=== PATIENT | male | born 1955 | race Caucasian/White ===

== ENCOUNTER 2023-03-12 16:26 | Outpatient (CLI) | payer MEDICARE, SELFPAY | END 2023-03-12 16:27 | disposition home or self-care (01) | PROVIDERS: PCP Internal Medicine; Visit Provider Internal Medicine | DX: I48.0 Paroxysmal atrial fibrillation (principal); Z79.01 Long term (current) use of anticoagulants; I35.0 Nonrheumatic aortic (valve) stenosis; G47.33 Obstructive sleep apnea (adult) (pediatric); I10 Essential (primary) hypertension; E11.9 Type 2 diabetes mellitus without complications; E66.9 Obesity, unspecified; Z99.89 Dependence on other enabling machines and devices; Z13.29 Encounter for screening for other suspected endocrine disorder; Z13.6 Encounter for screening for cardiovascular disorders | CPT/HCPCS: 80053; 80061; 84443 ==

== ENCOUNTER 2024-03-17 14:31 | Outpatient (CLI) | payer MEDICARE, SELFPAY ==
--- OUTSIDE RECORDS SUMMARY | 2024-03-17 14:35 | XMS_ITS | Encounter Summary ---
Author Name Unknown Organization [facility] Address [address] [place] [address] Care Team Providers Care Pricing Intern Name Role Phone No Primary/Referring, Phy Primary Care Provider Unavailable Encounter Details Date Type Department Care Team (Late st Contact Info) Description 10/29/2019 Correspondence [facility] [address] [place], [place] [phone] Irais Jones, OD [address] [place], [place] [phone] [place] DRIVERS WAIVER EYE EXAM Social History Tobacco Use Types Packs/Day Years Used Date Smoking Tobacco: Never Smokeless Tobacco: Never Alcohol Use Standard Drinks/Week Comments No 0 (1 standard drink = 0.6 oz pur e alcohol) Sex and Gender Information Value Date Recorded Sex Assigned at Not on file Gender Identity Not on file Sexual Orientation Not on file documented as of this encounter Plan of Treatment Not on file documented as of this encounter Visit Diagnoses Not on filedocumented in this encounter Care Teams Pricing Intern Relationship Specialty Start Date End Date No Primary/Referring, Maddy PCP - General 10/21/18 documented as of this encounter
--- OUTSIDE RECORDS SUMMARY | 2024-03-17 14:35 | XMS_ITS | Encounter Summary ---
Author Name Unknown Organization [facility] Address [address] [place] [address] Care Team Providers Care E/M Engineer Name Role Phone No Primary/Referring, Phy Primary Care Provider Unavailable Encounter Details Date Type Department Care Team (Late st Contact Info) Description 11/09/2018 Correspondence External to External, [place] [address] INSULIN-TREATED DIABETES MELLITUS ASSESSMENT FORM Social History Tobacco Use Types Packs/Day Years [...] on filedocumented in this encounter Care Teams E/M Engineer Relationship Specialty Start Date End Date No Primary/Referring, Maddy PCP - General 10/21/18 documented as of this encounter
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
--- OUTSIDE RECORDS SUMMARY | 2024-03-17 14:35 | XMS_ITS | Encounter Summary ---
Author Name Unknown Organization [facility] Address [address] [place] [address] Care Team Providers Care Boiling House Hand Name Role Phone No Primary/Referring, Phy Primary Care Provider Unavailable Encounter Details Date Type Department Care Team (Late st Contact Info) Description 07/15/2016 Consent for Procedure/[facility]me [facility] [address] [place] [address] Nathaniel Dolan MD [address] [place], [place] [phone] CONSENT FOR PROCEDURE Social History Tobacco Use Types Packs/Day Years [...] on filedocumented in this encounter Care Teams Boiling House Hand Relationship Specialty Start Date End Date No Primary/Referring, Maddy PCP - General 10/21/18 documented as of this encounter
--- OUTSIDE RECORDS SUMMARY | 2024-03-17 14:35 | XMS_ITS | Encounter Summary ---
Author Name Unknown Organization [facility] Address [address] [place] [address] Care Team Providers Care Chemical Dependency Counselor Name Role Phone No Primary/Referring, Phy Primary Care Provider Unavailable Encounter Details Date Type Department Care Team (Latest Contact Info) Description 11/18/2017 Correspondence [facility] Occupational and Environmental Medicine [address] [place] [address] Bertha Clifton MD [address] [place] [address] [phone] [place] [address] MEDICAL EXAM REPORT FORM Social History Tobacco Use Types Packs/Day [...] on filedocumented in this encounter Care Teams Chemical Dependency Counselor Relationship Specialty Start Date End Date No Primary/ReferringMaddy PCP - General 10/21/18 documented as of this encounter
--- OUTSIDE RECORDS SUMMARY | 2024-03-17 14:35 | XMS_ITS | Encounter Summary ---
Author Name Unknown Organization [facility] Address [address] [place] [address] Care Team Providers Care Sand Hauler Name Role Phone No Primary/Referring, Phy Primary Care Provider Unavailable Encounter Details Date Type Department Care Team (Latest Contact Info) Description 12/04/2016 Consent for Procedure/Treatme [facility] Occupational Medicine [address] [place] [address] Janey Curry MD [facility] MED CONSENT FORM Social History Tobacco Use Types Packs/Day [...] on filedocumented in this encounter Care Teams Sand Hauler Relationship Specialty Start Date End Date No Primary/ReferringMaddy PCP - General 10/21/18 documented as of this encounter
--- OUTSIDE RECORDS SUMMARY | 2024-03-17 14:35 | XMS_ITS | Encounter Summary ---
Author Name Unknown Organization [facility] Address [address] [place] [address] Care Team Providers Care Limnology Teacher Name Role Phone No Primary/Referring, Phy Primary Care Provider Unavailable Encounter Details Date Type Department Care Team (Latest Contact Info) Description 11/09/2018 Correspondence None No Primary/Referring, Phy OCC MED NOTES Social History Tobacco Use Types Packs/Day Years [...] on filedocumented in this encounter Care Teams Limnology Teacher Relationship Specialty Start Date End Date No Primary/Referring, Phy PCP - General 10/21/18 documented as of this encounter
--- OUTSIDE RECORDS SUMMARY | 2024-03-17 14:35 | XMS_ITS | Encounter Summary ---
Author Name Unknown Organization [facility] Address [address] [place] [address] Care Team Providers Care Bisque Ware Dipper Name Role Phone No Primary/Referring, Phy Primary Care Provider Unavailable Encounter Details Date Type Department Care Team (Late st Contact Info) Description 11/19/2018 Correspondence [facility] [address] [place], [place] [phone] Irais Jones, OD [address] [place], [place] [phone] INTERSTATE INSULIN DEPENDENT DIABETIC WAIVER Social History Tobacco Use Types Packs/Day Years [...] on filedocumented in this encounter Care Teams Bisque Ware Dipper Relationship Specialty Start Date End Date No Primary/Referring, Maddy PCP - General 10/21/18 documented as of this encounter
--- OUTSIDE RECORDS SUMMARY | 2024-03-17 14:35 | XMS_ITS | Clinical Summary ---
Author Name Unknown Organization [facility] Address [place], [place] [address] Care Team Providers Care Otolaryngology Rep Name Role Phone None Primary Care Provider Unavailabl e Allergies Active Allergy Reactions Criticality Noted Date Comments Penicillins Erythema,Other - Rahul cribe In Comment Field,Rash High 03/25/2006 Not verified. Medications Medication Sig Dispensed Refills Start Date End Date Status acetaminophen (TYLENOL) 325 mg tablet Take 650 mg by mouth. 07/18/2020 Act elisa amLODIPine (NORVASC) 5 mg tablet Take 5 mg by mouth. 10/18/2019 Activ e atorvastatin (LIPITOR) 20 mg tablet Take 20 mg by mouth. 11/24/2020 Acti ve Accu-Chek SmartView Test Strip strip USE 1 STRIP TO CHECK GLUCOSE THREE TIMES DAILY E11.8 06/19/2021 Active cholecalciferol, Vitamin D3, 2,000 unit tablet Take 1 Tablet by mouth once daily. Active furosemide (LASIX) 20 mg tablet Take 20 mg by mouth. 12/25/2020 Ac tive insulin glargine, U-100, 100 unit/mL (3 mL) pen Inject 60 units subcutaneous. 05/02/2021 Active insulin lispro, U-100, (HumaLOG KwikPen Insulin) 100 unit/mL inpn pen INJECT 20 TO 30 UNITS SUBCUTANEOUSLY WITH MEALS 05/02/2021 Active NovoLIN N NPH U-100 Insulin 100 unit/mL susp injection INJECT 0.3 ML (30 UNITS) SUBCUTANEOUSLY EVERY MORNING AND 0.25 ML (25 UNITS) EACH EVENING 04/13/2021 Active metFORMIN (GLUCOPHAGE) 1,000 mg tablet Take 1 Tablet by mouth 2 times daily. 03/12/2021 Active losartan (COZAAR) 100 mg tablet Take 100 mg by mouth. 05/08/2021 Active metoprolol succinate (TOPROL XL) 100 mg Sustained-Release tablet Take 100 mg by mouth. 11/25/2020 Act elisa rivaroxaban (Xarelto) 20 mg tablet Take 20 mg by mouth. 12/25/2020 Acti ve Insulin Syringe-Needle U-100 0.5 mL 31 gauge x 5/16 2 times daily. 03/13/2021 Active vitamin E, dl,tocopheryl acet, (vitamin E, dl, acetate,) 100 unit capsule Take 200 units by mouth. Active Multivitamins with Minerals capsule Take by mouth. Acti ve multivitamins-mine rals-lutein (CENTRUM SILVER) tab tablet Take 1 Tablet by mouth once daily. 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 Nuclear senile cataract of both eyes 12/30/2023 Hyperopia of both eyes with astigmatism and pres byopia 12/30/2023 Encounters Date Type Department Care Team Description 03/11/2024 8:14 PM CDT - 03/11/2024 10:32 PM CDT Emergency [address] [address] Jeff Tellez MD Gastrointestinal hemorrhage, unspecified gastrointestinal hemorrhage type (Primary Dx); Hemorrhoids, unspecified hemorrhoid type; Chronic anticoagulation Discharge Disposition: Home Self Care 03/11/2024 Travel 12/30/2023 2:20 PM EASEMENT WORKER Office Visit [facility] [address] [place] [address] Simon Marshall, OD Eye Exam (DM CEE) 12/30/2023 Travel from Last 3 Months Social History Tobacco Use Types Packs/Day Years Used Date Smoking Tobacco: Never Smokeless Tobacco: Never Social Connections Answer Date Recorded Frequency of Communication with Friends and Fami ly Not on file 11/03/2021 Financial Resource Strain Answer Date R ecorded Difficulty of Paying Living Expenses Not on file 11/03/2021 Difficulty of Paying Living Expenses Not on file 11/03/2021 Sex and Gender Information Value Date Recorded Sex Assigned at Not on file Gender Identity Not on file Sexual Orientation Not on file Obstetrics History Last Filed Vital Signs Vital Sign Reading Time Taken Comments Blood Pressure 130/65 03/11/2024 9:20 PM CDT Pulse 64 03/11/2024 9:21 PM CDT Temperature 36.6 ??C (97.8 ??F) 03/11/2024 7:24 PM CD T Respiratory Rate 18 03/11/2024 7:24 PM CDT Oxygen Saturation 97% 03/11/2024 9:21 PM CDT Inhaled Oxygen Concentration - - Weight 149.7 kg (330 lb) 03/11/2024 7:24 PM CDT Height 180.3 cm (5' 11) 03/11/2024 7:24 PM CDT Body Mass Index 46.03 03/11/2024 7:24 PM CDT Plan of Treatment Upcoming Encounters Date Type Department Care Team (Late st Contact Info) Description 06/29/2024 3:00 PM CDT Office Visit [facility] [id number] [facility] [place], [place] [id number] [place] [address] [facility] [place] [address] Health Maintenance Due Date Last Done Comments Tdap 1965 Depression screening for age 12+ 1966 BMI (ht and wt on same day) for age 18+ 02/11/1972 Hepatitis C screening for ag e 18-79 02/11/1972 Tetanus booster 1974 Colonoscopy through age 75 1999 Lipids for age 45-75 1999 Zoster (shingles) series for age 50+ (1 of 2) 02/11/2004 Medicare Wellness for age 65+ 2019 Pneumococcal series for age 65+ (1 of 1 - PCV) 2019 COVID-19 vaccine series ( season) 2023 07/23/2022, 10/11/2021, 01/02/2021, Additional history exists Influenza for age 65+ 07/04/2024 Procedures Procedure Name Priority Date/Time Associated Diagnosis Comments CBC WITH AUTO DIFFERENTIAL STAT 03/11/2024 9:03 PM CDT BASIC METABOLIC PANEL STAT 03/11/2024 9:03 PM CDT CBC WITH AUTO DIFFERENTIAL STAT 03/11/2024 9:03 PM CDT from Last 3 Months Results * (ABNORMAL) CBC WITH AUTO DIFFERENTIAL (03/11/2024 9:03 PM CDT) Pathologist [facility] WHITE BLOOD COUNT 8.7 4.5 - 11.0 thou/cu mm 03/11/2024 9:09 PM CDT [facility] RED BLOOD COUNT 4.09(L) 4.30 - 5.90 mil/cu mm 03/11/2024 9:09 PM CDT [facility] HEMOGLOBIN 13.4(L) 13.5 - 17.5 g/dL 03/11/2024 9:09 PM CDT [facility] HEMATOCRIT 37.8 37.0 - 53.0 % 03/11/2024 9:09 PM CDT [facility] MCV 92 80 - 100 fL 03/11/2024 9:09 PM CDT [facility] MCH 32.8 26.0 - 34.0 pg 03/11/2024 9:09 PM CDT [facility] MCHC 35.4 32.0 - 36.0 g/dL 03/11/2024 9:09 PM CDT [facility] RDW 13.3 11.5 - 15.5 % 03/11/2024 9:09 PM CDT [facility] PLATELET COUNT 171 140 - 440 thou/cu mm 03/11/2024 9:09 PM CDT [facility] MPV 10.6 6.5 - 11.0 fL 03/11/2024 9:09 PM CDT [facility] NRBC 0.0 % 03/11/2024 9:09 PM CDT [facility] ABS NRBC 0.0 thou /cu mm 03/11/2024 9:09 PM CDT [facility] % NEUT 75.3 % 03/11/2024 9:09 PM CDT [facility] % LYMPH 13.7 % 03/11/2024 9:09 PM CDT [facility] % MONO 8.1 % 03/11/2024 9:09 PM CDT [facility] % EOS 2.1 % 03/11/2024 9:09 PM CDT [facility] % BASO 0.5 % 03/11/2024 9:09 PM CDT [facility] % IMMATURE GRAN (METAS,MYELOS,HI OS) 0.3 % 03/11/2024 9:09 PM CDT [facility] ABSOLUTE NEUTROPHILS 6.6 1.7 - 7.0 thou/cu mm 03/11/2024 9:09 PM CDT [facility] ABSOLUTE LYMPHOCYTES 1.2 0.9 - 2.9 thou/cu mm 03/11/2024 9:09 PM CDT [facility] ABSOLUTE MONOCYTES 0.7 <0.9 thou/cu mm 03/11/2024 9:09 PM CDT [facility] ABSOLUTE EOSINOPHILS 0.2 <0.5 thou/cu mm 03/11/2024 9:09 PM CDT [facility] ABSOLUTE BASOPHILS 0.0 <0.3 thou/cu mm 03/11/2024 9:09 PM CDT [facility] ABSOLUTE IMMATURE GRANULOCYTES(MET ,MYELOS,PROS) 0.0 <0.3 thou/cu mm 03/11/2024 9:09 PM CDT [facility] Blood BLOOD SPECIMEN / Unknown Venipuncture / Unknown 03/11/2024 9:03 PM CDT 03/11/2024 9:07 PM CDT Jeff Tellez MD HEMATOLOGY [facility] [address] [place] [address], * (ABNORMAL) BASIC METABOLIC PANEL (03/11/2024 9:03 PM CDT) SODIUM 138 136 - 145 mmol/L 03/11/2024 9:31 PM CDT [facility] POTASSIUM 4.1 3.5 - 5.1 mmol/L 03/11/2024 9:31 PM CDT [facility] CHLORIDE 101 98 - 107 mmol/L 03/11/2024 9:31 PM CDT [facility] CO2,TOTAL 29 22 - 29 mmol/L 03/11/2024 9:31 PM CDT [facility] ANION GAP 8 5 - 18 03/11/2024 9:31 PM CDT [facility] GLUCOSE 270(H) 70 - 99 mg/dL 03/11/2024 9:31 PM CDT [facility] CALCIUM 8.8 8.8 - 10.2 mg/dL 03/11/2024 9:31 PM CDT [facility] BUN 20 8 - 23 mg/dL 03/11/2024 9:31 PM CDT [facility] CREATININE 0.84 0.70 - 1.20 mg/dL 03/11/2024 9:31 PM CDT [facility] BUN/CREAT RATIO 24(H) 10 - 20 4 9:31 PM CDT [facility] eGFR >90 >90 mL/min/1.7 3m2 03/11/2024 9:31 PM CDT [facility] Comment:As of 2022, eG FR is calculated by the CKD-EPI creatinine equation without race adjustment. ??eGFR can be influenced by muscle mass, exercise, and diet. ??The reported eGFR is an estimation only and is only applicable if the renal function is stable. Blood BLOOD SPECIMEN / Unknown Venipuncture / Unknown 03/11/2024 9:03 PM CDT 03/11/2024 9:07 PM CDT Jeff Tellez MD CHEMISTRY Performing Organization Address City/State/[facility] Co de Phone Number [facility] [address] [place] [address], from Last 3 Months Care Teams Otolaryngology Rep Relationship Specialty Start Date End Date None . PCP - General 05/30/10
--- OUTSIDE RECORDS SUMMARY | 2024-03-17 14:35 | XMS_ITS | Encounter Summary ---
Author Name Unknown Organization [facility] Address [address] [place] [address] Care Team Providers Care Java Programmer Analyst Name Role Phone No Primary/Referring, Phy Primary Care Provider Unavailable Encounter Details Date Type Department Care Team (Late st Contact Info) Description 12/18/2017 Correspondence None Inactive, Provider PAP EQUIPMENT PICK-UP TICKET Social History Tobacco Use Types Packs/Day Years [...] on filedocumented in this encounter Care Teams Java Programmer Analyst Relationship Specialty Start Date End Date No Primary/Referring, Maddy PCP - General 10/21/18 documented as of this encounter
--- OUTSIDE RECORDS SUMMARY | 2024-03-17 14:36 | XMS_ITS | Encounter Summary ---
Author Name Unknown Organization [facility] Address [address] [place] [address] Care Team Providers Care Candy Mixer Name Role Phone No Primary/Referring, Phy Primary Care Provider Unavailable Encounter Details Date Type Department Care Team (Late st Contact Info) Description 02/23/2015 Correspondence [facility] [address] [facility] [address] [place] [address] Nathaniel Dolan MD [address] [place], [place] [id number] FMLA Social History Tobacco Use Types Packs/Day Years [...] on filedocumented in this encounter Care Teams Candy Mixer Relationship Specialty Start Date End Date No Primary/Referring, Caridady PCP - General 10/21/18 documented as of this encounter
--- OUTSIDE RECORDS SUMMARY | 2024-03-17 14:36 | XMS_ITS | Encounter Summary ---
Author Name Unknown Organization [facility] Address [address] [facility] [address] Care Team Providers Care Yardage Caller Name Role Phone No Primary/Referring, Phy Primary Care Provider Unavailable Encounter Details Date Type Department Care Team (Latest Contact Info) Description 02/15/2013 Correspondence [facility] Occupational and Environmental Medicine [address] [place] [id number] Janey Curry MD REGISTERED RADIOGRAPHER FITNESS DETERMINATION Social History Tobacco Use Types Packs/Day Years Used Date Smoking Tobacco: Never Assessed Sex and Gender Information Value Date Recorded Sex Assigned at Not on file Gender Identity Not on file Sexual Orientation Not on file documented as of this encounter Progress Notes * Janey Curry MD - 02/15/2013 12:00 AM CDT documented in this encounter Plan of Treatment Not on file documented as of this encounter Visit Diagnoses Not on filedocumented in this encounter Care Teams Yardage Caller Relationship Specialty Start Date End Date No Primary/Referring, Caridady PCP - General 10/21/18 documented as of this encounter
--- OUTSIDE RECORDS SUMMARY | 2024-03-17 14:36 | XMS_ITS | Encounter Summary ---
Author Name Unknown Organization [facility] Address [address] [place] [address] Care Team Providers Care Forestry Consultant Name Role Phone No Primary/Referring, Phy Primary Care Provider Unavailable Encounter Details Date Type Department Care Team (Latest Contact Info) Description 12/19/2015 Correspondence None No Primary/ReferringMaddy OCCMED NOTES Social History Tobacco Use Types Packs/Day [...] on filedocumented in this encounter Care Teams Forestry Consultant Relationship Specialty Start Date End Date No Primary/Referring, Maddy PCP - General 10/21/18 documented as of this encounter
--- OUTSIDE RECORDS SUMMARY | 2024-03-17 14:36 | XMS_ITS | Encounter Summary ---
Author Name Unknown Organization [facility] Address [address] [place] [address] Care Team Providers Care Residential Lawn Specialist Name Role Phone No Primary/Referring, Phy Primary Care Provider Unavailable Encounter Details Date Type Department Care Team (Late st Contact Info) Description 02/03/2015 Correspondence None No Primary/Referring, Phy [facility] Social History Tobacco Use Types Packs/Day Years [...] on filedocumented in this encounter Care Teams Residential Lawn Specialist Relationship Specialty Start Date End Date No Primary/Referring, Phy PCP - General 10/21/18 documented as of this encounter
--- OUTSIDE RECORDS SUMMARY | 2024-03-17 14:36 | XMS_ITS | Encounter Summary ---
Author Name Unknown Organization [facility] Address [address] [place] [address] Care Team Providers Care Fiber Product Cutting Machine Operator Name Role Phone No Primary/Referring, Phy Primary Care Provider Unavailable Encounter Details Date Type Department Care Team (Late st Contact Info) Description 07/26/2014 Correspondence [facility] [address] [place] [address] [place] [address] [place] [address] MEDICAL LEAVE STATUS REPORT Social History Tobacco Use Types Packs/Day Years [...] on filedocumented in this encounter Care Teams Fiber Product Cutting Machine Operator Relationship Specialty Start Date End Date No Primary/Referring, Maddy PCP - General 10/21/18 documented as of this encounter
--- OUTSIDE RECORDS SUMMARY | 2024-03-17 14:36 | XMS_ITS | Encounter Summary ---
Author Name Unknown Organization [facility] Address [address] [place] [address] Care Team Providers Care Logistics Solution Manager Name Role Phone No Primary/Referring, Phy Primary Care Provider Unavailable Encounter Details Date Type Department Care Team (Latest Contact Info) Description 01/08/2016 Correspondence [facility] Occupational and Environmental Medicine [address] [place] [id number] Kemar Naik MD [address] [place] [phone] [facility] Social History Tobacco Use [...] on filedocumented in this encounter Care Teams Logistics Solution Manager Relationship Specialty Start Date End Date No Primary/Referring, Maddy PCP - General 10/21/18 documented as of this encounter
--- OUTSIDE RECORDS SUMMARY | 2024-03-17 14:36 | XMS_ITS | Clinical Summary ---
Author Name Unknown Organization [facility] Address [address] [place] [id number] Phone Care Team Providers Care Meteorology Faculty Member Name Role Phone David Martinez MD Primary Care Provider [phone] Source Comments [employer] is fully rolled out on [employer]. Last update 04/07/09.[facility] Allergies Active Allergy Reactions Criticality Noted Date Comments Penicillins Erythema Nodosum High 03/25/2006 Medications * Be aware that medications may not be up to date as of this document. Always verify current medications with patient. Medication Sig Dispensed Refills Start Date End Date Status Multiple Vitamin (MULTI-VITAMIN ORAL) Take by mouth. Active Cholecalciferol (VITAMIN D3 ORAL) Take 1 tablet by mouth daily. Active omega 3 (MAXEPA) 1000 mg oral capsule Take 2 capsules (2,000 mg) by mouth daily. Active insulin pen needle (B-D U/F PEN NEEDLE) 31g x 8 mm NotApplicabl misc USE 1 4 TIMES DAILY 400 each 2 3 Active glucose blood (ACCU-CHEK SMARTVIEW) in vitro test strips Use 1 strip to check glucose three times daily E11.8 300 Strip 1 3 Active losartan (COZAAR) 50 mg oral TABS Take 1 tablet (50 mg) by mouth daily. 90 tablet 3 4 Active atorvastatin (LIPITOR) 20 mg oral tablet Take 1 tablet (20 mg) by mouth daily. 90 tablet 3 4 Active furosemide (LASIX) 40 mg oral tabletIndications :Leg edema Take 1 tablet (40 mg) by mouth daily. 90 tablet 3 4 Active metoprolol succinate (TOPROL XL) 100 mg oral XL tablet Take 1 tablet (100 mg) by mouth daily. 90 tablet 3 4 Active XARELTO 20 MG oral tablet Take 1 tablet (20 mg) by mouth at bedtime. 90 tablet 3 4 Active insulin LISPRO (HUMALOG) 100 UNIT/ML subcutaneous Kwikpen INJECT 15 TO 30 UNITS SUBCUTANEOUSLY WITH MEALS. Max daily dose 90u 27 Pen 3 4 Active insulin GLARGINE (BASAGLAR) 100 units/mL subcutaneous KwikPen Inject 60 UNITS subcutaneously daily. 45 mL 3 4 Active metFORMIN (GLUCOPHAGE) 1000 mg oral tablet Take 1 tablet by mouth twice daily 180 tablet 4 Active amLODIPine (NORVASC) 5 mg oral TABS Take 2 tablets (10 mg) by mouth daily. 180 tablet 3 4 Active non-formulary medication Melaleuca vitamin pack. Take one pack of vitamins by mouth two times daily Active semaglutide 1 MG/DOSE (OZEMPIC 1 MG/DOSE) 4 mg/3 mL subcutaneous injection penIndications:Un controlled type 2 diabetes mellitus with hyperglycemia ([facility]) Inject 0.75 mL (1 mg) subcutaneously every week. 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 Suspect likely NAION. Per consult on 03/26, GCA ROS negative. 1+ APD on exam today. HVF today (04/16/2021): Left eye normal. Right eye with inferior field loss respecting the midline. OCT RNFL today (04/16/2021): Left eye with borderline inferior thinning. Right eye with thinning superiorly (correspondant with HVF findings) and inferonasal thickening. - Recommend close follow up with PCP to monitor for other cardiovascular risk factors - Return in 6 weeks for follow up with Dr. Kwan -- sooner for new or worsening symptoms CAD (coronary artery disease) 09/05/2020 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 Balanitis 03/08/2019 BPH with obstruction/lower urinary tract symptom s 01/25/2019 Type 2 diabetes mellitus wit h diabetic polyneuropathy, with long-term current use of insulin ([facility]) 07/08/2018 PVD (posterior vitreous detachment), right eye 0 12/03/2016 Venous incompetence 06/13/2016 Type 2 diabetes mellitus wit h moderate nonproliferative retinopathy, macular edema presence unspecified 09/04/2015 Essential hypertension 09/04/2015 Obstructive sleep apnea 01/30/2015 Mild nonproliferative diabetic retinopathy ([facility]) 12/30/2013 ED (erectile dysfunction) 07/22/2013 Familial multiple lipoprotein-type hyperlipidemi a 01/13/2013 Dyslipidemia 01/13/2013 Cervical radiculopathy 12/15/2011 Chronic cellulitis 07/07/2008 Overview: episodes in both legs Morbid obesity ([facility]) 07/07/2008 Hyperlipidemia 01/28/2008 Resolved Problems Problem Noted Date Diagnosed Date Resolved Date Chest pain, unspecified type 07/16/2023 10/10/2023 Penis disorder 01/25/2019 03/08/2019 Diarrhea 05/19/2014 10/14/2019 Type 2 diabetes mellitus wit h diabetic polyneuropathy, with long-term current use of insulin ([facility]) 12/30/2013 04/11/2022 Hypertension 12/16/2011 12/24/2019 Cellulitis of oral soft tissues 09/04/2010 10/10/2011 Health maintenance examination 06/21/2010 10/14/2019 HTN 07/07/2008 04/07/2012 Diabetes mellitus, type 2 ([facility]) 06/18/2007 04/11/2022 Encounters Date Type Department Care Team Description 03/11/2024 [facility] [address] [place] [id number] Minor, Kevan Salgado, RN Rectal Bleeding 03/03/2024 10:26 AM CDT - 03/04/2024 9:56 AM CDT Emergency [facility] [address] [place] [address] Tisha Palomo MD Madar, MD Genaro Fuller Shrikar S, MD Chest pain, unspecified type Discharge Disposition: Discharged to home or self care (routine discharge) 03/03/2024 Orders Only Unspecified Department [place] Unknown, Provider 03/03/2024 Travel 01/21/2024 [facility]ill [facility] [address] [place] [id number] Gabriel Em PA-C Refill Request 01/08/2024 [facility] [address] [place] [id number] Shannon Sutton MD Other 01/01/2024 Pharmacy Patient Assistance Program [facility] [address] [place] [address] Vicky Hernández MD 01/01/2024 Pharmacy Patient Assistance Program [facility] [address] [place] [address] Vicky Hernández MD from Last 3 Months Immunizations Name Administration Dates Next Due COVID-19 MRNA Vaccine (Pfize r/COMIRNATY) suspension 01/02/2021,12/12/2020 Influenza Vaccine 6 Months t hrough Adult - Prefilled 07/28/2017,09/04/2015 Influenza Vaccine, Unspecified 10/10/2011,2009,08/21/2007 Pneumococcal Polysaccharide, 23 Valent Vaccine(Pneumovax 23) 07/04/2005 Tetanus and Diphtheria Toxoi ds Adsorbed-Td (TENIVAC) 07/04/2005 Family History Medical History Relation Name Comments Cataracts Father Glaucoma Father Cataracts Maternal Aunt Diabetes Maternal Aunt Diabetes Maternal Grandfather Cataracts Maternal Uncle Diabetes Maternal Uncle Cataracts Mother Glaucoma Mother Other Other 4 brothers 3sisters FH of AO DM, lymphoma, kidney stones, Parkinson's Cataracts Paternal Aunt Diabetes Paternal Aunt Cataracts Paternal Uncle Diabetes Paternal Uncle Relation Name Status Comments Father Accidental deat h. Maternal Aunt Maternal Grandfather Maternal Uncle Mother Unknown cause? Other 4 brothers 3sisters Paternal Aunt Paternal Uncle Social History Tobacco Use Types Packs/Day Years Used Date Smoking Tobacco: Never Smokeless Tobacco: Never Tobacco Cessation:Counseling Given: Not Answered Alcohol Use Standard Drinks/Week Comments No 0 (1 standard drink = 0.6 oz pur e alcohol) Humiliation, Afraid, Rape, and Kick questionnair e Answer Date Recorded Within the last year, have y ou been afraid of your partner or ex-partner? No 03/03/2024 Within the last year, have y ou been humiliated or emotionally abused in other ways by your partner or ex-partner? No Within the last year, have y ou been kicked, hit, slapped, or otherwise physically hurt by your partner or ex-partner? No 03/03/2024 Within the last year, have y ou been raped or forced to have any kind of sexual activity by your partner or ex-partner? No 03/03/2024 Overall Financial Resource Strain (CARDIA) Answe r Date Recorded How hard is it for you to pa y for the very basics like food, housing, medical care, and heating? Not hard at all 03/03/2024 Hunger Vital Sign Answer Date Recorded Within the past 12 months, y ou worried that your food would run out before you got the money to buy more. Never true 03/03/20 24 Within the past 12 months, t he food you bought just didn't last and you didn't have money to get more. Never true 03/03/2024 PRAPARE - Transportation Answer Date Re corded In the past 12 months, has l ack of transportation kept you from medical appointments or from getting medications? No 11/2023 In the past 12 months, has l ack of transportation kept you from meetings, work, or from getting things needed for daily living? No 03/03/2024 Housing Stability Answer Date Recorded What is your housing situation today? 3 - I have housing 03/03/2024 Sex and Gender Information Value Date Recorded Sex Assigned at Not on file Gender Identity Not on file Sexual Orientation Not on file Last Filed Vital Signs Vital Sign Reading Time Taken Comments Blood Pressure 143/69 03/04/2024 5:00 AM CDT Pulse 57 03/04/2024 4:28 AM CDT Temperature 36.2 ??C (97.1 ??F) 03/04/2024 8:02 AM CD T Respiratory Rate 18 03/04/2024 4:28 AM CDT Oxygen Saturation 96% 03/04/2024 4:28 AM CDT Inhaled Oxygen Concentration - - Weight 145.5 kg (320 lb 12.3 oz) 03/03/2024 5:00 PM CDT Height 177.8 cm (5' 10) 03/03/2024 5:00 PM CDT Body Mass Index 46.03 03/03/2024 5:00 PM CDT Plan of Treatment Upcoming Encounters Date Type Department Care Team (Latest Contact Info) Description 03/22/2024 2:30 PM CDT [facility] [address] [place] [id number] Vicky Hernández MD [address] [place] [phone] Scheduled Discharge Disposition: Discharged to home or self care (routine discharge) 04/27/2024 2:30 PM CDT [facility] [address] [place] [phone] Gabriel Em PA-C [address] [address] Scheduled Discharge Disposition: Discharged to home or self care (routine discharge) Health Maintenance Due Date Last Done Comments CT Colonography 1955 Dental Oral Exam 1955 Dental Prophylaxis 1955 Dental X-Ray: Bitewings 1955 FIT/Cologuard 1955 Sigmoidoscopy 1955 Periodontal Maintenance 02/11/1968 Medicare Annual Wellness 02/11/1972 iFOB/FIT 04/14/2003 04/14/2002 Imm: Pneumonia greater than 65 years (2 of 2 - PCV) 07/25/2006 07/25/2005, 07/04/2005 PREVENTATIVE VISIT 02/26/2011 02/26/2010, 0 02/23/2009, 01/28/2008 Colonoscopy 01/31/2013 02/01/2008 Colorectal Cancer Screening 01/31/2013 Osteoporosis Screening (Dexa Scan) 2019 HEALTH MAINTENANCE PROTOCOL 01/03/2022 01/03/2021, 0 12/16/2011 Diabetic Eye Exam 03/05/2023 03/05/2022, , 11/19/2018, Additional history exists Diabetic Foot Exam 05/03/2023 05/03/2022, 0 06/07/2019, 04/27/2018, Additional history exists Diabetic Education Protocol (CDE) 02/14/2024 02/13/2023, 05/02/2021, 10/21/2018, Additional history exists Diabetic Lab Protocol 02/14/2024 02/13/2023 , 02/01/2022, 07/08/2018, Additional history exists Diabetic Microalbumin Screening 02/14/2024 02/13/2023, 05/03/2022, 04/13/2021, Additional history exists MEDICATION REFILL PROTOCOL 02/14/202402/13, 01/29/2022, 09/14/2020, Additional history exists Diabetic HGB A1C Q 3 Months (Goal <7) 03/04/2024 12/05/2023, 09/30/2023, 09/30/2023, Additional history exists TD/TDAP ADULTS 04/01/2024 04/01/2014, 07/05, 07/04/2005 COVID-19 Vaccine ( season) 2024 07/23/2022, 10/11/2021, 01/02/2021, Additional history exists Postponed from 07/04/2023 (Patient Declined) INFLUENZA VACCINE 12/05/2024 07/28/2017, , 07/11/2014, Additional history exists Postponed from 06/03/2023 (Patient Declined) Lipid Screening 04/10/2028 04/10/2023, 04/03, 12/24/2019, Additional history exists Hepatitis C Screening Completed 01/27/2001 Diabetic Education Completed 06/10/2013, 0 05/27/2013, 05/20/2013, Additional history exists HIB Aged Out No longer eligi ble based on patient's age to complete this topic HPV Aged Out No longer eligi ble based on patient's age to complete this topic Imm: HepB Aged Out No longer eligi ble based on patient's age to complete this topic RSV Infant Immunoglobulin Aged Out No longer eligible based on patient's age to complete this topic Procedures Procedure Name Priority Date/Time Associated Diagnosis Comments POC GLUCOSE Routine 03/04/2024 6:35 AM CDT POC GLUCOSE Routine 03/03/2024 8:49 PM CDT TELEMETRY STRIPS 03/03/2024 6:14 PM CDT POC GLUCOSE Routine 03/03/2024 6:02 PM CDT ECH TRANSTHOR (TTE) COMPLETE WITH CONTRAST STAT 03/03/2024 3:34 PM CDT PC TROPONIN QUANTITATIVE Timed 03/03/2024 12:33 PM CDT XR CHEST 2 VIEWS PA + LAT* Routine 03/03/2024 12:30 PM CDT ED EKG (12-LEAD) Routine 03/03/2024 10:5 6 AM CDT ED US CARDIAC STAT 03/03/2024 10:48 AM CDT ED EKG (12-LEAD) Routine 03/03/2024 10:4 1 AM CDT PC TROPONIN QUANTITATIVE STAT 03/03/2024 10:41 AM CDT PC LAB CBC W/DIFF & PLT STAT 03/03/2024 10:41 AM CDT PC ELECTROLYTES PANEL STAT 03/03/2024 10:41 AM CDT TC LAB BLOOD DRAW BY VENIPUNCTURE Routine 03/03/2024 10:38 AM CDT POC GLYCOSYLATED HGB-A1C MONITORING Routine 12/05/2023 2:26 PM DIRECTOR OF RECREATION THERAPY PC LIPOPROTEIN;DIRECT MEASUREMENT,LDL CHOLESTEROL Routine 04/10/2023 5:12 PM CDT Coronary artery disease involving deering coronary artery of deering heart without angina pectoris Nonrheumatic aortic valve stenosis PC CREATININE;OTHER SOURCE Routine 02/13/2023 3:00 PM CDT Type 2 diabetes mellitus with complication, with long-term current use of insulin ([facility]) COLONOSCOPY-DIAGNOSTI C Routine 02/01/2008 10:55 AM CDT OCCULT BLOOD, STOOL Routine 04/14/2002 1 1:29 AM CDT HEPATITIS C ANTIBODY(HX) Routine 01/27/2001 2:39 PM DIRECTOR OF RECREATION THERAPY from Last 3 Months or Most Recently Relevant to Health Maintenance Results * (ABNORMAL) POC GLUCOSE (03/04/2024 6:35 AM CDT) Only the most recent of3 resultswithin the time period is included. POC Glucose 277(H) 70 - 100 mg/dL [facility] Blood 03/04/2024 6:35 AM CDT Tisha Palomo MD LABORATORY [facility] [address] [place] [address], [place] * TELEMETRY STRIPS (03/03/2024 6:14 PM CDT) Narrative 03/03/2024 6:14 PM CDT Ordered by an unspecified provider. Provider Unknown RAD ECHO * ECH TRANSTHOR (TTE) COMPLETE WITH CONTRAST (03/03/2024 3:34 PM CDT) AoV int. 49.4 m/s [facility] mnAoV grad. 10 mmHg [facility] AoV peak 18.49 mmHg [facility] Aov area 1.57 cm2 [facility] I.ritchie sept. 1.68 cm [facility] left atri. 4.2 cm [facility] LV E diast 5.09 cm [facility] LV wall 1.66 cm [facility] LV E syst 3.52 cm [facility] LVEF Calc 69 % [facility] LVOT diam 2.3 cm [facility] LVOT int 18.7 m/s [facility] E wave / A wave 1.7 [facility] mn MV grad. 3 mmHg [facility] MV T 1/2 56 msec [facility] MVA rosy 0.788 m/s [facility] MVE rosy 1.34 m/s [facility] mitrl area 3.93 cm2 [facility] TDI E' rosy 0.074 m/s [facility] FS 30.84 % [facility] LVOT peak 2 mmHg [facility] LVOT mn 1 mmHg [facility] heart rate 66 bpm [facility] BPS 136 mmHg [facility] BPD 121 mmHg [facility] LAvol IDX 22 ml/m2 [facility] 012SF True [facility] 010 True [facility] 364 True [facility] 131 True [facility] 381 True [facility] 009 True [facility] 641 True [facility] 516MI True [facility] 580TR True [facility] 902NO True [facility] 920NO True [facility] PVNWV True [facility] 880NO True [facility] RANWV True [facility] RVNWV True [facility] TVNWV True [facility] 780TR True [facility] 03/03/2024 1:36 PM CDT Narrative [facility] - 03/03/2024 12:00 AM CDT Report Status:Finalized Transthoracic Echocardiography Report (TTE) Demographics Patient Name ? WALKER CHEVY ? Height ? 70.98 Inches KARSTEN Patient Number ?? [id number] ?Weight ? 326.81 Pounds Date of ?1955 ? BSA ?2.6 m^2 Age ?69 ? Tape Number Gender ? Male ? Study Date ? 03/03/2024 02:29 PM [employer] ?RB ? Ordering Provider ??Tisha Palomo - [id number] Referring ? Interpreting ? Gavin Hwang MD Physician ? Physician ?[id number] Type of Study: TTE procedure: 2D echocardiogram, M-Mode, Doppler , Color Doppler, Contrast study, ECH TRANSTHORACIC ECHO (TTE) HR: 66 bpmBP: 136/121 mmHgPatient Status: Routine Study Location: [facility] Quality: Poor visualization Contrast Medium: Optison. Amount - 0.5 ml Allergies - Penicillin allergy. CONCLUSIONS SUMMARY Technically difficult study. The estimated left ventricular ejection fraction is 69 %. No tricuspid regurgitation was present, so it was not possible to estimate PA systolic pressure. Inferior vena cava not adequately visualized. Normal left ventricular cavity size. Normal estimated left ventricular ejection fraction . Left ventricular hypertrophy concentric. No wall motion abnormality . Bioprosthetic aortic valve (TAVR ) with a mean gradient of 10 mmHg. Aortic valve insufficiency , mild , possible ADDITIONAL REMARKS Technically poor quality study (previous echo done at [facility] on 10/08/23 after TAVR was also technically poor quality) Diastolic indices for assessment of LV diastolic function are indeterminate. Image quality is technically inadequate to r/o TAVR dysfunction Signature Valves Mitral Valve Area (PHT): 3.93 cm^2 ?Area (continuity): 1.88 cm^2 Peak E-Wave: 1.3 m/s ? Mean Velocity: 0.8 m/s Peak A-Wave: 0.8 m/s ? Mean Gradient: 3 mmHg Peak Gradient: 7.18 mmHg ? Deceleration Time: 191 msec P1/2t: 56 msec E/A Ratio: 1.7 Tissue Doppler E' Medial Velocity: 0.074 m/s E' Lateral Velocity: 0.067 m/s Mitral Valve Summary Fibrocalcific process of the mitral valve annulus mild. Mitral valve insufficiency trace. Aortic Valve Peak Velocity: 2.2 m/s ? Area (continuity): 1.57 cm^2 Peak Gradient: 18.49 mmHg ?Mean Velocity: 1.5 m/s Mean Gradient: 10 mmHg AV VTI: 49.4cm Aortic Valve Summary Bioprosthetic aortic valve (TAVR ) with a mean gradient of 10 mmHg. Aortic valve insufficiency , mild , possible Tricuspid Valve Tricuspid Valve Summary Tricuspid valve not well visualized. Tricuspid valve insufficiency trace. Pulmonic Valve Pulmonic Valve Summary Pulmonic valve not well visualized. No evidence for pulmonary valve insufficiency. LVOT Peak Velocity: 0.8 m/s ? Mean Velocity: 0.5 m/s Peak Gradient: 2 mmHg ?Mean Gradient: 1 mmHg LVOT Diameter: 2.3 cm ?LVOT VTI: 18.7cm Structures Left Atrium LA Dimension: 4.2 cm ? LA Area: 19.9 cm^2 LA Volume Index: 22ml/m^2 Left Atrium Summary Normal left atrial size. Left Ventricle Diastolic Dimension: 5.09 cm ? Systolic Dimension: 3.52 cm Septum Diastolic: 1.68 cm PW Diastolic: 1.66 cm ?Area Systolic: 15.4 cm^2 Area Diastolic: 24.4 cm^2 EF Calculated: 69% ? CI: 1.97 l/min*m^2 CO: 5.13 l/min LV EDV/LV EDV Index: 100 ml/38 m^2 FS: 30.84 % ?LV ESV/LV ESV Index: 31 ml/12 m^2 LV Length: 7.67 cm LVOT Diameter: 2.3 cm Stroke Volume: 77.65 ml Left Ventricle Summary Normal left ventricular cavity size. Normal estimated left ventricular ejection fraction . Left ventricular hypertrophy concentric. Pulmonary vein doppler is abnormal . Doppler tissue imaging is abnormal . No wall motion abnormality . Right Atrium Right Atrium Summary Right Atrium not well visualized. Right Ventricle Right Ventricle Summary Right Ventricle not well visualized. Miscellaneous Aorta Ascending Aorta: 3.1 cm Asc. Aorta Index:1.19 cm/m^2 LVOT Diameter: 2.3 cm Miscellaneous Summary Inferior vena cava not adequately visualized. Pericardium Pericardial Effusion Summary No evidence for pericardial effusion. Pleura Pleural Effusion Summary No evidence for pleural effusion. True True True Procedure Note Gavin Hwang MD - 03/03/2024 Report Status:Finalized Transthoracic Echocardiography Report (TTE) Demographics Patient Name JEN REECE Height 70.98 Inches KARSTEN Patient Number [id number] Weight 326.81 Pounds Date of 1955 BSA 2.6 m^2 Age 69 Tape Number Gender Male Study Date 03/03/2024 02:29 PM [employer] RB Ordering Provider Tisha Palomo - [id number] Referring Interpreting Gavin Hwang MD Physician Physician [id number] Type of Study: TTE procedure: 2D echocardiogram, M-Mode, Doppler , Color Doppler, Contrast study, ECH TRANSTHORACIC ECHO (TTE) HR: 66 bpmBP: 136/121 mmHgPatient Status: Routine Study Location: [facility] Quality: Poor visualization Contrast Medium: Optison. Amount - 0.5 ml Allergies - Penicillin allergy. CONCLUSIONS SUMMARY Technically difficult study. The estimated left ventricular ejection fraction is 69 %. No tricuspid regurgitation was present, so it was not possible toestimate PA systolic pressure. Inferior vena cava not adequately visualized. Normal left ventricular cavity size. Normal estimated left ventricular ejection fraction . Left ventricular hypertrophy concentric. No wall motion abnormality . Bioprosthetic aortic valve (TAVR ) with a mean gradient of 10 mmHg. Aortic valve insufficiency , mild , possible ADDITIONAL REMARKS Technically poor quality study (previous echo done at [facility] on 10/08/23 after TAVR was also technically poor quality) Diastolic indices for assessment of LV diastolic function are indeterminate. Image quality is technically inadequate to r/o TAVR dysfunction Signature Valves Mitral Valve Area (PHT): 3.93 cm^2 Area (continuity): 1.88 cm^2 Peak E-Wave: 1.3 m/s Mean Velocity: 0.8 m/s Peak A-Wave: 0.8 m/s Mean Gradient: 3 mmHg Peak Gradient: 7.18 mmHg Deceleration Time: 191 msec P1/2t: 56 msec E/A Ratio: 1.7 Tissue Doppler E' Medial Velocity: 0.074 m/s E' Lateral Velocity: 0.067 m/s Mitral Valve Summary Fibrocalcific process of the mitral valve annulus mild. Mitral valve insufficiency trace. Aortic Valve Peak Velocity: 2.2 m/s Area (continuity): 1.57 cm^2 Peak Gradient: 18.49 mmHg Mean Velocity: 1.5 m/s Mean Gradient: 10 mmHg AV VTI: 49.4cm Aortic Valve Summary Bioprosthetic aortic valve (TAVR ) with a mean gradient of 10 mmHg. Aortic valve insufficiency , mild , possible Tricuspid Valve Tricuspid Valve Summary Tricuspid valve not well visualized. Tricuspid valve insufficiency trace. Pulmonic Valve Pulmonic Valve Summary Pulmonic valve not well visualized. No evidence for pulmonary valve insufficiency. LVOT Peak Velocity: 0.8 m/s Mean Velocity: 0.5 m/s Peak Gradient: 2 mmHg Mean Gradient: 1 mmHg LVOT Diameter: 2.3 cm LVOT VTI: 18.7cm Structures Left Atrium LA Dimension: 4.2 cm LA Area: 19.9 cm^2 LA Volume Index: 22ml/m^2 Left Atrium Summary Normal left atrial size. Left Ventricle Diastolic Dimension: 5.09 cm Systolic Dimension: 3.52 cm Septum Diastolic: 1.68 cm PW Diastolic: 1.66 cm Area Systolic: 15.4 cm^2 Area Diastolic: 24.4 cm^2 EF Calculated: 69% CI: 1.97 l/min*m^2 CO: 5.13 l/min LV EDV/LV EDV Index: 100 ml/38 m^2 FS: 30.84 % LV ESV/LV ESV Index: 31 ml/12 m^2 LV Length: 7.67 cm LVOT Diameter: 2.3 cm Stroke Volume: 77.65 ml Left Ventricle Summary Normal left ventricular cavity size. Normal estimated left ventricular ejection fraction . Left ventricular hypertrophy concentric. Pulmonary vein doppler is abnormal . Doppler tissue imaging is abnormal . No wall motion abnormality . Right Atrium Right Atrium Summary Right Atrium not well visualized. Right Ventricle Right Ventricle Summary Right Ventricle not well visualized. Miscellaneous Aorta Ascending Aorta: 3.1 cm Asc. Aorta Index:1.19 cm/m^2 LVOT Diameter: 2.3 cm Miscellaneous Summary Inferior vena cava not adequately visualized. Pericardium Pericardial Effusion Summary No evidence for pericardial effusion. Pleura Pleural Effusion Summary No evidence for pleural effusion. True True True Tisha Palomo MD RAD ECHO [facility] * TROP 2H (03/03/2024 12:33 PM CDT) 2H Trop 12 <=35 ng/L [facility] [facility] Delta Not Significant Not Significant [facility] Blood 03/03/2024 12:3 3 PM CDT 03/03/2024 12:41 PM CDT Tisha Palomo MD LABORATORY [facility] [address] [address] * XR CHEST 2 VIEWS PA + LAT* (03/03/2024 12:30 PM CDT) Anatomical Region Laterality Modality Chest Computed Radiogr aphy 03/03/2024 12:3 4 PM CDT Impressions 03/03/2024 12:35 PM CDT Impression: Recurrent small left pleural effusion. Unchanged cardiomegaly. Reading Radiologist: Je Manning Narrative 03/03/2024 12:35 PM CDT Technique: XR CHEST 2 VIEWS PA + LAT* Indication: Chest pain ?? Comparison: 07/16/2023 Findings: Midline trachea. Sternotomy wires. Interval placement of aortic valve prosthesis. No pneumothorax. Unchanged appearance of posterior left costophrenic angle blunting compatible with small effusion. Pulmonary vasculature is distinct. Mild degenerative changes of the spine and shoulders. Procedure Note Je Manning DO - 03/03/2024 Technique: XR CHEST 2 VIEWS PA + LAT* Indication: Chest pain Comparison: 07/16/2023 Findings: Midline trachea. Sternotomy wires. Interval placement of aorticvalve prosthesis. No pneumothorax. Unchanged appearance of posterior leftcostophrenic angle blunting compatible with small effusion. Pulmonaryvasculature is distinct. Mild degenerative changes of the spine andshoulders. IMPRESSION Impression: Recurrent small left pleural effusion. Unchanged cardiomegaly. Reading Radiologist: Je Manning Tisha Palomo MD RAD XRAY * ED EKG (12-LEAD) (03/03/2024 10:56 AM CDT) Only the most recent of2 resultswithin the time period is included. 03/03/2024 10:5 6 AM CDT Impressions [facility] E[facility] ORDERS - 03/03/2024 10:56 AM CDT SINUS RHYTHM WITH FIRST DEGREE AV BLOCK INDETERMINATE AXIS MODERATE INTRAVENTRICULAR CONDUCTION DELAY ??[110+ ms QRS DURATION] MODERATE T-WAVE ABNORMALITY, CONSIDER ANTERIOR ISCHEMIA ??[-0.1+ mV T-WAVE IN V3/V4] ABNORMAL ECG Comparison Summary: NO CHANGE FROM PRIOR. Compared with: 03/03/2024 10:41 AM P-R Interval 221 ms QRS Interval 115 ms QT Interval 397 ms QTC Interval 409 ms P [place] 61 QRS [place] 20 T Wave [place] 88 Narrative Procedure Note Gibson Benitez MD - 03/03/2024 IMPRESSION SINUS RHYTHM WITH FIRST DEGREE AV BLOCK INDETERMINATE AXIS MODERATE INTRAVENTRICULAR CONDUCTION DELAY [110+ ms QRS DURATION] MODERATE T-WAVE ABNORMALITY, CONSIDER ANTERIOR ISCHEMIA [-0.1+ mV T-WAVEIN V3/V4] ABNORMAL ECG Comparison Summary: NO CHANGE FROM PRIOR. Compared with: 03/03/2024 10:41 AM P-R Interval 221 ms QRS Interval 115 ms QT Interval 397 ms QTC Interval 409 ms P [place] 61 QRS [place] 20 T Wave [place] 88 Tisha Palomo MD EKG [facility] E[facility] ORDERS * ED US CARDIAC (03/03/2024 10:48 AM CDT) Anatomical Region Laterality Modality Ultrasound Narrative 03/03/2024 11:56 AM CDT ED Cardiac Ultrasound Body Areas Imaged: Heart, Chest Wall/Lungs, and Inferior Vena Cava Indications:Chest Pain Window: Subxiphoid, Parasternal Short [place], Parasternal Long [place], Apical 4-Chamber, IVC, and Bilateral Lungs Findings: The left ventricular ejection fraction appears: Grossly preserved No pericardial effusion identified. RV Dilation present/absent: No significant right ventricular dilation appreciated Lung sliding present bilaterally, A-line predominance The IVC diameter appears Mid-range with greater than 50% variation with respiration Impression: The left ventricular ejection fraction appears: Grossly preserved No pericardial effusion identified. RV Dilation present/absent: No significant right ventricular dilation appreciated A-Line predominance consistent with normal lung aeration Findings suggest euvolemia Tisha Palomo MD, 03/03/2024 11:55 AM Naman Finley PA-C RAD ED ULT * HS TROPONIN (03/03/2024 10:41 AM CDT) Pathologist [facility] HS Troponin I 13 <=35 ng/L [facility] Blood 03/03/2024 10:4 1 AM CDT 03/03/2024 10:54 AM CDT Narrative [facility] - 03/03/2024 11:22 AM CDT If ordering as an add-on lab, you must call the lab. Tisha Palomo MD LABORATORY [facility] [address] [address] * (ABNORMAL) ED CHEMISTRY LABS(NA,K,CL,CO2,GLU,CREAT,CA-IONIZED,ANION GAP) (03/03/2024 10:41 AM CDT) Pathologist [facility] Sodium 139 135 - 148 mEq/L [facility] Chloride 106 92 - 108 mEq/L [facility] AnGap 6(L) 8 - 16 mEq/L [facility] Glucose 332(H) 70 - 100 mg/dL [facility] ICA, Actual 4.12(L) 4.40 - 5.20 mg/dL [facility] ICA, pH Corrected 4.23(L) 4.40 - 5.20 mg/dL [facility] Creatinine 0.71 0.70 - 1.25 mg/dL [facility] BICARB 27(H) 22 - 26 mEq/L [facility] eGFR (2020 CKD-EPI) 99 >=60 ml/min/1.7 3m2 [facility] Comment: The estimated glomerular filtration rate (eGFR) was calculated using the CKD-EPI 2020 creatinine equation, which does not include race as a factor. This equation is validated in individuals 18 years of age and older, and eGFR is normalized to a body surface area of 1.73m^2. Potassium 4.3 3.5 - 5.3 mEq/L [facility] Blood 03/03/2024 10:4 1 AM CDT 03/03/2024 10:46 AM CDT Tisha Palomo MD LABORATORY [facility] [address] [place] [id number] * (ABNORMAL) CBC WITH PLTS/AUTO DIFF (03/03/2024 10:41 AM CDT) WBC 8.27 4.00 - 10.00 k/cmm [facility] RBC 4.18(L) 4.60 - 6.00 m/cmm [facility] Hgb 13.2 13.1 - 17.5 g/dL [facility] Hematocrit 38.3(L) 40.0 - 51.0 % [facility] MCV 91.6 80.0 - 100.0 fL [facility] MCH 31.6 25.0 - 32.0 pg [facility] MCHC 34.5 31.0 - 36.0 g/dL [facility] RDW 13.7 11.5 - 14.5 % [facility] Plt 157 150 - 400 k/cmm [facility] MPV 10.7 6.5 - 12.5 fL [facility] Automated Abs Neutrophil 6.10 1.70 - 6.50 k/cmm [facility] Comment:Preliminary ANC, Fin al Result to Follow Abs Immature Granulocyte 0.03 0.00 - 0.09 k/cmm [facility] Comment:The Immature Granulo cyte Absolute count contains metamyelocytes and myelocytes. Abs Neutrophil 6.10 1.70 - 6.50 k/cmm [facility] Abs Lymphocyte 1.30 0.80 - 4.00 k/cmm [facility] Abs Monocyte 0.61 0.20 - 1.00 k/cmm [facility] Abs Eosinophil 0.19 0.00 - 0.60 k/cmm [facility] Abs Basophil 0.04 0.00 - 0.20 k/cmm [facility] Blood 03/03/2024 10:4 1 AM CDT 03/03/2024 10:54 AM CDT Tisha Palomo MD LABORATORY Performing Organization Address [facility] Co de Phone Number [facility] [place] [address] * EXTRA TUBE - BLUE (03/03/2024 10:38 AM CDT) Pathologist [facility] BLUE TUBE [facility] Comment:Blue top(Sodium citr ate) tubes are kept for 3 days from the collection date. Blood 03/03/2024 10:3 8 AM CDT 03/03/2024 10:44 AM CDT Tisha Palomo MD LABORATORY Performing Organization Address [facility] Co de Phone Number [facility] [address] [address] * (ABNORMAL) POC GLYCOSYLATED HGB-A1C MONITORING (12/05/2023 2:26 PM DIRECTOR OF RECREATION THERAPY) [facility] Hemoglobin A1C 8.7(H) 4.0 - 5.6 % [facility] Estimated Average Glucose 203 mg/dL [facility] Blood 12/05/2023 2:26 PM DIRECTOR OF RECREATION THERAPY Vicky Hernández MD POINT OF CARE Performing Organization Address [facility] Co de Phone Number [facility] [address] [place] [address] * LDL MEASURED (DOES NOT REQUIRE FASTING) (04/10/2023 5:12 PM CDT) LDL Measured 74 <=100 mg/dL [facility] Comment: Interpretive Data <100 Desirable 100-129 Above desirable 130-159 Borderline high 160-189 High >=190 Very high Blood 04/10/2023 5:12 PM CDT 04/10/2023 5:12 PM CDT Narrative [facility] - 04/10/2023 5:45 PM CDT Doesn't require a fasting blood sample. Teofilo MORE LABORATORY Performing Organization Address [facility] Co de Phone Number [facility] [address] [address] * MICROALBUMIN, URINE RANDOM COL (02/13/2023 3:00 PM CDT) [facility] Creat 57 30 - 125 mg/dL [facility] Microalbumin <1.2 0.2 - 10.0 mg/dL [facility] Microalbumin Creat Ratio na 0.0 - 20.0 mg/g [facility] Comment:Unable to calculate, results below linearity Unable to calculate, result below linearity Urine 02/13/2023 3:00 PM CDT 02/13/2023 4:37 PM CDT Shannon Sutton MD LABORATORY Performing Organization Address [facility] Co de Phone Number [facility] [address] [address] * COLONOSCOPY (02/01/2008 10:55 AM CDT) 02/01/2008 10:5 5 AM CDT Narrative [facility] - 02/01/2008 11:43 AM CDT Ordered by an unspecified provider. [facility] Patient Name: Chevy Damon ?Procedure Date: 02/01/2008 10:55 ? Date of : 1955 ? Admit Type: Outpatient Age: 52 ? Gender: M Procedure: ? Colonoscopy Indications: ? Average risk screening for malignant neoplasm in the colon Providers: ? Connor Sun MD, Ena Augustin RN Referring MD: ?Geraldine Ansari MD Medicines: ? Midazolam 3 mg IV, Fentanyl 100 micrograms IV Complications: ?? No immediate complications Procedure: ? - Prior to the procedure, a History and Physical was performed, and patient medication allergies have been reviewed. The patient's tolerance of previous anesthesia has been reviewed. - The risks and benefits of the procedure and the sedation options and risks were discussed with the patient. All questions were answered and informed consent was obtained. - Patient identification and proposed procedure were verified prior to the procedure by the physician. The procedure was verified in the endoscopy suite. - Pre-procedure physical examination revealed no contraindications to sedation. - ASA Grade Assessment: II - A patient with mild systemic disease. - After reviewing the risks and benefits, the patient was deemed in satisfactory condition to undergo the procedure. - The anesthesia plan was to use moderate sedation/analgesia (conscious sedation). - Immediately prior to administration of medications, the patient was re-assessed for adequacy to receive sedatives. - The heart rate, respiratory rate, oxygen saturations, blood pressure, adequacy of pulmonary ventilation, and response to care were monitored throughout the procedure. - The physical status of the patient was re-assessed after the procedure. After obtaining informed consent, the scope was passed under direct vision. Throughout the procedure, the patient's blood pressure, pulse, and oxygen saturations were monitored continuously. The Colonoscope was introduced through the anus and advanced to the the cecum, identified by appendiceal orifice & IC valve. The colonoscopy was performed without difficulty. The patient tolerated the procedure well. The quality of the prep was good. Findings: One sessile polyp was found in the rectum. The polyp was 5 mm in size. The polyp was removed with a hot snare. Resection was complete, but the polyp tissue was not retrieved. Fulguration to ablate the lesion by snare was successful. Impression: ?- One 5 mm polyp in the rectum was snared, removed, but not recovered. A second diminutive polyp in the sigmoid colon was fulgarated. No other lesions present. Recommendation: ??Suggest a repeat colonoscopy in 5 years. Connor Sun MD, [id number] Signed Date: 02/01/2008 11:42 Number of Addenda: 0 This report has been signed electronically. Note initiated on 02/01/2008 10:54 Provider Unknown [facility] LAB Performing Organization Address [facility] Co de Phone Number [facility] * OCCULT BLOOD, STOOL (04/14/2002 11:29 AM CDT) Occult Bld Negative Negative [facility] Stool specimen (specimen) 04/14/2002 11:29 AM CDT 04/16/2002 11:42 AM CDT Narrative [facility] - 04/16/2002 11:42 AM CDT Ordered by an unspecified provider. Provider Unknown LABORATORY Performing Organization Address [facility] Co de Phone Number [facility] * HEPATITIS C ANTIBODY(HX) (01/27/2001 2:39 PM DIRECTOR OF RECREATION THERAPY) Hep C Sadie Non Reactive Non Reactive [facility] Blood specimen (specimen) 01/27/2001 2:39 PM DIRECTOR OF RECREATION THERAPY 01/29/2001 1:28 PM DIRECTOR OF RECREATION THERAPY Narrative [facility] - 01/29/2001 1:28 PM DIRECTOR OF RECREATION THERAPY Ordered by an unspecified provider. Provider Unknown LABORATORY [facility] from Last 3 Months or Most Recently Relevant to Health Maintenance Advance Directives For more information, please contact: [phone] * Full Code (Latest Code Status on File) Date Activated Date Inactivated Comments 03/03/2024 4:57 PM 03/04/2024 12:56 PM Question Answer Comments Does the Patient have prefer ences regarding life sustaining measures (these options only apply when the patient has a pulse): No Discussed Code Status With Whom? Patient * Full Code Date Activated Date Inactivated Comments 07/16/2023 4:33 PM 07/22/2023 6:18 PM Question Answer Comments Does the Patient have prefer ences regarding life sustaining measures (these options only apply when the patient has a pulse): Yes Patient will accept intubation for respiratory d eterioration: Unaddressed Patient will accept BiPAP for respiratory deteri oration: Unaddressed Patient will accept vasopressors for hypotension : Unaddressed Patient will accept cardioversion for unstable r hythm: Unaddressed Discussed Code Status With Whom? Not discussed Care Teams Meteorology Faculty Member Relationship Specialty Start Date End Date David Martinez MD [address] [place] [address] PCP - General Internal Medicine 12/05/23
--- OUTSIDE RECORDS SUMMARY | 2024-03-17 14:36 | XMS_ITS | Encounter Summary ---
Author Name Unknown Organization [facility] Address [address] [place] [address] Care Team Providers Care Stamp Clerk Name Role Phone No Primary/Referring, Phy Primary Care Provider Unavailable Encounter Details Date Type Department Care Team (Late st Contact Info) Description 09/25/2015 Correspondence None No Primary/Referring, Phy HME EQUIPMENT EMPLOYMENT EVALUATOR/CASE MANAGER TICKET Social History Tobacco Use Types Packs/Day [...] on filedocumented in this encounter Care Teams Stamp Clerk Relationship Specialty Start Date End Date No Primary/Referring, Phy PCP - General 10/21/18 documented as of this encounter
--- OUTSIDE RECORDS SUMMARY | 2024-03-17 14:36 | XMS_ITS | Encounter Summary ---
Author Name Unknown Organization [facility] Address [address] [place] [address] Care Team Providers Care Electro Mechanical Engineer Name Role Phone No Primary/Referring, Phy Primary Care Provider Unavailable Encounter Details Date Type Department Care Team (Late st Contact Info) Description 01/18/2015 Correspondence None Inactive, Provider PAP EQUIPMENT PICK-UP [...] on filedocumented in this encounter Care Teams Electro Mechanical Engineer Relationship Specialty Start Date End Date No Primary/Referring, Caridady PCP - General 10/21/18 documented as of this encounter
--- OUTSIDE RECORDS SUMMARY | 2024-03-17 14:36 | XMS_ITS | Encounter Summary ---
Author Name Unknown Organization [facility] Address [address] [place] [address] Care Team Providers Care Vc++ Developer Name Role Phone No Primary/Referring, Phy Primary Care Provider Unavailable Encounter Details Date Type Department Care Team (Late st Contact Info) Description 07/22/2013 Scanned History External to Transferred Record, Provider [facility] Social History Tobacco Use Types Packs/Day Years Used Date Smoking Tobacco: Never Smokeless Tobacco: Never Alcohol Use Standard Drinks/Week Comments No 0 (1 standard drink = 0.6 oz pur e alcohol) Sex and Gender Information Value Date Recorded Sex Assigned at Not on file Gender Identity Not on file Sexual Orientation Not on file documented as of this encounter Progress Notes * Transferred Record, Provider - 07/22/2013 12:00 AM CDT documented in this encounter Plan of Treatment Not on file documented as of this encounter Visit Diagnoses Not on filedocumented in this encounter Care Teams Vc++ Developer Relationship Specialty Start Date End Date No Primary/Referring, Phy PCP - General 10/21/18 documented as of this encounter
--- OUTSIDE RECORDS SUMMARY | 2024-03-17 14:36 | XMS_ITS | Encounter Summary ---
Author Name Unknown Organization [facility] Address [address] [place] [address] Care Team Providers Care Hide Cleaner Name Role Phone No Primary/Referring, Phy Primary Care Provider Unavailable Encounter Details Date Type Department Care Team (Late st Contact Info) Description 05/21/2014 Correspondence [place] [address] [place] [address] Leatha Damon MD [address] [place] [address] [id number] TEST RESULT Social History Tobacco Use Types Packs/Day Years [...] on filedocumented in this encounter Care Teams Hide Cleaner Relationship Specialty Start Date End Date No Primary/Referring, Maddy PCP - General 10/21/18 documented as of this encounter
--- OUTSIDE RECORDS SUMMARY | 2024-03-17 14:36 | XMS_ITS | Encounter Summary ---
Author Name Unknown Organization [facility] Address [address] [place] [address] Care Team Providers Care Technicians And Trades Workers Name Role Phone No Primary/Referring, Phy Primary Care Provider Unavailable Encounter Details Date Type Department Care Team (Late st Contact Info) Description 01/13/2015 Correspondence None Inactive, Provider PAP EQUIPMENT PICK-UP [...] on filedocumented in this encounter Care Teams Technicians And Trades Workers Relationship Specialty Start Date End Date No Primary/Referring, Maddy PCP - General 10/21/18 documented as of this encounter
--- OUTSIDE RECORDS SUMMARY | 2024-03-17 14:36 | XMS_ITS | Encounter Summary ---
Author Name Unknown Organization [facility] Address [address] [facility] [place] [address] Care Team Providers Care Supervisor Orchard Name Role Phone No Primary/Referring, Phy Primary Care Provider Unavailable Encounter Details Date Type Department Care Team (Late st Contact Info) Description 01/13/2015 Correspondence None Inactive, Provider INSTRUCTION CHECKLIST Social History Tobacco Use Types Packs/Day Years [...] on filedocumented in this encounter Care Teams Supervisor Orchard Relationship Specialty Start Date End Date No Primary/ReferringMaddy PCP - General 10/21/18 documented as of this encounter
--- OUTSIDE RECORDS SUMMARY | 2024-03-17 14:36 | XMS_ITS | Encounter Summary ---
Author Name Unknown Organization [facility] Address [address] [place] [address] Care Team Providers Care Compounding Assistant Name Role Phone No Primary/Referring, Phy Primary Care Provider Unavailable Encounter Details Date Type Department Care Team (Late st Contact Info) Description 05/19/2012 Scanned History External to Transferred Record, Provider [facility] Social History Tobacco Use Types Packs/Day Years Used Date Smoking Tobacco: Never Assessed Sex and Gender Information Value Date Recorded Sex Assigned at Not on file Gender Identity Not on file Sexual Orientation Not on file documented as of this encounter Progress Notes * Transferred Record, Provider - 05/19/2012 12:00 AM CDT documented in this encounter Plan of Treatment Not on file documented as of this encounter Visit Diagnoses Not on filedocumented in this encounter Care Teams Compounding Assistant Relationship Specialty Start Date End Date No Primary/Referring, Phy PCP - General 10/21/18 documented as of this encounter
--- OUTSIDE RECORDS SUMMARY | 2024-03-17 14:36 | XMS_ITS | Encounter Summary ---
Author Name Unknown Organization [facility] Address [address] [facility] [address] Care Team Providers Care Reed Man Name Role Phone No Primary/Referring, Phy Primary Care Provider Unavailable Encounter Details Date Type Department Care Team (Late st Contact Info) Description 12/26/2014 Correspondence None No Primary/Referring, Phy STOP BANG DOT CHINO PROTOCOL Social History Tobacco Use Types Packs/Day Years [...] on filedocumented in this encounter Care Teams Reed Man Relationship Specialty Start Date End Date No Primary/Referring, Phy PCP - General 10/21/18 documented as of this encounter
--- OUTSIDE RECORDS SUMMARY | 2024-03-17 14:36 | XMS_ITS | Encounter Summary ---
Author Name Unknown Organization [facility] Address [address] [place] [address] Care Team Providers Care Organic Extractions Technician Name Role Phone No Primary/Referring, Phy Primary Care Provider Unavailable Encounter Details Date Type Department Care Team (Late st Contact Info) Description 01/13/2015 Correspondence None Inactive, Provider DME INSTRUCTION DELIVERY PAP THERAPY AND SUPPLIES Social History Tobacco Use Types Packs/Day Years [...] on filedocumented in this encounter Care Teams Organic Extractions Technician Relationship Specialty Start Date End Date No Primary/Referring, Maddy PCP - General 10/21/18 documented as of this encounter
--- OUTSIDE RECORDS SUMMARY | 2024-03-17 14:36 | XMS_ITS | Encounter Summary ---
Author Name Unknown Organization [facility] Address [address] [place] [address] Care Team Providers Care Title Attorney Name Role Phone No Primary/Referring, Phy Primary Care Provider Unavailable Encounter Details Date Type Department Care Team (Late st Contact Info) Description 02/20/2015 Consent for Procedure/Treatme nt [facility] 401 [facility] [address] Nathaniel Dolan MD [address] [place], [place] [phone] CONSENT FOR PROCEDURE Social History Tobacco Use [...] on filedocumented in this encounter Care Teams Title Attorney Relationship Specialty Start Date End Date No Primary/Referring, Maddy PCP - General 10/21/18 documented as of this encounter
--- OUTSIDE RECORDS SUMMARY | 2024-03-17 14:36 | XMS_ITS | Encounter Summary ---
Author Name Unknown Organization [facility] Address [address] [place] [address] Care Team Providers Care Entry Level Truck Driver Name Role Phone No Primary/Referring, Phy Primary Care Provider Unavailable Encounter Details Date Type Department Care Team (Late st Contact Info) Description 01/04/2014 Consent for Procedure/Treatme nt [facility] 401 [facility] [place] [address] Nathaniel Dolan MD 401 [place], [place] [phone] CONSENT FOR PROCEDURE Social History Tobacco Use [...] as of this encounter Progress Notes * Nathaniel Dolan MD - 01/04/2014 12:00 AM CST L OPERATIONS TECHNICIAN documented in this encounter Plan of Treatment Not on file documented as of this encounter Visit Diagnoses Not on filedocumented in this encounter Care Teams Entry Level Truck Driver Relationship Specialty Start Date End Date No Primary/Referring, Maddy PCP - General 10/21/18 documented as of this encounter
--- OUTSIDE RECORDS SUMMARY | 2024-03-17 14:36 | XMS_ITS | Encounter Summary ---
Author Name Unknown Organization [facility] Address [address] [place] [address] Care Team Providers Care Post Anesthesia Room Nurse Name Role Phone No Primary/Referring, Phy Primary Care Provider Unavailable Encounter Details Date Type Department Care Team (Late st Contact Info) Description 07/04/[address] [facility] [address] [facility], Provider EYE PAIN AND HEADACHE Social History Tobacco Use Types Packs/Day Years [...] on filedocumented in this encounter Care Teams Post Anesthesia Room Nurse Relationship Specialty Start Date End Date No Primary/Referring, Maddy PCP - General 10/21/18 documented as of this encounter
--- OUTSIDE RECORDS SUMMARY | 2024-03-17 14:36 | XMS_ITS | Encounter Summary ---
Author Name Unknown Organization [facility] Address [address] [facility] [address] Care Team Providers Care Sweatband Shaper Name Role Phone No Primary/Referring, Phy Primary Care Provider Unavailable Encounter Details Date Type Department Care Team (Late st Contact Info) Description 03/16/2013 Correspondence [facility] [address] [place] [address] Gabriel Burton DC [facility] WAIVER OF LIABILITY Social History Tobacco Use Types Packs/Day Years Used Date Smoking Tobacco: Never Assessed Sex and Gender Information Value Date Recorded Sex Assigned at Not on file Gender Identity Not on file Sexual Orientation Not on file documented as of this encounter Progress Notes * Gabriel Burton DC - 03/16/2013 12:00 AM CDT documented in this encounter Plan of Treatment Not on file documented as of this encounter Visit Diagnoses Not on filedocumented in this encounter Care Teams Sweatband Shaper Relationship Specialty Start Date End Date No Primary/Referring, Phy PCP - General 10/21/18 documented as of this encounter
--- OUTSIDE RECORDS SUMMARY | 2024-03-17 14:36 | XMS_ITS | Encounter Summary ---
Author Name Unknown Organization [facility] Address [address] [facility] [place] [address] Care Team Providers Care Mechanical Engineering Intern Name Role Phone No Primary/Referring, Phy Primary Care Provider Unavailable Encounter Details Date Type Department Care Team (Late st Contact Info) Description 01/10/2015 Consent for Procedure/Treatme nt [facility] INFORMED CONSENT FOR SLEEP/AUDIO/VIDEO Social History Tobacco Use Types Packs/Day Years [...] on filedocumented in this encounter Care Teams Mechanical Engineering Intern Relationship Specialty Start Date End Date No Primary/ReferringMaddy PCP - General 10/21/18 documented as of this encounter
--- OUTSIDE RECORDS SUMMARY | 2024-03-17 14:36 | XMS_ITS | Encounter Summary ---
Author Name Unknown Organization [facility] Address [address], [place] [address] Care Team Providers Care Marine Electronics Repairer Name Role Phone No Primary/Referring, Phy Primary Care Provider Unavailable Encounter Details Date Type Department Care Team (Latest Contact Info) Description 12/26/2014 Correspondence [facility] Occupational and Environmental Medicine [address] [place] [address] [phone] Liya Goodwin MD [address], [place] [phone] MEDICAL EXAMINERS REPORT Social History Tobacco Use Types Packs/Day [...] on filedocumented in this encounter Care Teams Marine Electronics Repairer Relationship Specialty Start Date End Date No Primary/Referring, Maddy PCP - General 10/21/18 documented as of this encounter
--- OUTSIDE RECORDS SUMMARY | 2024-03-17 14:37 | XMS_ITS | Encounter Summary ---
Author Name Unknown Organization [facility] Address [address] [place] [address] Phone Care Team Providers Care Expense Analyst Name Role Phone David Martinez MD Primary Care Provider +1- [phone] Encounter Details Date Type Department Care Team (Late st Contact Info) Description 03/03/2024 Orders Only Unspecified Department [place] Unknown, Provider Social History Tobacco Use Types Packs/Day Years [...] as of this encounter Plan of Treatment Upcoming Encounters Date Type Department Care Team (Latest Contact Info) Description 03/22/2024 2:30 PM CDT Office Visit [facility] [address] [place] [address] Vicky Hernández MD [address] [place] [address] [phone] Scheduled Discharge Disposition: Discharged to home or self care (routine discharge) 04/27/2024 2:30 PM CDT Office Visit [facility] Cardiology Clinic [address] [place] [address] Gabriel Em PA-C [address] [phone] Scheduled Discharge Disposition: Discharged to home or self care (routine discharge) documented as of this encounter Procedures Procedure Name Priority Date/Time Associated Diagnosis Comments TELEMETRY STRIPS 03/03/2024 6:14 PM CDT documented in this encounter Results * TELEMETRY STRIPS (03/03/2024 6:14 PM CDT) Narrative 03/03/2024 6:14 PM CDT Ordered by an unspecified provider. Provider Unknown RAD ECHO documented in this encounter Visit Diagnoses Not on filedocumented in this encounter Care Teams Expense Analyst Relationship Specialty Start Date End Date David Martinez MD [address] [place] [address] PCP - General Internal Medicine 12/05/23 documented as of this encounter
--- OUTSIDE RECORDS SUMMARY | 2024-03-17 14:37 | XMS_ITS | Encounter Summary ---
Author Name Unknown Organization [facility] Address [address] [facility] [place] [address] Phone Care Team Providers Care Pond Tender Name Role Phone Katy Ansari MD Primary Care Provider Unava ilable Vno Asencio Primary Care Provider Unavailabl Estrella Lin APRN, EXHIBIT DISPLAY REPRESENTATIVE Unavailable Unavail able Jhon Stevens DO Primary Care Provider Unava ilable Estrella Oliveira APRN, EXHIBIT DISPLAY REPRESENTATIVE Unavailable Unavail able Melquiades Grimaldo MD Primary Care Provider [phone]- [phone] Dawn Hameed MD Unavailable Melquiades Grimaldo MD Primary Care Provider Pcp, No Primary Care Provider Unavailabl Bethany Castillo MD Primary Care Provider + Jayce Zamora MD Primary Care Provi velia Jayce Zamora MD Primary Care Provi velia David Martinez MD Primary Care Provider +- [phone] Encounter Details Date Type Department Care Team (Late st Contact Info) Description 12/25/2005 EWeb History [facility] Eye/Ophthalmology Clinic [address] [facility] [address] [place] [address] Ruben Milligan MD [address] [facility] Mail Code [address] [place] [address] Social History Tobacco Use Types Packs/Day Years [...] & Specialty Center Diabetes & Endocrinology Clinic [address] [place] [address] Vicky Hernández MD [address] [place] [address] Scheduled Discharge Disposition: Discharged to home or self care (routine discharge) 04/27/2024 2:30 PM CDT Office Visit [facility] [address] [place] [address] Gabriel Em PA-C [address] [address] Scheduled Discharge Disposition: Discharged to home or self care (routine discharge) documented as of this encounter Visit Diagnoses Not on filedocumented in this encounter Care Teams Pond Tender Relationship Specialty Start Date End Date Katy Ansari MD PCP - General 11/06/07 06/24/10 Von Asencio PCP - General 02/19/06 11/05/07 Estrella Oliveira APRN, EXHIBIT DISPLAY REPRESENTATIVE [address] [place] [address] PCP - Diabetes/Endo 11/15/09 7 Jhon Stevens DO [address] [place] [address] PCP - General Internal Medicine 06/25/10 05/10/12 Melquiades Grimaldo MD [facility] [address] [place] [address] PCP - General 05/11/12 05/18/12 Dawn Hameed MD [facility] [address] [place] [address] PCP - Practice Partner Primary Care 05/11/12 07/27/17 Melquiades Grimaldo MD [facility] [address] [place] [address] PCP - General 05/19/12 12/05/14 Pcp, No [facility] [place] [address] PCP - General 12/06/14 09/24/15 [place] [address] [place] [address] PCP - General Outside Provider 09/25/15 07/27/17 Jayec Zamora MD [address] [place] [address] PCP - General Outside Provider 07/28/17 12/23/19 Jayce Zamora MD [address] [place] [address] PCP - General Outside Provider 12/24/19 12/04/23 David Martinez MD [address] [place] [address] PCP - General Internal Medicine 12/05/23 Estrella Oliveira APRN, EXHIBIT DISPLAY REPRESENTATIVE [address] [place] [address] Endocrinology 02/18/12 07/27/17 documented as of this encounter
--- OUTSIDE RECORDS SUMMARY | 2024-03-17 14:37 | XMS_ITS | Encounter Summary ---
Author Name Unknown Organization [facility] Address [address] [place] [address] Phone Care Team Providers Care Chinese Teacher Name Role Phone David Martinez MD Primary Care Provider +1- [phone] Reason for Visit * Reason Comments Other Encounter Details Date Type Department Care Team ([facility] st Contact Info) Description 01/08/2024 Refill Clinic [facility]ocrinology Clinic [address] [place] [address] Shannon Sutton MD [address] [place] [address] [phone] Other Social History Tobacco Use Types Packs/Day Years Used Date Smoking Tobacco: Never Smokeless Tobacco: Never Alcohol Use Standard Drinks/Week Comments No 0 (1 standard drink = 0.6 oz pur e alcohol) Sex and Gender Information Value Date Recorded Sex Assigned at Not on file Gender Identity Not on file Sexual Orientation Not on file documented as of this encounter Miscellaneous Notes * Telephone Encounter - Kirill Reddy MD - 01/09/2024 5:05 PM CST Order for refill is placed . Thank you CE ASSISTANT * Telephone Encounter - Sendy Cruz RN - 01/09/2024 4:20 PM OFFICE ASSISTANT D: Pt checking on refill. A/P: Dr Barry jacob. CE ASSISTANT documented in this encounter Plan of Treatment Upcoming Encounters Date Type Department Care Team (Latest Contact Info) Description 03/22/2024 2:30 PM CDT Office Visit [facility] [address] [place] [address] Vicky Hernández MD [address] [phone] Scheduled Discharge Disposition: Discharged to home or self care (routine discharge) 04/27/2024 2:30 PM CDT Office Visit [facility] Cardiology Clinic [address] [place] [address] [phone] Gabriel Em, PACharlaC [address] [phone] Scheduled Discharge Disposition: Discharged to home or self care (routine discharge) documented as of this encounter Visit Diagnoses Not on filedocumented in this encounter Care Teams Chinese Teacher Relationship Specialty Start Date End Date David Martinez MD [address] [place] [address] PCP - General Internal Medicine 12/05/23 documented as of this encounter
--- OUTSIDE RECORDS SUMMARY | 2024-03-17 14:37 | XMS_ITS | Encounter Summary ---
Author Name Unknown Organization [facility] Address [address] [place] [address] Phone Care Team Providers Care Superannuation Clerk Name Role Phone David Martinez MD Primary Care Provider +1- [phone] Encounter Details Date Type Department Care Team (Latest Contact Info) Description 03/03/2024 Travel Social History Tobacco Use Types Packs/Day Years [...] & Specialty Center Diabetes & Endocrinology Clinic [address] [place] [address] Vicky Hernández MD [address] 848645 Scheduled Discharge Disposition: Discharged to home or self care (routine discharge) 04/27/2024 2:30 PM CDT Office Visit [facility] Cardiology Clinic [address] [place] [address] Gabriel mE, PACharlaC [address] 068[address] Scheduled Discharge Disposition: Discharged to home or self care (routine discharge) documented as of this encounter Visit Diagnoses Not on filedocumented in this encounter Care Teams Superannuation Clerk Relationship Specialty Start Date End Date David Martinez MD [address] [place] [address] PCP - General Internal Medicine 12/05/23 documented as of this encounter
--- OUTSIDE RECORDS SUMMARY | 2024-03-17 14:37 | XMS_ITS | Encounter Summary ---
Author Name Unknown Organization [facility] Address [address] [facility] [place] [address] Phone Care Team Providers Care Bakery Chef Name Role Phone Jayce Zamora MD Primary Care Provi velia David Martinez MD Primary Care Provider +1- [phone] Encounter Details Date Type Department Care Team (Late st Contact Info) Description 11/11/2023 Orders Only [facility] Film Room [facility] Radiology Department CLAU [address] [facility]. [address] [place], [place] [phone] Shady Tovar MD [address] [phone] Referral of patient (Primary Dx) Social History Tobacco Use Types Packs/Day Years Used Date Smoking Tobacco: Never Smokeless Tobacco: Never Alcohol Use Standard Drinks/Week Comments No 0 (1 standard drink = 0.6 oz pur e alcohol) Sex and Gender Information Value Date Recorded Sex Assigned at Not on file Gender Identity Not on file Sexual Orientation Not on file COVID-19 Exposure Response Date Recorded In the last 10 days, have yo u been in contact with someone who was confirmed or suspected to have Coronavirus/COVID-19? No / Unsure 12/05/2023 2:11 PM PATIENT COORDINATOR FRONT DESK documented as of this encounter Plan of Treatment Upcoming Encounters Date Type Department Care Team (Latest Contact Info) Description 03/22/2024 2:30 PM CDT Office Visit [facility] Diabetes [facility] Endocrinology Clinic [address] [address] Vicky Hernández MD [address] [place] [address] Scheduled Discharge Disposition: Discharged to home or self care (routine discharge) 04/27/2024 2:30 PM CDT Office Visit [facility] Cardiology Clinic [address] [address] Gabriel Em PACharlaC 701 [facility] [address] [place] [address] Scheduled Discharge Disposition: Discharged to home or self care (routine discharge) documented as of this encounter Visit Diagnoses Diagnosis Referral of patient- Primary Referral of patient without examination or treatment documented in this encounter Care Teams Bakery Chef Relationship Specialty Start Date End Date Jayce Zamora MD [address] [place] [address] PCP - General Outside Provider 12/24/19 12/04/23 David Martinez MD [address] [place] [address] PCP - General Internal Medicine 12/05/23 documented as of this encounter
--- OUTSIDE RECORDS SUMMARY | 2024-03-17 14:37 | XMS_ITS | Encounter Summary ---
Author Name Unknown Organization [facility] Address [address] [facility] [place] [address] Phone Care Team Providers Care Oracle Bpm Developer Name Role Phone David Martinez MD Primary Care Provider +1- [phone] Encounter Details Date Type Department Care Team ([facility] st Contact Info) Description 01/01/2024 Pharmacy Patient Assistance Program [facility] P[facility] Pharmacy [address] [place] [address] P1.630 [place], [place] 126385 Vicky Hernández MD [address] [place] [address] Social History Tobacco Use Types Packs/Day Years [...] Coronavirus/COVID-19? No / Unsure 12/05/2023 2:11 PM SUPERVISOR GARAGE documented as of this encounter Progress Notes * Melquiades Mcfadden - 01/01/2024 12:37 PM CSTSummary: Humalog PAP Approval 2023 Patient has been APPROVED for Patient Assistance Approval Dates: 01/01/2024 - 11/02/2024 Medication: Humalog (insulin LISPRO) Sig: Inject 20-30 units subcutaneously with meals. Max dose 90 units per day. Strength: 100 units/mL Provider/NPI: Vicky Hernández MD - Foundation: [facility] Patient #: [id number] Ships to patient's home. RVISOR GARAGE documented in this encounter Plan of Treatment Upcoming Encounters Date Type Department Care Team (Latest Contact Info) Description 03/22/2024 2:30 PM CDT Office Visit [facility] Diabetes [facility] Endocrinology Clinic [address] [place] [address] Vicky Hernández MD [address] [place] [address] [phone] Scheduled Discharge Disposition: Discharged to home or self care (routine discharge) 04/27/2024 2:30 PM CDT Office Visit [facility] Card[facility] Clinic [address] [place] [address] Gabriel Em, PACharlaC [address] [phone] Scheduled Discharge Disposition: Discharged to home or self care (routine discharge) documented as of this encounter Visit Diagnoses Not on filedocumented in this encounter Care Teams Oracle Bpm Developer Relationship Specialty Start Date End Date David Martinez MD [address] [place] [address] PCP - General Internal Medicine 12/05/23 documented as of this encounter
--- OUTSIDE RECORDS SUMMARY | 2024-03-17 14:37 | XMS_ITS | Encounter Summary ---
Author Name Unknown Organization [facility] Address [address] [place] [address] Phone Care Team Providers Care Information Technology Architect Name Role Phone Jayce Zamora MD Primary Care Provi velia David Martinez MD Primary Care Provider +1- [phone] Encounter Details Date Type Department Care Team (Late st Contact Info) Description 11/11/2023 Orders Only [facility] Film Room [facility] Radiology Department CLAU [address] [facility] [place] [address] Shady Tovar MD [address] [address] Social History Tobacco Use Types Packs/Day [...] Coronavirus/COVID-19? No / Unsure 12/05/2023 2:11 PM TANK BUILDER AND ERECTOR documented as of this encounter Plan of Treatment Upcoming Encounters Date Type Department Care Team (Latest Contact Info) Description 03/22/2024 2:30 PM CDT Office Visit [facility] Diabetes & Endocrinology Clinic [address] [address] Vicky Hernández MD [address] [place] [address] Scheduled Discharge Disposition: Discharged to home or self care (routine discharge) 04/27/2024 2:30 PM CDT Office Visit [facility] Cardiology Clinic [address] [address] Gabriel Em, PA-C [address] [facility] [address] [place] [address] Scheduled Discharge Disposition: Discharged to home or self care (routine discharge) documented as of this encounter Visit Diagnoses Not on filedocumented in this encounter Care Teams Information Technology Architect Relationship Specialty Start Date End Date Jayce Zamora MD [address] [place] [address] PCP - General Outside Provider 12/24/19 12/04/23 David Martinez MD [address] [place] [address] PCP - General Internal Medicine 12/05/23 documented as of this encounter
--- OUTSIDE RECORDS SUMMARY | 2024-03-17 14:37 | XMS_ITS | Referral Summary ---
Author Name Unknown Organization [facility] Address [address] [place] [address] Phone Care Team Providers Care Covering Machine Tender Name Role Phone David Martinez MD Primary Care Provider [phone] Source Comments [employer] is fully rolled out on [employer] Last update 04/07/09.[place] [employer] Encounters Date Type Department Care Team Description 03/11/2024 [facility] Triage [facility] [address] [place] [id number] Minor, Kevan Salgado, RN Rectal Bleeding 03/03/2024 10:26 AM CDT - 03/04/2024 9:56 AM CDT Emergency [facility] Rapid Treatment Unit 1 [address] [facility] [address] [place] [address] Tisha Palomo MD Madar, MD Genaro Fuller Shrikar S, MD Chest pain, unspecified type Discharge Disposition: Discharged to home or self care (routine discharge) 03/03/2024 Orders Only Unspecified Department [place] Unknown, Provider 03/03/2024 Travel 01/21/2024 Refill [facility] [address] [place] [id number] Gabriel Em PA-C Refill Request 01/08/2024 [facility]ill [facility] [address] [place] [address] Shannon Sutton MD Other 01/01/2024 Pharmacy Patient Assistance Program [facility] [address] [place] [address] Vicky Hernández MD 01/01/2024 Pharmacy Patient Assistance Program [facility] [address] [place] [address] Vicky Hernández MD from Last 3 Months Allergies Active Allergy Reactions Criticality Noted Date [...] controlled type 2 diabetes mellitus with hyperglycemia ([facility]) Inject 0.75 mL (1 mg) subcutaneously every week. 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 Nuclear senile cataract of both eyes 12/30/2023 History of transcatheter aortic valve replacemen t (TAVR) 10/10/2023 Nonrheumatic aortic valve stenosis 04/12/2023 Atrial fibrillation and flutter ([facility]) 2022 Paroxysmal atrial fibrillation ([facility]) 022 Non-arteritic anterior ische eulogio optic [...] polyneuropathy, with long-term current use of insulin ([facility]) 07/08/2018 PVD (posterior vitreous detachment), right eye 0 12/03/2016 Venous incompetence 06/13/2016 Type 2 diabetes mellitus wit h moderate nonproliferative retinopathy, macular edema presence unspecified 09/04/2015 Essential hypertension 09/04/2015 Obstructive sleep apnea 01/30/2015 Mild nonproliferative diabetic retinopathy ([facility]) 12/30/2013 ED (erectile dysfunction) 07/22/2013 Familial multiple lipoprotein-type hyperlipidemi a 01/13/2013 Dyslipidemia 01/13/2013 Cervical radiculopathy 12/15/2011 Chronic cellulitis 07/07/2008 Overview: episodes in both legs Morbid obesity ([facility]) 07/07/2008 Hyperlipidemia 01/28/2008 Resolved Problems Problem Noted Date Diagnosed Date Resolved Date Chest pain, unspecified type 07/16/2023 10/10/2023 Penis disorder 01/25/2019 03/08/2019 Diarrhea 05/19/2014 10/14/2019 Type 2 diabetes mellitus wit h diabetic polyneuropathy, with long-term current use of insulin ([facility]) 12/30/2013 04/11/2022 Hypertension 12/16/2011 12/24/2019 Cellulitis of oral soft tissues 09/04/2010 10/10/2011 Health maintenance examination 06/21/2010 10/14/2019 HTN 07/07/2008 04/07/2012 Diabetes mellitus, type 2 ([facility]) 06/18/2007 04/11/2022 Immunizations Name Administration Dates Next Due COVID-19 MRNA Vaccine (Pfize r/COMIRNATY) suspension 01/02/2021,12/12/2020 Influenza Vaccine 6 Months t hrough Adult - Prefilled 07/28/2017,09/04/2015 Influenza Vaccine, Unspecified 10/10/2011,2009,08/21/2007 Pneumococcal Polysaccharide, 23 Valent Vaccine(Pneumovax 23) 07/04/2005 Tetanus and Diphtheria Toxoi ds Adsorbed-Td (TENIVAC) 07/04/2005 Social History Tobacco Use Types Packs/Day Years [...] [facility] Diabetes [facility] Endocrinology Clinic [address] [address] Vicky Hernández MD [address] [place] [id number] Scheduled Discharge Disposition: Discharged to home or self care (routine discharge) 04/27/2024 2:30 PM CDT Office Visit [facility] Card[facility] [address] [place] [id number] Gabriel Em PA-C [address] [address] Scheduled Discharge Disposition: Discharged to home or self care (routine discharge) Procedures Procedure Name Priority Date/Time Associated Diagnosis [...] GLYCOSYLATED HGB-A1C MONITORING Routine 12/05/2023 2:26 PM CARE MANAGEMENT SPECIALIST PC LIPOPROTEIN;DIRECT MEASUREMENT,LDL CHOLESTEROL Routine 04/10/2023 5:12 PM CDT Coronary artery disease involving [place] coronary artery of [place]ta heart without angina pectoris Nonrheumatic aortic valve stenosis PC CREATININE;OTHER SOURCE Routine 02/13/2023 3:00 PM CDT Type 2 diabetes mellitus with complication, with long-term current use of insulin ([facility]) COLONOSCOPY-DIAGNOSTI C Routine 02/01/2008 10:55 AM CDT OCCULT BLOOD, STOOL Routine 04/14/2002 1 1:29 AM CDT HEPATITIS C ANTIBODY(HX) Routine 01/27/2001 2:39 PM CARE MANAGEMENT SPECIALIST from Last 3 Months or Most Recently Relevant to Health Maintenance Results * (ABNORMAL) POC GLUCOSE (03/04/2024 6:35 AM CDT) Only the most recent of3 resultswithin the time period is included. POC Glucose 277(H) 70 - 100 mg/dL [facility] Blood 03/04/2024 6:35 AM CDT Tisha Palomo MD LABORATORY [facility] [address] [place] [address], * TELEMETRY STRIPS (03/03/2024 6:14 PM CDT) [...] WALKER CHEVY ? Height ? 70.98 Inches EFRAIN Patient Number ?? [id number] ?Weight ? 326.81 Pounds Date of ?1955 ? BSA ?2.6 m^2 Age ?69 ? Tape Number Gender ? Male ? Study Date ? 03/03/2024 02:29 PM Expanding Machine Operator ?RB ? Ordering Provider ??Tisha Palomo - [id number] Referring ? Interpreting ? Gavin Hwang MD Physician ? Physician ?[id number] Type of Study: TTE procedure: 2D echocardiogram, [...] poor quality study (previous echo done at [facility] on 10/08/23 after TAVR was also technically [...] Patient Name JEN REECE Height 70.98 Inches EFRAIN Patient Number [id number] Weight 326.81 Pounds Date of 1955 BSA 2.6 m^2 Age 69 Tape Number Gender Male Study Date 03/03/2024 02:29 PM Expanding Machine Operator RB Ordering Provider Tisha Palomo - [id number] Referring Interpreting Gavin Hwang MD Physician Physician [id number] Type of Study: TTE procedure: 2D echocardiogram, [...] poor quality study (previous echo done at [facility] on 10/08/23 after TAVR was also technically [...] True True Tisha Palomo MD RAD ECHO Performing Organization Address [facility] Co de Phone Number [facility] HEARTLAB * TROP 2H (03/03/2024 12:33 PM CDT) 2H Trop 12 <=35 ng/L [facility] 2H Delta Not Significant Not Significant [facility] Blood 03/03/2024 12:3 3 PM CDT 03/03/2024 12:41 PM CDT Tisha Palomo MD LABORATORY Performing Organization Address [facility] Co de Phone Number [facility] LAB [address] [address] * XR CHEST 2 VIEWS PA + [...] included. 03/03/2024 10:5 6 AM CDT Impressions [facility] CVIS EKG ORDERS - 03/03/2024 10:56 AM [...] 397 ms QTC Interval 409 ms P Cherry Log 61 QRS Cherry Log 20 T Wave Cherry Log 88 Narrative Procedure Note Gibson Benitez MD [...] 397 ms QTC Interval 409 ms P Cherry Log 61 QRS Cherry Log 20 T Wave Cherry Log 88 Tisha Palomo MD EKG Performing Organization Address City/[facility]/ZIP Co de Phone Number [facility] CVIS EKG ORDERS * ED US CARDIAC (03/03/2024 10:48 AM CDT) Anatomical Region Laterality Modality Ultrasound Narrative 03/03/2024 11:56 AM CDT ED Cardiac Ultrasound Body Areas Imaged: Heart, Chest Wall/Lungs, and Inferior Vena Cava Indications:Chest Pain Window: Subxiphoid, Parasternal Short Cherry Log, Parasternal Long Cherry Log, Apical 4-Chamber, IVC, and Bilateral Lungs Findings: [...] * HS TROPONIN (03/03/2024 10:41 AM CDT) HS Troponin I 13 <=35 ng/L [facility] Blood 03/03/2024 10:4 1 AM CDT 03/03/2024 10:54 AM CDT Narrative [facility] LAB - 03/03/2024 11:22 AM CDT If ordering as an add-on lab, you must call the lab. Tisha Palomo MD LABORATORY [facility] [address] [address] * (ABNORMAL) ED CHEMISTRY LABS(NA,K,CL,CO2,GLU,CREAT,CA-IONIZED,ANION GAP) (03/03/2024 10:41 AM CDT) Sodium 139 135 - 148 mEq/L [facility] Chloride 106 92 - 108 mEq/L [facility] AnGap 6(L) 8 - 16 mEq/L [facility] Glucose 332(H) 70 - 100 mg/dL [facility] ICA, Actual 4.12(L) 4.40 - 5.20 mg/dL [facility] ICA, pH Corrected 4.23(L) 4.40 - 5.20 mg/dL [facility] Creatinine 0.71 0.70 - 1.25 mg/dL [facility] BICARB 27(H) 22 - 26 mEq/L [facility] eGFR (2020 CKD-EPI) 99 >=60 ml/min/1.7 3m2 [facility] Comment: The estimated glomerular filtration rate (eGFR) was calculated using the CKD-EPI 2020 creatinine equation, which does not include race as a factor. This equation is validated in individuals 18 years of age and older, and eGFR is normalized to a body surface area of 1.73m^2. Potassium 4.3 3.5 - 5.3 mEq/L [facility] Blood 03/03/2024 10:4 1 AM CDT 03/03/2024 10:46 AM CDT Tisha Palomo MD LABORATORY [facility] [address] [address] * (ABNORMAL) CBC WITH PLTS/AUTO DIFF (03/03/2024 10:41 AM CDT) WBC 8.27 4.00 - 10.00 k/cmm [facility] RBC 4.18(L) 4.60 - 6.00 m/cmm [facility] Hgb 13.2 13.1 - 17.5 g/dL [facility] Hematocrit 38.3(L) 40.0 - 51.0 % [facility] MCV 91.6 80.0 - 100.0 fL [facility] MCH 31.6 25.0 - 32.0 pg [facility] MCHC 34.5 31.0 - 36.0 g/dL [facility] RDW 13.7 11.5 - 14.5 % [facility] Plt 157 150 - 400 k/cmm [facility] MPV 10.7 6.5 - 12.5 fL [facility] Automated Abs Neutrophil 6.10 1.70 - 6.50 k/cmm [facility] Comment:Preliminary ANC, Fin al Result to Follow Abs Immature Granulocyte 0.03 0.00 - 0.09 k/cmm [facility] Comment:The Immature Granulo cyte Absolute count contains metamyelocytes and myelocytes. Abs Neutrophil 6.10 1.70 - 6.50 k/cmm [facility] Abs Lymphocyte 1.30 0.80 - 4.00 k/cmm [facility] Abs Monocyte 0.61 0.20 - 1.00 k/cmm [facility] Abs Eosinophil 0.19 0.00 - 0.60 k/cmm [facility] Abs Basophil 0.04 0.00 - 0.20 k/cmm [facility] Blood 03/03/2024 10:4 1 AM CDT 03/03/2024 10:54 AM CDT Tisha Palomo MD LABORATORY Performing Organization Address City/[facility]/ZIP Co de Phone Number [facility] [address] [address] * EXTRA TUBE - BLUE (03/03/2024 10:38 AM CDT) BLUE TUBE [facility] Comment:Blue top(Sodium citr ate) tubes are kept for 3 days from the collection date. Blood 03/03/2024 10:3 8 AM CDT 03/03/2024 10:44 AM CDT Tisha Palomo MD LABORATORY Performing Organization Address City/[facility]/ZIP Co de Phone Number [facility] [address] [address] * (ABNORMAL) POC GLYCOSYLATED HGB-A1C MONITORING (12/05/2023 2:26 PM CARE MANAGEMENT SPECIALIST) Hemoglobin A1C 8.7(H) 4.0 - 5.6 % [facility] Estimated Average Glucose 203 mg/dL [facility] Blood 12/05/2023 2:26 PM CARE MANAGEMENT SPECIALIST Vicky Hernández MD POINT OF CARE Performing Organization Address City/[facility]/ZIP Co de Phone Number [facility] [address] [place] [address], [place] * LDL MEASURED (DOES NOT REQUIRE FASTING) (04/10/2023 5:12 PM CDT) [facility] LDL Measured 74 <=100 mg/dL [facility] Comment: Interpretive Data <100 Desirable 100-129 Above desirable 130-159 Borderline high 160-189 High >=190 Very high Blood 04/10/2023 5:12 PM CDT 04/10/2023 5:12 PM CDT Narrative [facility] - 04/10/2023 5:45 PM CDT Doesn't require a fasting blood sample. Teofilo MORE LABORATORY Performing Organization Address City/[facility] Co de Phone Number [facility] [address] [address] * MICROALBUMIN, URINE RANDOM COL (02/13/2023 3:00 PM CDT) [facility] Creat 57 30 - 125 mg/dL [facility] Microalbumin <1.2 0.2 - 10.0 mg/dL [facility] Microalbumin Creat Ratio na 0.0 - 20.0 mg/g [facility] Comment:Unable to calculate, results below linearity Unable to calculate, result below linearity Urine 02/13/2023 3:00 PM CDT 02/13/2023 4:37 PM CDT Shannon Sutton MD LABORATORY Performing Organization Address City/[facility]/ZIP Co de Phone Number [facility] [address] [address] * COLONOSCOPY (02/01/2008 10:55 AM CDT) 02/01/2008 10:5 5 AM CDT [facility]ative [facility] 02/01/2008 11:43 AM CDT Ordered by an unspecified provider. [facility] GI Lab Patient Name: Chevy Damon ?Procedure [...] colonoscopy in 5 years. Connor Sun MD, [id number] Signed Date: 02/01/2008 11:42 Number of Addenda: 0 This report has been signed electronically. Note initiated on 02/01/2008 10:54 Provider Unknown GI LAB [facility] GI * OCCULT BLOOD, STOOL (04/14/2002 11:29 AM CDT) Occult Bld Negative Negative [facility] Stool specimen (specimen) 04/14/2002 11:29 AM CDT 04/16/2002 11:42 AM CDT Narrative [facility] LAB - 04/16/2002 11:42 AM CDT Ordered by an unspecified provider. Provider Unknown LABORATORY Performing Organization Address [facility] Co de Phone Number [facility] * HEPATITIS C ANTIBODY(HX) (01/27/2001 2:39 PM CARE MANAGEMENT SPECIALIST) Hep C Sadie Non Reactive Non Reactive [facility] Blood specimen (specimen) 01/27/2001 2:39 PM CARE MANAGEMENT SPECIALIST 01/29/2001 1:28 PM CARE MANAGEMENT SPECIALIST Narrative [facility] - 01/29/2001 1:28 PM CARE MANAGEMENT SPECIALIST Ordered by an unspecified provider. Provider Unknown LABORATORY Performing Organization Address [facility] de Phone Number [facility] LAB from Last 3 Months or Most Recently Relevant to Health Maintenance Advance Directives For more information, please contact: [phone] * Full Code (Latest Code Status on [...] Status With Whom? Not discussed Care Teams Covering Machine Tender Relationship Specialty Start Date End Date David Martinez MD [address] [place] [address] PCP - General Internal Medicine 12/05/23
--- OUTSIDE RECORDS SUMMARY | 2024-03-17 14:37 | XMS_ITS | Encounter Summary ---
Author Name Unknown Organization [facility] Address [address] [place] [phone] Phone Care Team Providers Care Social Media Job Titles Name Role Phone David Martinez MD Primary Care Provider [phone]- [phone] Reason for Visit * Reason Comments Chest Pain * Auth/Cert (Routine) Specialty Diagnoses / Procedures Referred By Aline gooden Referred To Contact MEDICINE Diagnoses Chest pain, unspecified type Tisha Palomo MD [address] [place] [address] Rapid Treatment Unit 1 [address] [facility] [address] [place] [address] Referral ID Status Reason Start Date Expiration Date Visits Re quested Visits Authorized [id number] 03/03/2024 1 1 Encounter Details Date Type Department Care Team (Late st Contact Info) Description 03/03/2024 10:26 AM CDT - 03/04/2024 9:56 AM CDT Emergency [facility] [place] [facility] [address] [facility] [address] [place], [place] [id number] Tisha Palomo MD [address] [place], [place] [id number] Mario Mcknight MD [address] [id number] Lance Lam MD [address] [facility] [place] [address] Chest pain, unspecified type Discharge Disposition: Discharged to home or self care (routine discharge) Social History Tobacco Use Types Packs/Day Years [...] on file documented as of this encounter Last Filed Vital Signs Vital Sign Reading [...] Mass Index 46.03 03/03/2024 5:00 PM CDT documented in this encounter Discharge Summaries * Efrain Tyler PA-C - 03/04/2024 9:09 AM CDT DISCHARGE SUMMARY - TRAVIS Casey : 1955 Sex: male Date of Admission: 03/03/2024 Date of Discharge: 03/04/2024 Disposition: Home Primary care physician: David Martinez MD ADMISSION DIAGNOSIS: HTN HLD DM2 CAD s/p CABG x 4 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 s/p TAVR Paroxysmal a-fib DISCHARGE DIAGNOSES, ASSESSMENTS, & PLANS: Chest pain: CAD s/p CABG x 4: 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 s/p TAVR: Paroxysmal a-fib: HTN, HLD: Presented with CP with significant cardiac hx -> EKG non-ischemic & serial troponins reassuring. Sub-optimal imaging with TTE but no significant valve dysfunction appreciated. Symptoms now completely resolved & reports feeling well. Attributes symptoms to social stressors -> hospitalized and outside hospital discussing discharging her home which made him feel overwhelm ed, she is now discharging to [facility] and he feels much more reassured. Believe adequately risk stratified & appropriate for discharge home today. -Keep outpatient cardiology follow-up as previously scheduled, below -Continue cardiac medications as ordered below IDDM2: A1c 8.7% in 12/2023. 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 Discontinued semaglutide as not taking EMBEDDED LINUX ENGINEER, reported GI upset & does not want this medication. Chronic Conditions: -Morbid obesity: BMI 46, noted. MAJOR MEDICATION CHANGES: None CONSULTS: None FOLLOW-UP APPOINTMENTS AND REFERRALS: Future Appointments Date Time Provider Department Center 03/22/2024 2:30 PM Vicky Hernández MD [facility] [place] 04/27/2024 2:30 PM Gabriel Em PA-C [facility] ALLERGIES: Allergies Allergen Reactions Penicillins Erythema Nodosum PENDING TEST RESULTS: None PHYSICAL EXAMINATION: BP 143/69 Pulse 57 Temp 36.2 ??C (97.1 ??F) (Oral) Resp 18 Ht 1.778 m (5' 10) Wt (!) 145.5 kg (320 lb 12.3 oz) SpO2 96% BMI 46.03 kg/m?? Constitutional: Alert, NAD Head: Normocephalic, no masses, no lesions, and no tenderness. Eyes: Sclera non-icteric. Pulmonary: Lungs clear bilaterally. No wheezes, rhonchi, crackles appreciated. No dyspnea on RA or cough. Cardiovascular Heart: RRR, S1, S2, no murmurs Peripheral vascular: +2 BLE edema. Gastrointestinal Abdominal: Soft, non-distended with active bowel sounds. Non-tender w/palpation. Genitourinary: No Kim. Musculoskeletal: Chest: No gross abnormalities, no visible redness or bruises. Extremities: Moves all extremities without difficulty, sits up in bed & ambulates on unit without assist. Did not formally assess ROM or strength. Skin: Normal skin color, texture, and turgor. No rashes or lesions appreciated. Neurologic: Alert, oriented. No focal deficits noted. Smt Machine Operator Needed: no MEDICATIONS AT DISCHARGE Medication List CONTINUE taking these medications Accu-Chek SMARTVIEW test strips Generic drug: glucose blood Use 1 strip to check glucose three times daily E11.8 amLODIPine 5 mg Tabs Commonly known as: NORVASC Take 2 tablets (10 mg) by mouth daily. atorvastatin 20 mg tablet Commonly known as: LIPITOR Take 1 tablet (20 mg) by mouth daily. B-D U/F PEN NEEDLE 31G X 8 MM misc Generic drug: insulin pen needle USE 1 4 TIMES DAILY furosemide 40 mg tablet Commonly known as: LASIX Take 1 tablet (40 mg) by mouth daily. insulin GLARGINE 100 units/mL KwikPen Commonly known as: BASAGLAR Inject 60 UNITS subcutaneously daily. insulin LISPRO 100 UNIT/ML Kwikpen Commonly known as: HUMALOG INJECT 15 TO 30 UNITS SUBCUTANEOUSLY WITH MEALS. Max daily dose 90u losartan 50 mg Tabs Commonly known as: COZAAR Take 1 tablet (50 mg) by mouth daily. metFORMIN 1000 mg tablet Commonly known as: GLUCOPHAGE Take 1 tablet by mouth twice daily metoprolol succinate 100 mg XL tablet Commonly known as: TOPROL XL Take 1 tablet (100 mg) by mouth daily. MULTI-VITAMIN ORAL non-formulary medication omega 3 1000 mg capsule Commonly known as: MAXEPA VITAMIN D3 ORAL Xarelto 20 MG tablet Generic drug: rivaroxaban Take 1 tablet (20 mg) by mouth at bedtime. DISCHARGE ORDERS Discharge Procedure Orders Why you were at the hospital: Order Comments: You were in the hospital for chest pain, likely due to recent stressors with familyillness. Heart testing was reassuring here. When should I be concerned? Order Comments: Go to the Emergency Department or call 911 IF: -- your temperature is higher than 101.5 F. (taken by mouth) and lasts more than 12 hours -- you have new weakness in your legs -- you have new and severe headaches -- you feel dizzy, light-headed, or faint -- you feel your heart racing or pounding -- you have CHEST PAIN, pressure, or tightness and/or pain in your arms, shoulder, or jaw. -- you are more short of breath than usual -- your blood pressure top number is more than 200 -- you have nausea, vomiting, or diarrhea that doesn't get better after 1 day (24 hours) -- you have no stool in 3 days -- you do not urinate for 8-12 hours or the urine is very dark -- you have blood or clots in your urine, stools, or vomit - you have thoughts of self-harm - you have thoughts of harming others -- you have any other concerns you feel are an emergency Go to or call the clinic IF: -- you have any questions or concerns that are not an emergency, or you have any questions about your medications -- you are due for health maintenance or routine physical exams Please keep the appointments that have already been made. Order Comments: -- Please keep the appointments that have already been made. Up as tolerated activity level. Order Comments: UP TOLERATED -- Rest is an important part of healing. Save your energy by spreading out activities that make youtired. Rest as needed. -- Slowly increase your level of activity. What you may eat and drink after your hospital stay: Order Comments: HEART HEALTHY DIET: -- Eat more fresh fruits and vegetables: * Aim for two or more servings of fruit each day. * Eat three or more servings of vegetables each day. -- Eat whole grains. -- Limit sodium (salt) CONSISTENT CARBOHYDRATE DIET: -- Carbohydrates include milks, fruits, starches (such as bread, cereal, potatoes and pasta); peas and corn; and sweets and desserts. Eat these foods in moderation. -- Eat balanced meals with fruits, vegetables, starches, meats and milk products. -- Limit foods high in calories like cake, candy, cookies, pie and regular soda. -- Choose sugar-free beverages. -- Eat regular meals and don't skip meals. Take your medicine and plan ahead for refills Order Comments: - It is important that you take the medicines on your list. Work with your health care provider or pharmacist if you have questions about your medicine. - Plan ahead and use the Refill Line so that you don't run out of your medicine. It may take time to review your chart and get the medicine ordered. Discussed diagnosis and treatment plan with the patient. Patient verbalized understanding of condition and treatment plan. At the time of discharge, Chevy Casey is tolerating a cardiac, consistent-carb diet, pain is controlled with oral medication, and is ambulating independently. Chevy Casey is agreeableto discharge and is aware to follow-up as above. READMISSION PLANNED WITHIN 30 DAYS OF DISCHARGE? No I have personally spent greater than 30 minutes in discharge coordination for this patient. Efrain Tyler PA-C, 03/04/2024 9:10 AM documented in this encounter Medications at Time of Discharge Medication Sig Dispensed Refills Start Date End Date non-formulary medication Melaleuca vitamin pack. Take one pack of vitamins by mouth two times daily amLODIPine (NORVASC) 5 mg oral TABS Take 2 tablets (10 mg) by mouth daily. 180 tablet 3 01/22/2024 metFORMIN (GLUCOPHAGE) 1000 mg oral tablet Take 1 tablet by mouth twice daily 180 tablet 01/09/2024 insulin LISPRO (HUMALOG) 100 UNIT/ML subcutaneous Kwikpen INJECT 15 TO 30 UNITS SUBCUTANEOUSLY WITH MEALS. Max daily dose 90u 27 Pen 3 12/05/2023 insulin GLARGINE (BASAGLAR) 100 units/mL subcutaneous KwikPen Inject 60 UNITS subcutaneously daily. 45 mL 3 12/05/2023 losartan (COZAAR) 50 mg oral TABS Take 1 tablet (50 mg) by mouth daily. 90 tablet 3 11/11/2023 atorvastatin (LIPITOR) 20 mg oral tablet Take 1 tablet (20 mg) by mouth daily. 90 tablet 3 11/11/2023 furosemide (LASIX) 40 mg oral tabletIndications:Leg edema Take 1 tablet (40 mg) by mouth daily. 90 tablet 3 11/11/2023 metoprolol succinate (TOPROL XL) 100 mg oral XL tablet Take 1 tablet (100 mg) by mouth daily. 90 tablet 3 11/11/2023 XARELTO 20 MG oral tablet Take 1 tablet (20 mg) by mouth at bedtime. 90 tablet 3 11/11/2023 glucose blood (ACCU-CHEK SMARTVIEW) in vitro test strips Use 1 strip to check glucose three times daily E11.8 300 Strip 1 08/27/2023 insulin pen needle (B-D U/F PEN NEEDLE) 31g x 8 mm NotApplicabl misc USE 1 4 TIMES DAILY 400 each 2 04/30/2023 omega 3 (MAXEPA) 1000 mg oral capsule Take 2 capsules (2,000 mg) by mouth daily. Cholecalciferol (VITAMIN D3 ORAL) Take 1 tablet by mouth daily. Multiple Vitamin (MULTI-VITAMIN ORAL) Take by mouth. documented as of this encounter Progress Notes * Shannon Ware RN - 03/04/2024 9:43 AM CDT DISCHARGE NOTE D: Patient is being discharged. A: (As documented in the Discharge Planning Flowsheet) Discharge Instructions (AVS): AVS given Discharge clothing/valuables: has adequate clothing Discharge medications: no prescriptions Home equipment status: no equipment needed;no supplies needed Home equipment/supplies recommended: None Final discharge destination: Home or self care R: The patient understood the AVS. P: Support patient if they call back with questions. Shannon Ware RN, 03/04/2024 9:43 AM * Ralph Mckeon RN - 03/03/2024 8:49 PM CDT RTUNURSING ADMISSION NOTE Chevy Casey : 1955 SEX: male D: Chevy Casey was admitted to RTU from ED at 1700 for Chest pain, unspecified type . Patient: oriented to person, place and time. Skin: Normal in appearance without lesions, rash or lacerations. Pain: non-existent. BP 150/68 (Cuff Location: Right Arm, Patient Position: Lying Down) Pulse 59 Temp 35.6 ??C (96 ??F) (Oral) Resp 16 Ht 1.778 m (5' 10) Wt (!) 145.5 kg (320 lb 12.3 oz) SpO2 97% BMI 46.03kg/m?? A: Pt oriented to unit, room, and use of call light. Routine admit screens completed. Telemetry notordered. R:PATIENT AND/OR FAMILY: patient was able to verbalize understanding of unit policy and plan of care. Questions answered. Learning considerations: None. P: Implement orders as received. Will continue to monitor, follow plan of care, and notify providerand/or team as needed. Ralph Mckeon RN, 03/03/2024 8:49 PM documented in this encounter H&P Notes * Mario Mcknight MD - 03/03/2024 4:57 PM CDT MEDICINE HISTORY AND PHYSICAL Chevy Casey : 1955 Sex: male Patient Summary: Chevy Casey is a 69 y.o. male with past medical history significant for coronary artery disease status post CABG x 4, A-fib, aortic stenosis s/p TAVR or on October 2023 who was admitted on 03/03/2024 with chest pain.. Assessment and Plan: Chest pain: Atypical chest pain, concerning for angina. ECG and cardiac biomarkers are within normal limits. Subsequently the patient had an echocardiogram which was also revealed no acute abnormalities although it was technically difficult study. At the present time, the patient's ACS is ruled out. Chronic stable problems Hypertension Hyperlipidemia Type 2 diabetes mellitus Coronary artery disease s/p CABG x 4 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 s/p TAVR Paroxysmal atrial fibrillation for which she is on apixaban Diet: Regular diet DVT prophylaxis: He is on systemic anticoagulation Code: Full code Disposition: Pending ACS rule out including MAICOL MAICOL will be likely discharge later tonight or tomorrow morning. History of Present Illness: Chevy Casey is a 69 y.o. male with above listed complex past medical history who was admitted to the emergency department for chest pain, the patient described his chest pain as a crushing elephant sitting on chest. Due to the concern for anginal type chest pain the patient had serial cardiac biomarkers measurements including troponin, and ECG, and subsequently ordered for transthoracic echocardiogram. Links to update patient chart: Medical History, Surgical History, Family History, Psychosocial History, Medication List, Allergies, Code Status, LDA & Wounds Objective: Vitals: 03/03/24 1621 BP: 150/68 Pulse: 67 Resp: 17 Temp: SpO2: 97% Physical Exam BP 150/68 (Cuff Location: Right Arm, Patient Position: Lying Down) Pulse 67 Temp 35.6 ??C (96 ??F) (Oral) Resp 16 Ht 1.778 m (5' 10) Wt (!) 145.5 kg (320 lb 12.3 oz) SpO2 97% BMI 46.03kg/m?? GEN: Alert, lying in bed, in no distress Lungs: Distant breath sounds due to body habitus, no wheezing or crackles. Heart: Soft systolic murmur noted consistent with his recent TAVR. Abdomen: Positive bowel sounds, no tenderness, no distention Extremity, mild lower extremity swelling is noted. PCP: David Martinez MD Total time spent on this encounter, on the date of service, including pre-visit review of separately obtained history, [id number] interaction performing medically appropriate physical exam, patientcounseling/education, interpretation of diagnostic results, care coordination and documentation was55 minutes. documented in this encounter ED Notes * Libby Tee MD - 03/03/2024 3:33 PM CDT Transfer of Care Note Patient: Chevy Casey : 1955 Age: 69 y.o. male Sign out received from: Naman Fniley PA-C. Please see original provider note for further details. BP (!) 136/121 Pulse 65 Temp 37 ??C (98.6 ??F) (Oral) Resp 16 SpO2 98% PREVIOUS ED COURSE In brief, patient is a 69 y.o. male HLD, HTN, T2DM, CAD s/p CBG x 4, paroxysmal AFIB, aortic stenosis s/p TAVR (10/2023) who presented to the emergency department with chest pain. - is hospitalized and she called to say that she's going to be getting discharged, this made the patient anxious and stressed as he isn't sure he will be able to care for her double implant removal with drains - He subsequently had chest pain - Received nitro and ASA by EMS and symptoms resolved by arrival to ED - L pleural effusion, has had recurrent effusion after his CABG years ago - T wave changes on initial EKG and stable on repeat, trops 12 and 13 - admitted for risk stratification given high risk WORKUP PENDING - f/u TTE CONTINUED ED COURSE Patient was reassessed and found to be in no acute distress. He remained stable here in the department and was transferred to the inpatient floor upon bed availability. ED Course as of 03/04/24239March 03, 2024 1507 Hx of quadruple bypass. Anxious and started feeling like someone's running over his chest witha truck. Trops mildly elevated but nonspecific EKG changes, CXR w/ small L pleural effusion. Admitted for risk stratification. 1603 Sodium: 139 1603 Potassium: 4.3 1603 Glucose(!): 332 1603 Creatinine: 0.71 1604 WBC: 8.27 1604 Hgb: 13.2 1604 Plt: 157 1604 HS Troponin I: 13 1604 2H Trop: 12 1604 2H Delta: Not Significant 1604 XR CHEST 2 VIEWS PA + LAT* Recurrent small left pleural effusion. Unchanged cardiomegaly. 1604 ED US CARDIAC The left ventricular ejection fraction appears: Grossly preserved No pericardial effusion identified. RV Dilation present/absent: No significant right ventricular dilation appreciated A-Line predominance consistent with normal lung aeration Findings suggest euvolemia 1604 Temp: 37 ??C (98.6 ??F) Technically difficult study. The estimated left ventricular [...] poor quality study (previous echo done at [facility] on 10/08/23 after TAVR was also technically poor quality) Diastolic indices for assessment of LV diastolic function are indeterminate. Image quality is technically inadequate to r/o TAVR dysfunction CLINICAL IMPRESSION 1. Chest pain, unspecified type DISPOSITION - Patient was admitted to the hospital under the Medicine service. Transported to the inpatient unit. Libby Tee MD Emergency Medicine PGY1 15:33 03/03/2024 Dictation Disclaimer: Some notes are completed with voice-recognition dictation software. As a result, there may be errors in the script that have gone undetected. Errors are generally corrected in real time. Please contact me via [employer] staff message if you note any errors requiring clarification. * Mario Mcknight MD - 03/03/2024 3:21 PM CDT [employer] of the Day (MOD) Summary of verbal sign out given by ED/clinic ADMINISTRATIVE NURSING SUPERVISOR: Sign out received from Team center A Requested Unit RTU Requested patient status Observation Telemetry needs yes Chevy Casey is a 69 y.o. male admitted for chest pain concerning for angina, in setting patient with significant cardiac risk factors. initial ECG and cardiac biomarker ar wnl, TTE ordered anis pending at the time f this note. * Anna Lamb RN - 03/03/2024 10:56 AM CDT Pt says he is under a lot of stress, says his is being discharged from [facility] s/p breast implant removal and he says the nurse was trying to tell him how to do wound care. He says he cannot do that and they are not set up to take her home. Says he is trying to get home health set up or a TCU. Says while trying to talk to his 's nurse and his insurance company he started to have chest pain. He was given 3 NTG and 4 baby aspirin en route and the pain is gone * Naman Finley PA-C - 03/03/2024 10:37 AM CDT Images from the original note were not included. ED Provider Note Chevy Casey : 1955 Sex: male Patient Arrival Date and Time: 03/03/2024 10:26 AM HPI Chevy Casey, pmhx HLD, HTN, T2DM, CAD s/p CBG x 4, paroxysmal AFIB, aortic stenosis s/p TAVR (10/2023), presented to the emergency department with chest pain. is currently in the hospital for a fall and had to have surgery. This mornign the patient received a call from her stating the plan was for her to discharge to home. The patient felt his will require more care than they have available at home and felt stressed and developed chest pain feeling like a truck running over his chest developed. Some accompanying dyspnea. Reports chronic leg swelling. Has been compliant with medications aside from missing morning doses today. Received aspirin and nitroglycerin with the ambulance and feels better. Has significant cardiac history including CAD with CABG a few years ago, TAVR this last year. The patient hasn't had chest pain since leading up to when he needed the valve replacement. MDM / ED Course Chevy casey is a 69 yo male with significant cardiac history presenting with chest pain that feelslike prior chest pain preceding significant cardiac events. Asymptomatic after nitro en route with EMS. Exam finds well appearing individual in no distress, vitally normal, normal respiratory effort on room air, speaking in clear complete sentences. CTAB w/o wheezes or stridor. RRR. Peripheral edema bilaterally, chronic per patient, no accompanying ttp of calf or popliteal spaces. Negative cardiac workup with negative serial troponins, ecg similar to prior and stable. Chest x-ray with small left pleural effusion, recurrent. Cardiac US unremarkable. On room air. Vitally normal without tachycardia or hypoxemia. Admitting for observation to telemetry given anginal symptoms and high risk cardiac history. Pending TTE. Sign out given to Dr. Tee. Problems Addressed / DDx 1 acute or chronic illness or injury that poses a threat to life or bodilyfunction Data considered External notes reviewed and summarized, Tests Ordered, and Independent interpretation of studies Risk of patient management Decision regarding hospitalization ED Course as of 03/05/24 09FriMarch 03, 2024 1111 WBC: 8.27 1111 Hgb: 13.2 1111 Plt: 157 1111 Sodium: 139 1111 AnGap(!): 6 1111 Creatinine: 0.71 1111 Potassium: 4.3 1133 HS Troponin I: 13 1138 ED EKG (12-LEAD) NSR, similar to prior 1138 ED EKG (12-LEAD) stable 1335 Paged mod ~ Chevy Casey Efrain #[id number], new admit, can give signout. 1355 XR CHEST 2 VIEWS PA + LAT* Recurrent small left pleural effusion. Unchanged cardiomegaly. 1355 2H Delta: Not Significant IMPRESSION 1. Chest pain, unspecified type BP 143/69 Pulse 57 Temp 36.2 ??C (97.1 ??F) (Oral) Resp 18 Ht 1.778 m (5' 10) Wt (!) 145.5 kg (320 lb 12.3 oz) SpO2 96% BMI 46.03 kg/m?? Physical Exam: General Appearance: Well developed, well nourished. Skin: Warm. Normal color. Head: Normocephalic, Atraumatic. Eyes: PERRL/EOMI, Conjunctiva Clear. Neck: Supple, Normal ROM Chest and Respiratory: Airway patent. No respiratory distress. Lungs clear to auscultation b/l. Breath sounds equal. Did not appreciate wheezes or stridor. Heart: Distant tones with normal S1 and S2. Regular rhythm. Abdominal: Obese abdomen is soft and non-tender. No masses. No guarding. Musculoskeletal: Spontaneously moving all extremities without abnormality. Bilateral lower extremity edema, no calf or popliteal ttp. Neurologic: Alert and Interactive, No Focal Defects Mental Status: Normal Affect Naman Finley PA-C, 03/05/2024 9:29 AM documented in this encounter Miscellaneous Notes * Utilization Management - Elba Reyes RN - 03/04/2024 9:56 AM CDT Observation Admission Criteria Not Met Admission Reason: hx CAD, s/p CABG, a-fib, aortic stenosis admitted with chest pain. EKG and trops non-revealing. No significant valve dysfunction on TTE. Discharging today. Reason Not Met: no cardiac cath, CCTA, or stress test done Referred to [facility] for secondary review * Utilization Management - Veronique Elmore MD - 03/04/2024 9:56 AM CDT 69M with hx CAD, TAVR, A fib, HTN, HLD - admitted with chest pain; serial troponins and EKG were WNL. TTE unremarkable. No further cardiac testing was done. Patient will discharge on HD2. At the timeof this review, outpatient status is appropriate. Paged Larwill KATHIE. * Utilization Management - Elba Reyes RN - 03/04/2024 9:56 AM CDT [facility] Decision ER[facility]SON Notes Does not meet OBS criteria. No OP Admit order. Patient discharged (bill as OP.) Placed 1058 Class Change Stop Bill * Nursing Assessment - Kaylene Martinez RN - 03/04/2024 1:41 AM CDT Nursing Assessment Head to Toe Head to Toe Assessment Shift Summary Pt is A & OX4 , able to call for need. Deneis pain,nausea,vomiting and Sob. Call light is within reach. Will continue Monitor. BP 149/66 (Cuff Location: Left Arm) Pulse 64 Temp 35.7 ??C (96.3 ??F) (Oral) Resp 18 Ht 1.778 m (5' 10) Wt (!) 145.5 kg (320 lb 12.3 oz) SpO2 96% BMI 46.03 kg/m?? Kaylene Martinez, RN, 03/04/2024 1:42 AM Pt rested well through the shift. Will continue Monitor. Kaylene Martinez RN, 03/04/2024 6:27 AM Neurologic/Cognitive Within Defined Limits HEENT Within Defined Limits Cardiac Within Defined Limits Respiratory Within defined limits Neurovascular Within Defined Limits Gastrointestinal Within Defined Limits Genitourinary Within Defined Limits Musculoskeletal Within Defined Limits Integumentary Within Defined Limits Patient Lines/Drains/Airways Status Active LDAs None Psychosocial Within Defined Limits * Nursing Focused Reassessment - Ralph Mckeon RN - 03/03/2024 9:12 PM CDT Focused Reassessment Shift Summary A&OX4, Denies any chest pain currently. Tolerating orally well. Makes needs known. Provider wasjaradi for pt go home tonight. Pt don't feel comfortable and has nobody home to help.Provider notified and pt is okai to stay back. Elevated ble Cardiac: Comments: Hx of Paroxysmal atrial fibrillation for which she is on apixaban * ED Faculty Note - Tisha Palomo MD - 03/03/2024 11:42 AM CDT Images from the original note were not included. ED Faculty Attestation and Note Chevy Casey : 1955 Sex: male Patient Arrival Date and Time: 03/03/2024 10:26 AM FACULTY ATTESTATION I, Tisha Palomo MD, personally saw the patient, performed critical or lopez portions of the service, and discussed the care with the Advanced Practice Provider. HPI / PERTINENT EXAM Chevy Casey presented to the emergency department for evaluation of chest pain/pressure. Ptsays he is under a lot of stress, says his is being discharged from [facility] s/p breastimplant removal and he says the nurse was trying to tell him how to do wound care over the phone noa were planning on discharging his to home, and he says he cannot do that and they are not set up to take her home. Says he is trying to get home health set up or a TCU. Says while trying to talk to his 's nurse and his insurance company he started to have chest pain. He was given 3 NTGand 4 baby aspirin en route and the pain resolved. 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 No back or abdominal pain. No fevers or cough. No light headedness or loss of consciousness. The patient denies any other physical concerns at this time. Pertinent exam findings: Non-toxic in general appearance. No respiratory distress. Normal heart rate. Normal conjunctiva. No nasal congestion. GCS 15. Moves all 4 extremities equally. Symmetric 1+ pitting lower extremity edema. No pallor. Normal mood. BP (!) 136/121 Pulse 65 Temp 37 ??C (98.6 ??F) (Oral) Resp 16 SpO2 98% ED COURSE / MDM Current labs and images reviewed and interpreted: ED Course as of 03/03/24 1603 FriMarch 03, 2024 1030 EMS Blood Sugar: 254 1044 ED EKG (12-LEAD) NSR without acute ST elevation or depression; first degree AV block and diffuse TWI are unchanged from prior. Compared with: 07/18/2023 5:32 AM; 07/16/2023 1:05 AM; no acute changes. 1048 Sodium: 139 1048 Glucose(!): 332 1048 BICARB(!): 27 1048 AnGap(!): 6 1048 Creatinine: 0.71 1055 Potassium: 4.3 1057 On chart review, September 2023 imaging of the aorta normal without dilatation/aneurysm. 1101 WBC: 8.27 1101 Hgb: 13.2 1101 Plt: 157 1123 HS Troponin I: 13 On chart review, this is at the patient's baseline. 1156 ED US CARDIAC The left ventricular ejection fraction appears: Grossly preserved No pericardial effusion identified. RV Dilation present/absent: No significant right ventricular dilation appreciated A-Line predominance consistent with normal lung aeration Findings suggest euvolemia 1239 XR CHEST 2 VIEWS PA + LAT* Recurrent small left pleural effusion. Unchanged cardiomegaly. 1312 2H Trop: 12 No acute changes. Current EKG reviewed and interpreted: as above. Summary of patient's ED course: Patient's history and description of symptoms concerning for stableangina. Thankfully EKG and hsTrops without acute findings. Plan for admission for ACS r/o. The patient presented with a problem that is 1 acute or chronic illness or injury that poses a threat to life or bodily function. The patient's evaluation involved: ordering and review of 3+ test(s) (see separate area of note for details). The patient's management involved decision regarding hospitalization or escalation of hospital level care. IMPRESSION / DISPOSITION 1. Chest pain, unspecified type The patient's care was signed out to Dr. Benitez at the end of my shift. Plan is admission. Tisha Palomo MD Physician, Emergency Department 03/03/2024 11:42 documented in this encounter Plan of Treatment Upcoming Encounters Date Type Department Care Team (Latest Contact Info) Description 03/22/2024 2:30 PM CDT Office [facility] [address] [place] [phone] Vicky Hernández MD [address] [place] [phone] Scheduled Discharge Disposition: Discharged to home or self care (routine discharge) 04/27/2024 2:30 PM CDT Office [facility] Card[facility] [address] [place] [phone] Gabriel Em PA-C [address] [facility] [address] [place] [address] Scheduled Discharge Disposition: Discharged to home or self care (routine discharge) documented as of this encounter Procedures Procedure Name Priority Date/Time Associated Diagnosis Comments POC GLUCOSE Routine 03/04/2024 6:35 AM CDT POC GLUCOSE Routine 03/03/2024 8:49 PM CDT POC GLUCOSE Routine 03/03/2024 6:02 PM CDT ECH TRANSTHOR (TTE) COMPLETE WITH CONTRAST STAT 03/03/2024 3:34 PM CDT PC TROPONIN QUANTITATIVE Timed 03/03/2024 12:33 PM CDT XR CHEST 2 VIEWS PA + LAT* Routine 03/03/2024 12:30 PM CDT ED EKG (12-LEAD) Routine 03/03/2024 10:5 6 AM CDT ED US CARDIAC STAT 03/03/2024 10:48 AM CDT PC TROPONIN QUANTITATIVE STAT 03/03/2024 10:41 AM CDT PC ELECTROLYTES PANEL STAT 03/03/2024 10:41 AM CDT PC LAB CBC W/DIFF & PLT STAT 03/03/2024 10:41 AM CDT ED EKG (12-LEAD) Routine 03/03/2024 10:4 1 AM CDT TC LAB BLOOD DRAW BY VENIPUNCTURE Routine 03/03/2024 10:38 AM CDT documented in this encounter Results * (ABNORMAL) POC GLUCOSE (03/04/2024 6:35 AM CDT) POC Glucose 277(H) 70 - 100 mg/dL [facility] POINT OF CARE Blood 03/04/2024 6:35 AM CDT Tisha Palomo MD LABORATORY Performing Organization Address [facility] Co de Phone Number [facility] [address] [place] [address], [place] * (ABNORMAL) POC GLUCOSE (03/03/2024 8:49 PM CDT) Pathologist [facility] POC Glucose 322(H) 70 - 100 mg/dL [facility] POINT OF [facility] Blood 03/03/2024 8:49 PM CDT Tisha Palomo MD LABORATORY Performing Organization Address [facility] de Phone Number [facility] [address] [place] [id number], [place] * (ABNORMAL) POC GLUCOSE (03/03/2024 6:02 PM CDT) Pathologist [facility] POC Glucose 239(H) 70 - 100 mg/dL [facility] POINT [facility] Blood 03/03/2024 6:02 PM CDT Tisha Palomo MD LABORATORY Performing Organization Address [facility] Co de Phone Number [facility] POINT [facility] [address] [place] [address], [place] * ECH TRANSTHOR (TTE) COMPLETE WITH CONTRAST (03/03/2024 3:34 PM CDT) Pathologist [facility] AoV int. 49.4 m/s [facility] mnAoV grad. 10 mmHg [facility] [...] ? 70.98 Inches EFRAIN Patient Number ?? [id number] ?Weight ? 326.81 Pounds Date of ?1955 ? BSA ?2.6 m^2 Age ?69 ? Tape Number Gender ? Male ? Study Date ? 03/03/2024 02:29 PM Sealer Operator ?RB ? Ordering Provider ??Tisha Sotol - [id number] Referring ? Interpreting ? Gavin Hwang MD Physician ? Physician ?[id number] Type of Study: TTE procedure: 2D echocardiogram, [...] poor quality study (previous echo done at [facility] on 10/08/23 after TAVR was also [...] REECE Height 70.98 Inches EFRAIN Patient Number [id number] Weight 326.81 Pounds Date of 1955 BSA 2.6 m^2 Age 69 Tape Number Gender Male Study Date 03/03/2024 02:29 PM Sealer Operator RB Ordering Provider Tisha Palomo - [id number] Referring Interpreting Gavin Hwang MD Physician Physician [id number] Type of Study: TTE procedure: 2D echocardiogram, [...] poor quality study (previous echo done at [facility] on 10/08/23 after TAVR was also [...] for pleural effusion. True True True Tisha Palmoo MD RAD ECHO [facility] * TROP 2H (03/03/2024 12:33 PM CDT) 2H Trop 12 <=35 ng/L [facility] 2H Delta Not Significant Not Significant [facility] Blood 03/03/2024 12:3 3 PM CDT 03/03/2024 12:41 PM CDT Tisha Palomo MD LABORATORY [facility] [address] [place] [id number] * XR CHEST 2 VIEWS PA + [...] the spine and shoulders. Procedure Note Je Manning, DO - 03/03/2024 Technique: XR CHEST 2 [...] ED EKG (12-LEAD) (03/03/2024 10:56 AM CDT) 03/03/2024 10:5 6 AM CDT Impressions [facility] EKG ORDERS - 03/03/2024 10:56 AM [...] 397 ms QTC Interval 409 ms P Oxford 61 QRS Oxford 20 T Wave Oxford 88 Narrative Procedure Note Gibson Benitez MD [...] 397 ms QTC Interval 409 ms P Oxford 61 QRS Oxford 20 T Wave Oxford 88 Tisha Palomo MD EKG [facility] EKG ORDERS * ED US CARDIAC (03/03/2024 10:48 AM CDT) Anatomical Region Laterality Modality Ultrasound Narrative 03/03/2024 11:56 AM CDT ED Cardiac Ultrasound Body Areas Imaged: Heart, Chest Wall/Lungs, and Inferior Vena Cava Indications:Chest Pain Window: Subxiphoid, Parasternal Short Oxford, Parasternal Long Oxford, Apical 4-Chamber, IVC, and Bilateral Lungs Findings: [...] HS TROPONIN (03/03/2024 10:41 AM CDT) Pathologist [facility] HS Troponin I 13 <=35 ng/L [facility] Blood 03/03/2024 10:4 1 AM CDT 03/03/2024 10:54 AM CDT Narrative [facility] - 03/03/2024 11:22 AM CDT If ordering as an add-on lab, you must call the lab. Tisha Palomo MD LABORATORY [facility] [address] [address] * (ABNORMAL) CBC WITH PLTS/AUTO DIFF (03/03/2024 10:41 AM CDT) Pathologist [facility] WBC 8.27 4.00 - 10.00 k/cmm [facility] RBC 4.18(L) 4.60 - 6.00 m/cmm [facility] Hgb 13.2 13.1 - 17.5 g/dL [facility] Hematocrit 38.3(L) 40.0 - 51.0 % [facility] MCV 91.6 80.0 - 100.0 fL [facility] MCH 31.6 25.0 - 32.0 pg [facility] MCHC 34.5 31.0 - 36.0 g/dL [facility] RDW 13.7 11.5 - 14.5 % [facility] Plt 157 150 - 400 k/cmm [facility] MPV 10.7 6.5 - 12.5 fL [facility] Automated Abs Neutrophil 6.10 1.70 - 6.50 k/cmm [facility] Comment:Preliminary ANC, Fin al Result to Follow Abs Immature Granulocyte 0.03 0.00 - 0.09 k/cmm [facility] Comment:The Immature Granulo cyte Absolute count contains metamyelocytes and myelocytes. Abs Neutrophil 6.10 1.70 - 6.50 k/cmm [facility] Abs Lymphocyte 1.30 0.80 - 4.00 k/cmm [facility] Abs Monocyte 0.61 0.20 - 1.00 k/cmm [facility] Abs Eosinophil 0.19 0.00 - 0.60 k/cmm [facility] Abs Basophil 0.04 0.00 - 0.20 k/cmm [facility] Blood 03/03/2024 10:4 1 AM CDT 03/03/2024 10:54 AM CDT Tisha Palomo MD LABORATORY Performing Organization Address [facility] Co de Phone Number [facility] [address] [address] * (ABNORMAL) ED CHEMISTRY LABS(NA,K,CL,CO2,GLU,CREAT,CA-IONIZED,ANION GAP) (03/03/2024 10:41 AM CDT) Sodium 139 135 - 148 mEq/L [facility] Chloride 106 92 - 108 mEq/L [facility] AnGap 6(L) 8 - 16 mEq/L [facility] Glucose 332(H) 70 - 100 mg/dL [facility] ICA, Actual 4.12(L) 4.40 - 5.20 mg/dL [facility] ICA, pH Corrected 4.23(L) 4.40 - 5.20 mg/dL [facility] Creatinine 0.71 0.70 - 1.25 mg/dL [facility] BICARB 27(H) 22 - 26 mEq/L [facility] eGFR (2020 CKD-EPI) 99 >=60 ml/min/1.7 3m2 [facility] Comment: The estimated glomerular filtration rate (eGFR) was calculated using the CKD-EPI 2020 creatinine equation, which does not include race as a factor. This equation is validated in individuals 18 years of age and older, and eGFR is normalized to a body surface area of 1.73m^2. Potassium 4.3 3.5 - 5.3 mEq/L [facility] Blood 03/03/2024 10:4 1 AM CDT 03/03/2024 10:46 AM CDT Tisha Palomo MD LABORATORY Performing Organization Address [facility]/ZIP Co de Phone Number [facility] [address] [address] * ED EKG (12-LEAD) (03/03/2024 10:41 AM CDT) 03/03/2024 10:4 1 AM CDT Impressions [facility] E[facility] ORDERS - 03/03/2024 10:41 AM CDT SINUS RHYTHM WITH FIRST DEGREE AV BLOCK INDETERMINATE AXIS MODERATE T-WAVE ABNORMALITY, CONSIDER ANTERIOR ISCHEMIA ??[-0.1+ mV T-WAVE IN V3/V4] ABNORMAL ECG Compared with: 07/18/2023 5:32 AM; 07/16/2023 1:05 AM; no acute changes. P-R Interval 223 ms QRS Interval 101 ms QT Interval 376 ms QTC Interval 392 ms P Oxford 52 QRS Oxford -7 T Wave Oxford 78 Narrative Procedure Note Tisha Palomo MD - 03/03/2024 IMPRESSION SINUS RHYTHM WITH FIRST DEGREE AV BLOCK INDETERMINATE AXIS MODERATE T-WAVE ABNORMALITY, CONSIDER ANTERIOR ISCHEMIA [-0.1+ mV T-WAVEIN V3/V4] ABNORMAL ECG Compared with: 07/18/2023 5:32 AM; 07/16/2023 1:05 AM; no acute changes. P-R Interval 223 ms QRS Interval 101 ms QT Interval 376 ms QTC Interval 392 ms P Oxford 52 QRS Oxford -7 T Wave Oxford 78 Tisha Palomo MD EKG Performing Organization Address City/[facility]/ZIP Co de Phone Number [facility] E[facility] ORDERS * EXTRA TUBE - BLUE (03/03/2024 10:38 AM CDT) BLUE TUBE [facility] Comment:Blue top(Sodium citr ate) tubes are kept for 3 days from the collection date. Blood 03/03/2024 10:3 8 AM CDT 03/03/2024 10:44 AM CDT Tisha Palomo MD LABORATORY [facility] [address] [place] [address] documented in this encounter Visit Diagnoses Diagnosis Chest pain, unspecified type- Primary Chest pain, unspecified type documented in this encounter Administered Medications Inactive Administered Medications - up to 3 most recent administrations Medication Order MAR Action Action Date Dose Rate Site amLODIPine (NORVASC) tablet 10 mg 10 mg, Oral, DAILY, First dose on Fri03/03/24 at 1700, Until Discontinued Given 03/04/2024 8:02 AM CDT 10 mg Given 03/03/2024 6:20 PM CDT 10 mg atorvastatin (LIPITOR) tablet 20 mg 20 mg, Oral, DAILY, First dose on Fri03/03/24 at 1700, Until Discontinued Given 03/03/2024 6:20 PM CDT 20 mg [employer] MED REC REVIEW BY PHARMACY Discharge Date: 03/04/2024, Discharge Location: Home, Anticipated Discharge Time: 10 am - 2 pm, Discharge Medication Orders: DC Med Orders Final, Does not apply, PROTOCOL, Starting on Fri03/04/24 at 0908, Until Fri03/04/24 at 1256 furosemide (LASIX) tablet 40 mg 40 mg, Oral, DAILY, First dose on Fri03/03/24 at 1700, Until Discontinued Given 03/04/2024 8:02 AM CDT 40 mg Given 03/03/2024 6:20 PM CDT 40 mg insulin GLARGINE (LANTUS) 50 UNITS injection vial 50 UNITS, Subcutaneous, DAILY, First dose on Fri03/03/24 at 1800, Until Discontinued Given 03/04/2024 8:52 AM CDT 50 UNITS Abdominal Tissue Given 03/03/2024 6:19 PM CDT 50 UNITS Ab dominal Tissue losartan (COZAAR) tablet 50 mg 50 mg, Oral, DAILY, First dose on Fri03/03/24 at 1700, Until Discontinued Given 03/04/2024 8:02 AM CDT 50 mg Given 03/03/2024 6:20 PM CDT 50 mg metoprolol succinate (TOPROL XL) XL tablet 100 mg 100 mg, Oral, DAILY, First dose on Fri03/03/24 at 1700, Until Discontinued Given 03/03/2024 6:20 PM CDT 100 mg perflutren protein A microsphere (OPTISON) IV 0.5 mL 0.5 mL, IV Push, RAD ONE TIME AUTO ACKNOWLEDGE, 1 dose, On Fri03/03/24 at 1340 Given 03/03/2024 3:34 PM CDT 0 .5 mL rivaroxaban (XARELTO) tablet 20 mg 20 mg, Oral, BEDTIME, Indications: Nonvalvular Atrial Fibrillation, First dose on Fri03/03/24 at 2000, Until Discontinued Given 03/03/2024 8:48 PM CDT 20 mg VTE - Low Risk Low Risk Reason: other (specify in comments), Does not apply, PROTOCOL, Starting on Fri03/03/24 at 1656, Until Fri03/04/24 at 1256 documented in this encounter Active and Recently Administered Medications Times are shown in CDT. Scheduled Medication Order 03/02/2024 03/03/2024 03/04/2024 amLODIPine (NORVASC) tablet 10 mg 10 mg, Oral, DAILY, First dose on Fri03/03/24 at 1700, Until Discontinued 1820 (Given - Provider: Ralph Mckeon RN) 08 (Given - Provider: Shannon Ware RN) atorvastatin (LIPITOR) tablet 20 mg 20 mg, Oral, DAILY, First dose on Fri03/03/24 at 1700, Until Discontinued 182 (Given - Provider: Ralph Mckeon RN) 08 (Not Given (removes Due time) - Provider: Shannon Ware RN - Reason: Other (must enter a comment) - Comment: TAKES AT HS) DC MED REC REVIEW BY PHARMACY(Linked Group 1) Discharge Date: 03/04/2024, Discharge Location: Home, Anticipated Discharge Time: 10 am - 2 pm, Discharge Medication Orders: DC Med Orders Final, Does not apply, PROTOCOL, Starting on Fri03/04/24 at 0908, Until Fri03/04/24 at 1256 furosemide (LASIX) tablet 40 mg 40 mg, Oral, DAILY, First dose on Fri03/03/24 at 1700, Until Discontinued 1820 (Given - Provider: Ralph Mckeon RN) 08 (Given - Provider: Shannon Ware RN) insulin GLARGINE (LANTUS) 50 UNITS injection vial 50 UNITS, Subcutaneous, DAILY, First dose on Fri03/03/24 at 1800, Until Discontinued 1811 (Dual Sign-Off - Provider: Ralph Mckeon RN)1818 (Given - Provider: Ralph Mckeon RN) 08 (Dual Sign-Off - Provider: Shannon Ware RN)0852 (Given - Provider: Shannon Ware RN) losartan (COZAAR) tablet 50 mg 50 mg, Oral, DAILY, First dose on Fri03/03/24 at 1700, Until Discontinued 182 (Given - Provider: Ralph Mckeon RN) 08 (Given - Provider: Shannon Ware RN) metoprolol succinate (TOPROL XL) XL tablet 100 mg 100 mg, Oral, DAILY, First dose on Fri03/03/24 at 1700, Until Discontinued 1820 (Given - Provider: Ralph Mckeon RN) 801 (Not Given (removes Due time) - Provider: Shannon Ware RN - Reason: Other (must enter a comment) - Comment: patient not taking) perflutren protein A microsphere (OPTISON) IV 0.5 mL (COMPLETED) 0.5 mL, IV Push, RAD ONE TIME AUTO ACKNOWLEDGE, 1 dose, On Fri03/03/24 at 1340 1534 (Given - Provider: Geena Ferro RDMS) rivaroxaban (XARELTO) tablet 20 mg 20 mg, Oral, BEDTIME, Indications: Nonvalvular Atrial Fibrillation, First dose on Fri03/03/24 at 2000, Until Discontinued 2047 (Given - Provider: Ralph Mckeon RN) VTE - Low Risk(Linked Group 2) Low Risk Reason: other (specify in comments), Does not apply, PROTOCOL, Starting on Fri03/03/24 at 1656, Until Fri03/04/24 at 1256 Linked Groups Order Group 1: DC MED REC REVIEW BY PHARMACYJump to med Discharge Date: 03/04/2024, Discharge Location: Home, Anticipated Discharge Time: 10 am - 2 pm, Discharge Medication Orders: DC Med Orders Final, Does not apply, PROTOCOL, Starting on Fri03/04/24 at 0908, Until Jaimie 03/04/24 at 1256 And Discharge Med Rec Final Review by Pharmacy (CANCELED) Routine, Order to be placed by provider after medications have been entered for discharge and are ready for review by Pharmacist. This order can be placed multiple times if changes or additions have been made to medications for discharge. Choose the Preliminary DC Med Rec review when placing orders prior to the day of discharge. Choose Final DC Med Rec when all medication changes have been entered. If DC Med Rec needed now, please page the Pharmacist covering the patient to inform them., Discharge Date: 03/04/2024, Discharge Location: Home, Anticipated Discharge Time: 10 am - 2 pm Group 2: VTE - Low RiskJump to med Low Risk Reason: other (specify in comments), Does not apply, PROTOCOL, Starting on Fri03/03/24 at 1656, Until Jaiime 03/04/24 at 1256 And VTE - Low Risk Communication (CANCELED) ONCE, On Fri03/03/24 at 1700, For 1 occurrence, Low Risk Reason: other (specify in comments), Patient at low risk for VTE; neither mechanical nor chemical prophylaxis is required documented in this encounter Care Teams Social Media Job Titles Relationship Specialty Start Date End Date David Martinez MD [address] [place] [address] PCP - General Internal Medicine 12/05/23 documented as of this encounter
--- OUTSIDE RECORDS SUMMARY | 2024-03-17 14:37 | XMS_ITS | Encounter Summary ---
Author Name Unknown Organization [facility][Note 3] Address [address] [place] [address] Phone Care Team Providers Care Atmospheric Drier Tender Name Role Phone David Martinez MD Primary Care Provider [phone] Encounter Details Date Type Department Care Team ([facility] st Contact Info) Description 01/01/2024 Pharmacy Patient Assistance Program [facility] [address] [place] [address] [id number] [place], [place] [address] Vicky Hernández MD [address] [place] [address] Social History Tobacco Use Types [...] Coronavirus/COVID-19? No / Unsure 12/05/2023 2:11 PM MANAGER BANK documented as of this encounter Progress Notes * Melquiades Mcfadden - 01/01/2024 11:16 AM CSTSummary: Basaglar PAP Approval 2023 Patient has been APPROVED for Patient Assistance Approval Dates: 01/01/2024 - 11/02/2024 Medication: Basaglar (insulin GLARGINE) Sig: Inject 60 units subcutaneously daily. Strength: 100 units/mL Provider/NPI: Vicky Hernández MD - Foundation: [facility] Patient #: /[id number] Ships to patient's home. GER BANK documented in this encounter Plan of Treatment Upcoming Encounters Date Type Department Care Team (Latest Contact Info) Description 03/22/2024 2:30 PM CDT Office Visit [facility] [address] [place] [address] Vicky Hernández MD [address] [place] [phone] Scheduled Discharge Disposition: Discharged to home or self care (routine discharge) 04/27/2024 2:30 PM CDT Office Visit [facility] [address] [place] [address] Gabriel Em, PA-C [address] [address] Scheduled Discharge Disposition: Discharged to home or self care (routine discharge) documented as of this encounter Visit Diagnoses Not on filedocumented in this encounter Care Teams Atmospheric Drier Tender Relationship Specialty Start Date End Date David Martinez MD [address] [place] [address] PCP - General Internal Medicine 12/05/23 documented as of this encounter
--- OUTSIDE RECORDS SUMMARY | 2024-03-17 14:37 | XMS_ITS | Encounter Summary ---
Author Name Unknown Organization [facility] Address [address] [place] [address] Phone Care Team Providers Care Weight Engineer Name Role Phone David Martinez MD Primary Care Provider [phone] Reason for Visit * Reason Onset Date Comments Rectal Bleeding 03/11/2024 Encounter Details Date Type Department Care Team (Late st Contact Info) Description 03/11/2024 Nurse Triage [facility] Card[facility] Clinic [address] [id number] Kevan Moeller V, RN [address] [place] [address] Rectal Bleeding Social History Tobacco Use Types Packs/Day Years [...] encounter Miscellaneous Notes * Telephone Encounter - Minor, Kevan Salgado RN - 03/11/2024 2:45 PM CDT D: Patient calls reporting rectal bleeding, onset one week. See assessment questions below. A: Recommended care with ED now. R: The patient indicates understanding of these issues and agrees to the plan. P: ED now. Reason for Disposition Taking Coumadin (warfarin) or other strong blood thinner, or known bleeding disorder (e.g., thrombocytopenia) Answer Assessment - Initial Assessment Questions 1. APPEARANCE of BLOOD: What color is it? Is it passed separately, on the surface of the stool, or mixed in with the stool? Dark red blood mixed with stool 2. AMOUNT: How much blood was passed? Enough to turn toilet water red 3. FREQUENCY: How many times has blood been passed with the stools? With every bowel movement 4. ONSET: When was the blood first seen in the stools? (Days or weeks) About a week. 5. DIARRHEA: Is there also some diarrhea? If Yes, ask: How many diarrhea stools in the past 24 hours? Some soft stools. 6. CONSTIPATION: Do you have constipation? If Yes, ask: How bad is it? No 7. RECURRENT SYMPTOMS: Have you had blood in your stools before? If Yes, ask: When was the last time? and What happened that time? No 8. BLOOD THINNERS: Do you take any blood thinners? (e.g., Coumadin/warfarin, Pradaxa/dabigatran, aspirin) Yes. On xarelto. 9. OTHER SYMPTOMS: Do you have any other symptoms? (e.g., abdomen pain, vomiting, dizziness, fever) IV start location has been bruising with some continued bleeding. 10. : Is there any chance you are ? When was your last menstrual period? Not asked. Protocols used: Rectal [id number] documented in this encounter Plan of Treatment Upcoming Encounters Date Type Department Care Team (Latest Contact Info) Description 03/22/2024 2:30 PM CDT Office [facility] [address] [place] [address] Vicky Hernández MD [address] 6105[address] Scheduled Discharge Disposition: Discharged to home or self care (routine discharge) 04/27/2024 2:30 PM CDT Office Visit [facility] [address] [place] [address] Gabriel Em PA-C [address] [address] Scheduled Discharge Disposition: Discharged to home or self care (routine discharge) documented as of this encounter Visit Diagnoses Not on filedocumented in this encounter Care Teams Weight Engineer Relationship Specialty Start Date End Date David Martinez MD [address] [place] [address] PCP - General Internal Medicine 12/05/23 documented as of this encounter
--- OUTSIDE RECORDS SUMMARY | 2024-03-17 14:37 | XMS_ITS | Encounter Summary ---
Author Name Unknown Organization [facility] Address [address] [facility] [place] [address] Phone Care Team Providers Care Organ Installer Name Role Phone Katy Ansari MD Primary Care Provider Unava ilable Von Asencio Primary Care Provider Unavailabl Estrella Lin APRN, CORRECTIONAL MANAGER Unavailable Unavail able Jhon Stevens DO Primary Care Provider Unava ilable Estrella Oliveira APRN, CORRECTIONAL MANAGER Unavailable Unavail able Melquiades Grimaldo MD Primary Care Provider Dawn Hameed MD Unavailable Melquiades Grimaldo MD Primary Care Provider [phone] Pcp, No Primary Care Provider Unavailabl Bethany Castillo MD Primary Care Provider + Jayce Zamora MD Primary Care Provi velia Jayce Zamora MD Primary Care Provi velia David Martinez MD Primary Care Provider [phone]- [phone] Encounter Details Date Type Department Care Team (Late st Contact Info) Description 11/20/2005 EWeb History [facility] [address] [facility] [address] [place] [address] Estrella Oliveira APRN, CORRECTIONAL MANAGER [address] [place] [address] Social History Tobacco Use Types Packs/Day Years [...] & Specialty Center Diabetes [facility] Endocrinology Clinic [address] [place] [address] Vicky Hernández MD [address] 265[address] Scheduled Discharge Disposition: Discharged to home or self care (routine discharge) 04/27/2024 2:30 PM CDT Office Visit [facility] [address] [place] [address] Gabriel Em PA-C [address] [place] [address] Scheduled Discharge Disposition: Discharged to home or self care (routine discharge) documented as of this encounter Visit Diagnoses Not on filedocumented in this encounter Care Teams Organ Installer Relationship Specialty Start Date End Date Katy Ansari MD PCP - General 11/06/07 06/24/10 Von Asencio PCP - General 02/19/06 11/05/07 Estrella Oliveira, PAPI, CORRECTIONAL MANAGER [address] [place] [address] PCP - Diabetes/Endo 11/15/09 7 Jhon Stevens DO [address] [place] [address] PCP - General Internal Medicine 06/25/10 05/10/12 Melquiades Grimaldo MD [facility] [address] [place] [address] PCP - General 05/11/12 05/18/12 Dawn Hameed MD [facility] [address] [place] [address] PCP - Practice Partner Primary Care 05/11/12 07/27/17 Melquiades Grimaldo MD [facility] [address] [place] [address] PCP - General 05/19/12 12/05/14 Pcp, No [facility] [place] [address] PCP - General 12/06/14 09/24/15 [place] [address] [place] [address] PCP - General Outside Provider 09/25/15 07/27/17 Jayce Zamora MD [address] [place] [address] PCP - General Outside Provider 07/28/17 12/23/19 Jayce Zamora MD [address] [place] [address] PCP - General Outside Provider 12/24/19 12/04/23 David Martinez MD [address] [place] [address] PCP - General Internal Medicine 12/05/23 Estrella Oliveira APRN, CORRECTIONAL MANAGER [address] [place] [address] Endocrinology 02/18/12 07/27/17 documented as of this encounter
--- OUTSIDE RECORDS SUMMARY | 2024-03-17 14:37 | XMS_ITS | Encounter Summary ---
Author Name Unknown Organization [facility] Address [address] [place] [address] Phone Care Team Providers Care Stationary Engineer Name Role Phone Katy Ansari MD Primary Care Provider Unava ilable Von Asencio Primary Care Provider Unavailabl Estrella Lin APRN, PANEL INSTRUMENT REPAIRER Unavailable Unavail able Jhon Stevens DO Primary Care Provider Unava ilable Estrella Oliveira APRN, PANEL INSTRUMENT REPAIRER Unavailable Unavail able Melquiades Grimaldo MD Primary Care Provider [phone] Dawn Hameed MD Unavailable Melquiades Grimaldo MD Primary Care Provider Pcp, No Primary Care Provider Unavailabl Bethany Castillo MD Primary Care Provider + Jayce Zamora MD Primary Care Provi velia Jayce Zamora MD Primary Care Provi velia David Martinez MD Primary Care Provider [phone]- [phone] Encounter Details Date Type Department Care Team (Late st Contact Info) Description 01/18/2007 Retail Pharmacy Charge Unknown, Provider Social History Tobacco Use Types [...] & Specialty Center Diabetes & Endocrinology Clinic [address] [place] [address] Vicky Hernández MD [address] [address] Scheduled Discharge Disposition: Discharged to home or self care (routine discharge) 04/27/2024 2:30 PM CDT Office Visit [facility] [address] [place] [address] Gabriel Em, PA-C [address] [address] Scheduled Discharge Disposition: Discharged to home or self care (routine discharge) documented as of this encounter Visit Diagnoses Not on filedocumented in this encounter Care Teams Stationary Engineer Relationship Specialty Start Date End Date Katy Ansari MD PCP - General 11/06/07 06/24/10 Von Asencio PCP - General 02/19/06 11/05/07 Estrella Oliveira APRN, PANEL INSTRUMENT REPAIRER [address] [place] [address] PCP - Diabetes/Endo 11/15/09 7 Jhon Stevens DO [address] [place] [address] PCP - General Internal Medicine 06/25/10 05/10/12 Melquiades Grimaldo MD [facility] [address] [place] [address] PCP - General 05/11/12 05/18/12 Dawn Hameed MD [facility] [address] [place] [address] PCP - Practice Partner Primary Care 05/11/12 07/27/17 Melquiades Grimaldo MD [facility] [address] [place] [address] PCP - General 05/19/12 12/05/14 Pcp, No [place] [place] [address] PCP - General 12/06/14 09/24/15 [place] [address] [place] [address] PCP - General Outside Provider 09/25/15 07/27/17 Jayce Zamora MD [facility] [place] [address] PCP - General Outside Provider 07/28/17 12/23/19 Jayce Zamora MD [address] [address] PCP - General Outside Provider 12/24/19 12/04/23 David Martinez MD [address] [place] [address] PCP - General Internal Medicine 12/05/23 Estrella Oliveira APRN, PANEL INSTRUMENT REPAIRER [address] [place] [address] Endocrinology 02/18/12 07/27/17 documented as of this encounter
--- OUTSIDE RECORDS SUMMARY | 2024-03-17 14:37 | XMS_ITS | Encounter Summary ---
Author Name Unknown Organization [facility] Address [address] [facility] [place] [address] Phone Care Team Providers Care President [place] Name Role Phone Jayce Zamora MD Primary Care Provi velia David Martinez MD Primary Care Provider [phone] Encounter Details Date Type Department Care Team (Late st Contact Info) Description 11/11/2023 Orders Only [facility] [place] [facility] Radiology Department [facility] 701 [facility] [address] [address] Provider, [place] [address] Referral of patient (Primary Dx) Social History [...] Coronavirus/COVID-19? No / Unsure 12/05/2023 2:11 PM MODELING INSTRUCTOR documented as of this encounter Plan of Treatment Upcoming Encounters Date Type Department Care Team (Latest Contact Info) Description 03/22/2024 2:30 PM CDT Office Visit [facility] Diabetes [facility] Endocrinology Clinic [address] [place] [address] Vicky Hernández MD [address] [place] [address] Scheduled Discharge Disposition: Discharged to home or self care (routine discharge) 04/27/2024 2:30 PM CDT Office Visit [facility] Cardiology Clinic [address] [address] Gabriel Em PA-C 701 [facility] [place] [place] [address] Scheduled Discharge Disposition: Discharged to home or self care (routine discharge) documented as of this encounter Results * [facility] CARDIAC OUTSIDE FILM (10/08/2023 8:05 AM MODELING INSTRUCTOR) Narrative User, [id number] - 11/11/2023 2:01 PM MODELING INSTRUCTOR Outside Film Only Outside Provider RAD OUTSIDE FILMS * [facility] CARDIAC OUTSIDE FILM (10/07/2023 8:29 AM MODELING INSTRUCTOR) Narrative User, [id number] - 11/11/2023 2:01 PM MODELING INSTRUCTOR Outside Film Only Outside Provider RAD OUTSIDE FILMS documented in this encounter Visit Diagnoses Diagnosis Referral of patient- Primary Referral of patient without examination or treatment documented in this encounter Care Teams President [place] Relationship Specialty Start Date End Date Jayce Zamora MD [address] [place] [address] PCP - General Outside Provider 12/24/19 12/04/23 David Martinez MD [address] [place] [address] PCP - General Internal Medicine 12/05/23 documented as of this encounter
--- OUTSIDE RECORDS SUMMARY | 2024-03-17 14:37 | XMS_ITS | Encounter Summary ---
Author Name Unknown Organization [facility] [place] Address [address] [place] [address] Phone Care Team Providers Care Jalousie Installer Name Role Phone David Martinez MD Primary Care Provider [phone] Reason for Visit * Reason Onset Date Comments Refill Request 01/21/2024 Encounter Details Date Type Department Care Team (Late Contact Info) Description 01/21/2024 Refill [facility] Cardiology Clinic [address] [place] [address] Gabriel Em PA-C [address] [phone] Refill Request Social History Tobacco Use Types Packs/Day Years [...] Specialty Center Diabetes & Endocrinology Clinic [address] [place] [address] Vicky Hernández MD [address] [place] [address] [phone] Scheduled Discharge Disposition: Discharged to home or self care (routine discharge) 04/27/2024 2:30 PM CDT Office Visit [facility] Cardiology Clinic [address] [address] Gabriel Em PA-C 701 [facility] [address] [place] [address] Scheduled Discharge Disposition: Discharged to home or self care (routine discharge) documented as of this encounter Visit Diagnoses Not on filedocumented in this encounter Care Teams Jalousie Installer Relationship Specialty Start Date End Date David Martinez MD [address] [place] [address] PCP - General Internal Medicine 12/05/23 documented as of this encounter
--- OUTSIDE RECORDS SUMMARY | 2024-03-17 14:38 | XMS_ITS | Encounter Summary ---
Author Name Unknown Organization [facility] Address [address] [facility] [place] [address] Care Team Providers Care Hris Analyst Name Role Phone Clinic, [facility] Primary Care Provider Simon Rebolledo MD Unavailable Unavailable Gavin Moore MD Unavailable [phone] Gabriel Fortune DPM Unavailable [phone] Sara Schwab APRN PHERESIS SPECIALIST Unavailable David Martinez MD Primary Care Provider Kyler Lubin MD Unavailable [phone] Ofe Carter Unavailable [phone] Lorraine Ospina PHERESIS SPECIALIST Unavailable [phone] Encounter Details Date Type Department Care Team (Late st Contact Info) Description 07/06/2020 Orders Only [facility]AND[facility] [address] [address] CarneySofya orellana MD [address] [facility] [address] [place] [address] Social History Tobacco Use Types Packs/Day Years Used Date Smoking Tobacco: Never Assessed Sex and Gender Information Value Date Recorded Sex Assigned at Not on file Gender Identity Not on file Sexual Orientation Not on file COVID-19 Exposure Response Date Recorded In the last month, have you been in contact with someone who was confirmed or suspected to have Coronavirus / COVID-19? Yes 07/04/2020 9:52 PM CDT documented as of this encounter Plan of Treatment Upcoming Encounters Date Type Department Care Team (Late st Contact Info) Description 03/24/2024 1:15 PM CDT Office Visit [facility] [address] [facility] [address] [place] [phone] Kyler Lubin MD [address] [place] [id number] Gavin Moore MD [address] [place] [id number] documented as of this encounter Visit Diagnoses Not on filedocumented in this encounter Additional Health Concerns Infection Onset Date Last Indicated Resolved Time Rule Out COVID-19 11/23/2020 11/23/2020 11/23/2020 3:44 AM NUMEROLOGIST documented as of this encounter Care Teams Hris Analyst Relationship Specialty Start Date End Date Clinic, [address] [id number] PCP - General 01/04/19 08/27/23 David Martinez MD [facility] [address] [place] [address] PCP - General Emergency Medicine 08/28/23 Simon Rebolledo MD Assigned Heart and Vascular Provider 08/25/20 09/16/20 Gavin Moore MD [address] [place] [address] Assigned Heart and Vascular Provider 09/17/20 04/14/21 Gabriel Fortune DPM [address] [facility] [address] [place] [address] Assigned Musculoskeletal Provider 12/03/20 05/31/22 Sara Schwab APRN PHERESIS SPECIALIST [address] [place] [address] Assigned Heart and Vascular Provider 04/15/21 06/28/22 Kyler Lubin MD [address] [place] 670355 Assigned Heart and Vascular Provider 08/30/23 10/24/23 Ofe Carter EP [facility] [address] 288745 Cardiac Rehabilitation Therapist 10/23/23 10/23/24 Lorraine Ospina, PHERESIS SPECIALIST [address] 381215 Assigned Heart and Vascular Provider 10/25/23 documented as of this encounter
--- OUTSIDE RECORDS SUMMARY | 2024-03-17 14:38 | XMS_ITS | Encounter Summary ---
Author Name Unknown Organization [place] Address [address] [facility] [place] [address] Care Team Providers Care Dry Wall Finisher Name Role Phone Clinic, [facility] Primary Care Provider Simon Rebolledo MD Unavailable Unavailable Gavin Moore MD Unavailable [phone] Gabriel Fortune DPM Unavailable [phone] Sara Schwab APRN VERTICAL CONTOUR BAND SAW OPERATOR Unavailable David Martinez MD Primary Care Provider Kyler Lubin MD Unavailable [phone] Ofe Carter Unavailable [phone] Lorraine Ospina VERTICAL CONTOUR BAND SAW OPERATOR Unavailable [phone] Encounter Details Date Type Department Care Team (Late st Contact Info) Description 07/06/2020 Orders Only [facility] PHYS STANDARD [address] [address] [place] ValleySofya orellana MD [address] [place] [address] [facility] [address] [place] [address] Unstable angina (H) (Primary Dx) Social History Tobacco Use Types [...] Description 03/24/2024 1:15 PM CDT Office Visit [facility] [address] [facility] [address] [place] [phone] Kyler Lubin MD [address] [place] 284785 Gavin Moore MD [address] [place] 734775 documented as of this encounter Visit Diagnoses Diagnosis Unstable angina (H)- Primary Intermediate coronary syndrome documented in this encounter Additional Health Concerns Infection Onset Date Last Indicated Resolved Time Rule Out COVID-19 11/23/2020 11/23/2020 11/23/2020 3:44 AM C D STRIPPER documented as of this encounter Care Teams Dry Wall Finisher Relationship Specialty Start Date End Date [address] [id number] PCP - General 01/04/19 08/27/[address] [facility] [address] [place] [address] PCP - General Emergency Medicine 08/28/23 Simon Rebolledo MD Assigned Heart and Vascular Provider 08/25/20 09/16/20 Gavin Moore MD [address] [place] 523355 Assigned Heart and Vascular Provider 09/17/20 04/14/21 Gabriel Fortune DPM [address] [place] [address] Assigned Musculoskeletal Provider 12/03/20 05/31/22 Sara Schwab APRN VERTICAL CONTOUR BAND SAW OPERATOR [address] [place] [address] Assigned Heart and Vascular Provider 04/15/21 06/28/22 Kyler Lubin MD [address] [facility] [address] [place] [id number] Assigned Heart and Vascular Provider 08/30/23 10/24/23 Ofe Carter EP [facility] [address] 325805 Cardiac Rehabilitation Therapist 10/23/23 10/23/24 Lorraine Ospina CNP [address] 679015 Assigned Heart and Vascular Provider 10/25/23 documented as of this encounter
--- OUTSIDE RECORDS SUMMARY | 2024-03-17 14:38 | XMS_ITS | Encounter Summary ---
Author Name Unknown Organization [place] Address [address] [facility] [place] [address] Care Team Providers Care Data Officer Name Role Phone Clinic, [facility] Primary Care Provider Simon Rebolledo MD Unavailable Unavailable Gavin Moore MD Unavailable [phone] Gabriel Fortune DPM Unavailable [phone] Sara Schwab APRN EXTRUSION PRESS SUPERVISOR Unavailable David Martinez MD Primary Care Provider Kyler Lubin MD Unavailable [phone] Ofe Carter Unavailable [phone] Lorraine Ospina EXTRUSION PRESS SUPERVISOR Unavailable Reason for Referral * Diagnostic Imaging Ultrasound (Routine) - Closed Specialty Diagnoses / Procedures Referred By Contac t Referred To Contact Radiology. Diagnoses S/P CABG x 4 Procedures US Thoracentesis Page Finney MD [address] [place] [address] Rh Ultrasound [address] [place] [address] Referral ID Status Reason Start Date Expiration Date Visits Re quested Visits Authorized [id number] Closed 09/06/2020 09/06/2021 1 1 RY EQUIPMENT OPERATOR Encounter Details Date Type Department Care Team (Late st Contact Info) Description 09/06/2020 Orders Only SH PHYS STANDARD [address] [place] [phone] Page Finney MD [address] [place] [id number] S/P CABG x 4 (Primary Dx) Social History Tobacco Use Types Packs/Day Years Used Date Smoking Tobacco: Never Smokeless Tobacco: Never Alcohol Use Standard Drinks/Week Comments Not Currently 0 (1 standard drink = 0.6 oz pur e alcohol) AUDIT-C Answer Date Recorded Q1: How often do you have a drink containing alc ohol? Never 07/11/2020 Average Number of Drinks Not on file 020 Frequency of Binge Drinking Not on file 06/2020 Sex and Gender Information Value Date Recorded Sex Assigned at Not on file Gender Identity Not on file Sexual Orientation Not on file COVID-19 Exposure Response Date Recorded In the last month, have you been in contact with someone who was confirmed or suspected to have Coronavirus / COVID-19? No / Unsure 09/06/2020 8:36 AM QUARRY EQUIPMENT OPERATOR documented as of this encounter Plan of Treatment Upcoming Encounters Date Type Department Care Team (Late st Contact Info) Description 03/24/2024 1:15 PM CDT Office Visit [address] [phone] Kyler Lubin MD [address] [place] [address] Gavin Moore MD [address] [place] [id number] documented as of this encounter Results * US Thoracentesis (09/11/2020 2:18 PM QUARRY EQUIPMENT OPERATOR) Anatomical Region Laterality Modality Chest Ultrasound Impressions 09/11/2020 2:38 PM QUARRY EQUIPMENT OPERATOR IMPRESSION: ?? Successful ultrasound-guided thoracentesis, as discussed above. CPT codes for physician reference only: 63777 AUGUSTINA ANDERSON MD Narrative 09/11/2020 2:38 PM QUARRY EQUIPMENT OPERATOR [facility] DATE: 09/11/2020 PROCEDURE: IMAGING GUIDED LEFT THORACENTESIS INTERVENTIONAL RADIOLOGIST: Augustina Anderson MD. INDICATION: Symptomatic left pleural effusion.. CONSENT: The risks, benefits and alternatives of an imaging guided thoracentesis were discussed with the patient ??in detail. All questions were answered. Informed consent was given to proceed with the procedure. MODERATE SEDATION: None. COMPLICATIONS: No immediate complications. PROCEDURE: ?? A limited ultrasound was performed for localization purposes. Using sterile technique 10 mL of Xylocaine was infused into the local soft tissues. Under direct ultrasound guidance a 5 Zimbabwean catheter was inserted into the pleural effusion. A total of 2000 mL of mildly bloody pleural fluid was removed and sent to the lab if diagnostic analysis was requested. FINDINGS: The initial ultrasound shows a pleural effusion. Images obtained during catheter placement show the access needle with tip in the pleural fluid. Procedure Note Augustina Anderson MD - 09/11/2020 [facility] DATE: 09/11/2020 PROCEDURE: IMAGING GUIDED LEFT THORACENTESIS INTERVENTIONAL RADIOLOGIST: Augustina Anderson MD. INDICATION: Symptomatic left pleural effusion.. CONSENT: The risks, benefits and alternatives of an imaging guided thoracentesis were discussed with the patient in detail. All questions were answered. Informed consent was given to proceed with the procedure. MODERATE SEDATION: None. COMPLICATIONS: No immediate complications. PROCEDURE: A limited ultrasound was performed for localization purposes. Using sterile technique 10 mL of Xylocaine was infused into the local soft tissues. Under direct ultrasound guidance a 5 [place]an catheter was inserted into the pleural effusion. A total of 2000 mL of mildly bloody pleural fluid was removed and sent to the lab if diagnostic analysis was requested. FINDINGS: The initial ultrasound shows a pleural effusion. Images obtained during catheter placement show the access needle with tip in the pleural fluid. IMPRESSION: Successful ultrasound-guided thoracentesis, as discussed above. 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 [address] [place] [address] PCP - General Emergency Medicine 08/28/23 Simon Rebolledo MD Assigned Heart and Vascular Provider 08/25/20 09/16/20 Gavin Moore MD [address] [facility] [address] [place], [place] [address] Assigned Heart and Vascular Provider 09/17/20 04/14/21 Gabriel Fortune DPM [address] [facility] [address] [place] [address] Assigned Musculoskeletal Provider 12/03/20 05/31/22 Sara Schwab APRN EXTRUSION PRESS SUPERVISOR [address] [place] [address] Assigned Heart and Vascular Provider 04/15/21 06/28/22 Kyler Lubin MD [address] [place] [id number] Assigned Heart and Vascular Provider 08/30/23 10/24/23 Ofe Carter EP [facility] [address] [place] [address] [address] Cardiac Rehabilitation Therapist 10/23/23 10/23/24 Lorraine Ospina EXTRUSION PRESS SUPERVISOR [address] [place] [address] Assigned Heart and Vascular Provider 10/25/23 documented as of this encounter
--- OUTSIDE RECORDS SUMMARY | 2024-03-17 14:38 | XMS_ITS | Encounter Summary ---
Author Name Unknown Organization [place] Address [address] [facility] [place] [address] Care Team Providers Care Coal Deliverer Name Role Phone Clinic, [facility] Primary Care Provider Simon Rebolledo MD Unavailable Unavailable Gavin Moore MD Unavailable [phone] Gabriel Fortune DPM Unavailable [phone] Sara Schwab APRN LEAD NET SOFTWARE DEVELOPER Unavailable David Martinez MD Primary Care Provider Kyler Lubin MD Unavailable [phone] Ofe Carter Unavailable [phone] Lorraine Ospina LEAD NET SOFTWARE DEVELOPER Unavailable [phone] Reason for Referral * Diagnostic Imaging XR (Routine) - Closed Specialty Diagnoses / Procedures Referred By Contac t Referred To Contact Radiology. Diagnoses S/P CABG x 4 Procedures XR Chest 2 Views Page Finney MD [address] [place] [address] [address] [place] [address] Referral ID Status Reason Start Date Expiration Date Visits Re quested Visits Authorized [id number] Closed 09/05/2020 09/05/2021 1 1 ER MANAGER Encounter Details Date Type Department Care Team (Late st Contact Info) Description 09/05/2020 Orders Only SH PHYS STANDARD [address] [place] [phone] Page Finney MD [address] [place] [id number] S/P CABG x 4 (Primary Dx) Social [...] COVID-19? No / Unsure 09/06/2020 8:36 AM TELLER MANAGER documented as of this encounter Plan of Treatment Upcoming Encounters Date Type Department Care Team (Late st Contact Info) Description 03/24/2024 1:15 PM CDT Office Visit [address] [place] [phone] Kyler Lubin MD [address] [place] [id number] Gavin Moore MD [address] [place] [id number] documented as of this encounter Results * XR Chest 2 Views (09/06/2020 8:45 AM TELLER MANAGER) Anatomical Region Laterality Modality Chest Radio Fluoroscop y Impressions 09/06/2020 1:16 PM TELLER MANAGER IMPRESSION: Bilateral pleural effusions, left greater than right. Left basilar airspace opacity may represent atelectasis or pneumonia. AUGUSTINA HARMON MD Narrative 09/06/2020 1:16 PM TELLER MANAGER CHEST TWO VIEWS ??09/06/2020 8:45 AM HISTORY: Status post CABG x 4. COMPARISON: 07/16/2020 FINDINGS: Left lower lobe airspace consolidation associated with a moderate-sized left pleural effusion. Trace right pleural effusion. Heart appears enlarged. No evidence of pulmonary edema or pneumothorax. Procedure Note Augustina Harmon MD - 09/06/2020 CHEST TWO VIEWS 09/06/2020 8:45 AM HISTORY: Status post CABG x 4. COMPARISON: 07/16/2020 FINDINGS: Left lower lobe airspace consolidation associated with a moderate-sized left pleural effusion. Trace right pleural effusion. Heart appears enlarged. No evidence of pulmonary edema or pneumothorax. IMPRESSION: Bilateral pleural effusions, left greater than right. Left basilar airspace opacity may represent atelectasis or pneumonia. AUGUSTINA HARMON MD Page Finney MD IMG DIAGNOSTIC IMAGING ORDERABLES documented in this encounter Visit Diagnoses Diagnosis S/P CABG x 4- Primary Postsurgical aortocoronary bypass status S/P CABG x 4 Postsurgical aortocoronary bypass status documented in this encounter Additional Health Concerns Infection Onset Date Last Indicated Resolved Time Rule Out COVID-19 11/23/2020 11/23/2020 11/23/2020 3:44 AM TELLER MANAGER documented as of this encounter Care Teams Coal Deliverer Relationship Specialty Start Date End Date [facility], [address] [address] PCP - General 01/04/19 08/27/23 David Martinez MD [facility] [address] [place] [address] PCP - General Emergency Medicine 08/28/23 Simon Rebolledo MD Assigned Heart and Vascular Provider 08/25/20 09/16/20 Gavin Moore MD [address] [place] [address] Assigned Heart and Vascular Provider 09/17/20 04/14/21 Gabriel Fortune DPM [address] [facility] [address] [place] [address] Assigned Musculoskeletal Provider 12/03/20 05/31/22 Sara Schwab APRN LEAD NET SOFTWARE DEVELOPER [address] [place] [address] Assigned Heart and Vascular Provider 04/15/21 06/28/22 Kyler Lubin MD [address] [facility] [address] [place] [address] Assigned Heart and Vascular Provider 08/30/23 10/24/23 Ofe Carter EP [facility] [address] [place] [address] Cardiac Rehabilitation Therapist 10/23/23 10/23/24 Lorraine Ospina, LEAD NET SOFTWARE DEVELOPER [address] [place] [address] Assigned Heart and Vascular Provider 10/25/23 documented as of this encounter
--- OUTSIDE RECORDS SUMMARY | 2024-03-17 14:38 | XMS_ITS | Encounter Summary ---
Author Name Unknown Organization [place] Address [address] [facility] [place] [address] Care Team Providers Care General Engineer Name Role Phone Clinic, [facility] Primary Care Provider Simon Rebolledo MD Unavailable Unavailable Gavin Moore MD Unavailable [phone] Gabriel Fortune DPM Unavailable [phone] Sara Schwab APRN CREATIVE DESIGNER Unavailable David Martinez MD Primary Care Provider Kyler Lubin MD Unavailable [phone] Ofe Carter Unavailable [phone] Lorraine Ospina CREATIVE DESIGNER Unavailable [phone] Encounter Details Date Type Department Care Team (Late st Contact Info) Description 08/07/2020 Orders Only SH PHYS STANDARD [address] [place] [phone] Page Finney MD [address] [place] [id number] S/P CABG x 4 (Primary Dx) Social [...] have Coronavirus / COVID-19? No / Unsure 08/09/2020 2:25 PM CDT documented as of this encounter Plan of Treatment Upcoming Encounters Date Type Department Care Team (Late st Contact Info) Description 03/24/2024 1:15 PM CDT Office Visit [facility] [address] [facility] [address] [place] [address] Kyler Lubin MD [address] [place], [place] [address] Gavin Moore MD [address] [place], [place] [address] documented as of this encounter Results * Asymptomatic COVID-19 Virus (Coronavirus) by PCR (08/12/2020 2:12 PM CDT) Pathologist [facility] COVID-19 Virus PCR to [facility] - Source Nasopharyngeal 08/12/2020 2:27 PM CDT [facility] COVID-19 Virus PCR to [facility] - Result Not Detected 08/13/2020 6:15 PM CDT [facility], [facility] Comment: Collection of multiple specimens from the same patient may be necessary to detect the virus. The possibility of a false negative should be considered if the patient's recent exposure or clinical presentation suggests 2019 nCOV infection and diagnostic tests for other causes of illness are negative. Repeat testing may be considered in this setting. Patient sample was heat inactivated and amplified using the HDPCR SARS-CoV-2 assay ([employer] The HDPCRTM SARS-CoV-2 assay is a reverse director government real-time polymerase chain reaction (qRT-PCR) test intended for the qualitative detection of nucleic acid from SARS-CoV-2 in human nasopharyngeal swabs, oropharyngeal swabs, anterior nasal swabs, mid-turbinate nasal swabs as well as nasal aspirate, nasal wash, and bronchoalveolar lavage (BAL) specimens from individuals who are suspected of COVID-19 by their healthcare provider. A negative result does not rule out the presence of real-time PCR inhibitors in the specimen or COVID-19 RNA in concentrations below the limit of detection of the assay. The possibility of a false negative should be considered if the patients recent exposure or clinical presentation suggests COVID-19. Additional testing or repeat testing requires consultation with the laboratory. Nasopharyngeal specimen is the preferred choice for swab-based SARS CoV2 testing. When collection of a nasopharyngeal swab is not possible the following are acceptable alternatives: an oropharyngeal (OP) specimen collected by a healthcare professional, or a nasal mid-turbinate (NMT) swab collected by a healthcare professional or by onsite self-collection (using a flocked tapered swab), or an anterior nares specimen collected by a healthcare professional or by onsite self-collection (using a round foam swab). (Centers for Disease Control) Testing performed by [facility]) [address] [facility] [address] [place] [address] The test performance characteristics were determined by [facility]. It has not been cleared or approved by the FDA. The laboratory is regulated under the Clinical Laboratory Improvement Amendments of 1988 (CLIA-88) as qualified to perform high-complexity testing. This test is used for clinical purposes. It should not be regarded as investigational or for research. Specimen from nasopharyngeal structure (specimen) 08/12/2020 2:12 PM CDT 08/12/2020 2:27 PM CDT Page Finney MD LAB - MICRO GE NERAL ORDERABLES [facility], [facility] [address] [facility] [address] [place] [address], [facility] [phone] [facility] [address] [place] [address] documented in this encounter Visit Diagnoses Diagnosis S/P CABG x 4- Primary Postsurgical aortocoronary bypass status documented in this encounter Additional Health Concerns Infection Onset Date Last Indicated Resolved Time Rule Out COVID-19 11/23/2020 11/23/2020 11/23/2020 3:44 AM CONDUIT REAMER OPERATOR documented as of this encounter Care Teams General Engineer Relationship Specialty Start Date End Date [facility], [address] [id number] PCP - General 01/04/19 08/27/23 David Martinez MD [facility] [address] [place] [address] PCP - General Emergency Medicine 08/28/23 Simon Rebolledo MD Assigned Heart and Vascular Provider 08/25/20 09/16/20 Gavin Moore MD [address] [facility] [address] [place] [address] Assigned Heart and Vascular Provider 09/17/20 04/14/21 Gabriel Fortune DPM [address] [facility] [address] [place] [address] Assigned Musculoskeletal Provider 12/03/20 05/31/22 Sara Schwab APRN CREATIVE DESIGNER [address] [place] [address] Assigned Heart and Vascular Provider 04/15/21 06/28/22 Kyler Lubin MD [address] [facility] [address] [place] [address] Assigned Heart and Vascular Provider 08/30/23 10/24/23 Ofe Carter EP [facility] [address] [place] [address] [address] Cardiac Rehabilitation Therapist 10/23/23 10/23/24 Lorraine Ospina, TONI [address] [address] Assigned Heart and Vascular Provider 10/25/23 documented as of this encounter
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
--- OUTSIDE RECORDS SUMMARY | 2024-03-17 14:38 | XMS_ITS | Encounter Summary ---
Author Name Unknown Organization [place] Address [address] [facility] [place] [address] Care Team Providers Care Automotive Parts Person Name Role Phone Clinic, [facility] Primary Care Provider Simon Rebolledo MD Unavailable Unavailable Gavin Moore MD Unavailable [phone] Gabriel Fortune DPM Unavailable [phone] Sara Schwab APRN KETTLE FRY COOK OPERATOR Unavailable David Martinez MD Primary Care Provider Kyler Lubin MD Unavailable [phone] Ofe Carter Unavailable [phone] Lorraine Ospina KETTLE FRY COOK OPERATOR Unavailable [phone] Encounter Details Date Type Department Care Team (Late st Contact Info) Description 07/06/2020 Orders Only [facility]AND[facility] [address] [phone] FerdinandSofya orellana MD [address] [facility] [address] [place] [address] Social History Tobacco Use Types [...] Description 03/24/2024 1:15 PM CDT Office Visit [facility] [address] [facility] [address] [place] [address] Kyler Lubin MD [address] [place] [id number] Gavin Moore MD [address] [address] [id number] documented as of this encounter Visit Diagnoses Not on filedocumented in this encounter Additional Health Concerns Infection Onset Date Last Indicated Resolved Time Rule Out COVID-19 11/23/2020 11/23/2020 11/23/2020 3:44 AM VERIFIER documented as of this encounter Care Teams Automotive Parts Person Relationship Specialty Start Date End Date Clinic, [address] [id number] PCP - General 01/04/19 08/27/23 David Martinez MD [facility] [address] [place] [address] PCP - General Emergency Medicine 08/28/23 Simon Rebolledo MD Assigned Heart and Vascular Provider 08/25/20 09/16/20 Gavin Moore MD [address] [address] Assigned Heart and Vascular Provider 09/17/20 04/14/21 Gabriel Fortune DPM [id number] [facility] [address] [place] [address] Assigned Musculoskeletal Provider 12/03/20 05/31/22 Sara Schwab APRN KETTLE FRY COOK OPERATOR [address] [place] [address] Assigned Heart and Vascular Provider 04/15/21 06/28/22 Kyler Lubin MD [address] [id number] Assigned Heart and Vascular Provider 08/30/23 10/24/23 Ofe Carter EP [facility] [address] [id number] Cardiac Rehabilitation Therapist 10/23/23 10/23/24 Lorraine Ospina, KETTLE FRY COOK OPERATOR [address] [id number] Assigned Heart and Vascular Provider 10/25/23 documented as of this encounter
--- OUTSIDE RECORDS SUMMARY | 2024-03-17 14:38 | XMS_ITS | Encounter Summary ---
Author Name Unknown Organization [facility] Address [address] [place] [address] Phone Care Team Providers Care Publication Editor Name Role Phone Katy Ansari MD Primary Care Provider Unava ilable Von Asencio Primary Care Provider Unavailabl Estrella Lin APRN, CARTRIDGE FILLER Unavailable Unavail able Jhon Stevens DO Primary Care Provider Unava ilable Estrella Oliveira APRN, CARTRIDGE FILLER Unavailable Unavail able Melquiades Grimaldo MD Primary Care Provider [phone] Dawn Hameed MD Unavailable Melquiades Grimaldo MD Primary Care Provider Pcp, No Primary Care Provider Unavailabl Bethany Castillo MD Primary Care Provider + Jayce Zamora MD Primary Care Provi velia Jayce Zamora MD Primary Care Provi velia David Martinez MD Primary Care Provider [phone] Encounter Details Date Type Department Care Team (Late st Contact Info) Description 04/27/2004 EmStat History [facility] Orthopaedics Clinic [address] [phone] [place] [address] Cathy Coleman MD [address] [facility] [place], [place] [address] Social History Tobacco Use Types Packs/Day Years [...] & Specialty Center Diabetes & Endocrinology Clinic [address] [place] [address] Vicky Hernández MD [address] [place] [address] Scheduled Discharge Disposition: Discharged to home or self care (routine discharge) 04/27/2024 2:30 PM CDT Office Visit Clinic [facility] Specialty [facility] Cardiology Clinic [address] [place] [address] Gabriel Em PA-C [address] [address] Scheduled Discharge Disposition: Discharged to home or self care (routine discharge) documented as of this encounter Visit Diagnoses Not on filedocumented in this encounter Care Teams Publication Editor Relationship Specialty Start Date End Date Katy Ansari MD PCP - General 11/06/07 06/24/10 Von Asencio PCP - General 02/19/06 11/05/07 Estrella Oliveira APRN, CARTRIDGE FILLER [address] [place] [address] PCP - Diabetes/Endo 11/15/09 7 Jhon Stevens DO [address] [place] [address] PCP - General Internal Medicine 06/25/10 05/10/12 Melquiades Grimaldo MD [facility] [address] [place] [address] PCP - General 05/11/12 05/18/12 Dawn Hameed MD [facility] [address] [place] [address] PCP - Practice Partner Primary Care 05/11/12 07/27/17 Melquiades Grimaldo MD [facility] [address] [place] [address] PCP - General 05/19/12 12/05/14 Pcp, No [facility] [place] [address] PCP - General 12/06/14 09/24/15 [place] [address] [place] [address] PCP - General Outside Provider 09/25/15 07/27/17 Jayce Zamora MD [address] [place] [address] PCP - General Outside Provider 07/28/17 12/23/19 Jayce Zamora MD [address] [place] [address] PCP - General Outside Provider 12/24/19 12/04/23 David Martinez MD [address] [place] [address] PCP - General Internal Medicine 12/05/23 Estrella Oliveira APRN, CARTRIDGE FILLER [address] [place] [address] Endocrinology 02/18/12 07/27/17 documented as of this encounter
--- OUTSIDE RECORDS SUMMARY | 2024-03-17 14:38 | XMS_ITS | Clinical Summary ---
Author Name Unknown Organization [facility] Address [address] [place] [address] Care Team Providers Care Real Time Analyst Name Role Phone David Martinez MD Primary Care Provider Ofe Carter EP Unavailable Lorraine Ospina TEXTILE BROKER Unavailable [phone] Allergies Active Allergy Reactions Criticality Noted Date [...] Overview: Overview: 01/11/14 DM: patient sees outside [facility]. Most recent hemoglobin A1c 9.0., Cr [...] w/ 362.04) Spasm of muscle 03/16/2013 11/23/2020 Family History Medical History Relation Comments Cataracts Father Glaucoma Father Relation Status Comments Father Social History Tobacco Use Types Packs/Day Years [...] Comments Blood Pressure 116/56 10/16/2023 1:20 PM SLIVER LAPPER Pulse 68 10/16/2023 1:20 PM SLIVER LAPPER Temperature 36.5 ??C (97.7 ??F) 10/08/2023 4:00 AM CS T Respiratory Rate 18 10/08/2023 11:1 5 AM SLIVER LAPPER Oxygen Saturation 95% 10/16/2023 1:20 PM SLIVER LAPPER Inhaled Oxygen Concentration - - Weight 143.2 kg (315 lb 12.8 oz) 10/16/2023 1:20 PM SLIVER LAPPER Height 179.1 cm (5' 10.5) 10/16/2023 1:20 PM CS T Body Mass Index 44.67 10/16/2023 1:20 PM SLIVER LAPPER Plan of Treatment Upcoming Encounters Date Type Department Care Team (Late st Contact Info) Description 03/24/2024 1:15 PM CDT Office Visit [facility] [address] [place] [address] [address] [place] [address] Kyler Lubin MD [address] [place], [place] [address] Gavin Moore MD [address] [place] [id number] Health Maintenance Due Date Last Done Comments ANNUAL REVIEW OF HM ORDERS 1954 CT COLONOGRAPHY 1954 EYE EXAM 1954 FIT 1954 FLEX SIG 1954 HF ACTION PLAN 1954 LIPID 1954 MICROALBUMIN 1954 TSH W/FREE T4 REFLEX 1954 sDNA (Cologuard) 1954 HEPATITIS C SCREENING 02/11/1972 RSV VACCINE ( & 60+) (1 - 1-dose 60+ series) 2014 COLONOSCOPY 01/31/2018 02/01/2008 COLORECTAL CANCER SCREENING 01/31/2018 FALL RISK ASSESSMENT 2019 MEDICARE ANNUAL WELLNESS VISIT 2019 Pneumococcal Vaccine: 65+ Years (3 of 3 - PPSV23 or PCV20) 12/15/2020 12/15/2019, 07/25/2005, 07/04/2005 DIABETIC FOOT EXAM 11/29/2021 11/29/2020 COVID-19 Vaccine ( season) 2023 07/23/2022, 10/11/2021, 01/02/2021, Additional history exists ALT 08/19/2023 08/19/2022, 08/04, 11/23/2020, Additional history exists PHQ-2 (once per calendar year) 2023 08/28/2023 A1C 12/31/2023 09/30/2023, 08/04, 11/23/2020, Additional history exists DTAP/TDAP/TD IMMUNIZATION (2 - Td or Tdap) 04/01/2024 04/01/2014, 07/25/2005, 07/04/2005 BMP 04/08/2024 10/08/2023, 09/04, 08/19/2022, Additional history exists INFLUENZA VACCINE (Season Ended) 2024 07/23/2022, 07/28/2017, 09/04/2015, Additional history exists CBC 12/04/2024 12/04/2023, 12/0 04/2023, 09/30/2023, Additional history exists ADVANCE CARE PLANNING 08/01/2025 08/01/2020 ZOSTER IMMUNIZATION Completed 09/28/2018, 8 HPV IMMUNIZATION Aged Out No longer e ligible based on patient's age to complete this topic IPV IMMUNIZATION Aged Out No longer e ligible based on patient's age to complete this topic MENINGITIS IMMUNIZATION Aged Out No l onger eligible based on patient's age to complete this topic RSV MONOCLONAL ANTIBODY Aged Out No l onger eligible based on patient's age to complete this topic Medical Devices Implanted Type Area Screen Making Supervisor Device Identifier Shelf Expiration Date Model / Serial / Lot Device Closure Vascular Manta 18fr 2114 - [id number] Implanted:Qty: 1 on 10/07/2023 at [facility] Occlusion Device [employer] 11/26/2024 [id number] / / [id number] Valve Aortic Transcatheter Heart 29mm Jose Roberto 3 Ultra Resilia - [id number] Implanted:Qty: 1 on 10/07/2023 at [facility] Valve [employer] 03/23/2026 [id number] / [id number] / [id number] Procedures Procedure Name Priority Date/Time Associated Diagnosis Comments CBC WITH PLATELETS Routine 12/04/2023 2: 13 PM SLIVER LAPPER Leukocytosis, unspecified type BASIC METABOLIC PANEL Routine 10/08/2023 6:03 AM SLIVER LAPPER HEMOGLOBIN A1C Add-On 09/30/2023 5:08 PM SLIVER LAPPER COMPREHENSIVE METABOLIC PANEL STAT 08/19/2022 8:49 PM CDT from Last 3 Months or Most Recently Relevant to Health Maintenance Results * CBC with platelets (12/04/2023 2:13 PM SLIVER LAPPER) WBC Count 9.7 4.0 - 11.0 10e3/uL 12/04/2023 2:57 PM SLIVER LAPPER [facility] RBC Count 4.46 4.40 - 5.90 10e6/uL 12/04/2023 2:57 PM SLIVER LAPPER [facility] Hemoglobin 13.7 13.3 - 17.7 g/dL 12/04/2023 2:57 PM SLIVER LAPPER [facility] Hematocrit 40.1 40.0 - 53.0 % 12/04/2023 2:57 PM SLIVER LAPPER [facility] MCV 90 78 - 100 fL 12/04/2023 2:57 PM SLIVER LAPPER [facility] MCH 30.7 26.5 - 33.0 pg 12/04/2023 2:57 PM SLIVER LAPPER [facility] MCHC 34.2 31.5 - 36.5 g/dL 12/04/2023 2:57 PM SL[facility] LAPPER [facility] RDW 13.5 10.0 - 15.0 % 12/04/2023 2:57 PM SL[facility] LAPPER [facility] Platelet Count 160 150 - 450 10e3/uL 12/04/2023 2:57 PM [facility] Blood STRUCTURE OF RIGHT UPPER LIMB / Unknown Venipuncture / Unknown 12/04/2023 2:13 PM SLIVER LAPPER 12/04/2023 2:13 PM [facility] Lorraine Ospina [facility] LAB - BLOOD ORDERAB LES LABORATORY [facility] Lab [address] 1st floor, [address] [place] [address], [facility] [phone] * (ABNORMAL) Basic metabolic panel (10/08/2023 6:03 AM [facility]) [facility] Sodium 136 135 - 145 mmol/L 10/08/2023 6:46 AM [facility] Comment:Reference intervals for this test were updated on 07/29/2023 to more accurately reflect our healthy population. There may be differences in the flagging of prior results with similar values performed with this method. Interpretation of those prior results can be made in the context of the updated reference intervals. Potassium 4.7 3.4 - 5.3 mmol/L 10/08/2023 6:46 AM [facility] Chloride 102 98 - 107 mmol/L 10/08/2023 6:46 AM [facility] Carbon Dioxide (CO2) 24 22 - 29 mmol/L 10/08/2023 6:46 AM [facility] Anion Gap 10 7 - 15 mmol/L 10/08/2023 6:46 AM [facility] Urea Nitrogen 21.9 8.0 - 23.0 mg/dL 10/08/2023 6:46 AM [facility] Creatinine 0.76 0.67 - 1.17 mg/dL 10/08/2023 6:46 AM [facility] GFR Estimate >90 >60 mL/min/1. 73m2 10/08/2023 6:46 AM [facility] Calcium 8.6(L) 8.8 - 10.2 mg/dL 10/08/2023 6:46 AM [facility] Glucose 289(H) 70 - 99 mg/dL 10/08/2023 6:46 AM [facility] Blood STRUCTURE OF LEFT UPPER LIMB / Unknown Venipuncture / Unknown 10/08/2023 6:03 AM SLIVER LAPPER 10/08/2023 6:19 AM SLIVER LAPPER Lorraine Ospina CNP LAB - BLOOD ORDERAB LES LABORATORY [facility] Lab [address] floor, [address] [place] [address], [facility] [phone] * (ABNORMAL) Hemoglobin A1c (09/30/2023 5:08 PM SLIVER LAPPER) Hemoglobin A1C 7.5(H) <5.7 % 09/30/2023 7:06 PM SLIVER LAPPER [facility] Comment: Normal <5.7% Prediabetes 5.7-6.4% ?? Diabetes 6.5% or higher Note: Adopted from ADA consensus guidelines. Blood BLOOD SPECIMEN / Unknown Venipuncture / Unknown 09/30/2023 5:08 PM SLIVER LAPPER 09/30/2023 5:11 PM SLIVER LAPPER Ned Fink MD LAB - BLOOD OR DERABLES LABORATORY [facility] Lab [address] 1[address] floor, [place] [address] [address], [facility] [phone] * (ABNORMAL) Comprehensive metabolic panel (08/19/2022 8:49 PM CDT) Sodium 141 136 - 145 mmol/L 08/19/2022 9:23 PM CDT [facility] Potassium 4.0 3.4 - 5.3 mmol/L 08/19/2022 9:23 PM CDT [facility] Chloride 101 98 - 107 mmol/L 08/19/2022 9:23 PM CDT LABORATORY Carbon Dioxide (CO2) 28 22 - 29 mmol/L 08/19/2022 9:23 PM CDT LABORATORY Anion Gap 12 7 - 15 mmol/L 08/19/2022 9:23 PM CDT [facility] Urea Nitrogen 13.7 8.0 - 23.0 mg/dL 08/19/2022 9:23 PM CDT [facility] Creatinine 0.75 0.67 - 1.17 mg/dL 08/19/2022 9:23 PM CDT [facility] Calcium 9.1 8.8 - 10.2 mg/dL 08/19/2022 9:23 PM CDT LABORATORY Glucose 172(H) 70 - 99 mg/dL 08/19/2022 9:23 PM CDT [facility] Alkaline Phosphatase 103 40 - 129 U/L 08/19/2022 9:23 PM CDT LABORATORY AST 34 10 - 50 U/L 08/19/2022 9:23 PM [facility]T [facility] Comment:Specimen is hemolyze d which can falsely elevate AST. Analysis of a non-hemolyzed specimen may result in a lower value. ALT 35 10 - 50 U/L 08/19/2022 9:23 PM CDT LABORATORY Protein Total 6.8 6.4 - 8.3 g/dL 08/19/2022 9:23 PM CDT LABORATORY Albumin 3.8 3.5 - 5.2 g/dL 08/19/2022 9:23 PM CDT LABORATORY Bilirubin Total 0.5 <=1.2 mg/dL 08/19/2022 9:23 PM CDT LABORATORY GFR Estimate >90 >60 mL/min/1.7 3m2 08/19/2022 9:23 PM CDT [facility] Comment:Effective October 042020 eGFRcr in adults is calculated using the 2020 CKD-EPI creatinine equation which includes age and gender (Johny et al., NEJ, DOI: 10.1056/LQJXai3267646) Blood STRUCTURE OF RIGHT UPPER LIMB / Unknown Venipuncture / Unknown 08/19/2022 8:49 PM CDT 08/19/2022 8:55 PM CDT Von Pacheco MD LAB - BLOOD RICHIE Grimm Organization Address City/State/ZIP Co de Phone Number LABORATORY [facility] Acute Care Lab [address] Lab (1st floor, no room number) [place] [address], [facility] [phone] from Last 3 Months or Most Recently Relevant to Health Maintenance Advance Directives For more information, please contact: [phone] Documents on File Type Date Recorded Patient Occupational Therapy Asst Expl anation Advance Directives and Living Will [...] Discussion with patie nt/ legal decision maker Healthcare Agents on File Name Relationship Healthcare Agent Relationship Communication Cathy Lin Significant other [facility] Health Care Agent Janiya Priscilla [facility] Health Care Agent Care Teams Real Time Analyst Relationship Specialty Start Date End Date David Martinez MD [facility] [address] [place] [address] PCP - General Emergency Medicine 08/28/23 Ofe Carter EP [facility] [address] [address] Cardiac Rehabilitation Therapist 10/23/23 10/23/24 Lorraine Ospina, TEXTILE BROKER [address] [address] Assigned Heart and Vascular Provider 10/25/23
== END 2024-03-17 14:32 | disposition home or self-care (01) ==
LOC: NFLDREF 14:33
PROVIDERS: PCP Internal Medicine; Visit Provider Internal Medicine
DX: I10 Essential (primary) hypertension (principal)
CPT/HCPCS: 80053

== ENCOUNTER 2024-08-11 15:38 | Outpatient (CLI) | payer MEDICARE, SELFPAY ==
--- OUTSIDE RECORDS SUMMARY | 2024-08-11 15:42 | XMS_ITS | Encounter Summary ---
Author Organization [facility] Address [address] [place] [address] Care Team Providers Care Information Security Name Role Phone No Primary/Referring, Phy Primary Care Provider Unavailable Encounter Details Date Type Department Care Team (Late st Contact Info) Description 05/21/2014 Correspondence [facility] [address] [place] [address] Leatha Damon MD [address] [place] [address] [phone] TEST RESULT Social History Tobacco Use Types [...] filedocumented in this encounter Care Teams Information Security Relationship Specialty Start Date End Date No Primary/ReferringMaddy PCP - General 10/21/18 documented as of this encounter
--- OUTSIDE RECORDS SUMMARY | 2024-08-11 15:42 | XMS_ITS | Encounter Summary ---
Author Organization [facility] Address [address] [place] [address] Care Team Providers Care Computer Graphic Artist Name Role Phone No Primary/Referring, Phy Primary [...] on filedocumented in this encounter Care Teams Computer Graphic Artist Relationship Specialty Start Date End Date No Primary/ReferringMaddy PCP - General 10/21/18 documented as of this encounter
--- OUTSIDE RECORDS SUMMARY | 2024-08-11 15:42 | XMS_ITS | Encounter Summary ---
Author Organization [facility] Address [address] [facility] [place] [address] Care Team Providers Care Pocket Setter Lockstitch Name Role Phone No Primary/Referring, Phy Primary Care Provider Unavailable Encounter Details Date Type Department Care Team (Latest Contact Info) Description 11/18/2017 Correspondence [facility] Occupational and Environmental Medicine [address] [place] [address] Bertha Clifton MD [address] [place] [address] [phone] [place], [place] [phone] MEDICAL EXAM REPORT FORM Social History Tobacco [...] on filedocumented in this encounter Care Teams Pocket Setter Lockstitch Relationship Specialty Start Date End Date No Primary/ReferringMaddy PCP - General 10/21/18 documented as of this encounter
--- OUTSIDE RECORDS SUMMARY | 2024-08-11 15:42 | XMS_ITS | Encounter Summary ---
Author Organization [facility] Address [address] [address] [address] Care Team Providers Care Dumper Operator Name Role Phone No Primary/Referring, Phy [...] on filedocumented in this encounter Care Teams Dumper Operator Relationship Specialty Start Date End Date No Primary/ReferringMaddy PCP - General 10/21/18 documented as of this encounter
--- OUTSIDE RECORDS SUMMARY | 2024-08-11 15:42 | XMS_ITS | Clinical Summary ---
Author Organization [facility] Address [place], [place] [address] Care Team Providers Care Sales And Service Consultant Name Role Phone None Primary Care Provider [...] eyes with astigmatism and pres byopia 12/30/2023 Social History Tobacco Use Types Packs/Day Years [...] 03/11/2024 7:24 PM CDT Plan of Treatment Health Maintenance Due Date [...] PCV) 2019 COVID-19 vaccine series ( season) 2024 07/23/2022, 10/11/2021, 01/02/2021, Additional history exists Influenza for age 65+ 07/04/2024 Care Teams Sales And Service Consultant Relationship Specialty Start Date End Date None . PCP - General 05/30/10
--- OUTSIDE RECORDS SUMMARY | 2024-08-11 15:42 | XMS_ITS | Encounter Summary ---
Author Organization [facility] Address [address] [place] [address] Care Team Providers Care Rolling Mill Operator Name Role Phone No Primary/Referring, Phy Primary Care Provider Unavailable Encounter Details Date Type Department Care Team (Late st Contact Info) Description 11/19/2018 Correspondence [facility] [address] [place], [place] [phone] Irais Jones, OD [address] [place] [address] INTERSTATE INSULIN DEPENDENT DIABETIC WAIVER Social History [...] on filedocumented in this encounter Care Teams Rolling Mill Operator Relationship Specialty Start Date End Date No Primary/ReferringMaddy PCP - General 10/21/18 documented as of this encounter
--- OUTSIDE RECORDS SUMMARY | 2024-08-11 15:42 | XMS_ITS | Encounter Summary ---
Author Organization [facility] Address [address], [place] [address] Care Team Providers Care Float Remover Name Role Phone No Primary/Referring, Phy Primary Care Provider Unavailable Encounter Details Date Type Department Care Team (Latest Contact Info) Description 12/26/2014 Correspondence [facility] Occupational and Environmental Medicine [address] [place] [phone] Liya Goodwin MD [address], [place] [phone] MEDICAL EXAMINERS REPORT Social History Tobacco Use [...] on filedocumented in this encounter Care Teams Float Remover Relationship Specialty Start Date End Date No Primary/ReferringMaddy PCP - General 10/21/18 documented as of this encounter
--- OUTSIDE RECORDS SUMMARY | 2024-08-11 15:42 | XMS_ITS | Encounter Summary ---
Author Organization [facility] Address [address] [place] [address] Care Team Providers Care Drying Can Worker Name Role Phone No Primary/Referring, Phy Primary [...] on filedocumented in this encounter Care Teams Drying Can Worker Relationship Specialty Start Date End Date No Primary/ReferringMaddy PCP - General 10/21/18 documented as of this encounter
--- OUTSIDE RECORDS SUMMARY | 2024-08-11 15:42 | XMS_ITS | Encounter Summary ---
Author Organization [facility] Address [address] [place] [address] Care Team Providers Care Customer Sales Advisor Name Role Phone No Primary/Referring, Phy Primary [...] on filedocumented in this encounter Care Teams Customer Sales Advisor Relationship Specialty Start Date End Date No Primary/ReferringMaddy PCP - General 10/21/18 documented as of this encounter
--- OUTSIDE RECORDS SUMMARY | 2024-08-11 15:42 | XMS_ITS | Encounter Summary ---
Author Organization [facility] Address [address] [facility] [place] [address] Care Team Providers Care Community Health Outreach Worker Name Role Phone No Primary/Referring, Phy Primary Care Provider Unavailable Encounter Details Date Type Department Care Team (Latest Contact Info) Description 11/09/2018 Correspondence None No Primary/ReferringMaddy OCC MED NOTES Social History Tobacco Use [...] on filedocumented in this encounter Care Teams Community Health Outreach Worker Relationship Specialty Start Date End Date No Primary/Referring, Maddy PCP - General 10/21/18 documented as of this encounter
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
--- OUTSIDE RECORDS SUMMARY | 2024-08-11 15:42 | XMS_ITS | Encounter Summary ---
Author Organization [facility] Address [address] [place] [address] Care Team Providers Care Harness Fitter Name Role Phone No Primary/Referring, Phy Primary Care Provider Unavailable Encounter Details Date Type Department Care Team (Late st Contact Info) Description 12/26/2014 Correspondence None No Primary/Referring, Caridady STOP BANG DOT CHINO PROTOCOL Social History [...] on filedocumented in this encounter Care Teams Harness Fitter Relationship Specialty Start Date End Date No Primary/Referring, Caridady PCP - General 10/21/18 documented as of this encounter
--- OUTSIDE RECORDS SUMMARY | 2024-08-11 15:42 | XMS_ITS | Encounter Summary ---
Author Organization [facility] Address [address] [place] [address] Care Team Providers Care Pipe Foreman Name Role Phone No Primary/Referring, Phy Primary Care Provider Unavailable Encounter Details Date Type Department Care Team (Late st Contact Info) Description 10/29/2019 Correspondence [facility] [address] [place], [place] [phone] Irais Jones, OD [address] [place], [place] [phone] [place] DRIVERS WAIVER EYE EXAM Social History Tobacco [...] on filedocumented in this encounter Care Teams Pipe Foreman Relationship Specialty Start Date End Date No Primary/ReferringMaddy PCP - General 10/21/18 documented as of this encounter
--- OUTSIDE RECORDS SUMMARY | 2024-08-11 15:42 | XMS_ITS | Encounter Summary ---
Author Organization [facility] Address [address] [facility] [place] [address] Care Team Providers Care Control Equipment Electrician Name Role Phone No Primary/Referring, Phy Primary Care Provider Unavailable Encounter Details Date Type Department Care Team (Late st Contact Info) Description 11/09/2018 Correspondence External to External, [place] [address] INSULIN-TREATED DIABETES MELLITUS ASSESSMENT FORM Social History [...] on filedocumented in this encounter Care Teams Control Equipment Electrician Relationship Specialty Start Date End Date No Primary/ReferringMaddy PCP - General 10/21/18 documented as of this encounter
--- OUTSIDE RECORDS SUMMARY | 2024-08-11 15:42 | XMS_ITS | Encounter Summary ---
Author Organization [facility] Address [address] [place] [address] Care Team Providers Care Exhibition Designer Name Role Phone No Primary/Referring, Maddy Primary Care Provider Unavailable Encounter Details Date Type Department Care Team (Latest Contact Info) Description 12/04/2016 Consent for Procedure/Treatme [facility] Occupational Medicine [address] [place] [address] Janey Curry MD [facility] CONSENT FORM Social History Tobacco Use [...] on filedocumented in this encounter Care Teams Exhibition Designer Relationship Specialty Start Date End Date No Primary/ReferringMaddy PCP - General 10/21/18 documented as of this encounter
--- OUTSIDE RECORDS SUMMARY | 2024-08-11 15:42 | XMS_ITS | Encounter Summary ---
Author Organization [facility] Address [address] [place] [address] Care Team Providers Care Pricing Coordinator Name Role Phone No Primary/Referring, Phy Primary [...] filedocumented in this encounter Care Teams Pricing Coordinator Relationship Specialty Start Date End Date No Primary/ReferringMaddy PCP - General 10/21/18 documented as of this encounter
--- OUTSIDE RECORDS SUMMARY | 2024-08-11 15:42 | XMS_ITS | Encounter Summary ---
Author Organization [facility] Address [address] [facility] [place] [address] Care Team Providers Care Inspector Watch Assembly Name Role Phone No Primary/Referring, Phy Primary Care Provider Unavailable Encounter Details Date Type Department Care Team (Late st Contact Info) Description 07/04/2014 Emergency Room External to [facility], Provider EYE PAIN AND HEADACHE Social History [...] on filedocumented in this encounter Care Teams Inspector Watch Assembly Relationship Specialty Start Date End Date No Primary/ReferringMaddy PCP - General 10/21/18 documented as of this encounter
--- OUTSIDE RECORDS SUMMARY | 2024-08-11 15:42 | XMS_ITS | Encounter Summary ---
Author Organization [facility] Address [address] [place] [address] Care Team Providers Care Fire Alarm Inspector Name Role Phone No Primary/Referring, Phy Primary [...] on filedocumented in this encounter Care Teams Fire Alarm Inspector Relationship Specialty Start Date End Date No Primary/ReferringMaddy PCP - General 10/21/18 documented as of this encounter
--- OUTSIDE RECORDS SUMMARY | 2024-08-11 15:42 | XMS_ITS | Encounter Summary ---
Author Organization [facility] Address [address] [place] [address] Care Team Providers Care Emt P Name Role Phone No Primary/Referring, Phy Primary Care Provider Unavailable Encounter Details Date Type Department Care Team (Late st Contact Info) Description 07/22/2013 Scanned History External to Transferred Record, Provider [facility] Social History Tobacco Use Types Packs/Day [...] on filedocumented in this encounter Care Teams Emt P Relationship Specialty Start Date End Date No Primary/Referring, Phy PCP - General 10/21/18 documented as of this encounter
--- OUTSIDE RECORDS SUMMARY | 2024-08-11 15:42 | XMS_ITS | Encounter Summary ---
Author Organization [facility] Address [address] [place] [address] Care Team Providers Care Motor And Chassis Inspector Name Role Phone No Primary/Referring, Phy [...] on filedocumented in this encounter Care Teams Motor And Chassis Inspector Relationship Specialty Start Date End Date No Primary/Referring, Caridady PCP - General 10/21/18 documented as of this encounter
--- OUTSIDE RECORDS SUMMARY | 2024-08-11 15:42 | XMS_ITS | Encounter Summary ---
Author Organization [facility] Address [address] [place] [address] Care Team Providers Care Obstetrics Nurse Practitioner Name Role Phone No Primary/Referring, Phy Primary Care Provider Unavailable Encounter Details Date Type Department Care Team (Late st Contact Info) Description 07/26/2014 Correspondence [facility] [address] [place] [address] [place] [address] [place] [address] MEDICAL LEAVE STATUS REPORT Social History Tobacco [...] on filedocumented in this encounter Care Teams Obstetrics Nurse Practitioner Relationship Specialty Start Date End Date No Primary/ReferringMaddy PCP - General 10/21/18 documented as of this encounter
--- OUTSIDE RECORDS SUMMARY | 2024-08-11 15:42 | XMS_ITS | Encounter Summary ---
Author Organization [facility] Address [address] [place] [address] Care Team Providers Care Anaesthetic Technician Name Role Phone No Primary/Referring, Phy Primary Care Provider Unavailable Encounter Details Date Type Department Care Team (Late st Contact Info) Description 01/04/2014 Consent for Procedure/Treatme [facility] [address] [facility] [facility] [address] [facility] [place] [address] Nathaniel Dolan MD [address] [place], [place] [phone] CONSENT FOR PROCEDURE Social History Tobacco Use [...] Dolan MD - 01/04/2014 12:00 AM CST NTOLOGICAL NURSE PRACTITIONER documented in this encounter Plan of Treatment Not on file documented as of this encounter Visit Diagnoses Not on filedocumented in this encounter Care Teams Anaesthetic Technician Relationship Specialty Start Date End Date No Primary/Referring, Maddy PCP - General 10/21/18 documented as of this encounter
--- OUTSIDE RECORDS SUMMARY | 2024-08-11 15:42 | XMS_ITS | Encounter Summary ---
Author Organization [facility] Address [address] [facility] [place] [address] Care Team Providers Care Java Programming Professor Name Role Phone No Primary/Referring, Phy Primary Care Provider Unavailable Encounter Details Date Type Department Care Team (Late st Contact Info) Description 09/25/2015 Correspondence None No Primary/Referring, Phy HME EQUIPMENT SPRAYING MACHINE OPERATOR TICKET Social History Tobacco Use Types Packs/Day [...] filedocumented in this encounter Care Teams Java Programming Professor Relationship Specialty Start Date End Date No Primary/Referring, Phy PCP - General 10/21/18 documented as of this encounter
--- OUTSIDE RECORDS SUMMARY | 2024-08-11 15:42 | XMS_ITS | Encounter Summary ---
Author Organization [facility] Address [address] [place] [address] Care Team Providers Care Senior Director Marketing Name Role Phone No Primary/Referring, Phy Primary Care Provider Unavailable Encounter Details Date Type Department Care Team (Late st Contact Info) Description 02/20/2015 Consent for Procedure/Treatme nt [facility] [address] 401 [facility] [place] [address] Nathaniel Dolan MD [address] [place], [place] [id number] CONSENT FOR PROCEDURE Social History Tobacco Use [...] on filedocumented in this encounter Care Teams Senior Director Marketing Relationship Specialty Start Date End Date No Primary/ReferringMaddy PCP - General 10/21/18 documented as of this encounter
--- OUTSIDE RECORDS SUMMARY | 2024-08-11 15:42 | XMS_ITS | Encounter Summary ---
Author Organization [facility] Address [address] [place] [address] Care Team Providers Care Yard Laborer Name Role Phone No Primary/Referring, Phy Primary Care Provider Unavailable Encounter Details Date Type Department Care Team (Late st Contact Info) Description 07/15/2016 Consent for Procedure/Treatme nt [facility] [address] 401 [facility] [place] [address] Nathaniel Dolan MD [address] [place], [place] [phone] CONSENT FOR PROCEDURE Social History Tobacco Use [...] on filedocumented in this encounter Care Teams Yard Laborer Relationship Specialty Start Date End Date No Primary/ReferringMaddy PCP - General 10/21/18 documented as of this encounter
--- OUTSIDE RECORDS SUMMARY | 2024-08-11 15:42 | XMS_ITS | Encounter Summary ---
Author Organization [facility] Address [address] [facility] [place] [address] Care Team Providers Care Corporate Counselor Name Role Phone No Primary/Referring, Phy Primary Care Provider Unavailable Encounter Details Date Type Department Care Team (Latest Contact Info) Description 01/08/2016 Correspondence [facility] Occupational and Environmental Medicine [address] [place] [id number] Kemar Naik MD [address] [place] [phone] MEDICAL EXAMINERS CERT Social History Tobacco Use [...] on filedocumented in this encounter Care Teams Corporate Counselor Relationship Specialty Start Date End Date No Primary/ReferringMaddy PCP - General 10/21/18 documented as of this encounter
--- OUTSIDE RECORDS SUMMARY | 2024-08-11 15:42 | XMS_ITS | Encounter Summary ---
Author Organization [facility] Address [address] [place] [address] Care Team Providers Care Plastic Eye Technician Name Role Phone No Primary/Referring, Phy [...] on filedocumented in this encounter Care Teams Plastic Eye Technician Relationship Specialty Start Date End Date No Primary/ReferringMaddy PCP - General 10/21/18 documented as of this encounter
--- OUTSIDE RECORDS SUMMARY | 2024-08-11 15:42 | XMS_ITS | Encounter Summary ---
[facility] Address [address] [place] [address] Care Team Providers Care Geoscientist Name Role Phone No Primary/Referring, Phy Primary Care Provider Unavailable Encounter Details Date Type Department Care Team (Late st Contact Info) Description 02/23/2015 Correspondence [facility] [address] 401 [place] [address] Nathaniel Dolan MD 401 [place] [address] FMLA Social History Tobacco Use Types Packs/Day [...] on filedocumented in this encounter Care Teams Geoscientist Relationship Specialty Start Date End Date No Primary/ReferringMaddy PCP - General 10/21/18 documented as of this encounter
--- OUTSIDE RECORDS SUMMARY | 2024-08-11 15:43 | XMS_ITS | Encounter Summary ---
Author Organization [facility] Address [address] [place] [phone] Phone Care Team Providers Care Canal Superintendent Name Role Phone David Martinez MD Primary Care Provider [phone] Reason for Visit * Reason Comments Other Encounter Details Date Type Department Care Team ([facility] st Contact Info) Description 04/14/2024 Refill [facility] [address] [place] [address] [phone] Shannon Sutton MD [address] [place] [phone] Other Social History Tobacco Use Types Packs/Day [...] encounter Miscellaneous Notes * Telephone Encounter - Kyara Buchanan RN - 04/19/2024 11:53 AM CDT Medication Refill Request: Medication: Requested Prescriptions Pending Prescriptions Disp Refills ACCU-CHEK SMARTVIEW in vitro test strips [Pharmacy Med Name: Accu-Chek SmartView In Vitro Strip] 0 Sig: USE 1 STRIP TO CHECK GLUCOSE THREE TIMES DAILY E11.8 Refill Protocol: Active Last Clinic Office Visit: 12/05/2023 Next Scheduled Office Visit: not scheduled Refill Prescription: Approved Patient due for follow up. Annemarie refill given. Routed to clerical pool for scheduling Kyara Buchanan RN, 04/19/2024 11:53 AM documented in this encounter Plan of Treatment Upcoming Encounters Date Type Department Care Team (Latest Contact Info) Description 08/18/2024 3:30 PM CDT Office Visit [facility] [address] [place] [address] Vicky Hernández MD [address] [place] [phone] Scheduled Discharge Disposition: Discharged to home or self care 09/06/2024 11:05 AM ASSISTANT STORE MANAGER TRAINEE Office Visit [facility] [address] [address] Gabriel Em, PA-C [address] [facility] [address] [place] [phone] Scheduled Discharge Disposition: Discharged to home or self care documented as of this encounter Visit Diagnoses Not on filedocumented in this encounter Care Teams Canal Superintendent Relationship Specialty Start Date End Date David Martinez MD [address] [place] [address] PCP - General Internal Medicine 12/05/23 documented as of this encounter
--- OUTSIDE RECORDS SUMMARY | 2024-08-11 15:43 | XMS_ITS | Encounter Summary ---
Author Organization [facility] Address [address] [place] [address] Care Team Providers Care Charge Entry Specialist Name Role Phone No Primary/Referring, Phy Primary Care Provider Unavailable Encounter Details Date Type Department Care Team (Latest Contact Info) Description 02/15/2013 Correspondence [facility] Occupational and Environmental Medicine [address] [place] [phone] Janey Curry MD PASTE MIXER FITNESS DETERMINATION Social History Tobacco Use Types [...] on filedocumented in this encounter Care Teams Charge Entry Specialist Relationship Specialty Start Date End Date No Primary/Referring, Maddy PCP - General 10/21/18 documented as of this encounter
--- OUTSIDE RECORDS SUMMARY | 2024-08-11 15:43 | XMS_ITS | Encounter Summary ---
[facility] Address [address] [place] [address] Care Team Providers Care Music Therapy Specialist Name Role Phone No Primary/Referring, Phy Primary Care Provider Unavailable Encounter Details Date Type Department Care Team (Late st Contact Info) Description 03/16/2013 Correspondence [facility] [address] [place] [address] Gabriel Burton DC CHIROPRACTIC SERVICES [...] on filedocumented in this encounter Care Teams Music Therapy Specialist Relationship Specialty Start Date End Date No Primary/Referring, Phy PCP - General 10/21/18 documented as of this encounter
--- OUTSIDE RECORDS SUMMARY | 2024-08-11 15:43 | XMS_ITS | Referral Summary ---
Author Organization [employer] Address [address] [place] [address] Phone Care Team Providers Care Art Director Name Role Phone David Martinez MD Primary Care Provider [phone]- [phone] Source Comments [employer] is fully rolled out on [employer]. Last update 04/07/09.[employer] Allergies Active Allergy Reactions Criticality Noted Date [...] 4 TIMES DAILY 400 each 2 04/30/2023 Active losartan (COZAAR) 50 mg oral TABS Take 1 tablet (50 mg) by mouth daily. 90 tablet 3 11/11/2023 Active atorvastatin (LIPITOR) 20 mg oral tablet Take 1 tablet (20 mg) by mouth daily. 90 tablet 3 11/11/2023 Active furosemide (LASIX) 40 mg oral tabletIndications: Leg edema Take 1 tablet (40 mg) by mouth daily. 90 tablet 3 11/11/2023 Active metoprolol succinate (TOPROL XL) 100 mg oral XL tablet Take 1 tablet (100 mg) by mouth daily. 90 tablet 3 11/11/2023 Active XARELTO 20 MG oral tablet Take 1 tablet (20 mg) by mouth at bedtime. 90 tablet 3 11/11/2023 Active insulin LISPRO (HUMALOG) 100 UNIT/ML subcutaneous Kwikpen INJECT 15 TO 30 UNITS SUBCUTANEOUSLY WITH MEALS. Max daily dose 90u 27 Pen 3 12/05/2023 Active insulin GLARGINE (BASAGLAR) 100 units/mL subcutaneous KwikPen Inject 60 UNITS subcutaneously daily. 45 mL 3 12/05/2023 Active amLODIPine (NORVASC) 5 mg oral TABS Take 2 tablets (10 mg) by mouth daily. 180 tablet 3 01/22/2024 Active non-formulary medication Melaleuca vitamin pack. Take one pack of vitamins by mouth two times daily Active glucose blood (ACCU-CHEK SMARTVIEW) in vitro test strips USE 1 STRIP TO CHECK GLUCOSE THREE TIMES DAILY E11.8 300 Strip 2 04/19/2024 Active metFORMIN (GLUCOPHAGE) 1000 mg oral tablet Take 1 tablet (1,000 mg) by mouth twice daily. 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 Nuclear senile cataract of both eyes 12/30/2023 History of transcatheter aortic valve replacemen t (TAVR) 10/10/2023 Nonrheumatic aortic valve stenosis 04/12/2023 Atrial fibrillation and flutter (CMS/HHS) 2022 Paroxysmal atrial fibrillation (CMS/HHS) 022 Non-arteritic anterior ische eulogio optic neuropathy [...] polyneuropathy, with long-term current use of insulin ([facility]) 07/08/2018 PVD (posterior vitreous detachment), right eye 0 12/03/2016 Venous incompetence 06/13/2016 Type 2 diabetes mellitus wit h moderate nonproliferative retinopathy, macular edema presence unspecified 09/04/2015 Essential hypertension 09/04/2015 Obstructive sleep apnea 01/30/2015 Mild nonproliferative diabetic retinopathy ([facility]) 12/30/2013 ED (erectile dysfunction) 07/22/2013 Familial multiple lipoprotein-type hyperlipidemi a 01/13/2013 Dyslipidemia 01/13/2013 Cervical radiculopathy 12/15/2011 Chronic cellulitis 07/07/2008 Overview: episodes in both legs Morbid obesity ([facility]) 07/07/2008 Hyperlipidemia 01/28/2008 Resolved Problems Problem Noted Date Diagnosed Date Resolved Date Chest pain, unspecified type 07/16/2023 10/10/2023 Penis disorder 01/25/2019 03/08/2019 Diarrhea 05/19/2014 10/14/2019 Type 2 diabetes mellitus wit h diabetic polyneuropathy, with long-term current use of insulin ([facility]) 12/30/2013 04/11/2022 Hypertension 12/16/2011 12/24/2019 Cellulitis of oral soft tissues 09/04/2010 10/10/2011 Health maintenance examination 06/21/2010 10/14/2019 HTN 07/07/2008 04/07/2012 Diabetes mellitus, type 2 ([facility]) 06/18/2007 04/11/2022 Immunizations Name Administration Dates Next [...] Sign Reading Time Taken Comments Blood Pressure 141/63 04/27/2024 2:22 PM CDT Pulse 62 04/27/2024 2:22 PM CDT Temperature 36.2 ??C (97.1 ??F) 03/04/2024 8:02 AM CD T Respiratory Rate 18 03/04/2024 4:28 AM CDT Oxygen Saturation 96% 03/04/2024 4:28 AM CDT Inhaled Oxygen Concentration - - Weight 149.5 kg (329 lb 8 oz) 04/27/2024 2:22 PM CDT Height 177.8 cm (5' 10) 03/03/2024 5:00 PM CDT Body Mass Index 47.28 03/03/2024 5:00 PM CDT Plan of Treatment Upcoming Encounters Date Type Department Care Team (Latest Contact Info) Description 08/18/2024 3:30 PM CDT [facility] [address] [place] [address] Vicky Hernández MD [address] [place] [address] Scheduled Discharge Disposition: Discharged to home or self care 09/06/2024 11:05 AM PARTS INSPECTOR [facility] Card[facility] [address] [place] [address] Gabriel Em, PAErika 701 [facility] [address] [place] [address] Scheduled Discharge Disposition: Discharged to home or self care Procedures Procedure Name Priority Date/Time Associated Diagnosis Comments POC GLYCOSYLATED HGB-A1C MONITORING Routine 12/05/2023 2:26 PM PARTS INSPECTOR PC LIPOPROTEIN;DIRECT MEASUREMENT,LDL CHOLESTEROL Routine 04/10/2023 5:12 PM CDT Coronary artery disease involving [place] coronary artery of [place] heart without angina pectoris Nonrheumatic aortic valve stenosis PC CREATININE;OTHER SOURCE Routine 02/13/2023 3:00 PM CDT Type 2 diabetes mellitus with complication, with long-term current use of insulin ([facility]) COLONOSCOPY-DIAGNOSTI C Routine 02/01/2008 10:55 AM CDT OCCULT BLOOD, STOOL Routine 04/14/2002 1 1:29 AM CDT HEPATITIS C ANTIBODY(HX) Routine 01/27/2001 2:39 PM PARTS INSPECTOR from Last 3 Months or Most Recently Relevant to Health Maintenance Results * (ABNORMAL) POC GLYCOSYLATED HGB-A1C MONITORING (12/05/2023 2:26 PM PARTS INSPECTOR) [facility] Hemoglobin A1C 8.7(H) 4.0 - 5.6 % [facility] Estimated Average Glucose 203 mg/dL [facility] POINT OF CARE Blood 12/05/2023 2:26 PM PARTS INSPECTOR Vicky Hernández MD POINT OF CARE Performing Organization Address [facility] Co de Phone Number [facility] [address] [place] [address] * LDL MEASURED (DOES NOT REQUIRE FASTING) (04/10/2023 5:12 PM CDT) [facility] LDL Measured 74 <=100 mg/dL [facility] Comment: Interpretive Data <100 Desirable 100-129 Above desirable 130-159 Borderline high 160-189 High >=190 Very high Blood 04/10/2023 5:12 PM CDT 04/10/2023 5:12 PM CDT Narrative [facility] - 04/10/2023 5:45 PM CDT Doesn't require a fasting blood sample. Te[facility] MORE LABORATORY Performing Organization Address City/[facility]/ZIP Co de Phone Number [facility] [address] [address] * MICROALBUMIN, URINE RANDOM COL (02/13/2023 3:00 PM CDT) [facility] Mialus Creat 57 30 - 125 mg/dL [facility] Microalbumin <1.2 0.2 - 10.0 mg/dL [facility] Microalbumin Creat Ratio na 0.0 - 20.0 mg/g [facility] Comment:Unable to calculate, results below linearity Unable to calculate, result below linearity Urine 02/13/2023 3:00 PM CDT 02/13/2023 4:37 PM CDT Shannon Sutton MD LABORATORY [facility] [address] [address] * COLONOSCOPY (02/01/2008 10:55 AM CDT) 02/01/2008 10:5 5 AM CDT Narrative [facility] - 02/01/2008 11:43 AM CDT Ordered by an unspecified provider. [facility] Patient Name: Jhon Damon ?Procedure Date: 02/01/2008 10:55 ? Date [...] colonoscopy in 5 years. Connor Sun [place], [id number] Signed Date: 02/01/2008 11:42 Number of Addenda: 0 This report has been signed electronically. Note initiated on 02/01/2008 10:54 Provider Unknown GI LAB Performing Organization Address [facility] Co de Phone Number [facility] * OCCULT BLOOD, STOOL (04/14/2002 11:29 AM CDT) Occult Bld Negative Negative [facility] Stool specimen (specimen) 04/14/2002 11:29 AM CDT 04/16/2002 11:42 AM CDT Narrative [facility] - 04/16/2002 11:42 AM CDT Ordered by an unspecified provider. Provider Unknown LABORATORY Performing Organization Address [facility] Co de Phone Number [facility] * HEPATITIS C ANTIBODY(HX) (01/27/2001 2:39 PM PARTS INSPECTOR) Hep C Sadie Non Reactive Non Reactive [facility] Blood specimen (specimen) 01/27/2001 2:39 PM PARTS INSPECTOR 01/29/2001 1:28 PM PARTS INSPECTOR Narrative [facility] - 01/29/2001 1:28 PM PARTS INSPECTOR Ordered by an unspecified provider. Provider Unknown LABORATORY Performing Organization Address City/[facility] Co de Phone Number [facility] from Last 3 Months or Most Recently Relevant to Health Maintenance Advance Directives For more information, please contact: [phone] * Full Code (Latest Code Status on [...] Status With Whom? Not discussed Care Teams Art Director Relationship Specialty Start Date End Date David Martinez MD [address] [place] [address] PCP - General Internal Medicine 12/05/23
--- OUTSIDE RECORDS SUMMARY | 2024-08-11 15:43 | XMS_ITS | Clinical Summary ---
Author Organization [employer] Address [address] [place] [address] Phone Care Team Providers Care Sugar Mill Worker Name Role Phone David Martinez MD Primary Care Provider [phone]- [phone] Source Comments [employer] is fully rolled out on [employer]. 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 retinopathy, macular edema presence unspecified 09/04/2015 Essential hypertension 09/04/2015 Obstructive sleep apnea 01/30/2015 Mild nonproliferative diabetic retinopathy ([facility]) 12/30/2013 ED (erectile dysfunction) 07/22/2013 Familial multiple lipoprotein-type hyperlipidemi a 01/13/2013 Dyslipidemia 01/13/2013 Cervical radiculopathy 12/15/2011 Chronic cellulitis 07/07/2008 Overview: episodes in both legs Morbid obesity ([facility]) 07/07/2008 Hyperlipidemia 01/28/2008 Resolved Problems Problem Noted Date Diagnosed Date Resolved Date Chest pain, unspecified type 07/16/2023 10/10/2023 Penis disorder 01/25/2019 03/08/2019 Diarrhea 05/19/2014 10/14/2019 Type 2 diabetes mellitus wit h diabetic polyneuropathy, with long-term current use of insulin ([facility]) 12/30/2013 04/11/2022 Hypertension 12/16/2011 12/24/2019 Cellulitis of oral soft tissues 09/04/2010 10/10/2011 Health maintenance examination 06/21/2010 10/14/2019 HTN 07/07/2008 04/07/2012 Diabetes mellitus, type 2 ([facility]) 06/18/2007 04/11/2022 Immunizations Name Administration Dates [...] [facility] [address] [place] [address] Vicky Heránndez MD [address] [id number] Scheduled Discharge Disposition: Discharged to home or self care 09/06/2024 11:05 AM THERAPIST RESPIRATORY Office [facility] Cardiology [facility] [address] [place] [address] Gabriel Em PA-C [address] [address] Scheduled Discharge Disposition: Discharged to home or self care Health Maintenance Due Date Last Done Comments CT Colonography 1954 Dental Oral Exam 1954 Dental Prophylaxis 1954 Dental X-Ray: Bitewings 1954 FIT/Cologuard 1954 Sigmoidoscopy 1954 Periodontal Maintenance 02/11/1968 Medicare Annual Wellness 02/11/1972 iFOB/FIT 04/14/2003 04/14/2002 Imm: Pneumonia greater than 65 years (2 of 2 - PCV) 07/25/2006 07/25/2005, 07/04/2005 PREVENTATIVE VISIT 02/26/2011 02/26/2010, 0 02/23/2009, 01/28/2008 Colonoscopy 01/31/2013 02/01/2008 Colorectal Cancer Screening 01/31/2013 Imm: DTaP/Tdap (3 - Td or Tdap) 10/02/2014 04/01/2014, 07/25/2005, 07/04/2005 Osteoporosis Screening (Dexa Scan) 2019 HEALTH MAINTENANCE PROTOCOL 01/03/2022 01/03/2021, 0 12/16/2011 Diabetes Eye Exam 03/05/2023 03/05/2022, , 11/19/2018, Additional history exists Diabetes Foot Exam 05/03/2023 05/03/2022, 0 06/07/2019, 04/27/2018, Additional history exists Diabetes Microalbumin Screening 02/14/2024 02/13/2023, 05/03/2022, 04/13/2021, Additional history exists Diabetic Education Protocol (CDE) 02/14/2024 02/13/2023, 05/02/2021, 10/21/2018, Additional history exists Diabetic Lab Protocol 02/14/2024 02/13/2023 , 02/01/2022, 07/08/2018, Additional history exists Diabetes HGB A1C Q 3 Months (Goal <7) 03/04/2024 12/05/2023, 09/30/2023, 09/30/2023, Additional history exists Imm: COVID-19 ( season) 2024 07/23/2022, 10/11/2021, 01/02/2021, Additional history exists Imm: Flu (#1) 07/04/2024 07/28/2017, 11/0 12/2014, 07/11/2014, Additional history exists MEDICATION REFILL PROTOCOL 04/16/202504/16, 02/13/2023, 01/29/2022, Additional history exists Lipid Screening 04/10/2028 04/10/2023, 04/03, 12/24/2019, Additional history exists Hepatitis C Screening Completed 01/27/2001 Diabetes Education Completed 06/10/2013, 0 05/27/2013, 05/20/2013, Additional history exists Imm: Zoster Completed 09/28/2018, 04/15/2018 Imm: HPV Aged Out No longer eligi ble based on patient's age to complete this topic Imm: HepA Aged Out No longer eligi ble based on patient's age to complete this topic Imm: HepB Aged Out No longer eligi ble based on patient's age to complete this topic Imm: Hib Aged Out No longer eligi ble based on patient's age to complete this topic Imm: Meningitis Aged Out No longer el igible based on patient's age to complete this topic Procedures Procedure Name Priority Date/Time Associated Diagnosis Comments POC GLYCOSYLATED HGB-A1C MONITORING Routine 12/05/2023 2:26 PM THERAPIST RESPIRATORY PC LIPOPROTEIN;DIRECT MEASUREMENT,LDL CHOLESTEROL Routine 04/10/2023 5:12 PM CDT Coronary artery disease involving [place] coronary artery of [place] heart without angina pectoris Nonrheumatic aortic valve stenosis PC CREATININE;OTHER SOURCE Routine 02/13/2023 3:00 PM CDT Type 2 diabetes mellitus with complication, with long-term current use of insulin ([facility]) COLONOSCOPY-DIAGNOSTI C Routine 02/01/2008 10:55 AM CDT OCCULT BLOOD, STOOL Routine 04/14/2002 1 1:29 AM CDT HEPATITIS C ANTIBODY(HX) Routine 01/27/2001 2:39 PM THERAPIST RESPIRATORY from Last 3 Months or Most Recently Relevant to Health Maintenance Results * (ABNORMAL) POC GLYCOSYLATED HGB-A1C MONITORING (12/05/2023 2:26 PM THERAPIST RESPIRATORY) Hemoglobin A1C 8.7(H) 4.0 - 5.6 % [facility] Estimated Average Glucose 203 mg/dL [facility] Blood 12/05/2023 2:26 PM THERAPIST RESPIRATORY Vicky Hernández MD POINT OF CARE Performing Organization Address City/[facility]/ZIP Co de Phone Number [facility] [address] [place] [address], * LDL MEASURED (DOES NOT REQUIRE FASTING) (04/10/2023 5:12 PM CDT) Pathologist [facility] LDL Measured 74 <=100 mg/dL [facility] Comment: Interpretive Data <100 Desirable 100-129 Above desirable 130-159 Borderline high 160-189 High >=190 Very high Blood 04/10/2023 5:12 PM CDT 04/10/2023 5:12 PM CDT Narrative [facility] - 04/10/2023 5:45 PM CDT Doesn't require a fasting blood sample. [facility] MORE LABORATORY Performing Organization Address [facility] Co de Phone Number [facility] [address] [address] * MICROALBUMIN, URINE RANDOM COL (02/13/2023 3:00 PM CDT) [facility] Creat 57 30 - 125 mg/dL [facility] Microalbumin <1.2 0.2 - 10.0 mg/dL [facility] Microalbumin Creat Ratio na 0.0 - 20.0 mg/g [facility] Comment:Unable to calculate, results below linearity Unable to calculate, result below linearity Urine 02/13/2023 3:00 PM CDT 02/13/2023 4:37 PM CDT Shannon Sutton MD LABORATORY Performing Organization Address City/[facility]/ZIP Co de Phone Number [facility] [address] [address] * COLONOSCOPY (02/01/2008 10:55 AM CDT) 02/01/2008 10:5 5 AM CDT Narrative [facility] - 02/01/2008 11:43 AM CDT Ordered by an unspecified provider. [facility] Patient Name: Jhon Damon ?Procedure [...] colonoscopy in 5 years. Connor Sun MD, [id number] Signed Date: 02/01/2008 11:42 Number of Addenda: 0 This report has been signed electronically. Note initiated on 02/01/2008 10:54 Provider Unknown GI LAB Performing Organization Address City/[facility] Co de Phone Number [facility] * OCCULT BLOOD, STOOL (04/14/2002 11:29 AM CDT) Occult Bld Negative Negative [facility] Stool specimen (specimen) 04/14/2002 11:29 AM CDT 04/16/2002 11:42 AM CDT Narrative [facility] - 04/16/2002 11:42 AM CDT Ordered by an unspecified provider. Provider Unknown LABORATORY Performing Organization Address [facility] Co de Phone Number [facility] * HEPATITIS C ANTIBODY(HX) (01/27/2001 2:39 PM THERAPIST RESPIRATORY) Hep C Sadie Non Reactive Non Reactive [facility] Blood specimen (specimen) 01/27/2001 2:39 PM THERAPIST RESPIRATORY 01/29/2001 1:28 PM THERAPIST RESPIRATORY Narrative [facility] - 01/29/2001 1:28 PM THERAPIST RESPIRATORY Ordered by an unspecified provider. Provider Unknown LABORATORY Performing Organization Address [facility] de Phone Number [facility] from Last 3 Months or Most Recently Relevant to Health Maintenance Advance Directives For more information, please contact: [phone] * Full Code (Latest Code Status on [...] Status With Whom? Not discussed Care Teams Sugar Mill Worker Relationship Specialty Start Date End Date David Martinez MD [address] [place] [id number] PCP - General Internal Medicine 12/05/23
--- OUTSIDE RECORDS SUMMARY | 2024-08-11 15:43 | XMS_ITS | Clinical Summary ---
Author Organization [place] Address [address] [facility] [place] [address] Care Team Providers Care Culture Room Worker Name Role Phone David Martinez MD Primary Care Provider Ofe Carter EP Unavailable Lorraine Ospina NOC TECHNICIAN Unavailable [phone] Allergies Active Allergy Reactions Criticality Noted Date [...] succinate ER (TOPROL-XL) 100 MG 24 hr tabletIndications :Essential hypertension Take 1 tablet (100 mg) by mouth daily 0 1 Active metFORMIN (GLUCOPHAGE) 1000 MG tablet Take 1,000 mg by mouth 2 times daily Active furosemide (LASIX) 40 MG tablet Take 40 mg by mouth daily. Active NONFORMULARY Melaleuca vitamin pack. Take one pack of vitamins by mouth two times daily Active rivaroxaban ANTICOAGULANT (XARELTO) 20 MG TABS tablet Take 20 mg by mouth daily with food. Active chlorhexidine (PERIDEX) 0.12 % solution Swish and spit 15 mLs in mouth 2 times daily Active amLODIPine (NORVASC) 5 MG tablet Take 10 mg by mouth daily Active losartan (COZAAR) 50 MG tablet Take 50 mg by mouth daily. Active clopidogrel (PLAVIX) 75 MG tabletIndications :Dyspnea on exertion,Coronary artery disease involving coronary bypass graft of wilton heart without angina pectoris,Chest pain, unspecified type Take 1 tablet (75 mg) by mouth daily. Dose to start tomorrow. 90 tablet 3 4 Active atorvastatin (LIPITOR) 40 MG tabletIndications :Dyspnea on exertion,Coronary artery disease involving coronary bypass graft of wilton heart without angina pectoris,Chest pain, unspecified type Take 1 tablet (40 mg) by mouth daily. 90 tablet 3 4 Active semaglutide (OZEMPIC, 0.25 OR 0.5 MG/DOSE,) 2 MG/1.5ML SOPN pen Inject 1 mg Subcutaneous every 7 days Take on Friday. 07/30/20 24 Discontinued(Me d Rec(No AVS / No eCancel)) acetaminophen (TYLENOL) 500 MG tablet Take 500-1,000 mg by mouth as needed for mild pain 07/30/20 24 Discontinued(Me d Rec(No AVS / No eCancel)) atorvastatin (LIPITOR) 20 MG tablet Take 20 mg by mouth at bedtime 08/04/20 24 Discontinued(St op at Discharge) losartan (COZAAR) 100 MG tabletIndications :Essential hypertension Take 1 tablet (100 mg) by mouth daily 30 tablet 1 3 07/30/20 24 Discontinued(Me d Rec(No AVS / No eCancel)) aspirin 81 MG EC tabletIndications :Severe aortic stenosis Take 1 tablet (81 mg) by mouth daily. 60 tablet 4 08/04/20 24 Discontinued(St op at Discharge) aspirin (ASA) 81 MG chewable tabletIndications :Dyspnea on exertion,Coronary artery disease involving coronary bypass graft of wilton heart without angina pectoris,Chest pain, unspecified type Take 1 tablet (81 mg) by mouth daily for 7 days. Starting tomorrow. 7 tablet 4 08/04/20 24 Discontinued atorvastatin (LIPITOR) 40 MG tabletIndications :Dyspnea on exertion,Coronary artery disease involving coronary bypass graft of wilton heart without angina pectoris,Chest pain, unspecified type Take 1 tablet (40 mg) by mouth daily. 90 tablet 3 4 08/04/20 24 Discontinued aspirin (ASA) 81 MG chewable tabletIndications :Dyspnea on exertion,Coronary artery disease involving coronary bypass graft of wilton heart without angina pectoris,Chest pain, unspecified type Take 1 tablet (81 mg) by mouth daily for 5 days. Starting tomorrow.stop baby aspirin on 08/09/24 5 tablet 4 08/09/20 Active Problems Problem Noted Date Diagnosed Date alf (current) use of anticoagulants 2023 Unstable angina pectoris 07/30/2024 Dyspnea on exertion 07/30/2024 Bilateral leg edema 07/30/2024 Acute on chronic congestive heart failure, unspecified heart failure type 07/30/2024 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, severe 10/07/2023 History of coronary [...] Overview: Overview: 01/11/14 DM: patient sees outside [facility] [place]. Most recent hemoglobin A1c 9.0., Cr [...] w/ 362.04) Spasm of muscle 03/16/2013 11/23/2020 Encounters Date Type Department Care Team Description 08/06/2024 Telephone [facility] Heart [address] [place] [phone] Rubia Blanco, RN Clinic Care Coordination - Post Hospital (Post discharge phone call) 08/02/2024 12:30 PM CDT - 08/02/2024 1:30 PM CDT Surgery [facility] Heart Care [address] [place] [phone] Malvin Ma MD Coronary Angiogram 07/30/2024 6:54 PM CDT - 08/04/2024 12:05 PM CDT Hospital Encounter [facility] Care [address], [address] [place] [phone] Mary Gross MD Maresh, Andrew, DO Huynh, Nick, MD Severe aortic stenosis (Primary Dx); Unstable angina pectoris (H); Acute on chronic congestive heart failure, unspecified heart failure type (H); Bilateral leg edema; Dyspnea on exertion; 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; Coronary artery disease involving coronary bypass graft of wilton heart without angina pectoris; Chest pain, unspecified type Discharge Disposition: Home or Self Care 07/30/2024 Travel 07/30/2024 [address]phone [id number] [address] [place] [id number] Gavin Moore MD Appointment (R/s need for wrong location ) 06/10/2024 [id number] [address] [place] [id number] Kyler Lubin MD Appointment (1 yr post TAVR ) 06/07/2024 Telephone [address] [address] [place] [id number] Kyler Lubin MD Appointment (TAVR ) 06/03/2024 Telephone [facility] [address] [address] [place] [id number] Kyler Lubin MD Appointment from Last 3 Months Family History Medical History Relation Comments Cataracts [...] Average Number of Drinks Not on file Frequency of Binge Drinking Not on file 06/2020 PHQ-2 Answer Date Recorded PHQ-2 Score 0 08/28/2023 Adolescent Education Answer Date Record ed Getting School Help Needed Not on file 07/26 Food Insecurity Answer Date Recorded Within the past 12 months, d id you worry that your food would run out before you got money to buy more? Yes 07/30/2024 Within the past 12 months, d id the food you bought just not last and you didn? t have money to get more? No 07/30/2024 Housing Stability Answer Date Recorded Do you have housing? (Hermilo contreras is defined as stable permanent housing and does not include staying ouside in a car, in a tent, in an abandoned building, in an overnight long-term, or couch-surfing.) Yes 07/30/2024 Are you worried about losing your housing? No 07/30/2024 Financial Resource Strain Answer Date R ecorded Within the past 12 months, h ave you or your family members you live with been unable to get utilities (heat, electricity) when it was really needed? No 07/30/2024 Transportation Needs Answer Date Record ed Within the past 12 months, h as lack of transportation kept you from medical appointments, getting your medicines, non-medical meetings or appointments, work, or from getting things that you need? No 07/30/2024 Interpersonal Safety Answer Date Record ed Do you feel physically and e motionally safe where you currently live? Yes 07/31/2024 Within the past 12 months, h ave you been hit, slapped, kicked or otherwise physically hurt by someone? No 07/31/2024 Within the past 12 months, h ave you been humiliated or emotionally abused in other ways by your partner or ex-partner? No 07/31/2024 Sex and Gender Information Value Date Recorded Sex Assigned at Not on file Gender Identity Not on file Sexual Orientation Not on file Last Filed Vital Signs Vital Sign Reading Time Taken Comments Blood Pressure 159/76 08/04/2024 7:37 AM CDT Pulse 96 08/04/2024 8:45 AM CDT Temperature 37.1 ??C (98.8 ??F) 08/04/2024 7:37 AM CD T Respiratory Rate 18 08/04/2024 7:37 AM CDT Oxygen Saturation 99% 08/04/2024 7:37 AM CDT Inhaled Oxygen Concentration - - Weight 145.7 kg (321 lb 4.8 oz) 08/04/2024 2:00 AM CDT Height 180.3 cm (5' 11) 07/30/2024 10: 28 PM CDT Body Mass Index 44.81 07/30/2024 10:28 PM CDT Plan of Treatment Upcoming Encounters Date Type Department Care Team (Late st Contact Info) Description 08/12/2024 11:30 AM CDT Appointment [facility] Cardiac and Pul[facility] Rehabilitation [id number] [place] [address] [address] [place] [phone] Tristen Leon MD [address] [place], [place] [id number] 2, Rh Cardiac Re[facility] 10/21/2024 10:00 AM [facility] Appointment [facility] Care [address] [facility] [address] [place] [phone] Kyler Lubin MD [address] [facility] [address] [place] [id number] 10/21/2024 1:45 PM [facility] Lab [facility] Laboratory [id number] [place] [phone] 10/21/2024 2:00 PM [facility] Office Visit [facility] [id number] [place] [phone] Lorraine Ospina, NOC TECHNICIAN [address] [facility] [place] [phone] Health Maintenance Due Date Last Done Comments ANNUAL REVIEW OF HM ORDERS 1954 CT COLONOGRAPHY 1954 EYE EXAM 1954 FIT 1954 FLEX SIG 1954 HF ACTION PLAN 1954 MICROALBUMIN 1954 TSH W/FREE T4 REFLEX 1954 sDNA (Cologuard) 1954 HEPATITIS C SCREENING 02/11/1972 RSV VACCINE (1 - Risk 60-74 years 1-dose series) 2014 COLONOSCOPY 01/31/2018 02/01/2008 COLORECTAL CANCER SCREENING 01/31/2018 FALL RISK ASSESSMENT 2019 MEDICARE ANNUAL WELLNESS VISIT 2019 Pneumococcal Vaccine: 65+ Years (3 of 3 - PPSV23 or PCV20) 12/15/2020 12/15/2019, 07/25/2005, 07/04/2005 DIABETIC FOOT EXAM 11/29/2021 11/29/2020 ALT 08/19/2023 08/19/2022, 08/04, 11/23/2020, Additional history exists PHQ-2 (once per calendar year) 2023 08/28/2023 A1C 12/31/2023 09/30/2023, 08/04, 11/23/2020, Additional history exists DTAP/TDAP/TD IMMUNIZATION (2 - Td or Tdap) 04/01/2024 04/01/2014, 07/25/2005, 07/04/2005 COVID-19 Vaccine ( season) 2024 07/23/2022, 10/11/2021, 01/02/2021, Additional history exists INFLUENZA VACCINE (#1) 2024 , 07/28/2017, 09/04/2015, Additional history exists BMP 02/01/2025 08/03/2024, 07/06, 07/31/2024, Additional history exists ADVANCE CARE PLANNING 08/01/2025 08/01/2020 CBC 08/02/2025 08/02/2024, 07/05, 07/30/2024, Additional history exists LIPID 08/02/2025 08/02/2024, 08/02/2024 ZOSTER IMMUNIZATION Completed 09/28/2018, 8 HPV IMMUNIZATION Aged Out No longer e ligible based on patient's age to complete this topic MENINGITIS IMMUNIZATION Aged Out No l onger eligible based on patient's age to complete this topic RSV MONOCLONAL ANTIBODY Aged Out No l onger eligible based on patient's age to complete this topic Medical Devices Implanted Type Area Channel Opener Outsoles Device Identifier Shelf Expiration Date Model / Serial / Lot Device Closure Vascular Manta 18fr 2115 - [id number] Implanted:Qty: 1 on 10/07/[address] [facility] Occlusion Device [employer] 11/26/2024 [id number] / / [id number] Stent Cor [place] 38x2.50mm [id number] - [id number] Implanted:Qty: 1 on 08/02/[address] [facility] Stent [employer] 05/17/2027 [id number] / / [id number] Valve Aortic Transcatheter Heart 29mm Jose Roberto 3 Ultra Resilia - [id number] Implanted:Qty: 1 on 10/07/[address] [facility] Valve [employer] 03/23/2026 [id number] / [id number] / [id number] Closure Angioseal 6fr [id number] - [id number] Implanted:Qty: 1 on 08/02/[address] [facility] T[employer]stream [employer]PO [id number] / / Procedures Procedure Name Priority Date/Time Associated Diagnosis Comments GLUCOSE BY METER Routine 08/04/2024 7:19 AM CDT GLUCOSE BY METER Routine 08/04/2024 2:17 AM CDT GLUCOSE BY METER Routine 08/03/2024 9:27 PM CDT GLUCOSE BY METER Routine 08/03/2024 11:3 6 AM CDT GLUCOSE BY METER Routine 08/03/2024 7:47 AM CDT EKG 12-LEAD, TRACING ONLY Routine 08/03/2024 6:47 AM CDT BASIC METABOLIC PANEL Routine 08/03/2024 6:35 AM CDT GLUCOSE BY METER Routine 08/03/2024 2:14 AM CDT GLUCOSE BY METER Routine 08/02/2024 10:0 2 PM CDT GLUCOSE BY METER Routine 08/02/2024 4:51 PM CDT LIPID PROFILE STAT 08/02/2024 2:46 PM CDT EKG 12-LEAD, TRACING ONLY STAT 08/02/2024 2:32 PM CDT CV PCI Routine 08/02/2024 2:01 PM CDT Unstable angina pectoris (H) CV CORONARY ANGIOGRAM Routine 08/02/2024 2:01 PM CDT Unstable angina pectoris (H) ACTIVATED CLOTTING TIME CELITE POCT Routine 08/02/2024 1:38 PM CDT ACTIVATED CLOTTING TIME CELITE POCT Routine 08/02/2024 1:26 PM CDT GLUCOSE BY METER Routine 08/02/2024 8:09 AM CDT LIPID REFLEX TO DIRECT LDL PANEL Add-On 08/02/2024 5:39 AM CDT BASIC METABOLIC PANEL Add-On 08/02/2024 5:39 AM CDT CBC WITH PLATELETS STAT 08/02/2024 5: 39 AM CDT POTASSIUM Routine 08/02/2024 5:39 AM CDT PARTIAL THROMBOPLASTIN TIME Routine 08/02/2024 5:39 AM CDT GLUCOSE BY METER Routine 08/02/2024 2:03 AM CDT GLUCOSE BY METER Routine 08/01/2024 9:01 PM CDT GLUCOSE BY METER Routine 08/01/2024 4:45 PM CDT GLUCOSE BY METER Routine 08/01/2024 11:3 8 AM CDT GLUCOSE BY METER Routine 08/01/2024 8:21 AM CDT PARTIAL THROMBOPLASTIN TIME Timed 08/01/2024 5:07 AM CDT GLUCOSE BY METER Routine 08/01/2024 1:52 AM CDT PARTIAL THROMBOPLASTIN TIME Timed 07/31/2024 9:16 PM CDT GLUCOSE BY METER Routine 07/31/2024 9:02 PM CDT GLUCOSE BY METER Routine 07/31/2024 5:25 PM CDT ECHO COMPLETE WITH CONTRAST Routine 07/31/2024 2:25 PM CDT PARTIAL THROMBOPLASTIN TIME Timed 07/31/2024 2:06 PM CDT GLUCOSE BY METER Routine 07/31/2024 11:4 1 AM CDT GLUCOSE BY METER Routine 07/31/2024 8:15 AM CDT PARTIAL THROMBOPLASTIN TIME Timed 07/31/2024 4:09 AM CDT CBC WITH PLATELETS Routine 07/31/2024 4: 09 AM CDT BASIC METABOLIC PANEL Routine 07/31/2024 4:09 AM CDT GLUCOSE BY METER Routine 07/31/2024 2:08 AM CDT GLUCOSE BY METER Routine 07/30/2024 11:0 4 PM CDT NT PROBNP INPATIENT STAT 07/30/2024 7 :59 PM CDT TROPONIN T, HIGH SENSITIVITY STAT 07/30/2024 7:59 PM CDT XR CHEST 2 VIEWS STAT 07/30/2024 7:54 PM CDT CBC WITH PLATELETS & DIFFERENTIAL STAT 07/30/2024 5:07 PM CDT NT PROBNP INPATIENT STAT 07/30/2024 5 :07 PM CDT CBC WITH PLATELETS AND DIFFERENTIAL STAT 07/30/2024 5:07 PM CDT TROPONIN T, HIGH SENSITIVITY STAT 07/30/2024 5:07 PM CDT BASIC METABOLIC PANEL STAT 07/30/2024 5:07 PM CDT EKG 12-LEAD, TRACING ONLY STAT 07/30/2024 4:51 PM CDT HEMOGLOBIN A1C Add-On 09/30/2023 5:08 PM [facility] COMPREHENSIVE METABOLIC PANEL STAT 08/19/2022 8:49 PM CDT from Last 3 Months or Most Recently Relevant to Health Maintenance Results * (ABNORMAL) Glucose by meter (08/04/2024 7:19 AM CDT) Only the most recent of21 resultswithin the time period is included. [facility] GLUCOSE BY METER POCT 163(H) 70 - 99 mg/dL 08/04/2024 7:26 AM CDT LABORATORY POC Blood, Capillary BLOOD SPECIMEN / Unknown 08/04/2024 7:19 AM CDT 08/04/2024 7:26 AM CDT [place] BR[facility] - K[facility] POCT LABORATORY POC [facility] Acute Care Lab [address], [address] [place] [address], [facility] * EKG 12-lead, tracing only (08/03/2024 6:47 AM CDT) Only the most recent of3 resultswithin the time period is included. Systolic Blood Pressure mmHg RADIOLOGY RESULTS Diastolic Blood Pressure mmHg RADIOLOGY RESULTS Ventricular Rate 58 BPM RAD IOLOGY RESULTS Atrial Rate 58 BPM RADIOLOG Y RESULTS AR Interval 248 ms RADIOLOG Y RESULTS QRS Duration 80 ms RADIOLO GY RESULTS QT 418 ms RADIOLOGY RESULTS QTc 410 ms RADIOLOGY RESULTS P [place] 58 degrees RADIOLOGY RESULTS R AXIS 120 degrees RADIOLOGY RESULTS T [place] -42 degrees RADIOLOGY RESULTS Interpretation ECG Sinus bradycardia with 1st degree A-V block Right axis deviation Nonspecific T wave abnormality Abnormal ECG When compared with ECG of 02-Aug-2024 14:32, QRS axis Shifted right Confirmed by MD QUINCY, RICO ([id number]) on 08/03/2024 2:28:32 PM RADIOLOGY RESULTS 08/03/2024 6:47 AM CDT 08/03/2024 2:28 PM CDT Tristen Leon MD ECG ORDERABLES RADIOLOGY RESULTS * (ABNORMAL) Basic metabolic panel (08/03/2024 6:35 AM CDT) Only the most recent of4 resultswithin the time period is included. Sodium 139 135 - 145 mmol/L 08/03/2024 7:43 AM CDT LABORATORY Potassium 4.6 3.4 - 5.3 mmol/L 08/03/2024 7:43 AM CDT LABORATORY Chloride 100 98 - 107 mmol/L 08/03/2024 7:43 AM CDT LABORATORY Carbon Dioxide (CO2) 28 22 - 29 mmol/L 08/03/2024 7:43 AM CDT LABORATORY Anion Gap 11 7 - 15 mmol/L 08/03/2024 7:43 AM CDT LABORATORY Urea Nitrogen 18.7 8.0 - 23.0 mg/dL 08/03/2024 7:43 AM CDT LABORATORY Creatinine 0.79 0.67 - 1.17 mg/dL 08/03/2024 7:43 AM CDT LABORATORY GFR Estimate >90 >60 mL/min/1.7 3m2 08/03/2024 7:43 AM CDT LABORATORY Comment:eGFR calculated usin 2020 CKD-EPI equation. Calcium 9.0 8.8 - 10.4 mg/dL 08/03/2024 7:43 AM CDT LABORATORY Comment:Reference intervals for this test were updated on 05/18/2024 to reflect our healthy population more accurately. There may be differences in the flagging of prior results with similar values performed with this method. Those prior results can be interpreted in the context of the updated reference intervals. Glucose 167(H) 70 - 99 mg/dL 08/03/2024 7:43 AM CDT LABORATORY Blood STRUCTURE OF LEFT HAND / Unknown Venipuncture / Unknown 08/03/2024 6:35 AM CDT 08/03/2024 7:14 AM CDT Tristen Leon MD LAB - BLOOD ORDERABL ES LABORATORY [facility] Acute Care Lab [address], [address] [place] [address], [facility] [phone] * (ABNORMAL) Lipid Profile (08/02/2024 2:46 PM CDT) Cholesterol 122 <200 mg/dL 08/02/2024 8:31 PM CDT [facility] LAB[facility] Triglycerides 93 <150 mg/dL 08/02/2024 8:31 PM CDT [facility] LAB[facility] Direct Measure HDL 30(L) >=40 mg/dL 2023 8:31 PM CDT [facility] LDL Cholesterol Calculated 73 <100 mg/dL 08/02/2024 8:31 PM CDT [facility] Non HDL Cholesterol 92 <130 mg/dL 08/02/2024 8:31 PM CDT [facility] Blood STRUCTURE OF LEFT HAND / Unknown Venipuncture / Unknown 08/02/2024 2:46 PM CDT 08/02/2024 2:57 PM CDT Narrative [facility] - 08/02/2024 8:31 PM CDT Cholesterol Desirable: < 200 mg/dL Borderline High: 200 - 239 mg/dL High: >= 240 mg/dL Triglycerides Normal: < 150 mg/dL Borderline High: 150 - 199 mg/dL High: 200-499 mg/dL Very High: >= 500 mg/dL Direct Measure HDL Female: >= 50 mg/dL Male: >= 40 mg/dL LDL Cholesterol Desirable: < 100 mg/dL Above Desirable: 100 - 129 mg/dL Borderline High: 130 - 159 mg/dL High: ??160 - 189 mg/dL Very High: >= 190 mg/dL Non HDL Cholesterol Desirable: < 130 mg/dL Above Desirable: 130 - 159 mg/dL Borderline High: 160 - 189 mg/dL High: 190 - 219 mg/dL Very High: >= 220 mg/dL Tristen Leon MD LAB - BLOOD ORDERABL ES U LABORATORY [facility] Core Lab [address] [facility], [address] [address] * CV CORONARY ANGIOGRAM, CV PCI (08/02/2024 2:01 PM CDT) Anatomical Region Laterality Modality Radio Fluoroscop y Narrative 08/04/2024 4:03 PM CDT Severe wilton vessel coronary artery disease Patent grafts SVG to ramus, dLAD and RPDA. Patent FLYNN to LAD graft. Status post successful PCI with QUE to prox/mid circumflex Coronary Findings Diagnostic Dominance: Right Left Main: Dist LM lesion is 25% stenosed. Left Anterior Descending: Mid LAD lesion is 70% stenosed. Dist LAD lesion is 55% stenosed. First Diagonal Branch: 1st Diag lesion is 75% stenosed. Ramus Intermedius: The vessel is moderate in size. There was diffuse vessel disease. Left Circumflex: Prox Cx to Mid Cx lesion is 80% stenosed. Right Coronary Artery: Prox RCA lesion is 30% stenosed. Mid RCA lesion is 60% stenosed. Dist RCA-1 lesion is 90% stenosed. Dist RCA-2 lesion is 90% stenosed. Right Posterior Descending Artery: RPDA lesion is 70% stenosed. Right Posterior Atrioventricular Artery: RPAV lesion is 50% stenosed. Sequential Vein Graft To 1st Sept, Dist LAD: Conduit type: vein. The graft is large. The graft exhibits minimal luminal irregularities. FLYNN Graft To Mid LAD Vein Graft To Ramus: Conduit type: vein. The graft is moderate in size. The graft exhibits minimal luminal irregularities. Vein Graft To RPDA: Conduit type: vein. The graft exhibits minimal luminal irregularities. Intervention Prox Cx to Mid Cx lesion: Stent: Lesion length: 30 mm. A CATH GUIDING GUIDELINER JR3.5 ST CURVE 5.5FR COAST 5270 guide catheter was successfully placed. The GUIDEWIRE VASC [id number] RUNTHROUGH 25-1011 crossed the lesion. The pre-interventional distal flow is normal (MIO 3). A STENT COR AMADA FRONTIER 38X2.50MM [id number] stent was successfully placed. Pre-stent angioplasty was performed using a CATH BALLOON EMERGE 2.0X15MM [id number] supply. . Post-stent angioplasty was performed using a CATH BALLOON NC EMERGE [id number] supply. . The post-interventional distal flow is normal (MIO 3). The intervention was successful. No complications occurred at this lesion. There is a 0% residual stenosis post intervention. Study Details Unstable angina Plan ? ? Follow bedrest per protocol ? ? Continued medical management and lifestyle modifications for cardiovascular risk factor optimizations. ? ? Arterial sheath removed from femoral artery with closure device. ? ? Femoral angiogram identifies arterial sheath placement suitable for closure device. ? ? Return to the primary inpatient team for further evaluation and managmenet Comments/Patient Narrative 69 year old male with past medical history significant for atrial fib/flutter on Xarelto, CAD s/p CABG x 4 in 2019, TAVR in 10/2023, type II diabetes mellitus, hypertension, hyperlipidemia, CHINO admitted on 07/30/2024 with exertional chest pain. Patient presents today for coronary angiogram. Cath Procedure details No Complications - Patient tolerated procedure well DESCRIPTION: 1. Consent obtained with discussion of risks. All questions were answered. 2. Sterile prep and procedure. 3. Location with Sheaths: Rt Femoral Arterial: A micropuncture 21 gauge needle with Sonosite and Fluoroscopic guidance was used to establish vascular access. Access was successful. 6 Fr 45 cm [Britetip] 4. Access: Local anesthetic with lidocaine. 5. Diagnostic Catheters:The LMCA was successfully engaged with a 6 Fr JL 4 The RCA was successfully engaged with a 6 Fr 3DRC FLYNN engaged with IM catheter SVG to RPDA, ramus and apical LAD engaged with MPA catheter 6. Guiding Catheters: 6 Fr XB LF 3.5 GC 7. Sheath Management:Single Sheath: The sheath in the RFA was removed using the 6 Fr Angioseal. 8. Estimated blood loss: < 25 mlThe attending heater room helper was present and supervised all critical aspects the procedure. Recommendations General Recommendations: - Patient given specific instructions regarding care of arteriotomy site, activity restrictions, signs and symptoms of cardiac or vascular complications and to seek immediate medical evaluation should they occur. Medications: - Continue high dose statin therapy indefinitely. - Risk factor management for atherosclerosis. - Patient will be taking triple therapy asa, plavix and xarelto for one week until 08/09. - After 08/09, patient will discontinue asa and continue with plavix/xarelto. Trinidad White MD CV CARDIAC CATH RICHIE [facility]PT[place] * (ABNORMAL) Activated clotting time celite, POCT (08/02/2024 1:38 PM CDT) Only the most recent of2 resultswithin the time period is included. Activated Clotting Time (Celite) POCT 291(H) 74 - 150 seconds 08/02/2024 1:56 PM CDT LABORATORY POC Blood, arterial BLOOD SPECIMEN / Unknown 08/02/2024 1:38 PM CDT 08/02/2024 1:56 PM CDT [place] BRIGHT - [facility] POCT LABORATORY POC [facility] Acute Care Lab [address], [address] [place] [address], [facility] * Potassium (08/02/2024 5:39 AM CDT) Potassium 4.2 3.4 - 5.3 mmol/L 08/02/2024 6:07 AM CDT LABORATORY Blood STRUCTURE OF LEFT HAND / Unknown Venipuncture / Unknown 08/02/2024 5:39 AM CDT 08/02/2024 5:53 AM CDT Trinidad White MD LAB - BLOOD ORDERABL ES LABORATORY [facility] Care Lab [address], [address] [place] [address], [facility] [phone] * (ABNORMAL) Partial thromboplastin time (08/02/2024 5:39 AM CDT) Only the most recent of5 resultswithin the time period is included. aPTT 55(H) 22 - 38 Seconds 08/02/2024 6:11 AM CDT LABORATORY Blood STRUCTURE OF LEFT HAND / Unknown Venipuncture / Unknown 08/02/2024 5:39 AM CDT 08/02/2024 5:53 AM CDT Trinidad White MD LAB - BLOOD ORDERABL ES Performing Organization Address City/[facility]/ZIP Co de Phone Number LABORATORY [facility] Lab [address] [address] floor, [address] [place] [address], [facility] [phone] * (ABNORMAL) Lipid panel reflex to direct LDL (08/02/2024 5:39 AM CDT) Cholesterol 117 <200 mg/dL 08/02/2024 4:36 PM CDT [facility] Triglycerides 115 <150 mg/dL 08/02/2024 4:36 PM CDT [facility] Direct Measure HDL 30(L) >=40 mg/dL 2023 4:36 PM CDT [facility] LDL Cholesterol Calculated 64 <100 mg/dL 08/02/2024 4:36 PM CDT [facility] Non HDL Cholesterol 87 <130 mg/dL 08/02/2024 4:36 PM CDT [facility] Blood STRUCTURE OF LEFT HAND / Unknown Venipuncture / Unknown 08/02/2024 5:39 AM CDT 08/02/2024 5:53 AM CDT Narrative [facility] - 08/02/2024 4:36 PM CDT Cholesterol Desirable: < 200 mg/dL Borderline High: 200 - 239 mg/dL High: >= 240 mg/dL Triglycerides Normal: < 150 mg/dL Borderline High: 150 - 199 mg/dL High: 200-499 mg/dL Very High: >= 500 mg/dL Direct Measure HDL Female: >= 50 mg/dL Male: >= 40 mg/dL LDL Cholesterol Desirable: < 100 mg/dL Above Desirable: 100 - 129 mg/dL Borderline High: 130 - 159 mg/dL High: ??160 - 189 mg/dL Very High: >= 190 mg/dL Non HDL Cholesterol Desirable: < 130 mg/dL Above Desirable: 130 - 159 mg/dL Borderline High: 160 - 189 mg/dL High: 190 - 219 mg/dL Very High: >= 220 mg/dL Amber Marin APRN NOC TECHNICIAN LAB - BLOOD ORD ERABLES [facility] [place] [facility] [address] [facility], Room [address] [place], [place] [phone] * (ABNORMAL) CBC with platelets (08/02/2024 5:39 AM CDT) Only the most recent of2 resultswithin the time period is included. [facility] WBC Count 8.6 4.0 - 11.0 10e3/uL 08/02/2024 5:56 AM CDT LABORATORY RBC Count 4.47 4.40 - 5.90 10e6/uL 08/02/2024 5:56 AM CDT LABORATORY Hemoglobin 13.8 13.3 - 17.7 g/dL 08/02/2024 5:56 AM CDT LABORATORY Hematocrit 41.6 40.0 - 53.0 % 08/02/2024 5:56 AM CDT LABORATORY MCV 93 78 - 100 fL 08/02/2024 5:56 AM CDT LABORATORY MCH 30.9 26.5 - 33.0 pg 08/02/2024 5:56 AM CDT LABORATORY MCHC 33.2 31.5 - 36.5 g/dL 08/02/2024 5:56 AM CDT LABORATORY RDW 13.5 10.0 - 15.0 % 08/02/2024 5:56 AM CDT LABORATORY Platelet Count 148(L) 150 - 450 10e3/uL 08/02/2024 5:56 AM CDT LABORATORY Blood STRUCTURE OF LEFT HAND / Unknown Venipuncture / Unknown 08/02/2024 5:39 AM CDT 08/02/2024 5:53 AM CDT Lauro Toussaint DO LAB - BLOOD ORDERABL ES LABORATORY [facility] Acute Care Lab [address] floor, [address], [place] [address], [facility] [phone] * ECHO COMPLETE WITH CONTRAST (07/31/2024 2:25 PM CDT) LVEF 60-65% CARDIOLOGY RESULTS Anatomical Region Laterality Modality Echocardiography 07/31/2024 1:04 PM CDT Narrative 07/31/2024 2:55 PM CDT [id number]^NORBERT^LAURO [facility] Echocardiography Laboratory [address] [place] [address] Name: CHEVY DAMON : 1955 Study Date: 07/31/2024 01:04 PM Age: 69 yrs Gender: Male Patient Location: [facility] Reason For Study: Chest Pain, Chest Pressure, Chest Tightness Ordering Physician: LAURO TOUSSAINT Referring Physician: Juan Hernandez Performed By: John Callahan BSA: 2.6 m2 Height: 71 in Weight: 336 lb HR: 61 BP: 127/66 mmHg Procedure Complete Portable Echo Adult. Optison ([facility] #[id number]) given intravenously. Interpretation Summary Left ventricular systolic function is normal. The visual ejection fraction is 60-65%. Regional wall motion abnormalities cannot be excluded due to limited visualization. The right ventricle is not well visualized. Right ventricular function cannot be assessed due to poor image quality. s/p TAVR with 29mm Meehan Resilia, implanted 10/2023. Mean 9 mmHg. No AI or PVL.Leaflets not well seen. Other valves not well seen due to limited visualization. Technically very difficult study. Left Ventricle The left ventricle is not well visualized. Left ventricular systolic function is normal. The visual ejection fraction is 60-65%. Regional wall motion abnormalities cannot be excluded due to limited visualization. Right Ventricle The right ventricle is not well visualized. Right ventricular function cannot be assessed due to poor image quality. Atria The left atrium is moderately dilated. Right atrium not well visualized. Mitral Valve The mitral valve is not well visualized. There is mild mitral annular calcification. There is no mitral valve stenosis. Tricuspid Valve The tricuspid valve is not well visualized. Aortic Valve The aortic valve is not well visualized. Pulmonic Valve The pulmonic valve is not well visualized. Vessels Normal size aorta. Normal size ascending aorta. IVC diameter <2.1 cm collapsing >50% with sniff suggests a normal RA pressure of 3 mmHg. Pericardium There is no pericardial effusion. Rhythm Sinus rhythm was noted. MMode/2D Measurements & Calculations IVSd: 1.2 cm LVIDd: 6.2 cm LVIDs: 4.8 cm LVPWd: 1.2 cm FS: 22.7 % LV mass(C)d: 328.8 grams LV mass(C)dI: 125.1 grams/m2 LA dimension: 4.9 cm asc Aorta Diam: 3.3 cm LVOT diam: 2.2 cm LVOT area: 3.9 cm2 Asc Ao diam index BSA (cm/m2): 1.3 Asc Ao diam index Ht(cm/m): 1.8 LA Volume (BP): 115.0 ml LA Volume Index (BP): 43.7 ml/m2 RWT: 0.37 TAPSE: 1.9 cm Doppler Measurements & Calculations MV E max hussain: 122.0 cm/sec MV A max hussain: 63.8 cm/sec MV E/A: 1.9 MV max P.5 mmHg MV mean P.5 mmHg MV V2 VTI: 44.5 cm MVA(VTI): 1.8 cm2 MV dec slope: 557.4 cm/sec2 MV dec time: 0.22 sec Ao V2 max: 196.8 cm/sec Ao max P.0 mmHg Ao V2 mean: 141.9 cm/sec Ao mean P.9 mmHg Ao V2 VTI: 47.0 cm KACEY(I,D): 1.7 cm2 KACEY(V,D): 1.8 cm2 LV V1 max P.3 mmHg LV V1 max: 91.3 cm/sec LV V1 VTI: 21.1 cm SV(LVOT): 81.6 ml SI(LVOT): 31.1 ml/m2 AV Hussain Ratio (DI): 0.46 KACEY Index (cm2/m2): 0.66 E/E' av.1 Lateral E/e': 16.3 Medial E/e': 28.0 RV S Hussain: 6.5 cm/sec Report approved by: Ana Hartley 07/31/2024 02:55 PM Procedure Note Joel Darden MD - 07/31/2024 [id number]^NORBERT^LAURO [facility] Echocardiography Laboratory [address] [place] [address] Name: CHEVY DAMON : 1955 Study Date: 07/31/2024 01:04 PM Age: 69 yrs Gender: Male Patient Location: [facility] Reason For Study: Chest Pain, Chest Pressure, Chest Tightness Ordering Physician: LAURO TOUSSAINT Referring Physician: Juan Hernandez Performed By: John Callahan BSA: 2.6 m2 Height: 71 in Weight: 336 lb HR: 61 BP: 127/66 mmHg Procedure Complete Portable Echo Adult. Optison ([facility] #[id number]) givenintravenously. Interpretation Summary Left ventricular systolic function is normal. The visual ejection fractionis 60-65%. Regional wall motion abnormalities cannot be excluded due tolimited visualization. The right ventricle is not well visualized. Right ventricular functioncannot be assessed due to poor image quality. s/p TAVR with 29mm Meehan Resilia, implanted 10/2023. Mean 9 mmHg. No AIor PVL.Leaflets not well seen. Other valves not well seen due to limited visualization. Technically very difficult study. Left Ventricle The left ventricle is not well visualized. Left ventricular systolicfunction is normal. The visual ejection fraction is 60-65%. Regional wall motion abnormalities cannot be excluded due to limited visualization. Right Ventricle The right ventricle is not well visualized. Right ventricular functioncannot be assessed due to poor image quality. Atria The left atrium is moderately dilated. Right atrium not well visualized. Mitral Valve The mitral valve is not well visualized. There is mild mitral annular calcification. There is no mitral valve stenosis. Tricuspid Valve The tricuspid valve is not well visualized. Aortic Valve The aortic valve is not well visualized. Pulmonic Valve The pulmonic valve is not well visualized. Vessels Normal size aorta. Normal size ascending aorta. IVC diameter <2.1 cm collapsing >50% with sniff suggests a normal RA pressure of 3 mmHg. Pericardium There is no pericardial effusion. Rhythm Sinus rhythm was noted. MMode/2D Measurements & Calculations IVSd: 1.2 cm LVIDd: 6.2 cm LVIDs: 4.8 cm LVPWd: 1.2 cm FS: 22.7 % LV mass(C)d: 328.8 grams LV mass(C)dI: 125.1 grams/m2 LA dimension: 4.9 cm asc Aorta Diam: 3.3 cm LVOT diam: 2.2 cm LVOT area: 3.9 cm2 Asc Ao diam index BSA (cm/m2): 1.3 Asc Ao diam index Ht(cm/m): 1.8 LA Volume (BP): 115.0 ml LA Volume Index (BP): 43.7 ml/m2 RWT: 0.37 TAPSE: 1.9 cm Doppler Measurements & Calculations MV E max hussain: 122.0 cm/sec MV A max hussain: 63.8 cm/sec MV E/A: 1.9 MV max P.5 mmHg MV mean P.5 mmHg MV V2 VTI: 44.5 cm MVA(VTI): 1.8 cm2 MV dec slope: 557.4 cm/sec2 MV dec time: 0.22 sec Ao V2 max: 196.8 cm/sec Ao max P.0 mmHg Ao V2 mean: 141.9 cm/sec Ao mean P.9 mmHg Ao V2 VTI: 47.0 cm KACEY(I,D): 1.7 cm2 KACEY(V,D): 1.8 cm2 LV V1 max P.3 mmHg LV V1 max: 91.3 cm/sec LV V1 VTI: 21.1 cm SV(LVOT): 81.6 ml SI(LVOT): 31.1 ml/m2 AV Hussain Ratio (DI): 0.46 KACEY Index (cm2/m2): 0.66 E/E' av.1 Lateral E/e': 16.3 Medial E/e': 28.0 RV S Hussain: 6.5 cm/sec Report approved by: Ana Hartley 07/31/2024 02:55 PM Lauro Toussaint DO ECHO ORDERABLES * Troponin T, High Sensitivity (07/30/2024 7:59 PM CDT) Only the most recent of2 resultswithin the time period is included. [facility] Troponin T, High Sensitivity 18 <=22 ng/L 07/30/2024 8:31 PM CDT LABORATORY Comment: Either a High Sensitivity Troponin T baseline (0 hours) value = 100 ng/L, or an increase in High Sensitivity Troponin T = 7 ng/L at 2 hours compared to 0 hours (2-0 hours), suggests myocardial injury, and urgent clinical attention is required. ?? If the 2-0 hours increase is <7 ng/L, a High Sensitivity Troponin T result above gender-specific reference ranges warrants further evaluation. Recommendations for further evaluation include correlation with clinical decision-making tool (e.g., HEART), a 3rd High Sensitivity Troponin T test 2 hours after the 2nd (a 20% change from baseline would represent concern), admission for observation, close PCC/cardiology follow-up, or urgent outpatient provocative testing. Blood STRUCTURE OF RIGHT UPPER LIMB / Unknown Venipuncture / Unknown 07/30/2024 7:59 PM CDT 07/30/2024 8:02 PM CDT Mary Gross MD LAB - BLOOD ORDERAB LES LABORATORY [facility] Acute Care Lab [address], [address] [place] [address], [facility] [phone] * Nt probnp inpatient (07/30/2024 7:59 PM CDT) Only the most recent of2 resultswithin the time period is included. [facility] N terminal Pro BNP Inpatient 781 0 - 900 pg/mL 07/30/2024 10:02 PM CDT LABORATORY Comment: Reference range shown and results flagged as abnormal are suggested inpatient cut points for confirming diagnosis if CHF in an acute setting. Establishing a baseline value for each individual patient is useful for follow-up. An inpatient or emergency department NT-proPBNP <300 pg/mL effectively rules out acute CHF, with 99% negative predictive value. The outpatient non-acute reference range for ruling out CHF is: 0-125 pg/mL (age 18 to less than 75) 0-450 pg/mL (age 75 yrs and older) Blood STRUCTURE OF RIGHT UPPER LIMB / Unknown Venipuncture / Unknown 07/30/2024 7:59 PM CDT 07/30/2024 8:02 PM CDT Mary Gross MD LAB - BLOOD ORDERAB LES LABORATORY [facility] Acute Care Lab [address], [address] [place] [address], [facility] [phone] * XR Chest 2 Views (07/30/2024 7:54 PM CDT) Anatomical Region Laterality Modality Chest Digital Radiogra phy 07/30/2024 7:54 PM CDT Impressions 07/30/2024 8:03 PM CDT IMPRESSION: Median sternotomy wires are noted. Stable cardiac size. No consolidation or pneumothorax. Small bilateral pleural effusions, right greater than left. Narrative 07/30/2024 8:03 PM CDT EXAM: XR CHEST 2 VIEWS LOCATION: [facility] DATE: 07/30/2024 INDICATION: SOB, CP COMPARISON: 10/23/2020 Procedure Note Jeff Styles MD - 07/30/2024 EXAM: XR CHEST 2 VIEWS LOCATION: [facility] DATE: 07/30/2024 INDICATION: SOB, CP COMPARISON: 10/23/2020 IMPRESSION: Median sternotomy wires are noted. Stable cardiac size. Noconsolidation or pneumothorax. Small bilateral pleural effusions, rightgreater than left. Mary Gross MD IMG DIAGNOSTIC IMAG ING ORDERABLES * (ABNORMAL) CBC with platelets and differential (07/30/2024 5:07 PM CDT) [facility] WBC Count 8.9 4.0 - 11.0 10e3/uL 07/30/2024 5:20 PM CDT LABORATORY RBC Count 4.15(L) 4.40 - 5.90 10e6/uL 07/30/2024 5:20 PM CDT LABORATORY Hemoglobin 13.1(L) 13.3 - 17.7 g/dL 07/30/2024 5:20 PM CDT LABORATORY Hematocrit 38.7(L) 40.0 - 53.0 % 07/30/2024 5:20 PM CDT LABORATORY MCV 93 78 - 100 fL 07/30/2024 5:20 PM CDT LABORATORY MCH 31.6 26.5 - 33.0 pg 07/30/2024 5:20 PM CDT LABORATORY MCHC 33.9 31.5 - 36.5 g/dL 07/30/2024 5:20 PM CDT LABORATORY RDW 13.7 10.0 - 15.0 % 07/30/2024 5:20 PM CDT LABORATORY Platelet Count 180 150 - 450 10e3/uL 07/30/2024 5:20 PM CDT LABORATORY % Neutrophils 72 % 07/30/2024 5:20 PM CDT LABORATORY % Lymphocytes 15 % 07/30/2024 5:20 PM CDT LABORATORY % Monocytes 9 % 07/30/2024 5:20 PM CDT LABORATORY % Eosinophils 2 % 07/30/2024 5:20 PM CDT LABORATORY % Basophils 1 % 07/30/2024 5:20 PM CDT LABORATORY % Immature Granulocytes 2 % 07/30/2024 5:20 PM CDT LABORATORY NRBCs per 100 WBC 0 <1 /100 024 5:20 PM CDT LABORATORY Absolute Neutrophils 6.4 1.6 - 8.3 10e3/uL 07/30/2024 5:20 PM CDT LABORATORY Absolute Lymphocytes 1.4 0.8 - 5.3 10e3/uL 07/30/2024 5:20 PM CDT LABORATORY Absolute Monocytes 0.8 0.0 - 1.3 10e3/uL 07/30/2024 5:20 PM CDT LABORATORY Absolute Eosinophils 0.1 0.0 - 0.7 10e3/uL 07/30/2024 5:20 PM CDT LABORATORY Absolute Basophils 0.1 0.0 - 0.2 10e3/uL 07/30/2024 5:20 PM CDT LABORATORY Absolute Immature Granulocytes 0.1 <=0.4 10e3/uL 07/30/2024 5:20 PM CDT LABORATORY Absolute NRBCs 0.0 10e3/uL 07/30/2024 5:20 PM CDT LABORATORY Blood BLOOD SPECIMEN / Unknown Venipuncture / Unknown 07/30/2024 5:07 PM CDT 07/30/2024 5:16 PM CDT Mary Gross MD LAB - BLOOD ORDERAB LES LABORATORY [facility] Lab [address], [address] [place] [address], [facility] [phone] * (ABNORMAL) Hemoglobin A1c (09/30/2023 5:08 PM [facility]) Hemoglobin A1C 7.5(H) <5.7 % 09/30/2023 7:06 PM [facility] LABORATORY Comment: Normal <5.7% Prediabetes 5.7-6.4% ?? Diabetes 6.5% or higher Note: Adopted from ADA consensus guidelines. Blood BLOOD SPECIMEN / Unknown Venipuncture / Unknown 09/30/2023 5:08 PM [facility] 09/30/2023 5:11 PM [facility] Ned Fink MD LAB - BLOOD OR DERABLES LABORATORY [facility] Lab [address], [address] [place] [address], [facility] [phone] * (ABNORMAL) Comprehensive metabolic panel (08/19/2022 8:49 PM CDT) Sodium 141 136 - 145 mmol/L 08/19/2022 9:23 PM CDT [facility] LAB[facility]ATORY Potassium 4.0 3.4 - 5.3 mmol/L 08/19/2022 9:23 PM CDT [facility] Chloride 101 98 - 107 mmol/L 08/19/2022 9:23 PM CDT [facility] Carbon Dioxide (CO2) 28 22 - 29 mmol/L 08/19/2022 9:23 PM CDT [facility] Anion Gap 12 7 - 15 mmol/L 08/19/2022 9:23 PM CDT [facility] Urea Nitrogen 13.7 8.0 - 23.0 mg/dL 08/19/2022 9:23 PM CDT [facility] Creatinine 0.75 0.67 - 1.17 mg/dL 08/19/2022 9:23 PM CDT LABORATORY Calcium 9.1 8.8 - 10.2 mg/dL [...] and gender (Johny et al., NEJM, DOI: 10.1056/[id number]) Blood STRUCTURE OF RIGHT UPPER LIMB / Unknown Venipuncture / Unknown 08/19/2022 8:49 PM CDT 08/19/2022 8:55 PM CDT Von Pacheco MD LAB - BLOOD RICHIE Grimm Organization Address City/State/ZIP Co de Phone Number LABORATORY [facility] Acute Care Lab [address] (1st floor, no room number) [place] [address], [facility] [phone] from Last 3 Months or Most Recently Relevant to Health Maintenance Advance Directives For more information, please contact: [phone] Documents on File Type Date Recorded Patient Tire Changer Expl anation Advance Directives and Living Will 08/01/2020 6:45 AM Health Care Directiv e 07/08/2020 * No CPR- Do NOT Intubate (Latest Code Status on File) Date Activated Date Inactivated Comments 07/30/2024 10:27 PM 08/04/2024 2:19 PM NO basic or advanced life-sustaining interventions are performed Question Answer Comments Code status determined by: Discussion with patie nt/ legal decision maker * No CPR- Do NOT Intubate Date Activated Date Inactivated Comments 10/07/2023 11:12 [...] Name Relationship Healthcare Agent Relationship Communication Cathy Delia Significant other First Alternluisa Health Care Agent Janiyafawad Wells [facility] Health Care Agent Care Teams Culture Room Worker Relationship Specialty Start Date End Date David Martinez MD [facility] [address] [place] [address] PCP - General Emergency Medicine 08/28/23 Ofe Carter EP [facility] [address] [address] Cardiac Rehabilitation Therapist 10/23/23 10/23/24 Lorraine Ospina, NOC TECHNICIAN [address] [id number] Assigned Heart and Vascular Provider 10/25/23
--- OUTSIDE RECORDS SUMMARY | 2024-08-11 15:43 | XMS_ITS | Encounter Summary ---
Author Organization [facility] Address [address] [place] [address] Care Team Providers Care Test Center Manager Name Role Phone No Primary/Referring, Phy Primary Care Provider Unavailable Encounter Details Date Type Department Care Team (Late st Contact Info) Description 05/19/2012 Scanned History External to Transferred Record, Provider [facility] Social History Tobacco Use Types Packs/Day Years [...] on filedocumented in this encounter Care Teams Test Center Manager Relationship Specialty Start Date End Date No Primary/Referring, Phy PCP - General 10/21/18 documented as of this encounter
--- OUTSIDE RECORDS SUMMARY | 2024-08-11 15:44 | XMS_ITS | Encounter Summary ---
Author Organization [place] Address [address] [facility] [place] [address] Care Team Providers Care Turfgrass Technician Name Role Phone David Martinez MD Primary Care Provider Ofe Carter EP Unavailable [phone] Lorraine Ospina SALESPERSON DRIVER Unavailable [phone] Reason for Visit * Reason Onset Date Comments Clinic Care Coordination - Post Hospital 024 Post discharge phone call Encounter Details Date Type Department Care Team (Late st Contact Info) Description 08/06/2024 Telephone [facility] Heart [address] [place] [address] Rubia Blanco, RN Clinic Care Coordination - Post Hospital (Post discharge phone call) Social History Tobacco Use Types Packs/Day Years [...] in an abandoned building, in an overnight longterm, or couch-surfing.) Yes 07/30/2024 Are you worried [...] encounter Miscellaneous Notes * Telephone Encounter - Rubia Blanco RN - 08/06/2024 10:19 AM CDT Patient was admitted to [facility] with exertional chest pain. PMH: afib/flutter on Xarelto, CAD s/p CABG x 4 in 2019, TAVR in 10/2023, DM2, Htn, HLD, CHINO. 07/31/24: Echo showed EF of 60-65%. Regional wall motion abnormalities cannot be excluded due to limited visualization. Right ventricular function cannot be assessed due to poor image quality. s/p TAVR with 29mm Gonzalez Resilia, implanted 10/2023. Mean 9 mmHg. No AI or PVL. Leaflets not well seen. Other valves not well seen due to limited visualization. 08/02/24: Coronary angiogram via RFA resulted in: Severe squaxin vessel coronary artery disease. Patent grafts SVG to ramus, dLAD and RPDA. Patent FLYNN to LAD graft. Status post successful PCI with QUE to prox/mid circumflex. TAPT of ASA/Plavix/Xarelto x one week, and then stop ASA, but continue others. Pt was started on TAPT as above and Lipitor at time of discharge. Called patient to discuss any post hospital d/c questions, review medication changes, and confirm f/u appts. Patient denied any questions regarding new medications or changes to [employer] medications. RN confirmed with patient that he was d/c with an adequate supply of the antiplatelet Plavix, and reminded of importance of taking without interruption. Pt verbalized understanding of TAPT plan of care as above. Patient denied any SOB, chest pain or light headedness. RFA cardiac cath site is without bleeding, swelling, redness or signs of infection. RN confirmed with patient that he will follow up with his [facility] cardiology team. Cardiac rehab is scheduled on 08/12/24 at [facility] in [place]. Patient verbalized understanding and agreed with plan of care. No further questions. Jose Blanco RN. documented in this encounter Plan of Treatment Upcoming Encounters Date Type Department Care Team (Late st Contact Info) Description 08/12/2024 11:30 AM CDT Appointment [facility] Cardiac and Pulmonary Rehabilitation [place] [address] [facility] [address] [place] [phone] Tristen Leon MD [address] [place], [place] [phone] 2, [facility] Cardiac Rehab 10/21/2024 10:00 AM INSURANCE ADMINISTRATIVE ASSISTANT Appointment [facility] [address] [facility] [address] [phone] [place] [address] [place] [address] [address] [phone] 10/21/2024 1:45 PM INSURANCE ADMINISTRATIVE ASSISTANT Lab [facility] Laboratory [address] [facility] [address] [phone] 10/21/2024 2:00 PM INSURANCE ADMINISTRATIVE ASSISTANT Office [facility] [address] [facility] [address] [phone] Lorraine Ospina, SALESPERSON DRIVER [address] [id number] documented as of this encounter Visit Diagnoses Not on filedocumented in this encounter Care Teams Turfgrass Technician Relationship Specialty Start Date End Date David Martinez MD [facility] [address] [place] [address] PCP - General Emergency Medicine 08/28/23 Ofe Carter EP [facility] [address] [id number] Cardiac Rehabilitation Therapist 10/23/23 10/23/24 Lorraine Ospina, SALESPERSON DRIVER [address] [id number] Assigned Heart and Vascular Provider 10/25/23 documented as of this encounter
--- OUTSIDE RECORDS SUMMARY | 2024-08-11 15:44 | XMS_ITS | Referral Summary ---
Author Organization [facility] Address [address] [place] [address] Care Team Providers Care Support Coordinator Name Role Phone David Martinez MD Primary Care Provider Ofe Carter EP Unavailable [phone] Lorraine Ospina LOCKER ROOM SUPERVISOR Unavailable Encounters Date Type Department Care Team Description 08/06/2024 Telephone [facility] [place] [address] [place] [phone] Rubia Blanco, JESSE Clinic Care Coordination - Post Hospital (Post discharge phone call) 07/30/2024 6:54 PM CDT - 08/04/2024 12:05 PM CDT Hospital Encounter [facility] 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 [place] [phone] Gavin Moore MD Appointment (R/s need for wrong location ) 06/10/2024 Telephone [facility] [address] [place] [phone] Kyler Lubin MD Appointment (1 yr post TAVR ) 06/07/2024 [facility] [address] [place] [phone] Kyler Lubin MD Appointment (TAVR ) 06/03/2024 Telephone [facility] [address] [place] [phone] Kyler Lubin MD Appointment from Last 3 Months Allergies Active Allergy [...] tablet (100 mg) by mouth daily 0 Active metFORMIN (GLUCOPHAGE) 1000 MG tablet Take [...] artery disease involving coronary bypass graft of [place] heart without angina pectoris,Chest pain, unspecified type Take 1 tablet (75 mg) by mouth daily. Dose to start tomorrow. 90 tablet 3 4 Active atorvastatin (LIPITOR) 40 MG tabletIndications :Dyspnea on exertion,Coronary artery disease involving coronary bypass graft of [place] heart without angina pectoris,Chest pain, unspecified type [...] artery disease involving coronary bypass graft of [place] heart without angina pectoris,Chest pain, unspecified type Take 1 tablet (81 mg) by mouth daily for 7 days. Starting tomorrow. 7 tablet 4 08/04/20 24 Discontinued atorvastatin (LIPITOR) 40 MG tabletIndications :Dyspnea on exertion,Coronary artery disease involving coronary bypass graft of [place] heart without angina pectoris,Chest pain, unspecified type Take 1 tablet (40 mg) by mouth daily. 90 tablet 3 4 08/04/20 24 Discontinued aspirin (ASA) 81 MG chewable tabletIndications :Dyspnea on exertion,Coronary artery disease involving coronary bypass graft of [place] heart without angina pectoris,Chest pain, unspecified type Take 1 tablet (81 mg) by mouth daily for 5 days. 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 Most recent hemoglobin A1c 9.0., Cr [...] Date Recorded Do you have housing? (Hermilo g is defined as stable permanent housing and [...] Info) Description 08/12/2024 11:30 AM CDT Appointment [facility] [place] [address] [place] [address] [address] [place] [phone] Tristen Leon MD [address] [place], [place] [address] 2, [facility] 10/21/2024 10:00 AM AQUATIC PHYSIOTHERAPIST Appointment [facility] [address] [place] [phone] Kyler Lubin MD [address] [facility] [address] [place] [id number] 10/21/2024 1:45 PM AQUATIC PHYSIOTHERAPIST Lab [facility] [phone] [place] [phone] 10/21/2024 2:00 PM AQUATIC PHYSIOTHERAPIST Office Visit [facility] [phone] [place] [phone] Lorraine Ospina, LOCKER ROOM SUPERVISOR [address] [facility] [place] [place] [id number] Medical Devices Implanted Type Area Pole Setter Device Identifier Shelf Expiration Date Model / Serial / Lot Device Closure Vascular Manta 18fr 2115 - [id number] Implanted:Qty: 1 on 10/07/2023 at [facility] Occlusion Device [employer] 11/26/20245 / / [id number] Stent Cor Jame [place] 38x2.50mm [id number] - [id number] Implanted:Qty: 1 on 08/02/2024 at [facility] Stent [employer] 05/17/2027 [id number] / / [id number] Valve Aortic Transcatheter Heart 29mm Jose Roberto 3 Ultra Resilia - [id number] Implanted:Qty: 1 on 10/07/2023 at [facility] Valve [employer] 03/23/2026 [id number] / [id number] / [id number] Closure Angioseal 6fr [id number] - [id number] Implanted:Qty: 1 on 08/02/2024 at [facility] [employer] [id number] / / Procedures Procedure Name Priority Date/Time [...] CDT HEMOGLOBIN A1C Add-On 09/30/2023 5:08 PM AQUATIC PHYSIOTHERAPIST COMPREHENSIVE METABOLIC PANEL STAT 08/19/2022 8:49 PM CDT from Last 3 Months or Most Recently Relevant to Health Maintenance Results * (ABNORMAL) Glucose by meter (08/04/2024 7:19 AM CDT) Only the most recent of21 resultswithin the time period is included. GLUCOSE BY METER POCT 163(H) 70 - 99 mg/dL 08/04/2024 7:26 AM CDT LABORATORY POC Blood, Capillary BLOOD SPECIMEN / Unknown 08/04/2024 7:19 AM CDT 08/04/2024 7:26 AM CDT Molina Sweet MD LAB - [facility] POCT LABORATORY POC [facility] [address], [address] [place] [address], [facility] * EKG 12-lead, tracing only (08/03/2024 6:47 AM CDT) Only the most recent of3 resultswithin the time period is included. Systolic Blood Pressure mmHg RADIOLOGY RESULTS Diastolic Blood Pressure mmHg RADIOLOGY RESULTS Ventricular Rate 58 BPM RAD IOLOGY RESULTS Atrial Rate 58 BPM RADIOLOG Y RESULTS IA Interval 248 ms RADIOLOG Y RESULTS QRS Duration 80 ms RADIOLO GY RESULTS QT 418 ms RADIOLOGY RESULTS QTc 410 ms RADIOLOGY RESULTS P [place] 58 degrees RADIOLOGY RESULTS R AXIS 120 degrees RADIOLOGY RESULTS T [place] -42 degrees RADIOLOGY RESULTS Interpretation ECG Sinus [...] 98 - 107 mmol/L 08/03/2024 7:43 AM T LABORATORY Carbon Dioxide (CO2) 28 22 - 29 mmol/L 08/03/2024 7:43 AM CDT LABORATORY Anion Gap 11 7 - 15 mmol/L 08/03/2024 7:43 AM T LABORATORY Urea Nitrogen 18.7 8.0 - 23.0 mg/dL 08/03/2024 7:43 AM CDT LABORATORY Creatinine 0.79 0.67 - 1.17 mg/dL 08/03/2024 7:43 AM CDT LABORATORY GFR Estimate >90 >60 mL/min/1.7 3m2 08/03/2024 7:43 AM CDT LABORATORY Comment:eGFR calculated usin 2020 CKD-EPI equation. Calcium 9.0 8.8 - 10.4 mg/dL 08/03/2024 7:43 AM T LABORATORY Comment:Reference intervals for this test were [...] MD LAB - BLOOD ORDERABL ES LABORATORY [facility] [address] floor, [address] [place] [address], [facility] [phone] * (ABNORMAL) Lipid Profile (08/02/2024 2:46 PM [...] LAB - BLOOD ORDERABL ES U LABORATORY [facility] Core Lab [address] [place] [address] * CV CORONARY ANGIOGRAM, CV PCI (08/02/2024 2:01 PM CDT) Anatomical Region Laterality Modality Radio Fluoroscop y Narrative 08/04/2024 4:03 PM CDT Severe [place] vessel coronary artery disease Patent grafts SVG [...] length: 30 mm. A CATH GUIDING GUIDELINER 3.5 ST CURVE 5.5FR COAST 5270 guide catheter was successfully placed. The GUIDEWIRE VASC [id number] RUNTHROUGH 25-1011 crossed the lesion. The pre-interventional distal flow is normal (MIO 3). A STENT COR JAME FRONTIER 38X2.50MM [id number] stent was successfully placed. Pre-stent angioplasty was performed using a CATH BALLOON EMERGE 2.0X15MM [id number] supply. . Post-stent angioplasty was performed using a CATH BALLOON NC EMERGE 2.18O56HV [id number] supply. . The post-interventional distal flow is [...] Estimated blood loss: < 25 mlThe attending mathematics faculty member was present and supervised all critical aspects [...] PM CDT 08/02/2024 1:56 PM CDT Molina Sweet MD LAB - [place] POCT LABORATORY POC [facility] [address], [address] [address], [facility] * Potassium (08/02/2024 5:39 AM CDT) Potassium 4.2 3.4 - 5.3 mmol/L 08/02/2024 6:07 AM CDT LABORATORY Blood STRUCTURE OF LEFT HAND / Unknown Venipuncture / Unknown 08/02/2024 5:39 AM CDT 08/02/2024 5:53 AM CDT Trinidad White MD LAB - BLOOD ORDERABL ES LABORATORY [facility] [address], [address] [place] [address], [facility] [phone] * (ABNORMAL) Partial thromboplastin time (08/02/2024 5:39 AM CDT) Only the most recent of5 resultswithin the time period is included. aPTT 55(H) 22 - 38 Seconds 08/02/2024 6:11 AM CDT LABORATORY Blood STRUCTURE OF LEFT HAND / Unknown Venipuncture / Unknown 08/02/2024 5:39 AM CDT 08/02/2024 5:53 AM CDT Trinidad White MD LAB - BLOOD ORDERABL ES LABORATORY [facility] Lab [address], [address] [place] [address], [facility] [phone] * (ABNORMAL) Lipid panel reflex to direct [...] High: >= 220 mg/dL Amber Marin APRN LOCKER ROOM SUPERVISOR LAB - BLOOD ORD ERABLES [facility] LAB[facility]AT[facility] [address] [place] [address] * (ABNORMAL) CBC with platelets (08/02/2024 5:39 AM CDT) Only the most recent of2 resultswithin the time period is included. WBC Count 8.6 4.0 - 11.0 10e3/uL [...] DO LAB - BLOOD ORDERABL ES LABORATORY [facility] Lab [address], [address] [place] [address], [place] [phone] * ECHO COMPLETE WITH CONTRAST (07/31/2024 2:25 PM CDT) LVEF 60-65% CARDIOLOGY RESULTS Anatomical Region Laterality Modality Echocardiography 07/31/2024 1:04 PM CDT Narrative 07/31/2024 2:55 PM CDT [id number]^NORBERT^LAURO [facility] Echocardiography Laboratory [address] [place] [address] Name: CHEVY DAMON J : 1955 Study Date: 07/31/2024 01:04 PM Age: 69 yrs Gender: Male Patient Location: [facility] Reason For Study: Chest Pain, Chest Pressure, Chest Tightness Ordering Physician: LAURO TOUSSAINT Referring Physician: Juan Hernandez Performed By: John Callahan BSA: 2.6 m2 Height: 71 in Weight: 336 lb HR: 61 BP: 127/66 mmHg Procedure Complete Portable Echo Adult. Optison ([facility] #[id number]) given intravenously. Interpretation Summary Left ventricular systolic [...] Procedure Note Joel Darden MD - 07/31/2024 [id number]^NORBERT^LAURO [facility] Echocardiography Laboratory [address] [place] [address] Name: CHEVY DAMON : 1955 Study Date: 07/31/2024 01:04 PM Age: 69 yrs Gender: Male Patient Location: [facility] Reason For Study: Chest Pain, Chest Pressure, Chest Tightness Ordering Physician: LAURO TOUSSAINT Referring Physician: Juan Hernandez Performed By: John Callahan BSA: 2.6 m2 Height: 71 in Weight: 336 lb HR: 61 BP: 127/66 mmHg Procedure Complete Portable Echo Adult. Kadenson ([facility] #[id number]) givenintravenously. Interpretation Summary Left ventricular systolic function [...] Hartley 07/31/2024 02:55 PM Lauro Toussaint DO CV ECHO ORDERABLES * Troponin T, High Sensitivity (07/30/2024 7:59 PM CDT) Only the most recent of2 resultswithin the time period is included. [facility] Troponin T, High Sensitivity 18 <=22 [...] MD LAB - BLOOD ORDERAB LES LABORATORY [facility] Lab [address] floor, [address] [place] [address], [facility] [phone] * Nt probnp inpatient (07/30/2024 7:59 PM CDT) Only the most recent of2 resultswithin the time period is included. [facility] Signature N terminal Pro BNP Inpatient [phone] [...] MD LAB - BLOOD ORDERAB LES LABORATORY [facility] Lab [address] floor, [address] [place] [address], [place] [phone] * XR Chest 2 Views (07/30/2024 7:54 PM CDT) Anatomical Region Laterality Modality Chest Digital Radiogra phy 07/30/2024 7:54 PM CDT Impressions 07/30/2024 8:03 PM CDT IMPRESSION: Median sternotomy wires are noted. Stable cardiac size. No consolidation or pneumothorax. Small bilateral pleural effusions, right greater than left. Narrative 07/30/2024 8:03 PM CDT EXAM: XR CHEST 2 VIEWS LOCATION: [facility] DATE: 07/30/2024 INDICATION: SOB, CP COMPARISON: 10/23/2020 Procedure Note Jeff Styles MD - 07/30/2024 EXAM: XR CHEST 2 VIEWS LOCATION: [facility] DATE: 07/30/2024 INDICATION: SOB, CP COMPARISON: 10/23/2020 IMPRESSION: Median sternotomy wires are noted. Stable cardiac size. Noconsolidation or pneumothorax. Small bilateral pleural effusions, rightgreater than left. Mary Gross MD IMG DIAGNOSTIC IMAG ING ORDERABLES * (ABNORMAL) CBC with platelets and differential (07/30/2024 5:07 PM CDT) WBC Count 8.9 4.0 - 11.0 10e3/uL [...] MD LAB - BLOOD ORDERAB LES LABORATORY [facility] Lab [address], [address] [place] [address], [facility] [phone] * (ABNORMAL) Hemoglobin A1c (09/30/2023 5:08 PM AQUATIC PHYSIOTHERAPIST) Hemoglobin A1C 7.5(H) <5.7 % 09/30/2023 7:06 PM AQUATIC PHYSIOTHERAPIST LABORATORY Comment: Normal <5.7% Prediabetes 5.7-6.4% ?? Diabetes 6.5% or higher Note: Adopted from ADA consensus guidelines. Blood BLOOD SPECIMEN / Unknown Venipuncture / Unknown 09/30/2023 5:08 PM AQUATIC PHYSIOTHERAPIST 09/30/2023 5:11 PM AQUATIC PHYSIOTHERAPIST Ned Fink MD LAB - BLOOD OR DERABLES LABORATORY [facility] Lab [address], [address] [place] [address], [facility] [phone] * (ABNORMAL) Comprehensive metabolic panel (08/19/2022 8:49 PM CDT) Pathologist [facility] Sodium 141 136 - 145 mmol/L [...] and gender (Johny et al., NEJ, DOI: 10.1056/[id number]) Blood STRUCTURE OF RIGHT UPPER LIMB / Unknown Venipuncture / Unknown 08/19/2022 8:49 PM CDT 08/19/2022 8:55 PM CDT Von Pacheco MD LAB - BLOOD RICHIE UPTON [facility] Organization Address City/State/ZIP Co de Phone Number LABORATORY [facility] Acute Care Lab [address] Lab (1st floor, no room number) [place] [address], [facility] [phone] from Last 3 Months or Most Recently Relevant to Health Maintenance Advance Directives For more information, please contact: [phone] Documents on File Type Date Recorded Patient 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 Planner Expl anation Advance Directives and Living Will [...] Relationship Communication Cathy Lin Significant other First Alternluisa saavedra Health Care Agent Janiya Carrillo Health Care Agent Care Teams Support Coordinator Relationship Specialty Start Date End Date David Martinez MD [facility] [address] [place] [address] PCP - General Emergency Medicine 08/28/23 Ofe Carter EP [facility] [address] [address] Cardiac Rehabilitation Therapist 10/23/23 10/23/24 Lorraine Ospina, LOCKER ROOM SUPERVISOR [address] [address] Assigned Heart and Vascular Provider 10/25/23
--- OUTSIDE RECORDS SUMMARY | 2024-08-11 15:44 | XMS_ITS | Encounter Summary ---
Author Organization [facility] [address] [facility] [place] [address] Care Team Providers Care Corporate Development Officer Name Role Phone David Martinez MD Primary Care Provider Ofe Carter EP Unavailable Lorraine Ospina MANUFACTURING ENGINEER SUPERVISOR Unavailable Reason for Referral * Rehab Therapy Cardiac Therapy (Routine) - Pending Review Specialty Diagnoses / Procedures Referred By Contac t Referred To Contact Diagnoses Coronary artery disease involving coronary bypass graft of [place] heart without angina pectoris Joy Leung MD [address] [place] [address] Referral ID Status Reason Start Date Expiration Date V isits Requested Visits Authorized [id number] Pending Review 08/04/2024 08/04/2025 1 1 Question Answer Preferred Location: [facility] Scheduling Instructions: If you have not heard from the scheduling office within 2 business days, please call [phone] for [place], for [place] and [phone] for [place]. Special Programs: Outpatient Phase II Cardiac Rehab Program Which Procedure did the patient have? PCI Comments Please be aware that coverage of these services is subject to the terms and limitations of your health insurance plan. Call member services at your health plan with any benefit or coverage questions. If you have not heard from the scheduling office within 2 business days, please call [phone] for [place], for [place] and [phone] for [place]. * Consultation (Routine: Next available opening) - Pending Review Specialty Diagnoses / Procedures Referred By Contac t Referred To Contact Cardiovascular Disease Diagnoses Coronary artery disease involving coronary bypass graft of [place] heart without angina pectoris Amber Rice APRN MANUFACTURING ENGINEER SUPERVISOR [address], [id number] [place] [address] Referral ID Status Reason Start Date Expiration Date V isits Requested Visits Authorized [id number] Pending Review 08/03/2024 08/03/2025 1 1 Question Answer Preferred Location: Other (External) - Use Comments - [facility] [place] Scheduling Instructions: Please call to schedule your appointment Class External referral [5] Follow-up with: Self Scheduling Instructions: [facility] will call you to coordinate your care as prescribed by your provider. If you have concerns about scheduling, please call [phone]. Comments Please call to schedule your appointment [facility] will call you to coordinate your care as prescribed by your provider. If you have concerns about scheduling, please call [phone]. * Rehab Therapy Cardiac Therapy (Routine: Next available opening) - Authorized Specialty Diagnoses / Procedures Referred By Contac t Referred To Contact CARDIAC REHAB Diagnoses Dyspnea on exertion Coronary artery disease involving coronary bypass graft of [place] heart without angina pectoris Chest pain, unspecified type [facility] [address] [place] [id number] Referral ID Status Reason Start Date Expiration Date V isits Requested Visits Authorized [id number] Authorized 08/02/2024 11/02/2024 365 052 Question Answer Preferred Location: [facility] Scheduling Instructions: If you have not heard from the scheduling office within 2 business days, please call [phone] for [place], for [place] and [phone] for [place]. Which Procedure did the patient have? PCI Special Programs: Outpatient Phase II Cardiac Rehab Program Comments Patient may choose their preference of the site for Cardiac Rehab. If you have not heard from the scheduling office within 2 business days, please call [phone] for [facility], for [place] and [phone] for [facility]. 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 Unstable angina pectoris (H) Acute on chronic congestive heart failure, unspecified heart failure type (H) Bilateral leg edema Dyspnea on exertion Cardiac Spec Care [address] [place] [address] Referral ID Status Reason Start Date Expiration Date Visits Re quested Visits Authorized [id number] 1 1 Encounter Details Date Type Department Care Team (Late st Contact Info) Description 07/30/2024 6:54 PM CDT - 08/04/2024 12:05 PM CDT Hospital Encounter [facility] [address] [place] [address] Mary Gross MD [facility] [place] [address] Lauro Toussaint DO [address] [place] [address] Molina Sweet MD [address] [place] [address] Severe aortic stenosis (Primary Dx); Unstable angina pectoris (H); Acute on chronic congestive heart failure, unspecified heart failure type (H); Bilateral leg edema; Dyspnea on exertion; M[facility] (current) use of anticoagulants; Coronary artery disease involving coronary bypass graft of [place] heart without angina pectoris; Chest pain, unspecified type Discharge Disposition: Home or Self Care Social History Tobacco Use Types Packs/Day Years [...] Answer Date Recorded Do you have housing? (Housin g is defined as stable permanent housing and does not include staying ouside in a car, in a tent, in an abandoned building, in an overnight snf, or couch-surfing.) Yes 07/30/2024 Are you worried [...] Mass Index 44.81 07/30/2024 10:28 PM CDT documented in this encounter Discharge Summaries * Joy Leung MD - 08/04/2024 10:05 AM CDT Images from the original note were not included. [facility] Hospitalist Discharge Summary Date of Admission: 07/30/2024 Date of Discharge: 08/04/2024 Discharging Provider: Joy Leung MD Discharge Service: Hospitalist Service Discharge Diagnoses Chevy Damon is a 69 year old male with a history of afib/flutter on Xarelto, CAD s/p CABG x 4 [id number], TAVR in 10/2023, DM2, Htn, Hld, CHINO who is admitted on 07/30/2024 with exertional chest pain. 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 EKG appears similar with slightly improved T-wave inversions in theinferior leads compared to prior. Troponin stable 20 -> 18. BNP 795. Last dose of Xarelto was evening of 07/29. Consideration being given to ACS, CHF and aortic valve stenosis s/p TAVR. 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 The visual ejection fraction is 60-65%. Regional wall motion abnormalities cannot be excluded due to limited visualization. The right ventricle is not well visualized. Right ventricular function cannot be assessed due to poor image quality. s/p TAVR with 29mm Gonzalez Resilia, implanted 10/2023. Mean 9 mmHg. No AI or PVL.Leaflets not well seen. -cardiology consulted . Patient underwent coronary angiogram on 08/02/2024 Angiogram showed Patent grafts SVG to ramus, dLAD and RPDA. Patent FLYNN to LAD graft. -S/p successful PCI QUE to prox/mid Lcx disease. As per cardiology postprocedure triple therapy with aspirin Plavix and Xarelto until . After 08 09 stop the aspirin and continue Plavix and Xarelto for 1 year Patient was evaluated by physical therapy. 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 Indication: Post- PCI/Angiogram (24 hours) Code Status: No CPR- Do NOT Intubate Clinically Significant Risk Factors # Hypertension: Noted on problem list # Chronic heart failure with preserved ejection fraction: heart failure noted on problem list and last echo with EF >50% # Severe Obesity: Estimated body mass index is 44.8 kg/m?? as calculated from the following: Height as of this encounter: 1.803 m (5' 11). Weight as of this encounter: 145.7 kg (321 lb 3.2 oz)., PRESENT ON ADMISSION # History of CABG: noted on surgical history Disposition Plan Clinically Significant Risk Factors # Severe Obesity: Estimated body mass index is 44.81 kg/m?? as calculated from the following: Height as of this encounter: 1.803 m (5' 11). Weight as of this encounter: 145.7 kg (321 lb 4.8 oz). Follow-ups Needed After Discharge Follow-up Appointments Follow-up and recommended labs and tests [facility] / Cardiology [address] [place] [address], 2nd floor [place] You also have a previously scheduled appointment at the [facility] Cardiology on FridayOctober 13 at 2:10 pm with LOLA Em. You have been put on a cancellation list at the clinic. They will call you if they are able to get you in any sooner. Follow-up and recommended labs and tests F/u with PCP in 1week. Recheck CBC, BMP in 1week F/U with Cardiology in 2weeks Unresulted Labs Ordered in the Past 30 Days of this Admission No orders found from 06/30/2024 to 07/31/2024. Discharge Disposition Discharged to home Condition at discharge: Stable Consultations This Hospital Stay PHARMACY IP CONSULT CARDIOLOGY IP CONSULT HOSPITALIST IP CONSULT NUTRITION SERVICES ADULT IP CONSULT CARDIAC REHAB IP CONSULT NUTRITION SERVICES ADULT IP CONSULT SMOKING CESSATION PROGRAM IP CONSULT Code Status No CPR- Do NOT Intubate Time Spent on this Encounter I, Joy Leung MD, personally saw the patient today and spent greater than 30 minutes dischargingthis patient. Joy Leung MD [facility] [address] [place] [address] , [address] [facility] [id number] Physical Exam Vital Signs: Temp: 98.8 ??F (37.1 ??C) Temp src: Oral BP: (!) 159/76 Pulse: 96 Resp: 18 SpO2: 99 % O2 Device: None (Room air) Weight: 321 lbs 4.8 oz Constitutional: awake, alert, cooperative, no apparent distress. Respiratory: CTABL Cardiovascular: RRR with no m/r/g GI: Normal bowel sounds, soft, non-distended, non-tender. Skin: normal skin color, texture, turgor Musculoskeletal: There is no redness, warmth, or swelling of the joints. Full range of motion noted. Chronic 1+ edema of the bilateral lower extremities noted Neurologic: Awake, alert, oriented to name, place and time. [place]. Neuropsychiatric: normal mood and affect Primary Care Physician David Martinez Discharge Orders Cardiac Rehab Cigar Head Holer Referral Follow-Up with Cardiology Cardiac Rehab Cigar Head Holer Referral Brief Discharge Instructions Do NOT stop your aspirin or platelet inhibitor unless directed by your Ornamental Machine Operator. These medications help to prevent platelets in your blood from sticking together and forming a clot. Examples of these medications are: Ticagrelor (Brilinta), Clopidigrel (Plavix), Prasugrel (Effient) When to call - Contact the Heart Clinic You may experience symptoms that require follow-up before your scheduled appointment. Contact the Heart Clinic if you develop: Fever over 100.4o Fahrenheit, that lasts more than one day; Redness, heat, or pus at the puncture site; Change in color or temperature in your groin or leg. When to call - Reasons to Call 911 If your groin starts to bleed or begins to swell suddenly after leaving the hospital, lie flat and apply firm pressure just above the puncture site for 15 minutes. If bleeding continues, call 9-1-1. Precautions - Lifting NO lifting of more than 10 pounds for at least 3 days. If you usually lift 50 pounds or more daily,talk with your Ornamental Machine Operator. Precautions - Household Activities Avoid any hard work or tiring activities. NO physical activity such as mowing the lawn, raking, vacuuming, changing sheets on your bed, snow shoveling, or using a driller and broacher. Precautions - Active Sports Activities Avoid any tiring sports activities. This includes, yard work, jogging, biking, bowling, swimming, tennis or golf, and sexual activity. Precautions - Elective Dental Work NO elective dental work for 6 weeks after receiving a stent. Comfort and Pain Management - Pain after Surgery Pain after surgery is normal and expected. Your leg may be sore or stiff for a few days, and your pain will improve with time. You may take Tylenol or a pain medicine recommended by your Ornamental Machine Operator. Comfort and Pain Management - Bruising after Surgery Bruising around the groin area is normal. It may take 2-3 weeks for this to go away. It is normal for the bruised area to turn green and/or yellow as it is healing. A small lump may also be present and may last 2-3 months. Activity - Daily Walking During the day get up and walk around every 2 hours. Activity - Light Household Activities Light household activities are ok. Activity - Elevate Legs Elevate legs in between all activities. Activity - Cardiac Rehab You are encouraged to enroll in an Outpatient Cardiac Rehab program after discharge from the hospital. Our Cardiac Rehab staff may visit briefly with you while you're in the hospital. If they miss you, someone will contact you after you are home. Return to Driving Driving is NOT permitted for 24 hours after surgery Return to work You may return to work after 72 hours if you are feeling well and your job does not involve heavy lifting. Dressing Removal You may take off the dressing on your groin the day after your procedure. Incision Care Keep the incision area dry and clean. You do not need to use a bandage on your incision. Shower / Bathing It is ok to shower with regular soap. Pat dry, do not rub. No tub bath for 3 days. No swimming in apool or hot tub immersion for 1 week Follow-up and recommended labs and tests [facility] Cardiology [address] [place] [address], 2nd floor [place] You also have a previously scheduled appointment at the [facility] on at 2:10 pm with LOLA Em. You have been put on a cancellation list at the clinic. They will call you if they are able to get you in any sooner. Reason for your hospital stay Chest pain with coronary angiogram and QUE placement to Left Circumflex. Take baby aspirin, plavix and xarelto until 08/09/24 then stop baby aspirin continue taking Plavix and xarelto daily from 08/10/24 Follow-up and recommended labs and tests F/u with PCP in 1week. Recheck CBC, BMP in 1week F/U with Cardiology in 2weeks Activity Your activity upon discharge: activity as tolerated Diet Follow this diet upon discharge: Current Diet:Orders Placed This Encounter Low Saturated Fat Na <2400 mg Significant Results and Procedures Most Recent 3 CBC's: Recent Labs Lab Test 08/02/24 0539 07/31/24 0409 07/30/24 1707 WBC 8.6 8.1 8.9 HGB 13.8 13.7 13.1* MCV 93 94 93 PLT 148* 156 180 Most Recent 3 BMP's: Recent Labs Lab Test 08/04/24 0719 08/04/24 0217 08/03/24212608/03/24 0747 08/03/24 0635 08/02/24 0809 08/02/24 0539 07/31/24 0815 07/31/24 0409 NA -- -- -- -- 139 -- 140 -- 141 POTASSIUM -- -- -- -- 4.6 -- 4.2 4.2 -- 4.4 CHLORIDE -- -- -- -- 100 -- 102 -- 104 CO2 -- -- -- -- 28 -- - BUN -- -- -- -- 18.7 -- 16.2 -- 18.4 CR -- -- -- -- 0.79 -- 0.76 -- 0.76 ANIONGAP -- -- -- -- 11 -- 11 -- 13 FITZ -- -- -- -- 9.0 -- 9.2 -- 8.7* GLC 163* 173* 190* < > 167* < > 122* < > 265* < > = values in this interval not displayed. Most Recent 2 LFT's: Recent Labs Lab Test 08/19/22204808/23/21 1726 AST 34 21 ALT 35 25 ALKPHOS 103 90 BILITOTAL 0.5 0.9 Most Recent 3 INR's: Recent Labs Lab Test 10/07/23 0725 10/02/23 0802 09/30/23 1708 INR 1.11 1.38* 1.24* Most Recent INR's and Anticoagulation Dosing History: Anticoagulation Dose History More data may exist Latest Ref Rng & Units 07/04/2020 07/11/2020 10/06/2020 08/23/2021 09/30/2023 10/02/2023 10/07/2023 Recent Dosing and Labs INR 0.85 - 1.15 0.92 1.27 1.37 1.05 1.58 1.24 1.38 1.11 Details Multiple values from one day are sorted in reverse-chronological order Most Recent 3 Creatinines: Recent Labs Lab Test 08/03/24 0635 08/02/24 0539 07/31/24 0409 CR 0.79 0.76 0.76 Most Recent 3 Hemoglobins: Recent Labs Lab Test 08/02/24 0539 07/31/24 0409 07/30/24 1707 HGB 13.8 13.7 13.1* Most Recent 3 Troponin's: Recent Labs Lab Test 08/23/21 1726 03/26/21 1125 11/23/20 1043 11/23/20 0712 TROPI -- <0.015 <0.015 <0.015 TROPONIN <0.015 -- -- -- Most Recent 3 BNP's: Recent Labs Lab Test 07/30/24 1959 07/30/24 1707 10/02/23 0802 08/23/21 1726 NTBNPI 781 795 -- 443 NTBNP -- -- 706 -- Most Recent D-dimer: Recent Labs Lab Test 11/23/20 0154 DD 1.8* Most Recent Cholesterol Panel: Recent Labs Lab Test 08/02/24 1446 CHOL 122 LDL 73 HDL 30* TRIG 93 7-Day Micro Results No results found for the last 168 hours. Most Recent TSH and T4:No lab results found. Most Recent Hemoglobin A1c: Recent Labs Lab Test 09/30/23 1708 A1C 7.5* Most Recent 6 glucoses: Recent Labs Lab Test 08/04/24 0719 08/04/24 0217 08/03/24 2127 08/03/24 1136 08/03/24 0747 08/03/24 0635 GLC 163* 173* 190* 190* 160* 167* Most Recent Urinalysis: Recent Labs Lab Test 09/21/20 0846 COLOR Yellow APPEARANCE Clear URINEGLC Negative URINEBILI Negative URINEKETONE Negative SG 1.022 UBLD Negative URINEPH 5.5 PROTEIN Negative NITRITE Negative LEUKEST Negative RBCU <1 WBCU 1 Most Recent ABG: Recent Labs Lab Test 07/11/20 1450 07/11/20 1310 07/11/20 1234 PH 7.35 < > 7.37 PO2 79* < > 276* PCO2 45 < > 47* HCO3 25 < > 27 YOLANDA -- -- 1.4 < > = values in this interval not displayed. Most Recent ESR & CRP:No lab results found. Most Recent Anemia Panel: Recent Labs Lab Test 08/02/24 0539 WBC 8.6 HGB 13.8 HCT 41.6 MCV 93 PLT 148* Most Recent CPK:No lab results found., Results for orders placed or performed during the hospital encounter of 07/30/24 XR Chest 2 Views Narrative EXAM: XR CHEST 2 VIEWS LOCATION: [facility] DATE: 07/30/2024 INDICATION: SOB, CP COMPARISON: 10/23/2020 Impression IMPRESSION: Median sternotomy wires are noted. Stable cardiac size. No consolidation or pneumothorax. Small bilateral pleural effusions, right greater than left. Echocardiogram Complete Value LVEF 60-65% Narrative [id number]^NORBERT^LAURO [facility] [address] [place] [address] Name: CHEVY DAMON : 1955 Study Date: 07/31/2024 01:04 PM Age: 69 yrs Gender: Male Patient Location: [facility] Reason For Study: Chest Pain, Chest Pressure, Chest Tightness Ordering Physician: LAURO TOUSSAINT Referring Physician: Juan Hernandez Performed By: John Callahan BSA: 2.6 m2 Height: 71 in Weight: 336 lb HR: 61 BP: 127/66 mmHg Procedure Complete Portable Echo Adult. Optison ([facility] #[id number]) given intravenously. Interpretation Summary Left ventricular systolic [...] Doppler Measurements & Calculations MV E max rosy: 122.0 cm/sec MV A max rosy: 63.8 cm/sec MV E/A: 1.9 MV max [...] SV(LVOT): 81.6 ml SI(LVOT): 31.1 ml/m2 AV Rosy Ratio (DI): 0.46 KACEY Index (cm2/m2): 0.66 E/E' av.1 Lateral E/e': 16.3 Medial E/e': 28.0 RV S Rosy: 6.5 cm/sec Report approved by: Ana Hartley 07/31/2024 02:55 PM Cardiac Catheterization Narrative Mid LAD lesion is 70% stenosed. Dist LAD lesion is 55% stenosed. Prox Cx to Mid Cx lesion is 80% stenosed. Dist RCA-1 lesion is 90% stenosed. Dist RCA-2 lesion is 90% stenosed. RPDA lesion is 70% stenosed. - Known triple vessel diseases. - Patent grafts SVG to ramus, dLAD and RPDA. Patent FLYNN to LAD graft. - S/p successful PCI QUE to prox/mid Lcx disease. Discharge Medications Current Discharge Medication List START taking these medications Details aspirin (ASA) 81 MG chewable tablet Take 1 tablet (81 mg) by mouth daily for 5 days. Starting tomorrow.stop baby aspirin on 08/09/24 Qty: 5 tablet, Refills: 0 Associated Diagnoses: Dyspnea on exertion; Coronary artery disease involving coronary bypass graft of [place] heart without angina pectoris; Chest pain, unspecified type !! atorvastatin (LIPITOR) 40 MG tablet Take 1 tablet (40 mg) by mouth daily. Qty: 90 tablet, Refills: 3 Associated Diagnoses: Dyspnea on exertion; Coronary artery disease involving coronary bypass graft of [place] heart without angina pectoris; Chest pain, unspecified type clopidogrel (PLAVIX) 75 MG tablet Take 1 tablet (75 mg) by mouth daily. Dose to start tomorrow. Qty: 90 tablet, Refills: 3 Associated Diagnoses: Dyspnea on exertion; Coronary artery disease involving coronary bypass graft of [place] heart without angina pectoris; Chest pain, unspecified type !! - Potential duplicate medications found. Please discuss with provider. CONTINUE these medications which have NOT CHANGED Details amLODIPine (NORVASC) 5 MG tablet Take 10 mg by mouth daily !! atorvastatin (LIPITOR) 20 MG tablet Take 20 mg by mouth at bedtime chlorhexidine (PERIDEX) 0.12 % solution Swish and spit 15 mLs in mouth 2 times daily furosemide (LASIX) 40 MG tablet Take 40 mg by mouth daily. insulin glargine (LANTUS PEN) 100 UNIT/ML pen Inject 60 Units Subcutaneous every morning Comments: If Lantus is not covered by insurance, may substitute Basaglar at same dose and frequency. Insulin Lispro (HUMALOG KWIKPEN SC) Inject 15-30 Units Subcutaneous 3 times daily (before meals) Use sliding scale before meals. losartan (COZAAR) 50 MG tablet Take 50 mg by mouth daily. LUTEIN PO Take 1 tablet by mouth daily metFORMIN (GLUCOPHAGE) 1000 MG tablet Take 1,000 mg by mouth 2 times daily metoprolol succinate ER (TOPROL-XL) 100 MG 24 hr tablet Take 1 tablet (100 mg) by mouth daily Qty: , Refills: 0 Associated Diagnoses: Essential hypertension NONFORMULARY Melaleuca vitamin pack. Take one pack of vitamins by mouth two times daily rivaroxaban ANTICOAGULANT (XARELTO) 20 MG TABS tablet Take 20 mg by mouth daily with food. VITAMIN D PO Take 1 tablet by mouth every evening !! - Potential duplicate medications found. Please discuss with provider. Allergies Allergies Allergen Reactions Penicillins Rash documented in this encounter Discharge Instructions * Discharge Instructions* Tristen Leon MD - 08/02/2024 2:04 PM CDT - Patient will be kept on triple therapy asa, plavix and xarelto for one week until 08/09. - After 08/09, patient will discontinue asa and continue with plavix / xarelto. documented in this encounter Medications at Time of Discharge Medication Sig Dispensed Refills Start Date End Date amLODIPine (NORVASC) 5 MG tablet Take 10 mg by mouth daily atorvastatin (LIPITOR) 40 MG tabletIndications:Dysp chace on exertion,Coronary artery disease involving coronary bypass graft of [place] heart without angina pectoris,Chest pain, unspecified type Take 1 tablet (40 mg) by mouth daily. 90 tablet 3 08/04/2024 chlorhexidine (PERIDEX) 0.12 % solution Swish and spit 15 mLs in mouth 2 times daily clopidogrel (PLAVIX) 75 MG tabletIndications:Dysp chace on exertion,Coronary artery disease involving coronary bypass graft of [place] heart without angina pectoris,Chest pain, unspecified type Take 1 tablet (75 mg) by mouth daily. Dose to start tomorrow. 90 tablet 3 08/03/2024 furosemide (LASIX) 40 MG tablet Take 40 mg by mouth daily. insulin glargine (LANTUS PEN) 100 UNIT/ML pen Inject 60 Units Subcutaneous every morning Insulin Lispro (HUMALOG KWIKPEN SC) Inject 15-30 Units Subcutaneous 3 times daily (before meals) Use sliding scale before meals. losartan (COZAAR) 50 MG tablet Take 50 mg by mouth daily. LUTEIN PO Take 1 tablet by mouth daily metFORMIN (GLUCOPHAGE) 1000 MG tablet Take 1,000 mg by mouth 2 times daily metoprolol succinate ER (TOPROL-XL) 100 MG 24 hr tabletIndications:Esse ntial hypertension Take 1 tablet (100 mg) by mouth daily 0 11/25/2020 NONFORMULARY Melaleuca vitamin pack. Take one pack of vitamins by mouth two times daily rivaroxaban ANTICOAGULANT (XARELTO) 20 MG TABS tablet Take 20 mg by mouth daily with food. VITAMIN D PO Take 1 tablet by mouth every evening aspirin (ASA) 81 MG chewable tabletIndications:Dysp chace on exertion,Coronary artery disease involving coronary bypass graft of [place] heart without angina pectoris,Chest pain, unspecified type Take 1 tablet (81 mg) by mouth daily for 5 days. Starting tomorrow.stop baby aspirin on 08/09/24 5 tablet 08/04/2024 08/09/2024 documented as of this encounter Progress Notes * Yeni Nash, PT - 08/03/2024 1:24 PM CDT 08/03/24 1005 Appointment Info Signing Clinician's Name / Credentials (PT) Yeni Nash, PT, DPT Living Environment People in Home spouse Current Living Arrangements mobile home Home Accessibility stairs to enter home Number of Stairs, Main Entrance 6 Stair Railings, Main Entrance railings safe and in good condition Transportation Anticipated car, drives self Living Environment Comments Pt reports he lives in double wide trailer, has 6 regular size stairs to enter or 13 smaller steps Self-Care Usual Activity Tolerance fair Current Activity Tolerance poor Regular Exercise No Equipment Currently Used at Home none Fall history within last six months no Activity/Exercise/Self-Care Comment Pt reports he gets SOB with activity, uses scooter at grocery store, is SOB with stairs to get in and out of home General Information Onset of Illness/Injury or Date of Surgery 07/30/24 Referring Physician Tristen Leon MD Patient/Family Therapy Goals Statement (PT) To go home Pertinent History of Current Problem (include personal factors and/or comorbidities that impact thePOC) Pt is 69 year old male adm on 07/30/24 with exertional chest pain. Pt underwent angio on 08/02/24 with successful PCI QUE to prox/mid Lcx disease. PMH includes a-fib/flutter, CAD s/p CABGx4 in 2019, TAVR in 10/2023, DM type II, HTN, hyperlipidemia, CHINO Existing Precautions/Restrictions cardiac Cognition Affect/Mental Status (Cognition) WFL Orientation Status (Cognition) oriented x 4 Follows Commands (Cognition) WF Pain Assessment Patient Currently in Pain No Integumentary/Edema Integumentary/Edema Comments No changes from baseline per patient report Posture Posture Forward head position Range of Motion (ROM) Range of Motion ROM is WFL Strength (Manual Muscle Testing) Strength (Manual Muscle Testing) strength is WFL Bed Mobility Bed Mobility no deficits identified Transfers Transfers no deficits identified Gait/Stairs (Locomotion) [place] Level (Gait) independent Balance Balance no deficits were identified Clinical Impression Criteria for Skilled Therapeutic Intervention Yes, treatment indicated PT Diagnosis (PT) Impaired mobility Influenced by the following impairments Decreased activity tolerance Functional limitations due to impairments Decreased ability to participate in daily tasks Clinical Presentation (PT Evaluation Complexity) stable Clinical Presentation Rationale Current presentation, PMH Clinical Decision Making (Complexity) low complexity Planned Therapy Interventions (PT) progressive activity/exercise;risk factor education;home programguidelines Risk & Benefits of therapy have been explained evaluation/treatment results reviewed;care plan/treatment goals reviewed;risks/benefits reviewed;current/potential barriers reviewed;participants voiced agreement with care plan;participants included;patient PT Total Evaluation Time PT Eval, Low Complexity Minutes (26172) 10 Physical Therapy Goals PT Frequency 2x/day PT Predicted Duration/Target Date for Goal Attainment 08/07/24 PT Goals Cardiac Phase 1 PT: Understanding of cardiac education to maximize quality of life, condition management, and health outcomes Patient;Verbalize;Demonstrate PT: Perform aerobic activity with stable cardiovascular response continuous;10 minutes;ambulation PT: Functional/aerobic ambulation tolerance with stable cardiovascular response in order to return to home and community environment Independent;200 feet PT: Navigation of stairs simulating home set up with stable cardiovascular response in order to return to home and community environment Independent;6 stairs Interventions Interventions Quick Adds Therapeutic Activity;Therapeutic Procedure;Cardiac Rehab Therapeutic Procedure/Exercise Ther. Procedure: strength, endurance, ROM, flexibillity Minutes (71036) 10 Symptoms Noted During/After Treatment fatigue;dizziness;shortness of breath Treatment Detail/Skilled Intervention Pt ambulated to CR gym without difficulty, on ambulation trial back to room pt becoming weak, dizzy, unable to ambulate further, used w/c to return to room, RN aware, vital signs stable. Treatment Time Includes (CR Only) See specific exercise details intervention group(s);Monitoring ofvital signs (see vital signs flowsheet for details) Therapeutic Activity Therapeutic Activities: dynamic activities to improve functional performance Minutes (04844) 15 Symptoms Noted During/After Treatment None Treatment Detail/Skilled Intervention Pt independent with mobility, time spent in education, see below. Ambulation Workload Hallway ambulation, no device, slow pace Duration (minutes) 8 minutes Effort Scale 4 Symptoms Fatigue;Dyspnea;Weakness;Dizziness Cardiovascular Response Normal Exercise Details Pt ambulated 200' without any symptoms but when attempting to ambulate back to room got dizzy, weak, and SOB, used w/c to get back to room. Vital Signs Details Stable, see VSFS Stairs Workload 5 stairs Duration (minutes) 1 minutes Effort Scale 4 Symptoms Denies symptoms Cardiovascular Response Normal Exercise Details Step over step using rail Vital Signs Details stable, see VSFS Cardiac Education Education Provided Home exercise program;OMNI Scale;Outpatient Cardiac Rehab;Precautions;Resuming home activities;Risk factors;Signs and symptoms;Stop light tool Education Packet Given to Patient Yes All Patient Education Handouts Reviewed with Patient and/or Family Yes Cardiac Rehab Phase II Plan Phase II Order Received Yes Phase II Appointment Status Scheduled Date/Time 08/12/24 @ 11:30am Location [facility] PT Discharge Planning PT Plan Progress activity as jordy PT Discharge Recommendation (DC Rec) home with outpatient cardiac rehab PT Rationale for DC Rec Pt with episode of dizziness/weakness during ambulation but anticipate pt will continue to progress to allow for return to home with outpatient cardiac rehab for monitored progression of activity and education to promote optimal heart health. Pt has experience with outpatient cardiac rehab in the past. PT Brief overview of current status Goals of therapy will be to address safe mobility and make recsfor d/c to next level of care. Pt and RN will continue to follow all falls risk precautions as documented by billing and accounting staff assistant while hospitalized Total Session Time Timed Code Treatment Minutes 25 Total Session Time (sum of timed and untimed services) 35 * Joy Leung MD - 08/03/2024 1:20 PM CDT [facility] Medicine Progress Note - Hospitalist Service Date of Admission: 07/30/2024 Date of Service: 08/03/2024 Assessment & Plan Chevy Damon is a 69 year old male with a history of afib/flutter on Xarelto, CAD s/p CABG x 4 [id number], TAVR in 10/2023, DM2, Htn, Hld, CHINO who is admitted on 07/30/2024 with exertional chest pain. 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 EKG appears similar with slightly improved T-wave inversions in theinferior leads compared to prior. Troponin stable 20 -> 18. BNP 795. Last dose of Xarelto was evening of 07/29. Consideration being given to ACS, CHF and aortic valve stenosis s/p TAVR. 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 The visual ejection fraction is 60-65%. Regional wall motion abnormalities cannot be excluded due to limited visualization. The right ventricle is not well visualized. Right ventricular function cannot be assessed due to poor image quality. s/p TAVR with 29mm Gonzalez Resilia, implanted 10/2023. Mean 9 mmHg. No AI or PVL.Leaflets not well seen. -cardiology consulted . Patient underwent coronary angiogram on 08/02/2024 Angiogram showed Patent grafts SVG to ramus, dLAD and RPDA. Patent FLYNN to LAD graft. -S/p successful PCI QUE to prox/mid Lcx disease. As per cardiology postprocedure triple therapy with aspirin Plavix and Xarelto until 10 7. After 107 stop the aspirin and continue Plavix and Xarelto for 1 year Patient felt dizzy this morning with ambulation. Cardiac rehab today pending. 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 Indication: Post- PCI/Angiogram (24 hours) Code Status: No CPR- Do NOT Intubate Clinically Significant Risk Factors # Hypertension: Noted on problem list # Chronic heart failure with preserved ejection fraction: heart failure noted on problem list and last echo with EF >50% # Severe Obesity: Estimated body mass index is 44.8 kg/m?? as calculated from the following: Height as of this encounter: 1.803 m (5' 11). Weight as of this encounter: 145.7 kg (321 lb 3.2 oz)., PRESENT ON ADMISSION # History of CABG: noted on surgical history Disposition Plan Medically Ready for Discharge: Anticipated Tomorrow Discussed with bedside RN and patient Joy Leung MD Hospitalist Service [facility] Securely message with [employer] (more info) Text page via [facility] [employer] Paging/Directory Interval History Chart reviewed. Patient is sitting comfortably in chair. Denies any chest pain or shortness of breath. [place] dizzy this morning with ambulation. Vital signs were stable with systolic blood pressure in the 130s to 140s. Heart rate well-controlled in the 50s. No other acute issues Physical Exam Vital Signs: Temp: 98.8 ??F (37.1 ??C) Temp src: Oral BP: 129/52 Pulse: 59 Resp: 18 SpO2: 96 % O2 Device: None (Room air) Weight: 321 lbs 3.2 oz Constitutional: awake, alert, cooperative, no apparent distress. Respiratory: CTABL Cardiovascular: RRR with no m/r/g GI: Normal bowel sounds, soft, non-distended, non-tender. Skin: normal skin color, texture, turgor Musculoskeletal: There is no redness, warmth, or swelling of the joints. Full range of motion noted. Neurologic: Awake, alert, oriented to name, place and time. Neuropsychiatric: normal mood and affect -------- Medical Decision Making 50 MINUTES SPENT BY ME on the date of service doing chart review, history, exam, documentation & further activities per the note. Data PAST 24 HR DATA REVIEWED I have personally reviewed the following data over the past 24 hrs: N/A \ N/A / N/A 139 100 18.7 / 190 (H) 4.6 28 0.79 \ Imaging results reviewed over the past 24 hrs: Recent Results (from the past 24 hour(s)) Cardiac Catheterization Narrative Mid LAD lesion is 70% stenosed. Dist LAD lesion is 55% stenosed. Prox Cx to Mid Cx lesion is 80% stenosed. Dist RCA-1 lesion is 90% stenosed. Dist RCA-2 lesion is 90% stenosed. RPDA lesion is 70% stenosed. - Known triple vessel diseases. - Patent grafts SVG to ramus, dLAD and RPDA. Patent FLYNN to LAD graft. - S/p successful PCI QUE to prox/mid Lcx disease. ENCOUNTER LABS Recent Labs Lab 08/03/24 11308/03/24 0747 08/03/24 0635 08/02/24 0809 08/02/24 0539 07/31/24 0815 07/31/2440807/30/24 2304 07/30/24 1707 WBC -- -- -- -- 8.6 -- 8.1 -- 8.9 HGB -- -- -- -- 13.8 -- 13.7 -- 13.1* MCV -- -- -- -- 93 -- 94 -- 93 PLT -- -- -- -- 148* -- 156 -- 180 NA -- -- 139 -- 140 -- 141 -- 139 POTASSIUM -- -- 4.6 -- 4.2 4.2 -- 4.4 -- 4.5 CHLORIDE -- -- 100 -- 102 -- 104 -- 102 CO2 -- -- 28 -- 27 -- 24 -- 20* BUN -- -- 18.7 -- 16.2 -- 18.4 -- 17.1 CR -- -- 0.79 -- 0.76 -- 0.76 -- 0.89 ANIONGAP -- -- 11 -- 11 -- 13 -- 17* FITZ -- -- 9.0 -- 9.2 -- 8.7* -- 8.8 GLC 190* 160* 167* < > 122* < > 265* < > 167* < > = values in this interval not displayed. Most Recent 3 CBC's: Recent Labs Lab Test 08/02/24 0539 07/31/24 04007/30/24 1707 WBC 8.6 8.1 8.9 HGB 13.8 13.7 13.1* MCV 93 94 93 PLT 148* 156 180 Most Recent 3 BMP's: Recent Labs Lab Test 08/03/24 1136 08/03/24 0747 08/03/24 0635 08/02/24 0809 08/02/24 0539 07/31/24 0815 07/31/24 0409 NA -- -- 139 -- 140 -- 141 POTASSIUM -- -- 4.6 -- 4.2 4.2 -- 4.4 CHLORIDE -- -- 100 -- 102 -- 104 CO2 -- -- 28 -- -- 24 BUN -- -- 18.7 -- 16.2 -- 18.4 CR -- -- 0.79 -- 0.76 -- 0.76 ANIONGAP -- -- 11 -- 11 -- 13 FITZ -- -- 9.0 -- 9.2 -- 8.7* GLC 190* 160* 167* < > 122* < > 265* < > = values in this interval not displayed. Most Recent 2 LFT's: Recent Labs Lab Test 08/19/22204808/23/21 1726 AST 34 21 ALT 35 25 ALKPHOS 103 90 BILITOTAL 0.5 0.9 Most Recent 3 INR's: Recent Labs Lab Test 10/07/23 0725 10/02/23 0802 09/30/23 1708 INR 1.11 1.38* 1.24* Most Recent 3 Troponin's: Recent Labs Lab Test 08/23/21 1726 03/26/21 1125 11/23/20 1043 11/23/20 0712 TROPI -- <0.015 <0.015 <0.015 TROPONIN <0.015 -- -- -- Most Recent 3 BNP's: Recent Labs Lab Test 07/30/24195807/30/24 1707 10/02/23 0802 08/23/21 1726 NTBNPI 781 795 -- 443 NTBNP -- -- 706 -- Most Recent D-dimer: Recent Labs Lab Test 11/23/20 0154 DD 1.8* Most Recent Cholesterol Panel: Recent Labs Lab Test 08/02/24 1446 CHOL 122 LDL 73 HDL 30* TRIG 93 Most Recent 6 Bacteria Isolates From Any Culture (See EPIC Reports for Culture Details):No lab results found. Most Recent TSH and T4:No lab results found. Most Recent Urinalysis: Recent Labs Lab Test 09/21/20 0846 COLOR Yellow APPEARANCE Clear URINEGLC Negative URINEBILI Negative URINEKETONE Negative SG 1.022 UBLD Negative URINEPH 5.5 PROTEIN Negative NITRITE Negative LEUKEST Negative RBCU <1 WBCU 1 Most Recent ESR & CRP:No lab results found. * Sabrina Nguyen RN - 08/03/2024 12:18 PM CDT CARE MANAGEMENT NOTE: Asked to schedule a cardiology appointment for patient at his [facility] Specialty clinic -Cardiology. He had a previously scheduled appointment as follows: LOLA Sanchez on Oct 13 at 2:10 pm. Unable to schedule a sooner appointment other than tomorrow morning at 7:40 am which is too early and the patient does not want to do. The patient will keep the appointment on Oct 13 and was put on their cancellation list if a sooner appointment can be had. They will call him. Patient agreeable to this. Sabrina Nguyen RN Inpatient Float Jet Dyeing Machine Tender [facility] [email or web address] * Trinidad White MD - 08/03/2024 11:56 AM CDT [facility] Cardiology Progress Note Date of Service: 08/03/2024 Primary Ornamental Machine Operator: Dr. Moore Assessment & Plan Chevy Damon is a 69 year old male with past medical history significant for atrial fib/flutter on Xarelto, CAD s/p CABG x 4 in 2019, TAVR in 10/2023, type II diabetes mellitus, hypertension, hyperlipidemia, CHINO admitted on 07/30/2024 with exertional chest pain. Assessment: Unstable angina with history of coronary artery disease, s/p 4V CABG in 2019 (FLYNN-LAD, SVG-apical LAD, SVG-ramus, SVG-right pDA. Coronary angiogram 08/02: -Patent grafts SVG to ramus, dLAD and RPDA. Patent FLYNN to LAD graft. -S/p successful PCI QUE to prox/mid Lcx disease. No recurrence of chest pain or dyspnea Troponins flat, 20 --> 18 Amlodipine 10 mg, aspirin 81 mg, atorvastatin 20 mg, Toprol XL 100 mg Echocardiogram LVEF 60-65%, regional wall motion abnormalities could not be excluded due to limitedvisualization History of aortic stenosis, s/p TAVR 10/2023 Echo was stable TAVR gradients Hypertension Losartan 50 mg, amlodipine 10 mg, toprol XL 100 mg daily Blood pressure slightly elevated over past 24 hrs- SBP 110s-150s Hyperlipidemia LDL 04/2023: 74 Atorvastatin 20 mg Plan: Triple therapy with aspirin, plavix, and Xarelto until 08/09, after 08/09 drop aspirin and continue Plavix/Xarelto for 1 year (06/01/2025) Nutrition consult placed as requested by the patient Follow-up with his [facility] [place] cardiology team is being arranged, appreciate care management assistance with setting up appointments Outpatient cardiac rehab OK to discharge from cardiology standpoint if felling well after cardiac rehab today Amber Rice CNP [facility] Pager: [phone] Interval History Seen sitting up in chair. No recurrence of chest pain/pressure or dyspnea. Feeling great since angiogram yesterday and s/p PCI of prox-mid LCx. Physical Exam Temp: 98.8 ??F (37.1 ??C) Temp src: Oral BP: 129/52 Pulse: 59 Resp: 18 SpO2: 96 % O2 Device: None (Room air) Vitals: 08/01/24 0500 08/02/24 0500 08/03/24 0449 Weight: (!) 150.4 kg (331 lb 9.6 oz) 147.5 kg (325 lb 3.2 oz) 145.7 kg (321 lb 3.2 oz) Older adult male in no apparent distress. Heart rate and rhythm are regular, no murmur, rub or gallop. Lung sounds are clear throughout and without rales, rhonchi, or wheezes. 1+ lower extremity edema, compression stockings in place. Skin warm and dry. Right femoral site is CDI, no hematoma, soft. Clinically Significant Risk Factors # Hypertension: Noted on problem list # Chronic heart failure with preserved ejection fraction: heart failure noted on problem list and last echo with EF >50% # Severe Obesity: Estimated body mass index is 44.8 kg/m?? as calculated from the following: Height as of this encounter: 1.803 m (5' 11). Weight as of this encounter: 145.7 kg (321 lb 3.2 oz)., PRESENT ON ADMISSION # History of CABG: noted on surgical history Medications Current Facility-Administered Medications Medication Dose Route Frequency Provider Last Rate Last Admin Continuing beta leila from home medication list OR beta leila order already placed during this visit Does not apply DOES NOT GO TO Trinidad Barnes MD Continuing statin from home medication list OR statin order already placed during this visit Does not apply DOES NOT GO TO Trinidad Barnes MD Percutaneous Coronary Intervention orders placed (this is information for BPA alerting) Does not apply DOES NOT GO TO Trinidad Barnes MD Current Facility-Administered Medications Medication Dose Route Frequency Provider Last Rate Last Admin amLODIPine (NORVASC) tablet 10 mg 10 mg Oral Daily Lauro Toussaint DO 10 mg at 08/03/24 0856 aspirin EC tablet 81 mg 81 mg Oral Daily Lauro Toussaint DO 81 mg at 08/03/24 0856 atorvastatin (LIPITOR) tablet 20 mg 20 mg Oral At Bedtime Lauro Toussaint DO 20 mg at 08/02/24 2113 clopidogrel (PLAVIX) tablet 75 mg 75 mg Oral Daily Trinidad White MD 75 mg at 08/03/24 0856 furosemide (LASIX) tablet 40 mg 40 mg Oral Daily Lauro Toussaint DO 40 mg at 08/03/24 0856 insulin aspart (NovoLOG) injection (RAPID ACTING) 1-7 Units Subcutaneous TID AC Lauro Toussaint DO 1 Units at 08/03/24 0901 insulin aspart (NovoLOG) injection (RAPID ACTING) 1-5 Units Subcutaneous At Bedtime Lauro Toussaint DO 2 Units at 07/30/24 2340 insulin aspart (NovoLOG) injection (RAPID ACTING) Subcutaneous TID w/meals Lauro Toussaint DO 6 Units at 08/03/24 0902 insulin glargine (LANTUS PEN) injection 60 Units 60 Units Subcutaneous QAM Lauro Toussaint DO 60 Units at 08/03/24 0900 losartan (COZAAR) tablet 50 mg 50 mg Oral Daily Lauro Toussaint DO 50 mg at 08/03/24 0857 metoprolol succinate ER (TOPROL XL) 24 hr tablet 100 mg 100 mg Oral At Bedtime Lauro Toussaint DO 100 mg at 08/02/242112 rivaroxaban ANTICOAGULANT (XARELTO) tablet 20 mg 20 mg Oral Daily with supper Amber Rice APRN MANUFACTURING ENGINEER SUPERVISOR 20 mg at 08/02/242112 Data Last 24 hours labs reviewed EKG: (reviewed personally) sinus rhythm with 1st degree AV block, anterolateral T wave abnormality. Tele: sinus rhythm with PACs, 2 couplets Echo 07/31/2024: Left ventricular systolic function is normal. The [...] to limited visualization. Technically very difficult study. Last ischemic eval: Coronary angiogram 08/02/2024: - Known triple vessel diseases. - Patent grafts SVG to ramus, dLAD and RPDA. Patent FLYNN to LAD graft. - S/p successful PCI QUE to prox/mid Lcx disease. Coronary angiogram 07/04/2020: Left ventricular filling pressures are severely elevated . Prox RCA lesion is 30% stenosed. Dist RCA-1 lesion is 90% stenosed. Dist RCA-2 lesion is 90% stenosed. Mid RCA lesion is 60% stenosed. RPDA lesion is 70% stenosed. RPAV lesion is 50% stenosed. Dist LM lesion is 25% stenosed. Prox Cx to Mid Cx lesion is 80% stenosed. 1st Diag lesion is 75% stenosed. Mid LAD lesion is 70% stenosed. Dist LAD lesion is 55% stenosed. 1. Severe three-vessel coronary disease see details above. 2. Left ventricular end-diastolic pressure of 30 mmHg Device: n/a ATTENDING ATTESTATION I have independently seen and evaluated this patient as part of a shared visit and have contributedto the substantive portion of the visit. I have reviewed and discussed the patient's history, physical exam and plan with our advanced practice provider. I personally reviewed the vital signs, medications, labs and imaging, which may include available EKGs, echocardiograms, telemetry and recent or historical cardiac interventions. My lopez history or physical exam findings as well as assessment and plan are in agreement to the note above and reflect our discussions and combined history and physical. High complexity visit includes [id number] patient evaluation, personal review of cardiac images, reviewing data with patient and team, documentation and coordination of care. Trinidad White MD MSc Staff Ornamental Machine Operator * Amadou Tellez RN - 08/03/2024 6:47 AM CDT A&O x4 VSS pleasant and cooperative. Sleeps up in the chair at baseline. Independent in room, pt states no issues. Rt groin soft stable. * Amber Rice APRN CNP - 08/02/2024 11:42 AM CDT [facility] Cardiology Progress Note Date of Service: 08/02/2024 Primary Ornamental Machine Operator: Dr. Moore Assessment & Plan Chevy Damon is a 69 year old male with past medical history significant for atrial fib/flutter on Xarelto, CAD s/p CABG x 4 in 2019, TAVR in 10/2023, type II diabetes mellitus, hypertension, hyperlipidemia, CHINO admitted on 07/30/2024 with exertional chest pain. Assessment: Unstable angina with history of coronary artery disease, s/p 4V CABG in 2019 (FLYNN-LAD, SVG-apical LAD, SVG-ramus, SVG-right pDA. Heparin infusion No recurrence of chest pain or dyspnea Troponins flat, 20 --> 18 Amlodipine 10 mg, aspirin 81 mg, atorvastatin 20 mg, Toprol XL 100 mg Echocardiogram LVEF 60-65%, regional wall motion abnormalities could not be excluded due to limitedvisualization History of aortic stenosis, s/p TAVR 10/2023 Echo was stable TAVR gradients Hypertension Losartan 50 mg, amlodipine 10 mg, toprol XL 100 mg daily Blood pressure slightly elevated over past 24 hrs- SBP 110s-150s Hyperlipidemia LDL 04/2023: 74 Atorvastatin 20 mg Plan: Keep NPO for coronary angiogram today. Risks and benefits of coronary angiogram discussed today including, bleeding, bruising, infection, allergic reaction, kidney damage (including need for dialysis), stroke, heart attack, vascular damage, emergency open heart surgery, up to and including . Patient indicates understanding and is agreeable to proceed. Consent obtained and filed. Current code status: DNR, but OK to be FULL code for procedure Further recommendations pending results of angiogram Cardiology will continue to follow Amber Rice CNP [facility] Heart Pager: [phone] Interval History Seen sitting up in chair. No recurrence of chest pain/pressure or dyspnea. No acute events overnight. Physical Exam Temp: (P) 98.5 ??F (36.9 ??C) Temp src: (P) Oral BP: (!) (P) 140/66 Pulse: (P) 56 Resp: (P) 18 SpO2: (P) 97 % O2 Device: (P) None (Room air) Vitals: 07/31/24 0443 08/01/24 0500 08/02/24 0500 Weight: (!) 150.2 kg (331 lb 1.6 oz) (!) 150.4 kg (331 lb 9.6 oz) 147.5 kg (325 lb 3.2 oz) Older adult male in no apparent distress. Heart rate and rhythm are regular, no murmur, rub or gallop. Lung sounds are clear throughout and without rales, rhonchi, or wheezes. 1+ lower extremity edema, compression stockings in place. Skin warm and dry.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 METER POCT 170 (H) 70 - 99 mg/dL Partial thromboplastin time Result Value Ref Range aPTT 69 (H) 22 - 38 Seconds Glucose by meter Result Value Ref Range GLUCOSE BY METER POCT 184 (H) 70 - 99 mg/dL Partial thromboplastin time Result Value Ref Range aPTT 57 (H) 22 - 38 Seconds Glucose by meter Result Value Ref Range GLUCOSE BY METER POCT 137 (H) 70 - 99 mg/dL Glucose by meter Result Value Ref Range GLUCOSE BY METER POCT 163 (H) 70 - 99 mg/dL * Molina Sweet MD - 07/31/2024 2:34 PM CDT [facility] Medicine Progress Note - Hospitalist Service Date of Admission: 07/30/2024 Date of Service: 07/31/2024 Assessment & Plan Chevy Damon is a 69 year old male with a history of afib/flutter on Xarelto, CAD s/p CABG x 4 [id number], TAVR in 10/2023, DM2, Htn, Hld, CHINO who is admitted on 07/30/2024 with exertional chest pain. 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 EKG appears similar with slightly improved T-wave inversions in theinferior leads compared to prior. Troponin stable 20 -> 18. BNP 795. Last dose of Xarelto was evening of 07/29. Consideration being given to ACS, CHF and aortic valve stenosis s/p TAVR. 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 Diet: Combination Diet Low Saturated Fat Na <2400mg Diet, No Caffeine Diet DVT Prophylaxis: Pneumatic Compression Devices Kim Catheter: Not present Lines: None Cardiac Monitoring: ACTIVE order. Indication: AMI (NSTEMI/ STEMI) (48 hours) Code Status: No CPR- Do NOT Intubate Clinically Significant Risk Factors Present on Admission # Drug Induced Coagulation Defect: home medication list includes an anticoagulant medication # Hypertension: Noted on problem list # Chronic heart failure with preserved ejection fraction: heart failure noted on problem list and last echo with EF >50% # Severe Obesity: Estimated body mass index is 46.18 kg/m?? as calculated from the following: Height as of this encounter: 1.803 m (5' 11). Weight as of this encounter: 150.2 kg (331 lb 1.6 oz). # History of CABG: noted on surgical history Disposition Plan Medically Ready for Discharge: Anticipated in 2-4 Days Molina Sweet MD Hospitalist Service [facility] Securely message with [employer] (more info) Text page via [facility] Paging/Directory Interval History No CP/SOB No fevers No nausea / vomiting No new complaints Physical Exam Vital Signs: Temp: 98.6 ??F (37 ??C) Temp src: Oral BP: 127/66 Pulse: 58 Resp: 18 SpO2: 95 % O2 Device: None (Room air) Weight: 331 lbs 1.6 oz Constitutional: awake, alert, cooperative, no apparent distress. Respiratory: CTABL Cardiovascular: RRR with no m/r/g GI: Normal bowel sounds, soft, non-distended, non-tender. Skin: normal skin color, texture, turgor Musculoskeletal: There is no redness, warmth, or swelling of the joints. Full range of motion noted. Neurologic: Awake, alert, oriented to name, place and time. Nessa. Neuropsychiatric: normal mood and affect -------- Medical Decision Making 35 MINUTES SPENT BY ME on the date of service doing chart review, history, exam, documentation & further activities per the note. Data PAST 24 HR DATA REVIEWED I have personally reviewed the following data over the past 24 hrs: 8.1 \ 13.7 / 156 141 104 18.4 / 161 (H) 4.4 24 0.76 \ Trop: 18 BNP: 781 INR: N/A PTT: 49 (H) D-dimer: N/A Fibrinogen: N/A Imaging results reviewed over the past 24 hrs: Recent Results (from the past 24 hour(s)) XR Chest 2 Views Narrative EXAM: XR CHEST 2 VIEWS LOCATION: [facility] DATE: 07/30/2024 INDICATION: SOB, CP COMPARISON: 10/23/2020 Impression IMPRESSION: Median sternotomy wires are noted. Stable cardiac size. No consolidation or pneumothorax. Small bilateral pleural effusions, right greater than left. ENCOUNTER LABS Recent Labs Lab 07/31/24 1141 07/31/24 0807/31/2440807/30/24230307/30/24 1707 WBC -- -- 8.1 -- 8.9 HGB -- -- 13.7 -- 13.1* MCV -- -- 94 -- 93 PLT -- -- 156 -- 180 NA -- -- 141 -- 139 POTASSIUM -- -- 4.4 -- 4.5 CHLORIDE -- -- 104 -- 102 CO2 -- -- 24 -- 20* BUN -- -- 18.4 -- 17.1 CR -- -- 0.76 -- 0.89 ANIONGAP -- -- 13 -- 17* FITZ -- -- 8.7* -- 8.8 GLC 161* 195* 265* < > 167* < > = values in this interval not displayed. Most Recent 3 CBC's: Recent Labs Lab Test 07/31/2440807/30/24170612/04/23 1413 WBC 8.1 8.9 9.7 HGB 13.7 13.1* 13.7 MCV 94 93 90 PLT 156 180 160 Most Recent 3 BMP's: Recent Labs Lab Test 07/31/24 1141 07/31/24 0807/31/2440807/30/24230307/30/24 1707 10/08/23 0702 10/08/23 0603 NA -- -- 141 -- 139 -- 136 POTASSIUM -- -- 4.4 -- 4.5 -- 4.7 CHLORIDE -- -- 104 -- 102 -- 102 CO2 -- -- 24 -- 20* -- 24 BUN -- -- 18.4 -- 17.1 -- 21.9 CR -- -- 0.76 -- 0.89 -- 0.76 ANIONGAP -- -- 13 -- 17* -- 10 FITZ -- -- 8.7* -- 8.8 -- 8.6* GLC 161* 195* 265* < > 167* < > 289* < > = values in this interval not displayed. Most Recent 2 LFT's: Recent Labs Lab Test 08/19/229 08/23/21 1726 AST 34 21 ALT 35 25 ALKPHOS 103 90 BILITOTAL 0.5 0.9 Most Recent 3 INR's: Recent Labs Lab Test 10/07/23 0725 10/02/23 0802 09/30/23 1708 INR 1.11 1.38* 1.24* Most Recent 3 Troponin's: Recent Labs Lab Test 08/23/21 1726 03/26/21 1125 11/23/20 1043 11/23/20 0712 TROPI -- <0.015 <0.015 <0.015 TROPONIN <0.015 -- -- -- Most Recent 3 BNP's: Recent Labs Lab Test 07/30/24195807/30/247 10/02/23 0802 08/23/21 1726 NTBNPI 781 795 -- 443 NTBNP -- -- 706 -- Most Recent D-dimer: Recent Labs Lab Test 11/23/20 0154 DD 1.8* Most Recent Cholesterol Panel:No lab results found. Most Recent 6 Bacteria Isolates From Any Culture (See EPIC Reports for Culture Details):No lab results found. Most Recent TSH and T4:No lab results found. Most Recent Urinalysis: Recent Labs Lab Test 09/21/20 0846 COLOR Yellow APPEARANCE Clear URINEGLC Negative URINEBILI Negative URINEKETONE Negative SG 1.022 UBLD Negative URINEPH 5.5 PROTEIN Negative NITRITE Negative LEUKEST Negative RBCU <1 WBCU 1 Most Recent ESR & CRP:No lab results found. * Madalyn Ding RN - 07/31/2024 2:26 AM CDT Observation goals PRIOR TO DISCHARGE Comments: List all goals to be met before discharge home: - Serial troponins and stress test complete:Not met, needs ECHO - Seen and cleared by sap basis consultant if applicable:Not met - Adequate pain control on oral analgesia:Met - Vital signs normal or at patient baseline:Met - Safe disposition plan has been identified:Met - Nurse to notify provider when observation goals have been met and patient is ready for discharge. * Madalyn Ding RN - 07/30/2024 10:00 PM CDT RECEIVING UNIT ED HANDOFF REVIEW ED Nurse Handoff Report was reviewed by: Madalyn Ding RN on July 30, 2024 at 10:01 PM documented in this encounter H&P Notes * Lauro Toussaint DO - 07/30/2024 9:11 PM CDT [facility] History and Physical - Hospitalist Service Date of Admission: 07/30/2024 Assessment & Plan Chevy Damon is a 69 year old male with a history of afib/flutter on Xarelto, CAD s/p CABG x 4 [id number], TAVR in 10/2023, DM2, Htn, Hld, CHINO who is admitted on 07/30/2024 with exertional chest pain. 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 EKG appears similar with slightly improved T-wave inversions in theinferior leads compared to prior. Troponin stable 20 -> 18. BNP 795. Last dose of Xarelto was evening of 07/29. Consideration being given to ACS, CHF and aortic valve stenosis s/p TAVR. 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 Low threshold to advance to inpatient if doesn't discharge on Friday. Medically Ready for Discharge: Anticipated Tomorrow Clinically Significant Risk Factors Present on Admission # Drug Induced Coagulation Defect: home medication list includes an anticoagulant medication # Hypertension: Noted on problem list # Chronic heart failure with preserved ejection fraction: heart failure noted on problem list and last echo with EF >50% # Severe Obesity: Estimated body mass index is 46.86 kg/m?? as calculated from the following: Height as of this encounter: 1.803 m (5' 11). Weight as of this encounter: 152.4 kg (336 lb). Lauro Toussaint DO Hospitalist Service [facility] Securely message with [employer] (more info) Text page via [facility] Paging/Directory Chief Complaint Chest pain History is obtained from the patient and ED physician History of Present Illness Chevy Damon is a 69 year old male who has a history of afib/flutter on Xarelto, CAD s/p CABG x 4in 2019, TAVR 10/25, DM2, Htn who presents to the ED with chest pain. Patient notes that about 4-5 days ago he sneezed and then while walking around had pressure in his chest that felt tight like someone was sitting on his chest. He sat down and took some deep breaths and pain subsided. Later in the day he had another sneezing fit while walking into a store and then had additional chest pain. After resting the pain again resolved. This time he also had dyspnea. He notes that it feels the same as when he had his CABG back in 2019. Over the next several days he had intermittent chest pain and dyspnea with exertion. The pain was not sharp and no longer associated with sneezing or coughing. No viral respiratory illness preceding this. He also noted that his legs seemed slightly more swollen than baseline and that his hands were also puffy. He has been diligent about taking all of his meds. He was scheduled to see his machine specialist today but didn't realize that the appointment was in [facility] so presented to [place] and then sent to the ED. In the ED he has had intermittent chest tightness but it did resolve. During my visit he noted a slight discomfort but not as bad as earlier. Initial troponin was 20, 18 on repeat. EKG appeared to beabout the same as prior. CXR with mild pleural effusions but this is not new. Last dose of Xarelto was last night. He was started on heparin for unstable angina. Of note, last TTE in December of 2023showed stable valve post TAVR with preserved EF of 60%. Past Medical History Past Medical History: Diagnosis Date 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 mild to moderate BPH (benign prostatic hyperplasia) CAD (coronary artery disease) CABG 07/2020 Cancer (H) skin cancer on his nose and cheek ED (erectile dysfunction) HLD (hyperlipidemia) Hypertension Obese CHINO (obstructive sleep apnea) CPAP S/P TAVR (transcatheter aortic valve replacement) 10/2023 Type II diabetes mellitus (H) Past Surgical History Past Surgical History: Procedure Laterality Date BYPASS GRAFT ARTERY CORONARY N/A 07/11/2020 Procedure: CORONARY ARTERY BYPASS GRAFTING X 4 , ON PUMP WITH MAICOL READ BY DR ADAME. FLYNN-LAD SV-DIAG SV-OM SV-PDA ; Surgeon: Sofya Cullen MD; Location: OR CV CORONARY ANGIOGRAM N/A 07/06/2020 Procedure: Coronary Angiogram; Surgeon: Nathaniel Rodriguez MD; Location: [facility] CV LEFT HEART CATH N/A 07/06/2020 Procedure: Left Heart Cath; Surgeon: Nathaniel Rodriguez MD; Location: [facility] CV TRANSCATHETER AORTIC VALVE REPLACEMENT-FEMORAL APPROACH N/A 10/07/2023 Procedure: Transcatheter Aortic Valve Replacement-Femoral Approach; Surgeon: Kyler Lubin MD; Location: [facility] LAPAROSCOPIC APPENDECTOMY N/A 09/21/2020 Procedure: Laparoscopic appendectomy; Surgeon: Kolby Steel MD; Location: OR Prior to Admission Medications Prior to Admission Medications Prescriptions Last Dose Informant Patient Reported? Taking? Insulin Lispro (HUMALOG KWIKPEN SC) 07/30/2024 at am Self Yes Yes Sig: Inject 15-30 Units Subcutaneous 3 times daily (before meals) Use sliding scale before meals. LUTEIN PO 07/30/2024 Self Yes Yes Sig: Take 1 tablet by mouth daily NONFORMULARY 07/30/2024 at am Self Yes Yes Sig: Melaleuca vitamin pack. Take one pack of vitamins by mouth two times daily VITAMIN D PO 07/29/2024 at hs Self Yes Yes Sig: Take 1 tablet by mouth every evening amLODIPine (NORVASC) 5 MG tablet 07/29/2024 Yes Yes Sig: Take 10 mg by mouth daily atorvastatin (LIPITOR) 20 MG tablet 07/29/2024 Self Yes Yes Sig: Take 20 mg by mouth at bedtime chlorhexidine (PERIDEX) 0.12 % solution Past Week Self Yes Yes Sig: Swish and spit 15 mLs in mouth 2 times daily furosemide (LASIX) 40 MG tablet 07/30/2024 Self Yes Yes Sig: Take 40 mg by mouth daily. insulin glargine (LANTUS PEN) 100 UNIT/ML pen 07/30/2024 at am Self Yes Yes Sig: Inject 60 Units Subcutaneous every morning losartan (COZAAR) 50 MG tablet 07/30/2024 at am Yes Yes Sig: Take 50 mg by mouth daily. metFORMIN (GLUCOPHAGE) 1000 MG tablet 07/30/2024 at am Self Yes Yes Sig: Take 1,000 mg by mouth 2 times daily metoprolol succinate ER (TOPROL-XL) 100 MG 24 hr tablet 07/29/2024 at hs Self No Yes Sig: Take 1 tablet (100 mg) by mouth daily rivaroxaban ANTICOAGULANT (XARELTO) 20 MG TABS tablet 07/29/2024 at hs Self Yes Yes Sig: Take 20 mg by mouth daily with food. Facility-Administered Medications: None Review of Systems The 10 point Review of Systems is negative other than noted in the HPI or here. Physical Exam Vital Signs: Temp: 97.6 ??F (36.4 ??C) Temp src: Temporal BP: 133/58 Pulse: 61 Resp: (!) 8 SpO2: 95% O2 Device: None (Room air) Weight: 336 lbs 0 oz Gen: lying in bed, appears comfortable CV: RRR, no m/r/g Pulm: CTAB, no wheeze or rhonchi GI: +BS, soft, NT/ND Lymph: 2+ edema of BLE, mostly at baseline per patient. Slight puffiness of the bilateral hands. Medical Decision Making Data I have personally reviewed the following data over the past 24 hrs: 8.9 \ 13.1 (L) / 180 139 102 17.1 / 167 (H) 4.5 20 (L) 0.89 \ Trop: 18 BNP: 795 Imaging results reviewed over the past 24 hrs: Recent Results (from the past 24 hour(s)) XR Chest 2 Views Narrative EXAM: XR CHEST 2 VIEWS LOCATION: [facility] DATE: 07/30/2024 INDICATION: SOB, CP COMPARISON: 10/23/2020 Impression IMPRESSION: Median sternotomy wires are noted. Stable cardiac size. No consolidation or pneumothorax. Small bilateral pleural effusions, right greater than left. documented in this encounter Consult Notes * Liya Guadalupe, JOAQUIN - 08/03/2024 9:49 AM CDTAssociated Order(s): NUTRITION SERVICES ADULT IP CONSULT; NUTRITION SERVICES ADULT IP CONSULT NUTRITION EDUCATION REASON FOR ASSESSMENT: Nutrition education on [place] [employer] (AHA) Heart Healthy Diet + Provider Order - patient requsting more information about heart healthy and diabetic diets NUTRITION HISTORY: Information obtained from patient. Per patient, he does his own grocery shopping and cooking. 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 He wakes up around 2pm and will have breakfast at [facility] - usually a conn and rice burrito with salsa and extra onions. In the evening he will usually airfry a hamburger michell (used to mckeon however now switching to air mckeon to avoid extra oils) and have some veggies on the side. He will eat one more time before he goes to bed which is usually refried or locke beans and a hot dog. He said he watches his carbohydrate intake d/t his T2DM (reaches forwhole grain options vs white/refined). CURRENT DIET ORDER: Low Saturated Fat; Na <2400 mg NUTRITION DIAGNOSIS: Food- and nutrition-related knowledge deficit R/t no prior exposure as evidenced by pt report, needfor RD to educate this admit INTERVENTIONS: Nutrition Prescription: Recommended AHA Heart Healthy Diet Implementation: Nutrition Education (Content): reviewed Heart Healthy Diet guidelines and consistent carbohydrate diet provided heart healthy consistent carbohydrate nutrition therapy handout Nutrition Education (Application): Discussed current eating habits and recommended alternative food choices Diet Education - refer to Education flowsheet Goals: Patient verbalizes understanding of diet All of the above goals met during education session Follow Up/Monitoring: Recommend outpatient RD follow up if further questions arise post discharge Liya Guadalupe RD, LD Clinical Dietitian - [facility] * Trinidad White MD - 07/31/2024 2:49 PM CDTAssociated Order(s): CARDIOLOGY IP CONSULT [facility] Cardiology Consultation Date of Admission: 07/30/2024 Assessment & Plan This is a 69 yr old male with PMH AF/AFL on xarelto, CAD s/p 4V CABG in 2019, TAVR in 10/2023 (no pre TAVR coronary evaluation was performed) who presents with chest pain. Last echocardiogram was in 12/2023 that showed normal LVEF and 29 mm Gonzalez Resilia mean gradient 9 mmHg (normal). No AI or PVL. Coronary angiogram pre CABG in 2019 showed diffuse multivessel disease. S/p CABG with FLYNN-LAD, SVG-apical LAD, SVG-ramus, SVG-right pDA. Echocardiogram pending. TN flat x 2. ECG without ischemic changes. Telemetry without events. Presumed diagnosis is unstable angina from accelerated coronary disease. Recommendations: 1. Heparin infusion (xarelto stopped 07/30) 2. Continue to monitor on telemetry 3. Follow up echocardiogram results 4. Aspirin loaded, continue aspirin 81 mg daily 5. Continue statin 6. 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 Will plan for angiogram on Friday, npo after midnight Friday High complexity Trinidad White MD Primary Care Physician David Martinez Reason for Consult Chest pain History of Present Illness This is a 69 yr old male with PMH AF/AFL on xarelto, CAD s/p 4V CABG in 2019, TAVR in 10/2023 (no pre TAVR coronary evaluation was performed) who presents with chest pain. Last echocardiogram was in 12/2023 that showed normal LVEF and 29 mm Gonzalez Resilia mean gradient 9 mmHg (normal). No AI or PVL. Coronary angiogram pre CABG in 2019 showed diffuse multivessel disease. S/p CABG with FLYNN-LAD, SVG-apical LAD, SVG-ramus, SVG-right pDA. Patient reports 4 days felt chest pressure that resolved with rest. Sneezing made pain worse but hereports similar sensation to symptoms pre CABG in 2019. ECG without changes. TN flat x 2. CXR without acute process. Pt admitted to medicine for further evaluation. No events on telemetry overnight. He was started on heparin infusion. Echocardiogram pending. Past Medical History Past Medical History: Diagnosis Date 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 mild to moderate BPH (benign prostatic hyperplasia) CAD (coronary artery disease) CABG 07/2020 Cancer (H) skin cancer on his nose and cheek ED (erectile dysfunction) HLD (hyperlipidemia) Hypertension Obese CHINO (obstructive sleep apnea) CPAP S/P TAVR (transcatheter aortic valve replacement) 10/2023 Type II diabetes mellitus (H) Past Surgical History Past Surgical History: Procedure Laterality Date BYPASS GRAFT ARTERY CORONARY N/A 07/11/2020 Procedure: CORONARY ARTERY BYPASS GRAFTING X 4 , ON PUMP WITH MAICOL READ BY DR ADAME. FLYNN-LAD SV-DIAG SV-OM SV-PDA ; Surgeon: Sofya Cullen MD; Location: OR CV CORONARY ANGIOGRAM N/A 07/06/2020 Procedure: Coronary Angiogram; Surgeon: Nathaniel Rodriguez MD; Location: [facility] CV LEFT HEART CATH N/A 07/06/2020 Procedure: Left Heart Cath; Surgeon: Nathaniel Rodriguez MD; Location: [facility] CV TRANSCATHETER AORTIC VALVE REPLACEMENT-FEMORAL APPROACH N/A 10/07/2023 Procedure: Transcatheter Aortic Valve Replacement-Femoral Approach; Surgeon: Kyler Lubin MD; Location: [facility] LAPAROSCOPIC APPENDECTOMY N/A 09/21/2020 Procedure: Laparoscopic appendectomy; Surgeon: Kolby Steel MD; Location: OR Prior to Admission Medications Prior to Admission Medications Prescriptions Last Dose Informant Patient Reported? Taking? Insulin Lispro (HUMALOG KWIKPEN SC) 07/30/2024 at am Self Yes Yes Sig: Inject 15-30 Units Subcutaneous 3 times daily (before meals) Use sliding scale before meals. LUTEIN PO 07/30/2024 Self Yes Yes Sig: Take 1 tablet by mouth daily NONFORMULARY 07/30/2024 at am Self Yes Yes Sig: Melaleuca vitamin pack. Take one pack of vitamins by mouth two times daily VITAMIN D PO 07/29/2024 at hs Self Yes Yes Sig: Take 1 tablet by mouth every evening amLODIPine (NORVASC) 5 MG tablet 07/29/2024 Yes Yes Sig: Take 10 mg by mouth daily atorvastatin (LIPITOR) 20 MG tablet 07/29/2024 Self Yes Yes Sig: Take 20 mg by mouth at bedtime chlorhexidine (PERIDEX) 0.12 % solution Past Week Self Yes Yes Sig: Swish and spit 15 mLs in mouth 2 times daily furosemide (LASIX) 40 MG tablet 07/30/2024 Self Yes Yes Sig: Take 40 mg by mouth daily. insulin glargine (LANTUS PEN) 100 UNIT/ML pen 07/30/2024 at am Self Yes Yes Sig: Inject 60 Units Subcutaneous every morning losartan (COZAAR) 50 MG tablet 07/30/2024 at am Yes Yes Sig: Take 50 mg by mouth daily. metFORMIN (GLUCOPHAGE) 1000 MG tablet 07/30/2024 at am Self Yes Yes Sig: Take 1,000 mg by mouth 2 times daily metoprolol succinate ER (TOPROL-XL) 100 MG 24 hr tablet 07/29/2024 at hs Self No Yes Sig: Take 1 tablet (100 mg) by mouth daily rivaroxaban ANTICOAGULANT (XARELTO) 20 MG TABS tablet 07/29/2024 at hs Self Yes Yes Sig: Take 20 mg by mouth daily with food. Facility-Administered Medications: None Current Facility-Administered Medications Medication Dose Route Frequency Provider Last Rate Last Admin acetaminophen (TYLENOL) tablet 650 mg 650 mg Oral Q4H PRN Lauro Toussaint DO Or acetaminophen (TYLENOL) Suppository 650 mg 650 mg Rectal Q4H PRN Lauro Toussaint DO alum & mag hydroxide-simethicone (MAALOX) suspension 30 mL 30 mL Oral Q4H PRN Lauro Toussaint DO amLODIPine (NORVASC) tablet 10 mg 10 mg Oral Daily Lauro Toussaint DO 10 mg at 07/31/24 0814 aspirin EC tablet 81 mg 81 mg Oral Daily Lauro Toussaint DO atorvastatin (LIPITOR) tablet 20 mg 20 mg Oral At Bedtime Lauro Toussaint DO 20 mg at 07/30/24 2304 glucose gel 15-30 g 15-30 g Oral Q15 Min PRN Lauro Toussaint DO Or dextrose 50 % injection 25-50 mL 25-50 mL Intravenous Q15 Min PRN Lauro Toussaint DO Or glucagon injection 1 mg 1 mg Subcutaneous Q15 Min PRN Lauro Toussaint DO furosemide (LASIX) tablet 40 mg 40 mg Oral Daily Lauro Toussaint DO 40 mg at 07/31/24 0814 heparin 25,000 units in 0.45% NaCl 250 mL ANTICOAGULANT infusion 0-5,000 Units/hr Intravenous Continuous Lauro Toussaint DO 12 mL/hr at 07/31/24 1104 1,200 Units/hr at 07/31/24 1104 HYDROmorphone (DILAUDID) injection 0.2 mg 0.2 mg Intravenous Q2H PRN Lauro Toussaint DO HYDROmorphone (DILAUDID) injection 0.4 mg 0.4 mg Intravenous Q2H PRN Lauro Toussaint DO insulin aspart (NovoLOG) injection (RAPID ACTING) 1-7 Units Subcutaneous TID AC Lauro Toussaint DO 1 Units at 07/31/24 1142 insulin aspart (NovoLOG) injection (RAPID ACTING) 1-5 Units Subcutaneous At Bedtime Lauro Toussaint DO 2 Units at 07/30/24 2340 insulin aspart (NovoLOG) injection (RAPID ACTING) Subcutaneous TID w/meals Lauro Toussaint DO 2 Units at 07/31/24 1142 insulin glargine (LANTUS PEN) injection 60 Units 60 Units Subcutaneous QAM Lauro Toussaint DO 60 Units at 07/31/24 0815 losartan (COZAAR) tablet 50 mg 50 mg Oral Daily Lauro Toussaint DO 50 mg at 07/31/24 0814 metoprolol succinate ER (TOPROL XL) 24 hr tablet 100 mg 100 mg Oral At Bedtime Lauro Toussaint DO 100 mg at 07/30/24 2304 naloxone (NARCAN) injection 0.2 mg 0.2 mg Intravenous Q2 Min PRN Lauro Toussaint DO Or naloxone (NARCAN) injection 0.4 mg 0.4 mg Intravenous Q2 Min PRN Lauro Toussaint DO Or naloxone (NARCAN) injection 0.2 mg 0.2 mg Intramuscular Q2 Min PRN Lauro Toussaint DO Or naloxone (NARCAN) injection 0.4 mg 0.4 mg Intramuscular Q2 Min PRN Lauro Toussaint DO nitroGLYcerin (NITROSTAT) sublingual tablet 0.4 mg 0.4 mg Sublingual Q5 Min PRN Lauro Toussaint DO Current Facility-Administered Medications Medication Dose Route Frequency Provider Last Rate Last Admin acetaminophen (TYLENOL) tablet 650 mg 650 mg Oral Q4H PRN Lauro Toussaint DO Or acetaminophen (TYLENOL) Suppository 650 mg 650 mg Rectal Q4H PRN Lauro Toussaint DO alum & mag hydroxide-simethicone (MAALOX) suspension 30 mL 30 mL Oral Q4H PRN Lauro Toussaint DO amLODIPine (NORVASC) tablet 10 mg 10 mg Oral Daily Lauro Toussaint DO 10 mg at 07/31/24 0814 aspirin EC tablet 81 mg 81 mg Oral Daily Lauro Toussaint DO atorvastatin (LIPITOR) tablet 20 mg 20 mg Oral At Bedtime Lauro Toussaint DO 20 mg at 07/30/24 2304 glucose gel 15-30 g 15-30 g Oral Q15 Min PRN Lauro Toussaint DO Or dextrose 50 % injection 25-50 mL 25-50 mL Intravenous Q15 Min PRN Lauro Toussaint DO Or glucagon injection 1 mg 1 mg Subcutaneous Q15 Min PRN Lauro Toussaint DO furosemide (LASIX) tablet 40 mg 40 mg Oral Daily Lauro Toussaint DO 40 mg at 07/31/24 0814 heparin 25,000 units in 0.45% NaCl 250 mL ANTICOAGULANT infusion 0-5,000 Units/hr Intravenous Continuous Lauro Toussaint DO 12 mL/hr at 07/31/24 1104 1,200 Units/hr at 07/31/24 1104 HYDROmorphone (DILAUDID) injection 0.2 mg 0.2 mg Intravenous Q2H PRN Lauro Toussaint DO HYDROmorphone (DILAUDID) injection 0.4 mg 0.4 mg Intravenous Q2H PRN Lauro Toussaint DO insulin aspart (NovoLOG) injection (RAPID ACTING) 1-7 Units Subcutaneous TID AC Lauro Toussaint DO 1 Units at 07/31/24 1142 insulin aspart (NovoLOG) injection (RAPID ACTING) 1-5 Units Subcutaneous At Bedtime Lauro Toussaint DO 2 Units at 07/30/24 2340 insulin aspart (NovoLOG) injection (RAPID ACTING) Subcutaneous TID w/meals Lauro Toussaint DO 2 Units at 07/31/24 1142 insulin glargine (LANTUS PEN) injection 60 Units 60 Units Subcutaneous QAM Lauro Toussaint DO 60 Units at 07/31/24 0815 losartan (COZAAR) tablet 50 mg 50 mg Oral Daily Lauro Toussaint DO 50 mg at 07/31/24 0814 metoprolol succinate ER (TOPROL XL) 24 hr tablet 100 mg 100 mg Oral At Bedtime Lauro Toussaint DO 100 mg at 07/30/24 2304 naloxone (NARCAN) injection 0.2 mg 0.2 mg Intravenous Q2 Min PRN Lauro Toussaint DO Or naloxone (NARCAN) injection 0.4 mg 0.4 mg Intravenous Q2 Min PRN Lauro Toussaint DO Or naloxone (NARCAN) injection 0.2 mg 0.2 mg Intramuscular Q2 Min PRN Lauro Toussaint DO Or naloxone (NARCAN) injection 0.4 mg 0.4 mg Intramuscular Q2 Min PRN Lauro Toussaint DO nitroGLYcerin (NITROSTAT) sublingual tablet 0.4 mg 0.4 mg Sublingual Q5 Min PRN Lauro Toussaint DO Allergies Allergies Allergen Reactions Penicillins Rash Social History reports that he has never smoked. He has never used smokeless tobacco. He reports that he does not currently use alcohol. He reports that he does not use drugs. Family History I have reviewed this patient's family history and updated it with pertinent information if needed. Family History Problem Relation Age of Onset Cataracts Father Glaucoma Father Review of Systems A comprehensive review of system was performed and is negative other than that noted in the HPI or here. Physical Exam Vital Signs with Ranges Temp: [97.6 ??F (36.4 ??C)-98.6 ??F (37 ??C)] 98.6 ??F (37 ??C) Pulse: [57-69] 58 Resp: [8-18] 18 BP: (126-156)/(47-80) 127/66 SpO2: [95 %-98 %] 95 % Wt Readings from Last 4 Encounters: 07/31/24 (!) 150.2 kg (331 lb 1.6 oz) 10/16/23 143.2 kg (315 lb 12.8 oz) 10/07/23 146.8 kg (323 lb 11.2 oz) 10/01/23 141.4 kg (311 lb 12.8 oz) I/O last 3 completed shifts: In: 400 [P.O.:400] Out: - Vitals: BP 127/66 (BP Location: Right arm) Pulse 58 Temp 98.6 ??F (37 ??C) (Oral) Resp 18 Ht 1.803 m (5' 11) Wt (!) 150.2 kg (331 lb 1.6 oz) SpO2 95% BMI 46.18 kg/m?? Physical Exam: General - Alert and oriented to time place and person in no acute distress Eyes - No scleral icterus HEENT - Neck supple, moist mucous membranes Cardiovascular - RRR no mrg Extremities - There is no eema Respiratory - CTAB Skin - No pallor or cyanosis Gastrointestinal - Non tender and non distended without rebound or guarding Psych - Appropriate affect Neurological - No gross motor neurological focal deficits No lab results found in last 7 days. Invalid input(s): TROPONINIES Recent Labs Lab 07/31/24 1141 07/31/24 0815 07/31/24 0409 07/30/24 2304 07/30/24 1707 WBC -- -- 8.1 -- 8.9 HGB -- -- 13.7 -- 13.1* MCV -- -- 94 -- 93 PLT -- -- 156 -- 180 NA -- -- 141 -- 139 POTASSIUM -- -- 4.4 -- 4.5 CHLORIDE -- -- 104 -- 102 CO2 -- -- 24 -- 20* BUN -- -- 18.4 -- 17.1 CR -- -- 0.76 -- 0.89 GFRESTIMATED -- -- >90 -- >90 ANIONGAP -- -- 13 -- 17* FITZ -- -- 8.7* -- 8.8 GLC 161* 195* 265* < > 167* < > = values in this interval not displayed. No results for input(s): CHOL, HDL, LDL, TRIG, CHOLHDLRATIO in the last 30303 hours. Recent Labs Lab 07/31/2440807/30/24 170 WBC 8.1 8.9 HGB 13.7 13.1* HCT 40.2 38.7* MCV 94 93 PLT 156 180 No results for input(s): PH, PHV, PO2, PO2V, SAT, PCO2, PCO2V, HCO3, HCO3V in thelast 168 hours. Recent Labs Lab 07/30/24195807/30/24 170 NTBNPI 781 795 No results for input(s): DD in the last 168 hours. No results for input(s): SED, CRP in the last 168 hours. Recent Labs Lab 07/31/2440807/30/24 170 PLT 156 180 No results for input(s): TSH in the last 168 hours. No results for input(s): COLOR, APPEARANCE, URINEGLC, URINEBILI, URINEKETONE, SG, UBLD, URINEPH, PROTEIN, UROBILINOGEN, NITRITE, LEUKEST, RBCU, WBCU in the last 168 hours. Imaging: Recent Results (from the past 48 hour(s)) XR Chest 2 Views Narrative EXAM: XR CHEST 2 VIEWS LOCATION: [facility] DATE: 07/30/2024 INDICATION: SOB, CP COMPARISON: 10/23/2020 Impression IMPRESSION: Median sternotomy wires are noted. Stable cardiac size. No consolidation or pneumothorax. Small bilateral pleural effusions, right greater than left. Echo: No results found for this or any previous visit (from the past 4320 hour(s)). Clinically Significant Risk Factors Present on Admission # Drug Induced Coagulation Defect: home medication list includes an anticoagulant medication # Hypertension: Noted on problem list # Chronic heart failure with preserved ejection fraction: heart failure noted on problem list and last echo with EF >50% # Severe Obesity: Estimated body mass index is 46.18 kg/m?? as calculated from the following: Height as of this encounter: 1.803 m (5' 11). Weight as of this encounter: 150.2 kg (331 lb 1.6 oz). # History of CABG: noted on surgical history documented in this encounter ED Notes * Brendan Carmichael III, RN - 07/30/2024 9:19 PM CDT [facility] ED Nurse Handoff Report ED Chief complaint: Chest Pain and Shortness of Breath ED Diagnosis: Final diagnoses: Unstable angina pectoris (H) Acute on chronic congestive heart failure, unspecified heart failure type (H) Bilateral leg edema Dyspnea on exertion MCC (current) use of anticoagulants Code Status: to be addressed w/ admiting provider Allergies: Allergies Allergen Reactions Penicillins Rash Patient Story: Pt c/o of mid sternal chest pain on and off for the last two weeks. Pt has history of open heart surgery. Pt also reports increased shortness of breath, lower leg swelling and both hands swelling for the last few days. Pt is comfortable at the present time Focused Assessment: pt resting comfortable on surveillance system monitor. Denies chest pain and sob while resting Treatments and/or interventions provided: labs, IV, X ray Patient's response to treatments and/or interventions: comfortable at this time To be done/followed up on inpatient unit: repeat trop @ 22:00 Does this patient have any cognitive concerns?: n/a Activity level - Baseline/Home: Independent Activity Level - Current: Independent Patient's Preferred language: [employer] Needed?: No Isolation: None Infection: Not Applicable Patient tested for COVID 19 prior to admission: NO Bariatric?: No Vital Signs: Vitals: 07/30/24199907/30/24201407/30/24202907/30/242099 BP: 129/58 133/58 126/68 Pulse: 63 61 61 67 Resp: 18 16 (!) 8 17 Temp: TempSrc: SpO2: 96% 97% 95% 97% Weight: Height: Cardiac Rhythm: Was the PSS-3 completed: Yes What interventions are required if any? Family Comments: n/a OBS brochure/video discussed/provided to patient/family: Yes Name of person given brochure if not patient: PT. Relationship to patient: self For the majority of the shift this patient's behavior was Green. Behavioral interventions performed were n/a. ED NURSE PHONE NUMBER: [phone] * Brendan Carmichael III, RN - 07/30/2024 9:18 PM CDT Observation Brochure and Video Patient informed of observation status based on provider's order. Observation brochure was given and the video watched. Patient/Family stated understanding. Questions answered. Brendan Carmichael III, RN * Mary Gross MD - 07/30/2024 6:57 PM CDT Emergency Department Note History of Present Illness Chief Complaint Chest Pain and Shortness of Breath HPI Chevy Damon is a 69 year old male, anticoagulated (Xarelto), with a history of coronary artery disease, aortic stenosis, hypertension, hyperlipidemia, atrial flutter, and diabetes mellitus, presenting to the emergency department due to recent chest pain, shortness of breath, lower extremity swelling, and swelling to both hands. The patient reports that he was set to see his machine specialist today do to his new edema, chest pain, and shortness of breath which has been persisting over the past fewdays. He states that he usually sees his machine specialist at the [facility], but for some reason,his machine specialist was in [place] today and he was not told about this. He was then sent to the emergency department to be evaluation. He states his chest pain began approximately 4-5 days ago, which felt like an elephant sitting on his chest which is a similar feeling prior to when he had his coronary bypass surgery. He indicates he has been experiencing increasing fatigue. He denies any increase in his sodium intake. He denies any flu like symptoms. He indicates he has a history of heart failure and open heart surgery. He has no chest pain at this time and does not feel short of breath at rest. Independent Historian None Review of External Notes I reviewed the cardiology office note from 04/27/2024 Past Medical History Medical History and Problem List 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 CAD Cancer Hypertension Obesity CHINO Diabetes mellitus Cervical radiculopathy Diffuse cervicobrachial syndrome NS Hyperlipidemia Venous insufficiency Posterior vitreous detachment (right eye) Atrial flutter Pleural effusion Medications Norvasc Lipitor Peridex Lasix Insulin glargine Cozaar Lutein PO Glucophage Metoprolol succinate ER Xarelto Semaglutide Surgical History Bypass graft artery coronary CV coronary angiogram CV left heart cath CV transcatheter aortic valve replacement-femoral approach Laparoscopic appendectomy Physical Exam Patient Vitals for the past 24 hrs: BP Temp Temp src Pulse Resp SpO2 Height Weight 07/30/249 -- -- -- 63 17 98 % -- -- 07/30/242199 130/61 -- -- 64 13 97 % -- -- 07/30/240 131/53 -- -- 66 12 97 % -- -- 07/30/24 2100 126/68 -- -- 67 17 97 % -- -- 07/30/242029 133/58 -- -- 61 (!) 8 95 % -- -- 07/30/242014 -- -- -- 61 16 97 % -- -- 07/30/241999 129/58 -- -- 63 18 96 % -- -- 07/30/24 1656 -- -- -- -- -- -- 1.803 m (5' 11) (!) 152.4 kg (336 lb) 07/30/24 1655 127/47 97.6 ??F (36.4 ??C) Temporal 69 18 95 % -- -- Physical Exam Nursing note and vitals reviewed. Constitutional: Appears comfortable. HENT: Nose normal. No discharge. Oral mucosa is moist. Eyes: Conjunctivae are normal without injection. Pupils are equal. Cardiovascular: Normal rate, regular rhythm with normal S1 and S2. Normal heart sounds and peripheral pulses 2+ and equal. No murmur. No chest pain currently. No murmur or gino. Pulmonary: Effort normal and breath sounds clear to auscultation bilaterally. No respiratory distress. No stridor. No wheezes. No rales. GI: Soft. No distension and no mass. No tenderness. Musculoskeletal: Normal range of motion. No extremity deformity. No tenderness. 2+ tight lower extremity edema extending from feet to slightly above the knees bilaterally. 1+ edema to both hands. Neurological: Alert and oriented. No focal weakness. Skin: Skin is warm and dry. No rash noted. Psychiatric: Behavior is normal. Appropriate mood and affect. Judgment and thought content normal. Diagnostics Lab Results Labs Ordered and Resulted from Time of ED Arrival to Time of ED Departure BASIC METABOLIC PANEL - Abnormal Result Value Sodium 139 Potassium 4.5 Chloride 102 Carbon Dioxide (CO2) 20 (*) Anion Gap 17 (*) Urea Nitrogen 17.1 Creatinine 0.89 GFR Estimate >90 Calcium 8.8 Glucose 167 (*) CBC WITH PLATELETS AND DIFFERENTIAL - Abnormal WBC Count 8.9 RBC Count 4.15 (*) Hemoglobin 13.1 (*) Hematocrit 38.7 (*) MCV 93 MCH 31.6 MCHC 33.9 RDW 13.7 Platelet Count 180 % Neutrophils 72 % Lymphocytes 15 % Monocytes 9 % Eosinophils 2 % Basophils 1 % Immature Granulocytes 2 NRBCs per 100 WBC 0 Absolute Neutrophils 6.4 Absolute Lymphocytes 1.4 Absolute Monocytes 0.8 Absolute Eosinophils 0.1 Absolute Basophils 0.1 Absolute Immature Granulocytes 0.1 Absolute NRBCs 0.0 TROPONIN T, HIGH SENSITIVITY - Normal Troponin T, High Sensitivity 20 TROPONIN T, HIGH SENSITIVITY - Normal Troponin T, High Sensitivity 18 NT PROBNP INPATIENT - Normal N terminal Pro BNP Inpatient 795 NT PROBNP INPATIENT - Normal N terminal Pro BNP Inpatient 781 Imaging XR Chest 2 Views Final Result IMPRESSION: Median sternotomy wires are noted. Stable cardiac size. No consolidation or pneumothorax. Small bilateral pleural effusions, right greater than left. EKG ECG results from 07/30/24 EKG 12-lead, tracing only Value Systolic Blood Pressure Diastolic Blood Pressure Ventricular Rate 68 Atrial Rate 68 CA Interval 236 QRS Duration 84 QT 386 QTc 410 P [place] 35 R AXIS 43 T [place] 201 Interpretation ECG Sinus rhythm with 1st degree A-V block T wave abnormality, consider anterolateral ischemia Abnormal ECG When compared with ECG of 08-Oct-2023 06:52, QRS axis Shifted right Confirmed by GENERATED REPORT, COMPUTER ([id number]), online editor EBONY LUQUE ([id number]) on 07/30/2024 5:35:44 PM Independent Interpretation I independently interpreted the patient's chest X-Ray, noting the patient has pulmonary venous congestion consistent with heart failure. ED Course Medications Administered Medications heparin 25,000 units in 0.45% NaCl 250 mL ANTICOAGULANT infusion (1,200 Units/hr Intravenous $New Bag 07/30/242201) heparin ANTICOAGULANT loading dose for LOW INTENSITY TREATMENT * Give BEFORE starting heparin infusion (6,000 Units Intravenous $Given 07/30/242201) Procedures Procedures Discussion of Management Admitting Hospitalist, Dr. Toussaint ED Course ED Course as of 07/30/242214Jul 30, [id number] I obtained history and examined the patient as noted above. [address] Toussaint, hospitalist, regarding admitting the patient to the hospital Additional Documentation None Medical Decision Making / Diagnosis [facility] Diagnoses: None MIPS None [facility] Chevy Damon is a 69 year old male with history of coronary bypass surgery 4 years ago comes in with chest pain that started again this week. It was tightness, short of breath with it and has become more frequent. EKG did not show acute ischemia. He is on Xarelto but last dose was last night and he is on this for intermittent A-fib and a flutter. He is in sinus rhythm at this time. Labs were obtained and his troponin came back at 20 and a repeat was 18. BNP is 795, the rest of his labs are unremarkable. He has evidence of right heart failure with increasing edema in the legs and some in thehands. Chest x-ray I thought showed a little bit of pulmonary congestion but most impressive thing w as enlarged heart. I am concerned this patient is very high risk and with symptoms similar to previous heart symptoms, he needs to come in the hospital. I talked to Dr. Toussaint. His last dose of Xarelto was last night we will start him on heparin until cardiology can see him. I think this is unstable angina. Will get another troponin in the morning. Nitro as needed for chest pain. There is a good chance that he will need a coronary angiogram. He will be admitted [facility]. Diuresis as well and repeat cardiac echo. Will hold the Xarelto while he is on heparin. Disposition The patient was admitted to the hospital. Diagnosis ICD-10-CM 1. Unstable angina pectoris (H) I20.0 2. Acute on chronic congestive heart failure, unspecified heart failure type (H) I50.9 3. Bilateral leg edema R60.0 4. Dyspnea on exertion R06.09 5. 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 Mary Gross MD 07/30/245 * Abby Lynn RN - 07/30/2024 4:54 PM CDT Pt c/o of mid sternal chest pain on and off for the last two weeks. Pt has history of open heart surgery. Pt also reports increased shortness of breath, lower leg swelling and both hands swelling forthe last few days. documented in this encounter Miscellaneous Notes * Plan of Care - Lissette Lentz PT - 08/04/2024 12:05 PM CDT Cardiac Rehab Discharge Summary Reason for therapy discharge: Discharged to home with outpatient therapy. Progress towards therapy goal(s). See goals on Care Plan in [facility] electronic health record for goal details. Goals met Therapy recommendation(s): Continue home exercise program. Recommend OP CR phase II. * Plan of Care - Estela Celestin RN - 08/04/2024 12:04 PM CDT A&O x 4. VSS. RA. Tele: SR w/1st degree AVB. Up independent in room. R) groin site, soft, stable, no hematoma. CMS intact. Denies pain/CP/SOB. Pt discharged to home. Discharge instructions and medications given to pt, questions were answered,no new concerns reported. Pt escorted to door 3 via wheelchair and hospital staff. * Plan of Care - Madalyn Ding RN - 08/04/2024 6:11 AM CDT Goal Outcome Evaluation: Neuro: A&Ox4 Tele/Cardiac: SB w/1st AVB (high 50's) Activity: IND Pain: Denies Drips/IV: S/L GI/: Continent Skin: R groin angiogram site, scattered bruising Diet: Cardiac Test/Procedures: NA Plan: discharge 08/04 if pt remains without feeling lightheaded/ dizzy * Plan of Care - Estela Celestin RN - 08/03/2024 7:49 PM CDT A&O x 4. VSS. RA. Up independent in room. Tele: SR/SB w/1 degree AVB. R) groin site, CDI, EDMAR. CMS intact. Tylenol x 1 for headache. Denies dizziness/SOB/lightheadness. Up in recliner for most ofshift. Will continue w/plan of care. * Plan of Care - Sabrina Nguyen RN - 08/03/2024 12:34 PM CDT Goal Outcome Evaluation: Plan of Care Reviewed With: patient Outcome Evaluation: Discharge home pending medical readiness; do no anticipate any care management needs however PT eval is pending. Home with outpatient Cardiac Rehab * Plan of Care - Estela Celestin RN - 08/02/2024 7:57 PM CDT A&O x 4. VSS, ex elevated BPs at times. Tele: SR/SB. Up SBA. Denies pain/CP. R) groin site, soft, no hematoma, CMS intact. (+) BLE pulses. Will continue w/plan of care. * Provider Notification - Yvonne Marques RPH - 08/02/2024 5:10 PM CDT Provider Notification Notified Person: Amber Rice APRN MANUFA[employer]URING ENGINEER SUPERVISOR Notification Date/Time: 08/02/24 16:00 Notification Interaction: Vocera page Purpose of Notification: Pt returned from manager laboratory w/heparin drip off. 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 Need to resume heparin drip or Xarelto tonight? Orders Received: Ok to resume Xarelto 6 hours post procedure if puncture site stable Comments: orders placed * Pre-Procedure - Malvin Ma MD - 08/02/2024 12:31 PM CDT GENERAL PRE-PROCEDURE: Risks and benefits: Risks, benefits and alternatives were discussed Consent given by: Patient Patient states understanding of procedure being performed: Yes Patient's understanding of procedure matches consent: Yes Procedure consent matches procedure scheduled: Yes Expected level of sedation: Moderate Appropriately NPO: Yes ASA Class: 2 Mallampati : Grade 2- soft palate, base of uvula, tonsillar pillars, and portion of posterior pharyngeal wall visible Lungs: Lungs clear with good breath sounds bilaterally Heart: Normal heart sounds and rate History & Physical reviewed: History and physical reviewed and no updates needed Statement of review: I have reviewed the lab findings, diagnostic data, medications, and the plan for sedation * Plan of Care - Madalyn Ding RN - 08/02/2024 6:25 AM CDT Goal Outcome Evaluation: Plan of Care Reviewed With: patient Overall Patient Progress: improvingOverall Patient Progress: improving Pt A&Ox4 VSS ex HTN on RA Tele:SB/SR w/ 1AVB. Denies any chest pain or SOB. Up SBA w/ IV pole. Has been NPO since midnight. Heparin infusing @1350units /hr. Plan for coronary angiogram 08/02 * Plan of Care - Krystle Ramirez RN - 08/01/2024 6:17 PM CDT Care plan note: Recent Vitals: Temp: 97.2 ??F (36.2 ??C) Temp src: Oral BP: 130/62 Pulse: 65 Resp: 16 SpO2: 98 % O2 Device: None (Room air) Orientation/Neuro: Alert and Oriented x 4 Pain: The patient is not having any pain. Tele: Sinus rhythm and 1 degree AV block IV medications: Heparin Mobility: up ad apol[place] Skin: With in normal limits Resp: RA GI: WDL : WDL Diet: Tolerating diet: Well Orders Placed This Encounter Combination Diet Low Saturated Fat Na <2400mg Diet, No Caffeine Diet Safety/Concerns: None Aggression Color: Green Plan: Coronary angiogram tomorrow. Continue to monitor. Krystle Ramirez RN * Plan of Care - Madalyn Ding RN - 08/01/2024 6:32 AM CDT Goal Outcome Evaluation: Pt A&Ox4, VSS on RA ex HTN (metoprolol held d/t low HR) denies pain. Tele:SR/SB w/ 1st AV block. Up SBA w/ IV pole. IV infusing heparin @1350units/hr, Cardiac diet no caffeine. Plan for coronary angiogram 08/02. * Plan of Care - Krystle Ramirez RN - 07/31/2024 6:34 PM CDT Care plan note: Recent Vitals: Temp: 98.6 ??F (37 ??C) Temp src: Oral BP: 132/66 Pulse: 56 Resp: 18 SpO2: 98 % O2 Device: None (Room air) Orientation/Neuro: Alert and Oriented x 4 Pain: The patient is not having any pain. Tele: Sinus rhythm and 1 degree AV block IV medications: Heparin Mobility: St. by assist Skin: With in normal limits Resp: RA. GI: WDL : Strict I&O Diet: Tolerating diet: Well Orders Placed This Encounter Combination Diet Low Saturated Fat Na <2400mg Diet, No Caffeine Diet Safety/Concerns: None Aggression Color: Green Plan: Pt has remained pain free, coronary angiogram on Friday. Continue to monitor. Krystle Ramirez RN * Plan of Care - Madalyn Ding RN - 07/31/2024 6:17 AM CDT Goal Outcome Evaluation: Pt A&Ox4 VSS on RA. Tele:SR w/ 1st AVB Denies chest pain,upon arrival CP 3/10 improved from hisprevious encounter, denies SOB. PIV infusing heparing @1200units/hr .Up SBA w/ IV pole. Will need an echo, bilat LE edema. Observation goals PRIOR TO DISCHARGE Comments: List all goals to be met before discharge home: - Serial troponins and stress test complete:Not met, needs ECHO - Seen and cleared by sap basis consultant if applicable:Not met - Adequate pain control on oral analgesia:Met - Vital signs normal or at patient baseline:Met - Safe disposition plan has been identified:Met - Nurse to notify provider when observation goals have been met and patient is ready for discharge. * Pharmacy-Admission Medication History - Vidhi Michelle RPH - 07/30/2024 8:56 PM CDT Pharmacist Admission Medication History Admission medication history is complete. The information provided in this note is only as accurateas the sources available at the time of the update. Information Source(s): Patient and CareEverywhere/SureScripts via in-person Pertinent Information: Patient stated he worked nights so his morning doses of medications are taken at 1pm typically. He did have morning meds today. He states he takes Xarelto at bedtime with food (he has a snack before bedtime). No Surescripts fills for insulin but he did confirm dosing. 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: Added: None Deleted: APAP, ozempic Changed: xarelto from breakfast to just with a meal, furosemide tablet strength from 20 to 40 mg, losartan 100 to 50 mg Allergies reviewed with patient and updates made in EHR: no Medication History Completed By: Vidhi Michelle RPH 07/30/2024 8:56 PM OCCUPATIONAL HEALTH NURSE Med List Medication Sig Last Dose amLODIPine (NORVASC) 5 MG tablet Take 10 mg by mouth daily 07/29/2024 atorvastatin (LIPITOR) 20 MG tablet Take 20 mg by mouth at bedtime 07/29/2024 chlorhexidine (PERIDEX) 0.12 % solution Swish and spit 15 mLs in mouth 2 times daily Past Week furosemide (LASIX) 40 MG tablet Take 40 mg by mouth daily. 07/30/2024 insulin glargine (LANTUS PEN) 100 UNIT/ML pen Inject 60 Units Subcutaneous every morning 07/30/2024 at am Insulin Lispro (HUMALOG KWIKPEN SC) Inject 15-30 Units Subcutaneous 3 times daily (before meals) Use sliding scale before meals. 07/30/2024 at am losartan (COZAAR) 50 MG tablet Take 50 mg by mouth daily. 07/30/2024 at am LUTEIN PO Take 1 tablet by mouth daily 07/30/2024 metFORMIN (GLUCOPHAGE) 1000 MG tablet Take 1,000 mg by mouth 2 times daily 07/30/2024 at am metoprolol succinate ER (TOPROL-XL) 100 MG 24 hr tablet Take 1 tablet (100 mg) by mouth daily 07/29/2024 at hs NONFORMULARY Melaleuca vitamin pack. Take one pack of vitamins by mouth two times daily 07/30/2024 at am rivaroxaban ANTICOAGULANT (XARELTO) 20 MG TABS tablet Take 20 mg by mouth daily with food. 07/29/2024 at hs VITAMIN D PO Take 1 tablet by mouth every evening 07/29/2024 at documented in this encounter Plan of Treatment Upcoming Encounters Date Type Department Care Team (Late st Contact Info) Description 08/12/2024 11:30 AM CDT Appointment [facility] [place] [id number] [place] [address] [address] [place] [phone] Tristen Leon MD [address] [place], [place] [address] 2, Rh Cardiac Rehab 10/21/2024 10:00 AM STAGECRAFT PROFESSOR Appointment [facility] [address] [facility] [address] [place] [address] Kyler Lubin MD [address] [facility] [address] [place] [address] 10/21/2024 1:45 PM STAGECRAFT PROFESSOR Lab [facility] [address] [facility] [address] [place] [phone] 10/21/2024 2:00 PM STAGECRAFT PROFESSOR Office Visit [facility] [address] [facility] [address] [place] [phone] Lorraine Ospina, MANUFACTURING ENGINEER SUPERVISOR [address] [facility] [place] [place] [id number] Scheduled Referrals Name Type Priority Associated Diagnoses Orde r Schedule Cardiac Rehab Cigar Head Holer Referral Referral Routine: Next available opening Dyspnea on exertion Coronary artery disease involving coronary bypass graft of [place] heart without angina pectoris Chest pain, unspecified type Expected: 08/09/2024 (Approximate), Expires: 08/02/2025 Follow-Up with Cardiology Referral Routine: Next available opening Coronary artery disease involving coronary bypass graft of [place] heart without angina pectoris Expected: 09/03/2024 (Approximate), Expires: 08/03/2025 Cardiac Rehab Cigar Head Holer Referral Referral Routine Coronary artery disease involving coronary bypass graft of [place] heart without angina pectoris Expected: 08/04/2024 (Approximate), Expires: 08/04/2025 documented as of this encounter Procedures Procedure [...] BY METER Routine 08/02/2024 8:09 AM CDT POTASSIUM Routine 08/02/2024 5:39 AM CDT PARTIAL THROMBOPLASTIN TIME Routine 08/02/2024 5:39 AM CDT LIPID REFLEX TO DIRECT LDL PANEL Add-On 08/02/2024 5:39 AM CDT BASIC METABOLIC PANEL Add-On 08/02/2024 5:39 AM CDT CBC WITH PLATELETS STAT 08/02/2024 5: 39 AM CDT GLUCOSE BY METER Routine 08/02/2024 [...] THROMBOPLASTIN TIME Timed 07/31/2024 4:09 AM CDT BASIC METABOLIC PANEL Routine 07/31/2024 4:09 AM CDT CBC WITH PLATELETS Routine 07/31/2024 4: 09 AM CDT GLUCOSE BY METER Routine 07/31/2024 2:08 AM CDT GLUCOSE BY METER Routine 07/30/2024 11:0 4 PM CDT TROPONIN T, HIGH SENSITIVITY STAT 07/30/2024 7:59 PM CDT NT PROBNP INPATIENT STAT 07/30/2024 7 :59 PM CDT XR CHEST 2 VIEWS STAT 07/30/2024 7:54 PM CDT CBC WITH PLATELETS AND DIFFERENTIAL STAT 07/30/2024 5:07 PM CDT TROPONIN T, HIGH SENSITIVITY STAT 07/30/2024 5:07 PM CDT CBC WITH PLATELETS & DIFFERENTIAL STAT 07/30/2024 5:07 PM CDT NT PROBNP INPATIENT STAT 07/30/2024 5 :07 PM CDT BASIC METABOLIC PANEL STAT 07/30/2024 5:07 PM CDT EKG 12-LEAD, TRACING ONLY STAT 07/30/2024 4:51 PM CDT documented in this encounter Results * (ABNORMAL) Glucose by meter (08/04/2024 7:19 AM CDT) GLUCOSE BY METER POCT 163(H) 70 - 99 mg/dL 08/04/2024 7:26 AM CDT LABORATORY POC Blood, Capillary BLOOD SPECIMEN / Unknown 08/04/2024 7:19 AM CDT 08/04/2024 7:26 AM CDT Molina CALDERON POCT [facility] [address], [address] [phone], [facility] * (ABNORMAL) Glucose by meter (08/04/2024 2:17 AM CDT) GLUCOSE BY METER POCT 173(H) 70 - 99 mg/dL 08/04/2024 2:23 AM CDT LABORATORY POC Blood, venous BLOOD SPECIMEN / Unknown 08/04/2024 2:17 AM CDT 08/04/2024 2:23 AM CDT Molina CALDERON POCT LABORATORY [facility] [address], [address] [place] [address], [facility] * (ABNORMAL) Glucose by meter (08/03/2024 9:27 PM CDT) GLUCOSE BY METER POCT 190(H) 70 - 99 mg/dL 08/03/2024 9:34 PM CDT LABORATORY POC Blood, Capillary BLOOD SPECIMEN / Unknown 08/03/2024 9:27 PM CDT 08/03/2024 9:34 PM CDT Molina Sweet MD LAB - BESUSAN POCT LABORATORY POC [facility] [address], [address] [address] * (ABNORMAL) Glucose by meter (08/03/2024 11:36 AM CDT) GLUCOSE BY METER POCT 190(H) 70 - 99 mg/dL 08/03/2024 11:43 AM CDT LABORATORY POC Blood, Capillary BLOOD SPECIMEN / Unknown 08/03/2024 11:36 AM CDT 08/03/2024 11:43 AM CDT Molina BRIGHT - KVNG POCT Performing Organization Address City/[facility]/ZIP Co de Phone Number LABORATORY POC [facility] [address], [address] [address] * (ABNORMAL) Glucose by meter (08/03/2024 7:47 AM CDT) GLUCOSE BY METER POCT 160(H) 70 - 99 mg/dL 08/03/2024 7:54 AM CDT LABORATORY POC Blood, Capillary BLOOD SPECIMEN / Unknown 08/03/2024 7:47 AM CDT 08/03/2024 7:54 AM CDT Molina BRIGHT - SUSAN POCT LABORATORY POC [facility] [address], [address] [address] * EKG 12-lead, tracing only (08/03/2024 6:47 AM CDT) Systolic Blood Pressure mmHg RADIOLOGY RESULTS Diastolic Blood Pressure mmHg RADIOLOGY RESULTS Ventricular Rate 58 BPM RAD IOLOGY RESULTS Atrial Rate 58 BPM RADIOLOG Y RESULTS CA Interval 248 ms RADIOLOG Y RESULTS QRS Duration 80 ms RADIOLO GY RESULTS QT 418 ms RADIOLOGY RESULTS QTc 410 ms RADIOLOGY RESULTS P [place] 58 degrees RADIOLOGY RESULTS R AXIS 120 degrees RADIOLOGY RESULTS T [place] -42 degrees RADIOLOGY RESULTS Interpretation ECG Sinus [...] Basic metabolic panel (08/03/2024 6:35 AM CDT) Sodium 139 135 - 145 mmol/L 08/03/2024 [...] 7:43 AM CDT LABORATORY Comment:eGFR calculated usin g 2020 CKD-EPI equation. Calcium 9.0 8.8 - [...] MD LAB - BLOOD ORDERABL ES LABORATORY [facility] [address], [address] [place] [address], [place] [phone] * (ABNORMAL) Glucose by meter (08/03/2024 2:14 AM CDT) GLUCOSE BY METER POCT 171(H) 70 - 99 mg/dL 08/03/2024 2:21 AM CDT LABORATORY POC Blood, Capillary BLOOD SPECIMEN / Unknown 08/03/2024 2:14 AM CDT 08/03/2024 2:21 AM CDT Molina BRIGHT - KVNG POCT LABORATORY POC [facility] [address], [address] [place] [address], [place] * (ABNORMAL) Glucose by meter (08/02/2024 10:02 PM CDT) GLUCOSE BY METER POCT 164(H) 70 - 99 mg/dL 08/02/2024 10:09 PM CDT LABORATORY POC Blood, Capillary BLOOD SPECIMEN / Unknown 08/02/2024 10:02 PM CDT 08/02/2024 10:09 PM CDT Molina BRIGHT - BESUSAN POCT LABORATORY POC [facility] [address], [address] [place] [address], [place] * (ABNORMAL) Glucose by meter (08/02/2024 4:51 PM CDT) GLUCOSE BY METER POCT 107(H) 70 - 99 mg/dL 08/02/2024 4:59 PM CDT LABORATORY POC Blood, Capillary BLOOD SPECIMEN / Unknown 08/02/2024 4:51 PM CDT 08/02/2024 4:59 PM CDT Molina Sweet MD LAB - BEAKER POCT LABORATORY POC [facility] [address], [address] [place] [address] * (ABNORMAL) Lipid Profile (08/02/2024 2:46 PM [...] Leon MD LAB - BLOOD ORDERABL ES UU LABORATORY [facility] [address] [facility] [address] [facility], [address] [place] [address] * EKG 12-lead, tracing only (08/02/2024 2:32 PM CDT) Systolic Blood Pressure mmHg RADIOLOGY RESULTS Diastolic Blood Pressure mmHg RADIOLOGY RESULTS Ventricular Rate 60 BPM RAD IOLOGY RESULTS Atrial Rate 60 BPM RADIOLOG Y RESULTS CA Interval 228 ms RADIOLOG Y RESULTS QRS Duration 88 ms RADIOLO GY RESULTS QT 442 ms RADIOLOGY RESULTS QTc 442 ms RADIOLOGY RESULTS P [place] 59 degrees RADIOLOGY RESULTS R AXIS 75 degrees RADIOLOGY RESULTS T [place] 14 degrees RADIOLOGY RESULTS Interpretation ECG Sinus rhythm with 1st degree A-V block Otherwise normal ECG When compared with ECG of 30-Jul-2024 16:51, T wave inversion no longer evident in Anterior leads Confirmed by MD QUINCY, RICO ([id number]) on 08/02/2024 2:49:44 PM RADIOLOGY RESULTS 08/02/2024 2:32 PM CDT 08/02/2024 2:49 PM CDT Tristen Leon MD ECG ORDERABLES Performing Organization Address [facility] Co de Phone Number RADIOLOGY RESULTS * CV CORONARY ANGIOGRAM, CV PCI (08/02/2024 2:01 PM CDT) Anatomical Region Laterality Modality Radio Fluoroscop y Narrative 08/04/2024 4:03 PM CDT Severe [place] vessel coronary artery disease Patent grafts SVG [...] CATH GUIDING GUIDELINER JR3.5 ST CURVE 5.5FR [employer] 5270 guide catheter was successfully placed. The GUIDEWIRE VASC [id number] RUNTHROUGH 25-1011 crossed the lesion. The pre-interventional distal flow is normal (MIO 3). A STENT COR AMADA FRONTIER 38X2.50MM [id number] stent was successfully placed. Pre-stent angioplasty was performed using a CATH BALLOON EMERGE 2.0X15MM [id number] supply. . Post-stent angioplasty was performed using a CATH BALLOON NC EMERGE 2.86M41KY [id number] supply. . The post-interventional distal flow is [...] Estimated blood loss: < 25 mlThe attending bottom stop attacher was present and supervised all critical aspects [...] time celite, POCT (08/02/2024 1:38 PM CDT) [facility] Activated Clotting Time (Celite) POCT 291(H) 74 - 150 seconds 08/02/2024 1:56 PM CDT LABORATORY POC Blood, arterial BLOOD SPECIMEN / Unknown 08/02/2024 1:38 PM CDT 08/02/2024 1:56 PM CDT Molina BRIGHT Charla CALDERON POCT Performing Organization Address City/[facility]/ZIP Co de Phone Number LABORATORY POC [facility] [address], [address] [address], [facility] * (ABNORMAL) Activated clotting time celite, POCT (08/02/2024 1:26 PM CDT) Activated Clotting Time (Celite) POCT 266(H) 74 - 150 seconds 08/02/2024 1:57 PM CDT LABORATORY POC Blood, arterial BLOOD SPECIMEN / Unknown 08/02/2024 1:26 PM CDT 08/02/2024 1:57 PM CDT Molina Dunham [facility] POCT Performing Organization Address City/[facility]/ZIP Co de Phone Number LABORATORY POC [facility] [address], [address] [address], [facility] * (ABNORMAL) Glucose by meter (08/02/2024 8:09 AM CDT) GLUCOSE BY METER POCT 118(H) 70 - 99 mg/dL 08/02/2024 8:18 AM CDT LABORATORY POC Blood, Capillary BLOOD SPECIMEN / Unknown 08/02/2024 8:09 AM CDT 08/02/2024 8:18 AM CDT Molina BRIGHT [facility] POCT Performing Organization Address City/[facility]/ZIP Co de Phone Number LABORATORY [facility] [address], [address] [place] [address], [facility] * (ABNORMAL) Lipid panel reflex to direct [...] mg/dL Very High: >= 220 mg/dL Amber Rice APRN MANUFACTURING ENGINEER SUPERVISOR LAB - BLOOD ORD ERABLES U LABORATORY [facility] [address] [facility], [address] [place] [address] * (ABNORMAL) Basic metabolic panel (08/02/2024 5:39 AM CDT) Sodium 140 135 - 145 mmol/L 08/02/2024 9:01 AM CDT LABORATORY Potassium 4.2 3.4 - 5.3 mmol/L 08/02/2024 9:01 AM CDT LABORATORY Chloride 102 98 - 107 mmol/L 08/02/2024 9:01 AM CDT LABORATORY Carbon Dioxide (CO2) 27 22 - 29 mmol/L 08/02/2024 9:01 AM CDT LABORATORY Anion Gap 11 7 - 15 mmol/L 08/02/2024 9:01 AM CDT LABORATORY Urea Nitrogen 16.2 8.0 - 23.0 mg/dL 08/02/2024 9:01 AM CDT LABORATORY Creatinine 0.76 0.67 - 1.17 mg/dL 08/02/2024 9:01 AM CDT LABORATORY GFR Estimate >90 >60 mL/min/1.7 3m2 08/02/2024 9:01 AM CDT LABORATORY Comment:eGFR calculated usin 2020 CKD-EPI equation. Calcium 9.2 8.8 - 10.4 mg/dL 08/02/2024 9:01 AM T LABORATORY Comment:Reference intervals for this test were updated on 05/18/2024 to reflect our healthy population more accurately. There may be differences in the flagging of prior results with similar values performed with this method. Those prior results can be interpreted in the context of the updated reference intervals. Glucose 122(H) 70 - 99 mg/dL 08/02/2024 9:01 AM CDT LABORATORY Blood STRUCTURE OF LEFT HAND / Unknown Venipuncture / Unknown 08/02/2024 5:39 AM CDT 08/02/2024 5:53 AM CDT Amber Rice APRN MANUFACTURING ENGINEER SUPERVISOR LAB - BLOOD ORD ERABLES LABORATORY [facility] [address], [address] [place] [address], [facility] [phone] * (ABNORMAL) CBC with platelets (08/02/2024 5:39 AM CDT) WBC Count 8.6 4.0 - 11.0 10e3/uL [...] DO LAB - BLOOD ORDERABL ES LABORATORY [facility] [address], [address] [address], [facility] [phone] * Potassium (08/02/2024 5:39 AM CDT) Potassium 4.2 3.4 - 5.3 mmol/L 08/02/2024 6:07 AM CDT LABORATORY Blood STRUCTURE OF LEFT HAND / Unknown Venipuncture / Unknown 08/02/2024 5:39 AM CDT 08/02/2024 5:53 AM CDT Trinidad White MD LAB - BLOOD ORDERABL ES LABORATORY [facility] [address], [address] [place] [address], [facility] [phone] * (ABNORMAL) Partial thromboplastin time (08/02/2024 5:39 AM CDT) aPTT 55(H) 22 - 38 Seconds 08/02/2024 6:11 AM CDT LABORATORY Blood STRUCTURE OF LEFT HAND / Unknown Venipuncture / Unknown 08/02/2024 5:39 AM CDT 08/02/2024 5:53 AM CDT Trinidad White MD LAB - BLOOD ORDERABL ES LABORATORY [facility] [address], [address] [place] [address], [place] [phone] * (ABNORMAL) Glucose by meter (08/02/2024 2:03 AM CDT) GLUCOSE BY METER POCT 124(H) 70 - 99 mg/dL 08/02/2024 2:11 AM CDT LABORATORY POC Blood, Capillary BLOOD SPECIMEN / Unknown 08/02/2024 2:03 AM CDT 08/02/2024 2:11 AM CDT Molina BRIGHT - KVNG POCT LABORATORY POC [facility] [address], [address] [place] [address], [place] * (ABNORMAL) Glucose by meter (08/01/2024 9:01 PM CDT) GLUCOSE BY METER POCT 158(H) 70 - 99 mg/dL 08/01/2024 9:08 PM CDT LABORATORY POC Blood, Capillary BLOOD SPECIMEN / Unknown 08/01/2024 9:01 PM CDT 08/01/2024 9:08 PM CDT Molina BRIGHT - BESUSAN POCT LABORATORY POC [facility] [address], [address] [place] [address], [place] * (ABNORMAL) Glucose by meter (08/01/2024 4:45 PM CDT) GLUCOSE BY METER POCT 115(H) 70 - 99 mg/dL 08/01/2024 4:52 PM CDT LABORATORY POC Blood, Capillary BLOOD SPECIMEN / Unknown 08/01/2024 4:45 PM CDT 08/01/2024 4:52 PM CDT Molina BRIGHT - KVNG POCT LABORATORY [facility] [address], [address] [place] [address], [facility] * (ABNORMAL) Glucose by meter (08/01/2024 11:38 AM CDT) GLUCOSE BY METER POCT 163(H) 70 - 99 mg/dL 08/01/2024 11:44 AM CDT LABORATORY POC Blood, Capillary BLOOD SPECIMEN / Unknown 08/01/2024 11:38 AM CDT 08/01/2024 11:44 AM CDT Molina BRIGHT - KVNG POCT LABORATORY [facility] [address], [address] [place] [address], [facility] * (ABNORMAL) Glucose by meter (08/01/2024 8:21 AM CDT) GLUCOSE BY METER POCT 137(H) 70 - 99 mg/dL 08/01/2024 8:28 AM CDT LABORATORY POC Blood, Capillary BLOOD SPECIMEN / Unknown 08/01/2024 8:21 AM CDT 08/01/2024 8:28 AM CDT Molina BRIGHT - KVNG POCT LABORATORY [facility] [address], [address] [place] [address] * (ABNORMAL) Partial thromboplastin time (08/01/2024 5:07 AM CDT) aPTT 57(H) 22 - 38 Seconds 08/01/2024 5:37 AM CDT LABORATORY Blood STRUCTURE OF LEFT HAND / Unknown Venipuncture / Unknown 08/01/2024 5:07 AM CDT 08/01/2024 5:25 AM CDT Trinidad White MD LAB - BLOOD ORDERABL ES LABORATORY [facility] [address], [address] [place] [address], [facility] [phone] * (ABNORMAL) Glucose by meter (08/01/2024 1:52 AM CDT) GLUCOSE BY METER POCT 184(H) 70 - 99 mg/dL 08/01/2024 1:59 AM CDT LABORATORY POC Blood, Capillary BLOOD SPECIMEN / Unknown 08/01/2024 1:52 AM CDT 08/01/2024 1:59 AM CDT Molina BRIGHT - BEAKER POCT LABORATORY POC [facility] [address], [address] [place] [address] * (ABNORMAL) Partial thromboplastin time (07/31/2024 9:16 PM CDT) aPTT 69(H) 22 - 38 Seconds 07/31/2024 9:48 PM CDT LABORATORY Blood STRUCTURE OF LEFT WRIST REGION / Unknown Venipuncture / Unknown 07/31/2024 9:16 PM CDT 07/31/2024 9:32 PM CDT Trinidad White MD LAB - BLOOD ORDERABL ES LABORATORY [facility] [address], [address] [place] [address], [facility] [phone] * (ABNORMAL) Glucose by meter (07/31/2024 9:02 PM CDT) GLUCOSE BY METER POCT 170(H) 70 - 99 mg/dL 07/31/2024 9:10 PM CDT LABORATORY POC Blood, Capillary BLOOD SPECIMEN / Unknown 07/31/2024 9:02 PM CDT 07/31/2024 9:10 PM CDT Molina CALDERON POCT Performing Organization Address City/[facility]/ZIP Co de Phone Number LABORATORY POC [facility] [address], [address] [place] [address], [facility] * (ABNORMAL) Glucose by meter (07/31/2024 5:25 PM CDT) GLUCOSE BY METER POCT 119(H) 70 - 99 mg/dL 07/31/2024 5:50 PM CDT LABORATORY POC Blood, Capillary BLOOD SPECIMEN / Unknown 07/31/2024 5:25 PM CDT 07/31/2024 5:50 PM CDT Molina CALDERON POCT Performing Organization Address City/[facility]/ZIP Co de Phone Number LABORATORY [facility] [address], [address] [place] [address], [facility] * ECHO COMPLETE WITH CONTRAST (07/31/2024 2:25 PM CDT) LVEF 60-65% CARDIOLOGY RESULTS Anatomical Region Laterality Modality Echocardiography 07/31/2024 1:04 PM CDT Narrative 07/31/2024 2:55 PM CDT [id number] [facility] [id number]^NORBERT^LAURO [facility] [address] [place] [address] Name: CHEVY DAMON : 1955 Study Date: 07/31/2024 01:04 PM Age: 69 yrs Gender: Male Patient Location: [facility] Reason For Study: Chest Pain, Chest Pressure, Chest Tightness Ordering Physician: LAURO TOUSSAINT Referring Physician: Juan Hernandez Performed By: John Callahan BSA: 2.6 m2 Height: 71 in Weight: 336 lb HR: 61 BP: 127/66 mmHg Procedure Complete Portable Echo Adult. Optison ([facility] #[id number]) given intravenously. Interpretation Summary Left ventricular systolic [...] Doppler Measurements & Calculations MV E max rosy: 122.0 cm/sec MV A max rosy: 63.8 cm/sec MV E/A: 1.9 MV max [...] SV(LVOT): 81.6 ml SI(LVOT): 31.1 ml/m2 AV Rosy Ratio (DI): 0.46 KACEY Index (cm2/m2): 0.66 E/E' av.1 Lateral E/e': 16.3 Medial E/e': 28.0 RV S Rosy: 6.5 cm/sec Report approved by: Ana Hartley 07/31/2024 02:55 PM Procedure Note Joel Darden MD - 07/31/2024 [id number]^NORBERT^LAURO [facility] [address] [place] [address] Name: CHEVY DAMON : 1955 Study Date: 07/31/2024 01:04 PM Age: 69 yrs Gender: Male Patient Location: [facility] Reason For Study: Chest Pain, Chest Pressure, Chest Tightness Ordering Physician: LAURO TOUSSAINT Referring Physician: Juan Hernandez Performed By: John Callahan BSA: 2.6 m2 Height: 71 in Weight: 336 lb HR: 61 BP: 127/66 mmHg Procedure Complete Portable Echo Adult. Beth ([facility] #[id number]) givenintravenously. Interpretation Summary Left ventricular systolic function [...] Doppler Measurements & Calculations MV E max rosy: 122.0 cm/sec MV A max rosy: 63.8 cm/sec MV E/A: 1.9 MV max [...] SV(LVOT): 81.6 ml SI(LVOT): 31.1 ml/m2 AV Rosy Ratio (DI): 0.46 KACEY Index (cm2/m2): 0.66 E/E' av.1 Lateral E/e': 16.3 Medial E/e': 28.0 RV S Rosy: 6.5 cm/sec Report approved by: Ana Hartley 07/31/2024 02:55 PM Lauro Toussaint DO CV ECHO ORDERABLES * (ABNORMAL) Partial thromboplastin time (07/31/2024 2:06 PM CDT) aPTT 49(H) 22 - 38 Seconds 07/31/2024 2:33 PM CDT LABORATORY Blood STRUCTURE OF LEFT HAND / Unknown Venipuncture / Unknown 07/31/2024 2:06 PM CDT 07/31/2024 2:22 PM CDT Lauro Toussaint DO LAB - BLOOD ORDERABL ES LABORATORY [facility] [address] 1st floor, [address] [place] [address], [facility] [phone] * (ABNORMAL) Glucose by meter (07/31/2024 11:41 AM CDT) GLUCOSE BY METER POCT 161(H) 70 - 99 mg/dL 07/31/2024 11:48 AM CDT LABORATORY POC Blood, Capillary BLOOD SPECIMEN / Unknown 07/31/2024 11:41 AM CDT 07/31/2024 11:48 AM CDT Molina Sweet MD LAB - BEAKER POCT LABORATORY POC [facility] [address] 1[address] floor, [address] [place] [address], [facility] * (ABNORMAL) Glucose by meter (07/31/2024 8:15 AM CDT) GLUCOSE BY METER POCT 195(H) 70 - 99 mg/dL 07/31/2024 8:21 AM CDT LABORATORY POC Blood, Capillary BLOOD SPECIMEN / Unknown 07/31/2024 8:15 AM CDT 07/31/2024 8:21 AM CDT Molina Sweet MD LAB - BEAKER POCT Performing Organization Address City/State/[facility] Co de Phone Number LABORATORY POC [facility] [address] 1[address] floor, [address] [place] [address] * (ABNORMAL) CBC with platelets (07/31/2024 4:09 AM CDT) [facility] WBC Count 8.1 4.0 - 11.0 10e3/uL 07/31/2024 4:29 AM CDT LABORATORY RBC Count 4.27(L) 4.40 - 5.90 10e6/uL 07/31/2024 4:29 AM CDT LABORATORY Hemoglobin 13.7 13.3 - 17.7 g/dL 07/31/2024 4:29 AM CDT LABORATORY Hematocrit 40.2 40.0 - 53.0 % 07/31/2024 4:29 AM CDT LABORATORY MCV 94 78 - 100 fL 07/31/2024 4:29 AM CDT LABORATORY MCH 32.1 26.5 - 33.0 pg 07/31/2024 4:29 AM CDT LABORATORY MCHC 34.1 31.5 - 36.5 g/dL 07/31/2024 4:29 AM CDT LABORATORY RDW 13.6 10.0 - 15.0 % 07/31/2024 4:29 AM CDT LABORATORY Platelet Count 156 150 - 450 10e3/uL 07/31/2024 4:29 AM CDT LABORATORY Blood STRUCTURE OF LEFT HAND / Unknown Venipuncture / Unknown 07/31/2024 4:09 AM CDT 07/31/2024 4:27 AM CDT Lauro Toussaint DO LAB - BLOOD ORDERABL ES Performing Organization Address City/[facility]/ZIP Co de Phone Number LABORATORY [facility] [address] 1[address], [address] [place] [address], [facility] [phone] * (ABNORMAL) Basic metabolic panel (07/31/2024 4:09 AM CDT) Sodium 141 135 - 145 mmol/L 07/31/2024 4:54 AM CDT LABORATORY Potassium 4.4 3.4 - 5.3 mmol/L 07/31/2024 4:54 AM CDT LABORATORY Chloride 104 98 - 107 mmol/L 07/31/2024 4:54 AM CDT LABORATORY Carbon Dioxide (CO2) 24 22 - 29 mmol/L 07/31/2024 4:54 AM T LABORATORY Anion Gap 13 7 - 15 mmol/L 07/31/2024 4:54 AM T LABORATORY Urea Nitrogen 18.4 8.0 - 23.0 mg/dL 07/31/2024 4:54 AM CDT LABORATORY Creatinine 0.76 0.67 - 1.17 mg/dL 07/31/2024 4:54 AM CDT LABORATORY GFR Estimate >90 >60 mL/min/1.7 3m2 07/31/2024 4:54 AM T LABORATORY Comment:eGFR calculated usin g 2020 CKD-EPI equation. Calcium 8.7(L) 8.8 - 10.4 mg/dL 07/31/2024 4:54 AM T LABORATORY Comment:Reference intervals for this test were updated on 05/18/2024 to reflect our healthy population more accurately. There may be differences in the flagging of prior results with similar values performed with this method. Those prior results can be interpreted in the context of the updated reference intervals. Glucose 265(H) 70 - 99 mg/dL 07/31/2024 4:54 AM T LABORATORY Blood STRUCTURE OF LEFT HAND / Unknown Venipuncture / Unknown 07/31/2024 4:09 AM CDT 07/31/2024 4:27 AM CDT Lauro Toussaint DO LAB - BLOOD ORDERABL ES LABORATORY [facility] [address] 1[address], [address] [place] [address], [facility] [phone] * (ABNORMAL) Partial thromboplastin time (07/31/2024 4:09 AM CDT) aPTT 69(H) 22 - 38 Seconds 07/31/2024 4:39 AM CDT LABORATORY Blood STRUCTURE OF LEFT HAND / Unknown Venipuncture / Unknown 07/31/2024 4:09 AM CDT 07/31/2024 4:27 AM CDT Lauro Toussaint DO LAB - BLOOD ORDERABL ES LABORATORY [facility] [address] 1[address], [address] [place] [address], [facility] [phone] * (ABNORMAL) Glucose by meter (07/31/2024 2:08 AM CDT) GLUCOSE BY METER POCT 287(H) 70 - 99 mg/dL 07/31/2024 2:16 AM CDT LABORATORY POC Blood, Capillary BLOOD SPECIMEN / Unknown 07/31/2024 2:08 AM CDT 07/31/2024 2:16 AM CDT Lauro BARAJAS - BEAKER POCT LABORATORY POC [facility] [address] 1[address], [address] [place] [address], [place] * (ABNORMAL) Glucose by meter (07/30/2024 11:04 PM CDT) GLUCOSE BY METER POCT 282(H) 70 - 99 mg/dL 07/30/2024 11:11 PM CDT LABORATORY POC Blood, Capillary BLOOD SPECIMEN / Unknown 07/30/2024 11:04 PM CDT 07/30/2024 11:11 PM CDT Lauro Toussaint DO LAB - BEAKER POCT LABORATORY POC [facility] [address] 1[address], [address] [place] [address], [facility] * Nt probnp inpatient (07/30/2024 7:59 PM CDT) N terminal Pro BNP Inpatient 781 0 [...] MD LAB - BLOOD ORDERAB LES LABORATORY [facility] [address] 1[address], [address] [place] [address], [facility] [phone] * Troponin T, High Sensitivity (07/30/2024 7:59 PM CDT) Troponin T, High Sensitivity 18 <=22 ng/L [...] MD LAB - BLOOD ORDERAB LES LABORATORY [facility] [address] 1[address] floor, [address] [place] [address], [facility] [phone] * XR Chest 2 Views (07/30/2024 7:54 PM CDT) Anatomical Region Laterality Modality Chest Digital Radiogra phy 07/30/2024 7:54 PM CDT Impressions 07/30/2024 8:03 PM CDT IMPRESSION: Median sternotomy wires are noted. Stable cardiac size. No consolidation or pneumothorax. Small bilateral pleural effusions, right greater than left. Narrative 07/30/2024 8:03 PM CDT EXAM: XR CHEST 2 VIEWS LOCATION: [facility] DATE: 07/30/2024 INDICATION: SOB, CP COMPARISON: 10/23/2020 Procedure Note Jeff Styles MD - 07/30/2024 EXAM: XR CHEST 2 VIEWS LOCATION: [facility] DATE: 07/30/2024 INDICATION: SOB, CP COMPARISON: 10/23/2020 IMPRESSION: Median sternotomy wires are noted. Stable cardiac size. Noconsolidation or pneumothorax. Small bilateral pleural effusions, rightgreater than left. Mary Gross MD IMG DIAGNOSTIC IMAG ING ORDERABLES * Nt probnp inpatient (07/30/2024 5:07 PM CDT) [facility] N terminal Pro BNP Inpatient 795 0 - 900 pg/mL 07/30/2024 8:55 PM CDT LABORATORY Comment: Reference range shown [...] pg/mL (age 75 yrs and older) Blood BLOOD SPECIMEN / Unknown Venipuncture / Unknown 07/30/2024 5:07 PM CDT 07/30/2024 5:16 PM CDT Mary Gross MD LAB - BLOOD ORDERAB LES [facility] Organization Address City/State/ZIP Co de Phone Number LABORATORY [facility] [address] 1[address], [address] [place] [address], [facility] [phone] * (ABNORMAL) CBC with platelets and differential (07/30/2024 5:07 PM CDT) [facility] WBC Count 8.9 4.0 - 11.0 10e3/uL [...] MD LAB - BLOOD ORDERAB LES LABORATORY [facility] [address] 1[address], [address] [place] [address], [facility] [phone] * Troponin T, High Sensitivity (07/30/2024 5:07 PM CDT) [facility] Troponin T, High Sensitivity 20 <=22 ng/L 07/30/2024 5:53 PM CDT LABORATORY Comment: Either a High [...] follow-up, or urgent outpatient provocative testing. Blood BLOOD SPECIMEN / Unknown Venipuncture / Unknown 07/30/2024 5:07 PM CDT 07/30/2024 5:16 PM CDT Mary Gross MD LAB - BLOOD ORDERAB LES [facility] Organization Address City/State/ZIP Co de Phone Number LABORATORY [facility] [address] 1[address], [address] [place] [address], [facility] [phone] * (ABNORMAL) Basic metabolic panel (07/30/2024 5:07 PM CDT) [facility] Sodium 139 135 - 145 mmol/L 07/30/2024 5:53 PM CDT LABORATORY Potassium 4.5 3.4 - 5.3 mmol/L 07/30/2024 5:53 PM CDT LABORATORY Chloride 102 98 - 107 mmol/L 07/30/2024 5:53 PM CDT LABORATORY Carbon Dioxide (CO2) 20(L) 22 - 29 mmol/L 07/30/2024 5:53 PM CDT LABORATORY Anion Gap 17(H) 7 - 15 mmol/L 07/30/2024 5:53 PM CDT LABORATORY Urea Nitrogen 17.1 8.0 - 23.0 mg/dL 07/30/2024 5:53 PM CDT LABORATORY Creatinine 0.89 0.67 - 1.17 mg/dL 07/30/2024 5:53 PM CDT LABORATORY GFR Estimate >90 >60 mL/min/1.7 3m2 07/30/2024 5:53 PM CDT LABORATORY Comment:eGFR calculated us2020 CKD-EPI equation. Calcium 8.8 8.8 - 10.4 mg/dL 07/30/2024 5:53 PM CDT LABORATORY Comment:Reference intervals for this test were updated on 05/18/2024 to reflect our healthy population more accurately. There may be differences in the flagging of prior results with similar values performed with this method. Those prior results can be interpreted in the context of the updated reference intervals. Glucose 167(H) 70 - 99 mg/dL 07/30/2024 5:53 PM CDT LABORATORY Blood BLOOD SPECIMEN / Unknown Venipuncture / Unknown 07/30/2024 5:07 PM CDT 07/30/2024 5:16 PM CDT Mary Gross MD LAB - BLOOD ORDERAB LES LABORATORY [facility] [address] 1[address], [address] [place] [address], [facility] [phone] * EKG 12-lead, tracing only (07/30/2024 4:51 PM CDT) Systolic Blood Pressure mmHg RADIOLOGY RESULTS Diastolic Blood Pressure mmHg RADIOLOGY RESULTS Ventricular Rate 68 BPM RAD IOLOGY RESULTS Atrial Rate 68 BPM RADIOLOG Y RESULTS CA Interval 236 ms RADIOLOG Y RESULTS QRS Duration 84 ms RADIOLO GY RESULTS QT 386 ms RADIOLOGY RESULTS QTc 410 ms RADIOLOGY RESULTS P [place] 35 degrees RADIOLOGY RESULTS R AXIS 43 degrees RADIOLOGY RESULTS T [place] 201 degrees RADIOLOGY RESULTS Interpretation ECG Sinus rhythm with 1st degree A-V block T wave abnormality, consider anterolateral ischemia Abnormal ECG When compared with ECG of 08-Oct-2023 06:52, QRS axis Shifted right Confirmed by GENERATED REPORT, COMPUTER ([id number]), online editor EBONY LUQUE ([id number]) on 07/30/2024 5:35:44 PM RADIOLOGY RESULTS 07/30/2024 4:51 PM CDT 07/30/2024 5:35 PM CDT Tomas Wayne MD ECG ORDERABLES RADIOLOGY RESULTS documented in this encounter Visit Diagnoses Diagnosis Severe aortic stenosis- Primary Aortic valve disorders Unstable angina pectoris (H) Intermediate coronary syndrome Acute on chronic congestive heart failure, unspecified heart failure type (H) Bilateral leg edema Edema Dyspnea on exertion Other dyspnea and respiratory abnormality [facility] (current) use of anticoagulants Long-term (current) use of anticoagulants Severe aortic stenosis Aortic valve disorders Coronary artery disease involving coronary bypass graft of [place] heart without angina pectoris Chest pain, unspecified type [employer] (current) use of anticoagulants Long-term (current) use of anticoagulants Unstable angina pectoris (H) Intermediate coronary syndrome Dyspnea on exertion Other dyspnea and respiratory abnormality Bilateral leg edema Edema Acute on chronic congestive heart failure, unspecified heart failure type (H) Unstable angina pectoris (H) Intermediate coronary syndrome documented in this encounter Administered Medications Inactive Administered Medications - up to 3 most recent administrations Medication Order MAR Action Action Date Dose Rate Site acetaminophen (TYLENOL) Suppository 650 mg 650 mg, Rectal, EVERY 4 HOURS PRN, mild pain, other, and adjunct with moderate or severe pain or per patient request, Starting on 08/02/24 at 1433, Alternate with ibuprofen if ordered. Maximum acetaminophen dose from all sources = 75 mg/kg/day not to exceed 4 grams/day. acetaminophen (TYLENOL) tablet 650 mg 650 mg, Oral, EVERY 4 HOURS PRN, mild pain, other, headaches, and adjunct with moderate or severe pain or per patient request, Starting on 08/02/24 at 1433, Alternate with ibuprofen if ordered. Maximum acetaminophen dose from all sources = 75 mg/kg/day not to exceed 4 grams/day. $Given 08/03/2024 4:21 PM CDT 650 mg amLODIPine (NORVASC) tablet 10 mg 10 mg, Oral, DAILY, First dose on 07/31/24 at 0900, Hold for SBP < 115 $Given 08/04/2024 9:05 AM CDT 10 mg $Given 08/03/2024 8:56 AM CDT 10 mg $Given 08/02/2024 8:57 AM CDT 10 mg aspirin (ASA) tablet 325 mg 325 mg, Oral, ONCE, On Fri08/02/24 at 0800, For 1 dose, Give if patient did not already receive aspirin on the same day of the procedure. Exceptions IF patient is allergic to aspirin, Cardiac Pre-procedure $Given 08/02/2024 8:55 AM CDT 325 mg aspirin EC tablet 81 mg 81 mg, Oral, DAILY, First dose on Fri07/31/24 at 0900, DO NOT CRUSH. $Given 08/04/2024 9:04 AM CDT 81 mg $Given 08/03/2024 8:56 AM CDT 81 mg atorvastatin (LIPITOR) tablet 20 mg 20 mg, Oral, AT BEDTIME, First dose on Fri07/30/24 at 2230 $Given 08/03/2024 9:24 PM CDT 20 mg $Given 08/02/2024 9:13 PM CDT 20 mg $Given 08/01/2024 9:59 PM CDT 20 mg clopidogrel (PLAVIX) tablet 75 mg 75 mg, Oral, DAILY, First dose on Fri08/03/24 at 0900 $Given 08/04/2024 9:04 AM CDT 75 mg $Given 08/03/2024 8:56 AM CDT 75 mg Continuing beta leila from home medication list OR beta leila order already placed during this visit Continuing beta leila from home medication list OR beta leila order already placed during this visit. Continuing statin from home medication list OR statin order already placed during this visit Continuing statin from home medication list OR statin order already placed during this visit dextrose 50 % injection 25-50 mL 25-50 mL, Intravenous, EVERY 15 MIN PRN, low blood sugar, Administer over 1-5 Minutes, Starting on Fri07/30/24 at 2227, Use if have IV access, BG less than 70 mg/dL and meet dose criteria below: Dose if conscious and alert (or disorientated) and NPO = 25 mL Dose if unconscious / not alert = 50 mL Give first dose for initial blood glucose less than 70 mg/dL. If blood glucose at 15 minute recheck is less than or equal to 80 mg/dL continue to administer carbohydrate treatment every 15 minutes, as needed, based on blood glucose and assessment parameters until blood glucose level is above 80 mg/dL x 2 consecutive 15 minute checks. fentaNYL (PF) (SUBLIMAZE) injection 25 mcg 25 mcg, Intravenous, EVERY 15 MIN PRN, severe pain, with Femoral sheath removal, Starting on 08/02/24 at 1416, For 2 doses, May repeat x 1 after 15 minutes. For severe pain related to pulling the FEMORAL sheath out ONLY. Maximum total dose is 50 mcg. furosemide (LASIX) tablet 40 mg 40 mg, Oral, DAILY, First dose on 07/31/24 at 0900 $Given 08/04/2024 9:05 AM CDT 40 mg $Given 08/03/2024 8:56 AM CDT 40 mg $Given 08/02/2024 8:58 AM CDT 40 mg glucagon injection 1 mg 1 mg, Subcutaneous, EVERY 15 MIN PRN, low blood sugar, May repeat x 1 only, Starting on Fri07/30/24 at 2227, May give SQ or IM. ONLY use glucagon IF patient has NO IV access AND is UNABLE to swallow AND blood glucose is LESS than or EQUAL to 50 mg/dL. glucose gel 15-30 g 15-30 g, Oral, EVERY 15 MIN PRN, low blood sugar, Starting on Fri07/30/24 at 2227, Give first dose for initial blood glucose less than 70 mg/dL per the dosing instructions below. If blood glucose at 15 minute rechecks is still less than or equal to 80 mg/dL, continue to administer doses per blood glucose parameters every 15 minutes, as needed, until blood glucose level is at or above 80 mg/dL x 2 consecutive 15 minute checks. Dosing Instructions: ~If patient is conscious and able to swallow and NO enteral tube For initial BG 51-69mg/dL OR 15 minute recheck BG 51- 80 mg/dL - give 15 g For BG less than or equal to 50 mg/dL - give 30 g ~ If Enteral tube For initial BG 51-69mg/dL OR 15 minute recheck BG 51- 80 mg/dL - give apple juice 120 mL (4 oz or 15 g of CHO) via enteral tube For BG less than or equal to 50 mg/dL - Give apple juice 240 mL (8 oz or 30 g of CHO) via enteral tube ~Oral gel is preferable for conscious and able to swallow patient. ~IF gel unavailable or patient refuses may provide apple juice per Enteral tube dosing instructions. Document juice on I and O flowsheet. heparin - BOLUS DOSE from infusion 3,000 Units, Intravenous, ONCE, On 07/31/24 at 1500, For 1 dose, IV PUMP PROGRAMMING: Program continuous infusion first, then program bolus dose. Infuse over 5 minutes. For PTT value 41-54 Low Intensity Heparin Treatment- PTT monitoring Nurse to administer dose from existing infusion. If no infusion bag or syringe for this order is available, contact pharmacist to re-enter medication order. $Given 07/31/2024 3:01 PM CDT 3,000 Units heparin 25,000 units in 0.45% NaCl 250 mL ANTICOAGULANT infusion 0-5,000 Units/hr (0-50 mL/hr), Intravenous, CONTINUOUS, Starting on Fri07/30/24 at 2135, --Nurse to use Heparin Infusion ADULT Dose Adjustments by RN order set after EVERY PTT result to place further orders (for bolus if needed, infusion adjustment if needed, and ordering next lab)- Starting Infusion Rate = 1200 units/hr (Ordered: 07/30/2024) Low Intensity Heparin Treatment- PTT monitoring WITH Boluses. GOAL: PTT = 55-80 seconds IF HEPARIN INFUSION HELD FOR PROCEDURE: Restart heparin infusion at previous rate (no bolus needed). Nurse to place a one-time PTT lab order timed for 6 hours after heparin infusion was restarted., Heparin Therapy Type: Low Intensity Heparin Infusion - With Initial Bolus (aPTT 55-80) Rate/Dose Verify 08/02/2024 8:00 AM CDT 1,350 Units/hr 13.5 mL/hr $New Bag 08/01/2024 11:47 PM CDT 1,350 Units/hr 13.5 mL/ hr $New Bag 08/01/2024 3:29 AM CDT 1,350 Units/hr 13.5 mL/h r heparin ANTICOAGULANT loading dose for LOW INTENSITY TREATMENT * Give BEFORE starting heparin infusion 6,000 Units, Intravenous, ONCE, On Fri07/30/24 at 2135, For 1 dose, Infuse over 5 minutes. Low Intensity Heparin Treatment. Nurse to administer dose from existing infusion. If no infusion bag or syringe for this order is available, contact pharmacist to re-enter medication order. $Given 07/30/2024 10:02 PM CDT 6,000 Units HOLD: Metformin and metformin containing medications on day of procedure and 48 hours after IV contrast given for patients with acute kidney injury or severe chronic kidney disease (stage IV or stage V; i.e., eGFR less than 30) Medication(s) to hold: Metfomin (GLUCOPHAGE, GLUMETZA, FORTAMET, RIOMET) and metformin containing medications: (KAZANO, METAGLIP, GLUCOVANCE, AVANDAMET, XIGDUO XR, JANUMET, JANUMET XR, JENTADUETO, PRANDIMET, KOMBIGLYZE XR, INVOKAMET, ACTOPLUS MET, ACTOPLUS MET XR), Parameter for hold (doses,days,conditions) : Other (see admin instructions), Hours or days to hold med before/after procedure/surgery: OTHER (for 48 hours post procedure), Surgery or Procedure Date: 08/02/2024, HOLD, Starting on Fri08/02/24 at 1416, Until Fri08/04/24 at 1414, Hold metfomin (GLUCOPHAGE, GLUMETZA, FORTAMET, RIOMET) and metformin containing medications: alogliptin/metformin (KAZANO), glipizide/metformin (METAGLIP), glyburide/metformin (GLUCOVANCE), rosiglitazone/metformin (AVANDAMET), dapagliflozin/metformin (XIGDUO XR), sitagliptin/metformin (JANUMET, JANUMET XR), linagliptin/metformin (JENTADUETO), repaglinide/metformin (PRANDIMET), saxagliption/metformin (KOMBIGLYZE XR), canagliflozin/metformin (INVOKAMET), pioglitazone/metformin (ACTOPLUS MET, ACTOPLUS MET XR) for patients with acute kidney injury or severe chronic kidney disease (stage IV or stage V; i.e., eGFR less than 30). If patient was on one of these medications pre-procedure, continue to HOLD for 48 hours post-procedure if patient received IV contrast. hydrALAZINE (APRESOLINE) injection 10 mg 10 mg, Intravenous, EVERY 4 HOURS PRN, high blood pressure, Administer over 1 Minutes, Starting on Fri08/02/24 at 1416, STEP 1: Give if systolic blood pressure is greater than 150 mmHg prior to sheath pull or within 3 hours after sheath pull. Discontinue 24 hours after sheath pull. Hold for heart rate greater than 100 beats per minutes. If the blood pressure is not managed with the hydrALAZINE (APRESOLINE), use metoprolol (LOPRESSOR) for additional medication if the blood pressure unresponsive to hydrALAZINE (APRESOLINE). insulin aspart (NovoLOG) injection (RAPID ACTING) 1-7 Units, Subcutaneous, 3 TIMES DAILY BEFORE MEALS, First dose on Fri07/31/24 at 0730, Correction Scale - MEDIUM INSULIN RESISTANCE DOSING Do Not give Correction Insulin if Pre-Meal BG less than 140. For Pre-Meal BG 140 - 189 give 1 unit. For Pre-Meal BG 190 - 239 give 2 units. For Pre-Meal BG 240 - 289 give 3 units. For Pre-Meal BG 290 - 339 give 4 units. For Pre-Meal BG 340- 389 give 5 units. For Pre-Meal BG 390-439 give 6 units For Pre-Meal BG greater than or equal to 440 give 7 units. To be given with prandial insulin, and based on pre-meal blood glucose. Administering insulin within 5 minutes of the start of the meal is ideal. Administer insulin no more than 30 minutes after the start of the meal, unless directed otherwise by provider. Notify provider if glucose greater than or equal to 350 mg/dL after administration of correction dose. $Given 08/04/2024 9:07 AM CDT 1 Units $Given 08/03/2024 4:23 PM CDT 2 Units $Given 08/03/2024 9:01 AM CDT 1 Units insulin aspart (NovoLOG) injection (RAPID ACTING) 1-5 Units, Subcutaneous, AT BEDTIME, First dose on Fri07/30/24 at 2230, MEDIUM INSULIN RESISTANCE DOSING Do Not give Bedtime Correction Insulin if BG less than 200. For BG 200 - 249 give 1 units. For BG 250 - 299 give 2 units. For BG 300 - 349 give 3 units. For BG 350 -399 give 4 units. For BG greater than or equal to 400 give 5 units. Notify provider if glucose greater than or equal to 350 mg/dL after administration of correction dose. $Given 07/30/2024 11:40 PM CDT 2 Units insulin aspart (NovoLOG) injection (RAPID ACTING) Subcutaneous, 3 TIMES DAILY WITH MEALS, First dose on Fri07/31/24 at 0900, Dose = 1 units per 10 grams of carbohydate. $Given 08/04/2024 9:08 AM CDT 6 Units $Given 08/03/2024 9:02 AM CDT 6 Units $Given 08/01/2024 5:05 PM CDT 3 Units insulin glargine (LANTUS PEN) injection 60 Units 60 Units, Subcutaneous, EVERY MORNING, First dose on 07/31/24 at 0900 $Given 08/04/2024 9:08 AM CDT 60 Units $Given 08/03/2024 9:00 AM CDT 60 Units $Given 08/01/2024 8:31 AM CDT 60 Units losartan (COZAAR) tablet 50 mg 50 mg, Oral, DAILY, First dose on 07/31/24 at 0900, Hold for SBP < 110 $Given 08/04/2024 9:04 AM CDT 50 mg $Given 08/03/2024 8:57 AM CDT 50 mg $Given 08/02/2024 8:57 AM CDT 50 mg metoprolol (LOPRESSOR) injection 5 mg 5 mg, Intravenous, EVERY 15 MIN PRN, high blood pressure, Administer over 5-10 Minutes, Starting on 08/02/24 at 1416, For 2 doses, STEP 2: May start metoprolol (LOPRESSOR) 15 minutes after hydralazine given IF Systolic blood pressure greater than 150 mmHg and the heart rate greater than 70 bpm. May repeat 5 mg dose one time after 15 minutes as needed to manage hypertension. Max total dose of 10 mg. Notify provider if the patient is not responsive to metoprolol for further blood pressure management orders. metoprolol succinate ER (TOPROL XL) 24 hr tablet 100 mg 100 mg, Oral, AT BEDTIME, First dose on Fri07/30/24 at 2230, Hold for SBP < 100 or HR <60 DO NOT CRUSH. Tablet may be split in half along score line. $Given 08/02/2024 9:13 PM CDT 100 mg $Given 08/01/2024 9:59 PM CDT 100 mg $Given 07/30/2024 11:04 PM CDT 100 mg naloxone (NARCAN) injection 0.2 mg 0.2 mg, Intravenous, EVERY 2 MIN PRN, opioid reversal, Starting on Fri07/30/24 at 2233, Administer intravenous route when available and notify provider when administered. For unintended sedation or respiratory depression if all of the below criteria are met: ~ respiratory rate LESS than or EQUAL to 8. ~SaO2 less than 92% and or/end-tidal CO2 is greater than 50. ~ the patient is receiving an opioid, has unintended sedations assessed as RASS (-3), and is currently not on mechanical ventilation. RASS scale moderate (-3) is movement or eye opening to voice but no eye contact. Patient Monitoring Once the patient has demonstrated a response to the naloxone, continue to monitor respiratory rate, depth, oxygen saturation and end-tidal CO2 (if available) every 15 minutes x 2, then every 30 minutes x 2, then every 1 hour x 1 after each naloxone dose. Consider transfer to ICU if patient respiratory parameters have not improved after 4 naloxone doses. naloxone (NARCAN) injection 0.2 mg 0.2 mg, Intramuscular, EVERY 2 MIN PRN, opioid reversal, Starting on Fri07/30/24 at 2232, Administer intramuscular if an intravenous route is not available and notify provider when administered. For unintended sedation or respiratory depression if all of the below criteria are met: ~ respiratory rate LESS than or EQUAL to 8. ~SaO2 less than 92% and or/end-tidal CO2 is greater than 50. ~ the patient is receiving an opioid, has unintended sedations assessed as RASS (-3), and is currently not on mechanical ventilation. RASS scale moderate (-3) is movement or eye opening to voice but no eye contact. Patient Monitoring Once the patient has demonstrated a response to the naloxone, continue to monitor respiratory rate, depth, oxygen saturation and end-tidal CO2 (if available) every 15 minutes x 2, then every 30 minutes x 2, then every 1 hour x 1 after each naloxone dose. Consider transfer to ICU if patient respiratory parameters have not improved after 4 naloxone doses. naloxone (NARCAN) injection 0.4 mg 0.4 mg, Intravenous, EVERY 2 MIN PRN, opioid reversal, Starting on Fri07/30/24 at 2232, Administer intravenous route when available and notify provider when administered. For unintended sedation or respiratory depression if all of the below criteria are met: ~ respiratory rate LESS than or EQUAL to 8. ~ SaO2 less than 92% and or/end-tidal CO2 is greater than 50. ~ the patient is receiving an opioid, has unintended sedation assessed as RASS (-4) or (-5) and patient is currently not on mechanical ventilation. RASS scale (-4) is deep sedation with no response to voice but movement or eye opening to physical stimulation. RASS scale (-5) is unarousable. Patient Monitoring Once the patient has demonstrated a response to the naloxone, continue to monitor respiratory rate, depth, oxygen saturation and end-tidal CO2 (if available) every 15 minutes x 2, then every 30 minutes x 2, then every 1 hour x 1 after each naloxone dose. Consider transfer to ICU if patient respiratory parameters have not improved after 4 naloxone doses. naloxone (NARCAN) injection 0.4 mg 0.4 mg, Intramuscular, EVERY 2 MIN PRN, opioid reversal, Starting on Fri07/30/24 at 2233, Administer intramuscular if an intravenous route is not available and notify provider when administered. For unintended sedation or respiratory depression if all of the below criteria are met: ~ respiratory rate LESS than or EQUAL to 8. ~ SaO2 less than 92% and or/end-tidal CO2 is greater than 50. ~ the patient is receiving an opioid, has unintended sedation assessed as RASS (-4) or (-5) and patient is currently not on mechanical ventilation. RASS scale (-4) is deep sedation with no response to voice but movement or eye opening to physical stimulation. RASS scale (-5) is unarousable. Patient Monitoring Once the patient has demonstrated a response to the naloxone, continue to monitor respiratory rate, depth, oxygen saturation and end-tidal CO2 (if available) every 15 minutes x 2, then every 30 minutes x 2, then every 1 hour x 1 after each naloxone dose. Consider transfer to ICU if patient respiratory parameters have not improved after 4 naloxone doses. nitroGLYcerin (NITROSTAT) sublingual tablet 0.4 mg 0.4 mg, Sublingual, EVERY 5 MIN PRN, chest pain, Starting on Fri08/02/24 at 1416, Maximum 3 doses in 15 minutes. Notify provider if no relief after 3 doses. If patient is still having acute angina requiring treatment, an alternative treatment option may be used such as: IV beta-leila (2.5 mg - 5 mg) metoprolol (LOPRESSOR) if ordered by a provider. ondansetron (ZOFRAN ODT) ODT tab 4 mg 4 mg, Oral, EVERY 6 HOURS PRN, nausea, vomiting, Starting on Fri08/02/24 at 1416, With dry hands, peel back foil backing and gently remove tablet. Do not push oral disintegrating tablet through foil backing. Administer immediately on tongue and oral disintegrating tablet dissolves in seconds, then swallow with saliva. Liquid not required. ondansetron (ZOFRAN) injection 4 mg 4 mg, Intravenous, EVERY 6 HOURS PRN, nausea, vomiting, Administer over 2-5 Minutes, Starting on Fri08/02/24 at 1416 oxyCODONE (ROXICODONE) tablet 10 mg 10 mg, Oral, EVERY 4 HOURS PRN, severe pain, Starting on Fri08/02/24 at 1416, Start with the lowest dose. May adjust dose by 5 mg every 4 hours as needed. Notify provider to assess for uncontrolled pain or analgesic side effects. Hold while on a [employer]CTIONAL CONSULTANT or with regular IV opioid dosing. Maximum total is 60 mg in 24 hours. oxyCODONE (ROXICODONE) tablet 5 mg 5 mg, Oral, EVERY 4 HOURS PRN, moderate pain, Starting on Fri08/02/24 at 1416, Start with the lowest dose. May adjust dose by 5 mg every 4 hours as needed. Notify provider to assess for uncontrolled pain or analgesic side effects. Hold while on a [employer]CTIONAL CONSULTANT or with regular IV opioid dosing. Maximum total is 60 mg in 24 hours. Percutaneous Coronary Intervention orders placed (this is information for BPA alerting) DOES NOT GO TO MAR, Starting on Fri08/02/24 at 1400, Until Fri08/04/24 at 1414 perflutren diluted 1mL to 2mL with saline (OPTISON) diluted injection 9 mL 9 mL, Intravenous, ONCE, On 07/31/24 at 1430, For 1 dose, [facility] [id number] $Given 07/31/2024 2:26 PM CDT 9 mLs rivaroxaban ANTICOAGULANT (XARELTO) tablet 20 mg 20 mg, Oral, DAILY WITH SUPPER, First dose on Fri08/02/24 at 2100, Indications: Afib-non valvular, Restart 6 hours post manager laboratory if puncture site stable $Given 08/03/2024 4:22 PM CDT 20 mg $Given 08/02/2024 9:13 PM CDT 20 mg sodium chloride (PF) 0.9% PF flush 10 mL 10 mL, Intravenous, ONCE, On 07/31/24 at 1430, For 1 dose $Given 07/31/2024 2:26 PM CDT 10 mLs sodium chloride (PF) 0.9% PF flush 3 mL 3 mL, Intracatheter, EVERY 8 HOURS, First dose on 08/01/24 at 2330, to lock peripheral IV dormant line., Cardiac Pre-procedure $Given 08/01/2024 11:48 PM CDT 3 mLs sodium chloride 0.9 % infusion at 150 mL/hr, Intravenous, CONTINUOUS, 150 mL/hr IV for 2 hours prior to cardiac manager laboratory procedure, then decrease to 75 mL/hr to run throughout the procedure. Start at 0700 for inpatients. IF PATIENT IS RECEIVING RENAL DIALYSIS, RN to reduce rate of 0.9 % sodium chloride IV solution to 10 mL /hour (TKO) IV infusion to prevent fluid overload., Cardiac Pre-procedure, Starting on 08/02/24 at 0800, Until Fri08/02/24 at 1407 $New Bag 08/02/2024 9:02 AM CDT 150 mL/hr sodium chloride 0.9 % infusion at 75 mL/hr, Intravenous, CONTINUOUS, IF PATIENT IS RECEIVING RENAL DIALYSIS, RN to reduce rate of 0.9 % sodium chloride IV solution to 10 mL /hour (TKO) to prevent fluid overload. IF PATIENT WAS ADMITTED WITH HEART FAILURE, the RN should discuss primary cardiology team whether it is appropriate to reduce rate to10 mL/hour (TKO) in order to prevent fluid overload., Starting on 08/02/24 at 1430, Until Fri08/02/24 at 1829 $New Bag 08/02/2024 2:38 PM CDT 75 mL /hr documented in this encounter Active and Recently Administered Medications Times are shown in CDT. Scheduled Medication Order 08/02/2024 08/03/2024 08/04/2024 amLODIPine (NORVASC) tablet 10 mg 10 mg, Oral, DAILY, First dose on 07/31/24 at 0900, Hold for SBP < 115 0857 ($Given - Provider: Estela Celestin RN) 0856 ($Given - Provider: Estela Celestin RN) 0905 ($Given - Provider: Estela Celestin RN) aspirin (ASA) tablet 325 mg (COMPLETED)(Linked Group 1) 325 mg, Oral, ONCE, On Fri08/02/24 at 0800, For 1 dose, Give if patient did not already receive aspirin on the same day of the procedure. Exceptions IF patient is allergic to aspirin, Cardiac Pre-procedure 0855 ($Given - Provider: Estela Celestin RN) aspirin EC tablet 81 mg 81 mg, Oral, DAILY, First dose on 07/31/24 at 0900, DO NOT CRUSH. 0858 (Not Given - Provider: Estela Celestin RN - Reason: Other - Comment: given 325 mg for angio) 0856 ($Given - Provider: Estela Celestin RN) 0904 ($Given - Provider: Estela Celestin RN) atorvastatin (LIPITOR) tablet 20 mg 20 mg, Oral, AT BEDTIME, First dose on Fri07/30/24 at 2230 2113 ($Given - Provider: Amadou Tellez RN) 2124 ($Given - Provider: Madalyn Ding RN) clopidogrel (PLAVIX) tablet 75 mg 75 mg, Oral, DAILY, First dose on Fri08/03/24 at 0900 0856 ($Given - Provider: Estela Celestin RN) 0904 ($Given - Provider: Estela Celestin RN) furosemide (LASIX) tablet 40 mg 40 mg, Oral, DAILY, First dose on Fri07/31/24 at 0900 0858 ($Given - Provider: Estela Celestin RN) 0856 ($Given - Provider: Estela Celestin RN) 0905 ($Given - Provider: Estela Celestin RN) insulin aspart (NovoLOG) injection (RAPID ACTING) 1-7 Units, Subcutaneous, 3 TIMES DAILY BEFORE MEALS, First dose on 07/31/24 at 0730, Correction Scale - MEDIUM INSULIN RESISTANCE DOSING Do Not give Correction Insulin if Pre-Meal BG less than 140. For Pre-Meal BG 140 - 189 give 1 unit. For Pre-Meal BG 190 - 239 give 2 units. For Pre-Meal BG 240 - 289 give 3 units. For Pre-Meal BG 290 - 339 give 4 units. For Pre-Meal BG 340- 389 give 5 units. For Pre-Meal BG 390-439 give 6 units For Pre-Meal BG greater than or equal to 440 give 7 units. To be given with prandial insulin, and based on pre-meal blood glucose. Administering insulin within 5 minutes of the start of the meal is ideal. Administer insulin no more than 30 minutes after the start of the meal, unless directed otherwise by provider. Notify provider if glucose greater than or equal to 350 mg/dL after administration of correction dose. 0853 (Not Given - Provider: Estela Celestin RN - Reason: Order parameters not met - Comment: [phone] (Not Given - Provider: Estela Celestin RN - Reason: NPO)1734 (Not Given - Provider: Estela Celestin RN - Reason: Order parameters not met - Comment: [phone]) 0901 ($Given - Provider: Estela Celestin RN - Comment: [phone] ($Given - Provider: Estela Celestin RN - Comment: [phone] (Not Given - Provider: Estela Celestin RN - Reason: Other - Comment: pt did not alert staff about meal) 0907 ($Given - Provider: Estela Celestin RN - Comment: [phone] (Canceled Entry - Provider: Orders Generic Provider - Comment: Automatically canceled at discontinue of medication order) insulin aspart (NovoLOG) injection (RAPID ACTING) 1-5 Units, Subcutaneous, AT BEDTIME, First dose on Fri07/30/24 at 2230, MEDIUM INSULIN RESISTANCE DOSING Do Not give Bedtime Correction Insulin if BG less than 200. For BG 200 - 249 give 1 units. For BG 250 - 299 give 2 units. For BG 300 - 349 give 3 units. For BG 350 -399 give 4 units. For BG greater than or equal to 400 give 5 units. Notify provider if glucose greater than or equal to 350 mg/dL after administration of correction dose. 2212 (Not Given - Provider: Amadou Tellez RN - Reason: Order parameters not met) 2203 (Not Given - Provider: Madalyn Ding RN - Reason: Order parameters not met) insulin aspart (NovoLOG) injection (RAPID ACTING) Subcutaneous, 3 TIMES DAILY WITH MEALS, First dose on Fri07/31/24 at 0900, Dose = 1 units per 10 grams of carbohydate. 0858 (Not Given - Provider: Estela Celestin RN - Reason: NPO)1300 (Not Given - Provider: Estela Celestin RN - Reason: NPO)1910 (Not Given - Provider: Estela Celestin RN - Reason: Other - Comment: tray taken) 0902 ($Given - Provider: Estela Celestin RN)1400 (Not Given - Provider: Estela Celestin RN - Reason: Other)1916 (Not Given - Provider: Estela Celestin RN - Reason: Other - Comment: pt did not alert staff about meal) 0908 ($Given - Provider: Estela Celestin RN)1200 (Canceled Entry - Provider: Orders Generic Provider - Comment: Automatically canceled at discontinue of medication order) insulin glargine (LANTUS PEN) injection 60 Units 60 Units, Subcutaneous, EVERY MORNING, First dose on 07/31/24 at 0900 0854 (Not Given - Provider: Estela Celestin RN - Reason: NPO - Comment: Hold per Dr. Sweet, hospitalist.) 0900 ($Given - Provider: Estela Celestin RN) 0908 ($Given - Provider: Estela Celestin RN) losartan (COZAAR) tablet 50 mg 50 mg, Oral, DAILY, First dose on 07/31/24 at 0900, Hold for SBP < 110 0857 ($Given - Provider: Estela Celestin RN) 0857 ($Given - Provider: Estela Celestin RN) 0904 ($Given - Provider: Estela Celestin RN) metoprolol succinate ER (TOPROL XL) 24 hr tablet 100 mg 100 mg, Oral, AT BEDTIME, First dose on 07/30/24 at 2230, Hold for SBP < 100 or HR <60 DO NOT CRUSH. Tablet may be split in half along score line. 2112 ($Given - Provider: Amadou Tellez RN) 2123 (Not Given - Provider: Madalyn Ding RN - Reason: Order parameters not met) rivaroxaban ANTICOAGULANT (XARELTO) tablet 20 mg 20 mg, Oral, DAILY WITH SUPPER, First dose on Fri08/02/24 at 2100, Indications: Afib-non valvular, Restart 6 hours post manager laboratory if puncture site stable 2113 ($Given - Provider: Amadou Tellez RN) 1622 ($Given - Provider: Estela Celestin RN) Continuous Medication Order 08/02/2024 08/03/2024 08/04/2024 heparin 25,000 units in 0.45% NaCl 250 mL ANTICOAGULANT infusion (CANCELED) 0-5,000 Units/hr (0-50 mL/hr), Intravenous, CONTINUOUS, Starting on Fri07/30/24 at 2135, --Nurse to use Heparin Infusion ADULT Dose Adjustments by RN order set after EVERY PTT result to place further orders (for bolus if needed, infusion adjustment if needed, and ordering next lab)- Starting Infusion Rate = 1200 units/hr (Ordered: 07/30/2024) Low Intensity Heparin Treatment- PTT monitoring WITH Boluses. GOAL: PTT = 55-80 seconds IF HEPARIN INFUSION HELD FOR PROCEDURE: Restart heparin infusion at previous rate (no bolus needed). Nurse to place a one-time PTT lab order timed for 6 hours after heparin infusion was restarted., Heparin Therapy Type: Low Intensity Heparin Infusion - With Initial Bolus (aPTT 55-80) 0800 (Rate/Dose Verify - Provider: Estela Celestin, JESSE)1235 (Stopped - Provider: Amairani Wolff RN) sodium chloride 0.9 % infusion (CANCELED) at 150 mL/hr, Intravenous, CONTINUOUS, 150 mL/hr IV for 2 hours prior to cardiac manager laboratory procedure, then decrease to 75 mL/hr to run throughout the procedure. Start at 0700 for inpatients. IF PATIENT IS RECEIVING RENAL DIALYSIS, RN to reduce rate of 0.9 % sodium chloride IV solution to 10 mL /hour (TKO) IV infusion to prevent fluid overload., Cardiac Pre-procedure, Starting on Fri08/02/24 at 0800, Until Fri08/02/24 at 1407 0902 ($New Bag - Provider: Estela Celestin RN) sodium chloride 0.9 % infusion () at 75 mL/hr, Intravenous, CONTINUOUS, IF PATIENT IS RECEIVING RENAL DIALYSIS, RN to reduce rate of 0.9 % sodium chloride IV solution to 10 mL /hour (TKO) to prevent fluid overload. IF PATIENT WAS ADMITTED WITH HEART FAILURE, the RN should discuss primary cardiology team whether it is appropriate to reduce rate to10 mL/hour (TKO) in order to prevent fluid overload., Starting on Fri08/02/24 at 1430, Until Fri08/02/24 at 1829 1438 ($New Bag - Provider: Estela Celestin RN) PRN Medication Order 08/02/2024 08/03/2024 08/04/2024 acetaminophen (TYLENOL) Suppository 650 mg(Linked Group 2) 650 mg, Rectal, EVERY 4 HOURS PRN, mild pain, other, and adjunct with moderate or severe pain or per patient request, Starting on Fri08/02/24 at 1433, Alternate with ibuprofen if ordered. Maximum acetaminophen dose from all sources = 75 mg/kg/day not to exceed 4 grams/day. 1621 (See Alternative - Provider: Estela Celestin RN) acetaminophen (TYLENOL) tablet 650 mg(Linked Group 2) 650 mg, Oral, EVERY 4 HOURS PRN, mild pain, other, headaches, and adjunct with moderate or severe pain or per patient request, Starting on Fri08/02/24 at 1433, Alternate with ibuprofen if ordered. Maximum acetaminophen dose from all sources = 75 mg/kg/day not to exceed 4 grams/day. 1621 ($Given - Provider: Estela Celestin RN) alum & mag hydroxide-simethicone (MAALOX) suspension 30 mL 30 mL, Oral, EVERY 4 HOURS PRN, indigestion, heartburn, Starting on Fri07/30/24 at 2227, Shake well. clopidogrel (PLAVIX) tablet (CANCELED) ONCE PRN, Starting on Fri08/02/24 at 1322, Cardiac Intra-procedure 1322 ($Given - Provider: Amairani Wolff RN) Continuing beta leila from home medication list OR beta leila order already placed during this visit Continuing beta leila from home medication list OR beta leila order already placed during this visit. Continuing statin from home medication list OR statin order already placed during this visit Continuing statin from home medication list OR statin order already placed during this visit dextrose 50 % injection 25-50 mL(Linked Group 3) 25-50 mL, Intravenous, EVERY 15 MIN PRN, low blood sugar, Administer over 1-5 Minutes, Starting on Fri07/30/24 at 2227, Use if have IV access, BG less than 70 mg/dL and meet dose criteria below: Dose if conscious and alert (or disorientated) and NPO = 25 mL Dose if unconscious / not alert = 50 mL Give first dose for initial blood glucose less than 70 mg/dL. If blood glucose at 15 minute recheck is less than or equal to 80 mg/dL continue to administer carbohydrate treatment every 15 minutes, as needed, based on blood glucose and assessment parameters until blood glucose level is above 80 mg/dL x 2 consecutive 15 minute checks. fentaNYL (PF) (SUBLIMAZE) injection 25 mcg 25 mcg, Intravenous, EVERY 15 MIN PRN, severe pain, with Femoral sheath removal, Starting on Fri08/02/24 at 1416, For 2 doses, May repeat x 1 after 15 minutes. For severe pain related to pulling the FEMORAL sheath out ONLY. Maximum total dose is 50 mcg. fentaNYL (PF) (SUBLIMAZE) injection (CANCELED) ONCE PRN, Administer over 3-5 Minutes, Starting on Fri08/02/24 at 1233, Cardiac Intra-procedure 1233 ($Given - Provider: Amairani Wolff RN)1238 ($Given - Provider: Amairani Wolff RN)1350 ($Given - Provider: Amairani Wolff RN) glucagon injection 1 mg(Linked Group 3) 1 mg, Subcutaneous, EVERY 15 MIN PRN, low blood sugar, May repeat x 1 only, Starting on Fri07/30/24 at 2227, May give SQ or IM. ONLY use glucagon IF patient has NO IV access AND is UNABLE to swallow AND blood glucose is LESS than or EQUAL to 50 mg/dL. glucose gel 15-30 g(Linked Group 3) 15-30 g, Oral, EVERY 15 MIN PRN, low blood sugar, Starting on Fri07/30/24 at 2227, Give first dose for initial blood glucose less than 70 mg/dL per the dosing instructions below. If blood glucose at 15 minute rechecks is still less than or equal to 80 mg/dL, continue to administer doses per blood glucose parameters every 15 minutes, as needed, until blood glucose level is at or above 80 mg/dL x 2 consecutive 15 minute checks. Dosing Instructions: ~If patient is conscious and able to swallow and NO enteral tube For initial BG 51-69mg/dL OR 15 minute recheck BG 51- 80 mg/dL - give 15 g For BG less than or equal to 50 mg/dL - give 30 g ~ If Enteral tube For initial BG 51-69mg/dL OR 15 minute recheck BG 51- 80 mg/dL - give apple juice 120 mL (4 oz or 15 g of CHO) via enteral tube For BG less than or equal to 50 mg/dL - Give apple juice 240 mL (8 oz or 30 g of CHO) via enteral tube ~Oral gel is preferable for conscious and able to swallow patient. ~IF gel unavailable or patient refuses may provide apple juice per Enteral tube dosing instructions. Document juice on I and O flowsheet. heparin (porcine) injection (CANCELED) ONCE PRN, Starting on Fri08/02/24 at 1320, Cardiac Intra-procedure 1320 ($Given - Provider: Amairani Wolff RN)1332 ($Given - Provider: Amairani Wolff RN)1350 ($Given - Provider: Amairani Wolff RN) HOLD: Metformin and metformin containing medications on day of procedure and 48 hours after IV contrast given for patients with acute kidney injury or severe chronic kidney disease (stage IV or stage V; i.e., eGFR less than 30) Medication(s) to hold: Metfomin (GLUCOPHAGE, GLUMETZA, FORTAMET, RIOMET) and metformin containing medications: (KAZANO, METAGLIP, GLUCOVANCE, AVANDAMET, XIGDUO XR, JANUMET, JANUMET XR, JENTADUETO, PRANDIMET, KOMBIGLYZE XR, INVOKAMET, ACTOPLUS MET, ACTOPLUS MET XR), Parameter for hold (doses,days,conditions) : Other (see admin instructions), Hours or days to hold med before/after procedure/surgery: OTHER (for 48 hours post procedure), Surgery or Procedure Date: 08/02/2024, HOLD, Starting on Fri08/02/24 at 1416, Until Fri08/04/24 at 1414, Hold metfomin (GLUCOPHAGE, GLUMETZA, FORTAMET, RIOMET) and metformin containing medications: alogliptin/metformin (KAZANO), glipizide/metformin (METAGLIP), glyburide/metformin (GLUCOVANCE), rosiglitazone/metformin (AVANDAMET), dapagliflozin/metformin (XIGDUO XR), sitagliptin/metformin (JANUMET, JANUMET XR), linagliptin/metformin (JENTADUETO), repaglinide/metformin (PRANDIMET), saxagliption/metformin (KOMBIGLYZE XR), canagliflozin/metformin (INVOKAMET), pioglitazone/metformin (ACTOPLUS MET, ACTOPLUS MET XR) for patients with acute kidney injury or severe chronic kidney disease (stage IV or stage V; i.e., eGFR less than 30). If patient was on one of these medications pre-procedure, continue to HOLD for 48 hours post-procedure if patient received IV contrast. hydrALAZINE (APRESOLINE) injection 10 mg 10 mg, Intravenous, EVERY 4 HOURS PRN, high blood pressure, Administer over 1 Minutes, Starting on Fri08/02/24 at 1416, STEP 1: Give if systolic blood pressure is greater than 150 mmHg prior to sheath pull or within 3 hours after sheath pull. Discontinue 24 hours after sheath pull. Hold for heart rate greater than 100 beats per minutes. If the blood pressure is not managed with the hydrALAZINE (APRESOLINE), use metoprolol (LOPRESSOR) for additional medication if the blood pressure unresponsive to hydrALAZINE (APRESOLINE). HYDROmorphone (DILAUDID) injection 0.2 mg 0.2 mg, Intravenous, EVERY 2 HOURS PRN, moderate pain, IF patient cannot take oral opioid OR IF pain not managed with non-pharmacological, non-opioid, or oral opioid interventions if ordered, Starting on Fri07/30/24 at 2227, May use concomitant with non-opioid analgesics. HYDROmorphone (DILAUDID) injection 0.4 mg 0.4 mg, Intravenous, EVERY 2 HOURS PRN, severe pain, IF patient cannot take oral opioid OR IF pain not managed with non-pharmacological, non-opioid, or oral opioid interventions if ordered, Starting on Fri07/30/24 at 2227, May use concomitant with non-opioid analgesics. iopamidol (ISOVUE-370) solution (CANCELED) ONCE PRN, Starting on Fri08/02/24 at 1359, Cardiac Intra-procedure 1359 ($Given - Provider: Malvin Ma MD) lidocaine 1 % (CANCELED) ONCE PRN, Starting on Fri08/02/24 at 1234, Cardiac Intra-procedure 1234 ($Given - Provider: Malvin Ma MD) metoprolol (LOPRESSOR) injection 5 mg 5 mg, Intravenous, EVERY 15 MIN PRN, high blood pressure, Administer over 5-10 Minutes, Starting on Fri08/02/24 at 1416, For 2 doses, STEP 2: May start metoprolol (LOPRESSOR) 15 minutes after hydralazine given IF Systolic blood pressure greater than 150 mmHg and the heart rate greater than 70 bpm. May repeat 5 mg dose one time after 15 minutes as needed to manage hypertension. Max total dose of 10 mg. Notify provider if the patient is not responsive to metoprolol for further blood pressure management orders. midazolam (VERSED) injection (CANCELED) Administer over 2 Minutes, ONCE PRN, Starting on Fri08/02/24 at 1233, Cardiac Intra-procedure 1233 ($Given - Provider: Amairani Wolff RN)1237 ($Given - Provider: Amairani Wolff RN)1253 ($Given - Provider: Amairani Wolff RN)1256 ($Given - Provider: Amairani Wolff RN)1350 ($Given - Provider: Amairani Wolff RN) naloxone (NARCAN) injection 0.2 mg(Linked Group 4) 0.2 mg, Intravenous, EVERY 2 MIN PRN, opioid reversal, Starting on Fri07/30/24 at 2233, Administer intravenous route when available and notify provider when administered. For unintended sedation or respiratory depression if all of the below criteria are met: ~ respiratory rate LESS than or EQUAL to 8. ~SaO2 less than 92% and or/end-tidal CO2 is greater than 50. ~ the patient is receiving an opioid, has unintended sedations assessed as RASS (-3), and is currently not on mechanical ventilation. RASS scale moderate (-3) is movement or eye opening to voice but no eye contact. Patient Monitoring Once the patient has demonstrated a response to the naloxone, continue to monitor respiratory rate, depth, oxygen saturation and end-tidal CO2 (if available) every 15 minutes x 2, then every 30 minutes x 2, then every 1 hour x 1 after each naloxone dose. Consider transfer to ICU if patient respiratory parameters have not improved after 4 naloxone doses. naloxone (NARCAN) injection 0.2 mg(Linked Group 4) 0.2 mg, Intramuscular, EVERY 2 MIN PRN, opioid reversal, Starting on Fri07/30/24 at 2233, Administer intramuscular if an intravenous route is not available and notify provider when administered. For unintended sedation or respiratory depression if all of the below criteria are met: ~ respiratory rate LESS than or EQUAL to 8. ~SaO2 less than 92% and or/end-tidal CO2 is greater than 50. ~ the patient is receiving an opioid, has unintended sedations assessed as RASS (-3), and is currently not on mechanical ventilation. RASS scale moderate (-3) is movement or eye opening to voice but no eye contact. Patient Monitoring Once the patient has demonstrated a response to the naloxone, continue to monitor respiratory rate, depth, oxygen saturation and end-tidal CO2 (if available) every 15 minutes x 2, then every 30 minutes x 2, then every 1 hour x 1 after each naloxone dose. Consider transfer to ICU if patient respiratory parameters have not improved after 4 naloxone doses. naloxone (NARCAN) injection 0.4 mg(Linked Group 4) 0.4 mg, Intravenous, EVERY 2 MIN PRN, opioid reversal, Starting on Fri07/30/24 at 2233, Administer intravenous route when available and notify provider when administered. For unintended sedation or respiratory depression if all of the below criteria are met: ~ respiratory rate LESS than or EQUAL to 8. ~ SaO2 less than 92% and or/end-tidal CO2 is greater than 50. ~ the patient is receiving an opioid, has unintended sedation assessed as RASS (-4) or (-5) and patient is currently not on mechanical ventilation. RASS scale (-4) is deep sedation with no response to voice but movement or eye opening to physical stimulation. RASS scale (-5) is unarousable. Patient Monitoring Once the patient has demonstrated a response to the naloxone, continue to monitor respiratory rate, depth, oxygen saturation and end-tidal CO2 (if available) every 15 minutes x 2, then every 30 minutes x 2, then every 1 hour x 1 after each naloxone dose. Consider transfer to ICU if patient respiratory parameters have not improved after 4 naloxone doses. naloxone (NARCAN) injection 0.4 mg(Linked Group 4) 0.4 mg, Intramuscular, EVERY 2 MIN PRN, opioid reversal, Starting on Fri07/30/24 at 2233, Administer intramuscular if an intravenous route is not available and notify provider when administered. For unintended sedation or respiratory depression if all of the below criteria are met: ~ respiratory rate LESS than or EQUAL to 8. ~ SaO2 less than 92% and or/end-tidal CO2 is greater than 50. ~ the patient is receiving an opioid, has unintended sedation assessed as RASS (-4) or (-5) and patient is currently not on mechanical ventilation. RASS scale (-4) is deep sedation with no response to voice but movement or eye opening to physical stimulation. RASS scale (-5) is unarousable. Patient Monitoring Once the patient has demonstrated a response to the naloxone, continue to monitor respiratory rate, depth, oxygen saturation and end-tidal CO2 (if available) every 15 minutes x 2, then every 30 minutes x 2, then every 1 hour x 1 after each naloxone dose. Consider transfer to ICU if patient respiratory parameters have not improved after 4 naloxone doses. nitroGLYcerin (NITROSTAT) sublingual tablet 0.4 mg 0.4 mg, Sublingual, EVERY 5 MIN PRN, chest pain, Starting on Fri08/02/24 at 1416, Maximum 3 doses in 15 minutes. Notify provider if no relief after 3 doses. If patient is still having acute angina requiring treatment, an alternative treatment option may be used such as: IV beta-leila (2.5 mg - 5 mg) metoprolol (LOPRESSOR) if ordered by a provider. ondansetron (ZOFRAN ODT) ODT tab 4 mg(Linked Group 5) 4 mg, Oral, EVERY 6 HOURS PRN, nausea, vomiting, Starting on Fri08/02/24 at 1416, With dry hands, peel back foil backing and gently remove tablet. Do not push oral disintegrating tablet through foil backing. Administer immediately on tongue and oral disintegrating tablet dissolves in seconds, then swallow with saliva. Liquid not required. ondansetron (ZOFRAN) injection 4 mg(Linked Group 5) 4 mg, Intravenous, EVERY 6 HOURS PRN, nausea, vomiting, Administer over 2-5 Minutes, Starting on Fri08/02/24 at 1416 oxyCODONE (ROXICODONE) tablet 10 mg(Linked Group 6) 10 mg, Oral, EVERY 4 HOURS PRN, severe pain, Starting on Fri08/02/24 at 1416, Start with the lowest dose. May adjust dose by 5 mg every 4 hours as needed. Notify provider to assess for uncontrolled pain or analgesic side effects. Hold while on a FUNCTIONAL CONSULTANT or with regular IV opioid dosing. Maximum total is 60 mg in 24 hours. oxyCODONE (ROXICODONE) tablet 5 mg(Linked Group 6) 5 mg, Oral, EVERY 4 HOURS PRN, moderate pain, Starting on Fri08/02/24 at 1416, Start with the lowest dose. May adjust dose by 5 mg every 4 hours as needed. Notify provider to assess for uncontrolled pain or analgesic side effects. Hold while on a FUNCTIONAL CONSULTANT or with regular IV opioid dosing. Maximum total is 60 mg in 24 hours. Percutaneous Coronary Intervention orders placed (this is information for BPA alerting) DOES NOT GO TO JAN, Starting on Fri08/02/24 at 1400, Until Fri08/04/24 at 1414 Linked Groups Order Group 1: aspirin (ASA) tablet 325 mg (COMPLETED)Jump to med 325 mg, Oral, ONCE, On Fri08/02/24 at 0800, For 1 dose, Give if patient did not already receive aspirin on the same day of the procedure. Exceptions IF patient is allergic to aspirin, Cardiac Pre-procedure Or aspirin (ASA) chewable tablet 243 mg (COMPLETED) 243 mg, Oral, ONCE, On Fri08/02/24 at 0800, For 1 dose, If patient received aspirin on the day of the procedure, give 3 81 mg tablets on the morning of the procedure to TOTAL 324 dose. Exceptions: IF patient is allergic to aspirin OR IF patient already received aspirin 325 mg today, Cardiac Pre-procedure Group 2: acetaminophen (TYLENOL) tablet 650 mgJump to med 650 mg, Oral, EVERY 4 HOURS PRN, mild pain, other, headaches, and adjunct with moderate or severe pain or per patient request, Starting on Fri08/02/24 at 1433, Alternate with ibuprofen if ordered. Maximum acetaminophen dose from all sources = 75 mg/kg/day not to exceed 4 grams/day. Or acetaminophen (TYLENOL) Suppository 650 mgJump to med 650 mg, Rectal, EVERY 4 HOURS PRN, mild pain, other, and adjunct with moderate or severe pain or per patient request, Starting on Fri08/02/24 at 1433, Alternate with ibuprofen if ordered. Maximum acetaminophen dose from all sources = 75 mg/kg/day not to exceed 4 grams/day. Group 3: glucose gel 15-30 gJump to med 15-30 g, Oral, EVERY 15 MIN PRN, low blood sugar, Starting on Fri07/30/24 at 2227, Give first dose for initial blood glucose less than 70 mg/dL per the dosing instructions below. If blood glucose at 15 minute rechecks is still less than or equal to 80 mg/dL, continue to administer doses per blood glucose parameters every 15 minutes, as needed, until blood glucose level is at or above 80 mg/dL x 2 consecutive 15 minute checks. Dosing Instructions: ~If patient is conscious and able to swallow and NO enteral tube For initial BG 51-69mg/dL OR 15 minute recheck BG 51- 80 mg/dL - give 15 g For BG less than or equal to 50 mg/dL - give 30 g ~ If Enteral tube For initial BG 51-69mg/dL OR 15 minute recheck BG 51- 80 mg/dL - give apple juice 120 mL (4 oz or 15 g of CHO) via enteral tube For BG less than or equal to 50 mg/dL - Give apple juice 240 mL (8 oz or 30 g of CHO) via enteral tube ~Oral gel is preferable for conscious and able to swallow patient. ~IF gel unavailable or patient refuses may provide apple juice per Enteral tube dosing instructions. Document juice on I and O flowsheet. Or dextrose 50 % injection 25-50 mLJump to med 25-50 mL, Intravenous, EVERY 15 MIN PRN, low blood sugar, Administer over 1-5 Minutes, Starting on Fri07/30/24 at 2227, Use if have IV access, BG less than 70 mg/dL and meet dose criteria below: Dose if conscious and alert (or disorientated) and NPO = 25 mL Dose if unconscious / not alert = 50 mL Give first dose for initial blood glucose less than 70 mg/dL. If blood glucose at 15 minute recheck is less than or equal to 80 mg/dL continue to administer carbohydrate treatment every 15 minutes, as needed, based on blood glucose and assessment parameters until blood glucose level is above 80 mg/dL x 2 consecutive 15 minute checks. Or glucagon injection 1 mgJump to med 1 mg, Subcutaneous, EVERY 15 MIN PRN, low blood sugar, May repeat x 1 only, Starting on Fri07/30/24 at 2227, May give SQ or IM. ONLY use glucagon IF patient has NO IV access AND is UNABLE to swallow AND blood glucose is LESS than or EQUAL to 50 mg/dL. Group 4: naloxone (NARCAN) injection 0.2 mgJump to med 0.2 mg, Intravenous, EVERY 2 MIN PRN, opioid reversal, Starting on Fri07/30/24 at 2233, Administer intravenous route when available and notify provider when administered. For unintended sedation or respiratory depression if all of the below criteria are met: ~ respiratory rate LESS than or EQUAL to 8. ~SaO2 less than 92% and or/end-tidal CO2 is greater than 50. ~ the patient is receiving an opioid, has unintended sedations assessed as RASS (-3), and is currently not on mechanical ventilation. RASS scale moderate (-3) is movement or eye opening to voice but no eye contact. Patient Monitoring Once the patient has demonstrated a response to the naloxone, continue to monitor respiratory rate, depth, oxygen saturation and end-tidal CO2 (if available) every 15 minutes x 2, then every 30 minutes x 2, then every 1 hour x 1 after each naloxone dose. Consider transfer to ICU if patient respiratory parameters have not improved after 4 naloxone doses. Or naloxone (NARCAN) injection 0.4 mgJump to med 0.4 mg, Intravenous, EVERY 2 MIN PRN, opioid reversal, Starting on Fri07/30/24 at 2233, Administer intravenous route when available and notify provider when administered. For unintended sedation or respiratory depression if all of the below criteria are met: ~ respiratory rate LESS than or EQUAL to 8. ~ SaO2 less than 92% and or/end-tidal CO2 is greater than 50. ~ the patient is receiving an opioid, has unintended sedation assessed as RASS (-4) or (-5) and patient is currently not on mechanical ventilation. RASS scale (-4) is deep sedation with no response to voice but movement or eye opening to physical stimulation. RASS scale (-5) is unarousable. Patient Monitoring Once the patient has demonstrated a response to the naloxone, continue to monitor respiratory rate, depth, oxygen saturation and end-tidal CO2 (if available) every 15 minutes x 2, then every 30 minutes x 2, then every 1 hour x 1 after each naloxone dose. Consider transfer to ICU if patient respiratory parameters have not improved after 4 naloxone doses. Or naloxone (NARCAN) injection 0.2 mgJump to med 0.2 mg, Intramuscular, EVERY 2 MIN PRN, opioid reversal, Starting on Fri07/30/24 at 2233, Administer intramuscular if an intravenous route is not available and notify provider when administered. For unintended sedation or respiratory depression if all of the below criteria are met: ~ respiratory rate LESS than or EQUAL to 8. ~SaO2 less than 92% and or/end-tidal CO2 is greater than 50. ~ the patient is receiving an opioid, has unintended sedations assessed as RASS (-3), and is currently not on mechanical ventilation. RASS scale moderate (-3) is movement or eye opening to voice but no eye contact. Patient Monitoring Once the patient has demonstrated a response to the naloxone, continue to monitor respiratory rate, depth, oxygen saturation and end-tidal CO2 (if available) every 15 minutes x 2, then every 30 minutes x 2, then every 1 hour x 1 after each naloxone dose. Consider transfer to ICU if patient respiratory parameters have not improved after 4 naloxone doses. Or naloxone (NARCAN) injection 0.4 mgJump to med 0.4 mg, Intramuscular, EVERY 2 MIN PRN, opioid reversal, Starting on Fri07/30/24 at 2233, Administer intramuscular if an intravenous route is not available and notify provider when administered. For unintended sedation or respiratory depression if all of the below criteria are met: ~ respiratory rate LESS than or EQUAL to 8. ~ SaO2 less than 92% and or/end-tidal CO2 is greater than 50. ~ the patient is receiving an opioid, has unintended sedation assessed as RASS (-4) or (-5) and patient is currently not on mechanical ventilation. RASS scale (-4) is deep sedation with no response to voice but movement or eye opening to physical stimulation. RASS scale (-5) is unarousable. Patient Monitoring Once the patient has demonstrated a response to the naloxone, continue to monitor respiratory rate, depth, oxygen saturation and end-tidal CO2 (if available) every 15 minutes x 2, then every 30 minutes x 2, then every 1 hour x 1 after each naloxone dose. Consider transfer to ICU if patient respiratory parameters have not improved after 4 naloxone doses. Group 5: ondansetron (ZOFRAN ODT) ODT tab 4 mgJump to med 4 mg, Oral, EVERY 6 HOURS PRN, nausea, vomiting, Starting on Fri08/02/24 at 1416, With dry hands, peel back foil backing and gently remove tablet. Do not push oral disintegrating tablet through foil backing. Administer immediately on tongue and oral disintegrating tablet dissolves in seconds, then swallow with saliva. Liquid not required. Or ondansetron (ZOFRAN) injection 4 mgJump to med 4 mg, Intravenous, EVERY 6 HOURS PRN, nausea, vomiting, Administer over 2-5 Minutes, Starting on Fri08/02/24 at 1416 Group 6: oxyCODONE (ROXICODONE) tablet 5 mgJump to med 5 mg, Oral, EVERY 4 HOURS PRN, moderate pain, Starting on Fri08/02/24 at 1416, Start with the lowest dose. May adjust dose by 5 mg every 4 hours as needed. Notify provider to assess for uncontrolled pain or analgesic side effects. Hold while on a FUNCTIONAL CONSULTANT or with regular IV opioid dosing. Maximum total is 60 mg in 24 hours. Or oxyCODONE (ROXICODONE) tablet 10 mgJump to med 10 mg, Oral, EVERY 4 HOURS PRN, severe pain, Starting on Fri08/02/24 at 1416, Start with the lowest dose. May adjust dose by 5 mg every 4 hours as needed. Notify provider to assess for uncontrolled pain or analgesic side effects. Hold while on a FUNCTIONAL CONSULTANT or with regular IV opioid dosing. Maximum total is 60 mg in 24 hours. documented in this encounter Care Teams Corporate Development Officer Relationship Specialty Start Date End Date David Martinez MD [facility] [address] [place] [address] PCP - General Emergency Medicine 08/28/23 Ofe Carter EP [facility] [address] [id number] Cardiac Rehabilitation Therapist 10/23/23 10/23/24 Lorraine Ospina, MANUFACTURING ENGINEER SUPERVISOR [address] [phone] Assigned Heart and Vascular Provider 10/25/23 documented as of this encounter
--- OUTSIDE RECORDS SUMMARY | 2024-08-11 15:45 | XMS_ITS | Encounter Summary ---
Author Organization [place] Address [address] [facility] [place] [address] Care Team Providers Care Senior Executive Assistant Name Role Phone David Martinez MD Primary Care Provider Ofe Carter EP Unavailable [phone] Lorraine Ospina WOODS SUPERINTENDENT Unavailable [phone] Reason for Visit * Reason Onset Date Comments Appointment 07/30/2024 R/s need for wro ng location Encounter Details Date Type Department Care Team (Late st Contact Info) Description 07/30/2024 Telephone [facility] Heart [address] [place] [address] Gavin Moore MD [address] [facility] [address] [place] [address] Appointment (R/s need for wrong location ) Social History Tobacco Use Types Packs/Day Years [...] in an abandoned building, in an overnight half-way, or couch-surfing.) Yes 07/30/2024 Are you worried [...] encounter Miscellaneous Notes * Telephone Encounter - Janiya Freitas RN - 07/30/2024 2:14 PM CDT Spoke with patient. Unfortunately he presented to the wrong location and was unable to be seen for his cardiology appointment today. He states that he has has been experiencing chest pain, fatigue and shortness of breath which has been worsening over the past few weeks. He states that his chest pain feels like an elephant on his chest. He also states that he has fallen asleep a few times but acknowledges that he may be passing out. He states that his last episode of chest pain occurred 2 days ago. Patient has a known history of coronary disease with CABG 07/2020. He states that he was waiting to address his symptoms at his visit today to avoid going to the emergency department. Advised that patient present to the emergency room now for evaluation. He states understanding and agreement. * Telephone Encounter - Christiana Seals - 07/30/2024 2:00 PM CDT [facility] Phone Message May a detailed message be left on voicemail: yes Reason for Call: Other: pt was supposed to see MD Moore today per MD Lubin for a 6 month TAVR followup. Teresa has no other available appts for [facility] to use and documentation is all stating this appt is supposed to be with provider Gavin Moore. Pt is added to the wait list without an appt. [facility] did try to reach out to structural team but they were unavailable at time of pt's call. Action Taken: Other: cardiology Travel Screening: Not Applicable Thank you! [facility] Date of Service: documented in this encounter Plan of Treatment Upcoming Encounters Date Type Department Care Team (Late st Contact Info) Description 08/12/2024 11:30 AM CDT Appointment [facility] Cardiac and Pulmonary Rehabilitation Dewy Rose [id number] [place] [address] [address] [place] [phone] Tristen Leon MD [address] [place], [place] [address] 2, Rh Cardiac Rehab 10/21/2024 10:00 AM ENGINEERING EQUIPMENT OPERATOR Appointment [facility] [address] [place] [address] [address] [place] [phone] [place] [address] [place] [address] [address] [place], [place] [address] 10/21/2024 1:45 PM ENGINEERING EQUIPMENT OPERATOR Lab [facility] [place] [facility] [address] [facility] [address] [place] [phone] 10/21/2024 2:00 PM ENGINEERING EQUIPMENT OPERATOR Office Visit [facility] [place] [address] [facility] [address] [place] [phone] Lorraine Ospina, WOODS SUPERINTENDENT [address] [phone] documented as of this encounter Visit Diagnoses Not on filedocumented in this encounter Care Teams Senior Executive Assistant Relationship Specialty Start Date End Date David Martinez MD [facility] [address] [place] [address] PCP - General Emergency Medicine 08/28/23 Ofe Carter EP [facility] [address] [address] Cardiac Rehabilitation Therapist 10/23/23 10/23/24 Lorraine Ospina, WOODS SUPERINTENDENT [address] [phone] Assigned Heart and Vascular Provider 10/25/23 documented as of this encounter
--- OUTSIDE RECORDS SUMMARY | 2024-08-11 15:45 | XMS_ITS | Encounter Summary ---
Author Organization [facility] Address [address] [facility] [address] Care Team Providers Care Beater Worker Helper Name Role Phone David Martinez MD Primary Care Provider Ofe Carter EP Unavailable [phone] Lorraine Ospina FIXED ROUTE OPERATOR Unavailable [phone] Reason for Visit * Reason Onset Date Comments Appointment 06/10/2024 1 yr post TAVR Encounter Details Date Type Department Care Team (Late st Contact Info) Description 06/10/2024 Telephone [facility] [address] [place] [phone] Kyler Lubin MD [address] [facility] [address] [place] [address] Appointment (1 yr post TAVR ) Social History Tobacco Use Types Packs/Day [...] encounter Miscellaneous Notes * Telephone Encounter - MccurdyAbby - 06/10/2024 2:36 PM CDT Called to schedule 1 yr s/p TAVR follow up due 10/[address] Lubin LVM and callback information [phone] Abby Mccurdy Structural Heart Procedure Mechanical Commissioning Engineer [facility] documented in this encounter Plan of Treatment Upcoming Encounters Date Type Department Care Team (Late st Contact Info) Description 08/12/2024 11:30 AM CDT Appointment [facility] Cardiac and Pulmonary Rehabilitation [place] [id number] [place] [address] [address] [place] [phone] Tristen Leon MD [address] [place] [id number] 2, Rh Cardiac Rehab 10/21/2024 10:00 AM BRIM SHAPER Appointment [facility] [address] [facility] [address] [place] [phone] Kyler Lubin MD [address] [place] [id number] 10/21/2024 1:45 PM BRIM SHAPER Lab [facility] [id number] [place] [phone] 10/21/2024 2:00 PM BRIM SHAPER Office Visit [facility] [address] [place] [phone] Lorraine Ospina, FIXED ROUTE OPERATOR [address] [facility] [phone] documented as of this encounter Visit Diagnoses Not on filedocumented in this encounter Care Teams Beater Worker Helper Relationship Specialty Start Date End Date David Martinez MD [facility] [address] [place] [address] PCP - General Emergency Medicine 08/28/[address] [facility] [address] [phone] Cardiac Rehabilitation Therapist 10/23/23 10/23/24 Lorraine Ospina CNP [address] [address] Assigned Heart and Vascular Provider 10/25/23 documented as of this encounter
--- OUTSIDE RECORDS SUMMARY | 2024-08-11 15:45 | XMS_ITS | Encounter Summary ---
Author Organization [place] Address [address] [place] [address] Care Team Providers Care Sound Engineering Technician Name Role Phone [facility], [facility] Primary Care Provider Simon Rebolledo MD Unavailable Unavailable Gavin Moore MD Unavailable [phone] Gabriel Fortune DPM Unavailable [phone] Sara Schwab APRN LINUX UNIX SYSTEM ADMINISTRATOR Unavailable David Martinez MD Primary Care Provider Kyler Lubin MD Unavailable [phone] Ofe Carter Unavailable [phone] Lorraine Ospina LINUX UNIX SYSTEM ADMINISTRATOR Unavailable Reason for Referral * Diagnostic Imaging XR (Routine) - Closed Specialty Diagnoses / Procedures Referred By Contac t Referred To Contact Radiology. Diagnoses S/P CABG x 4 Procedures XR Chest 2 Views Page Finney MD [address] [place] [address] [address] [place] [address] Referral ID Status Reason Start Date Expiration Date Visits Re quested Visits Authorized [id number] Closed 09/05/2020 09/05/2021 1 1 CTION PREVENTION SPECIALIST Encounter Details Date Type Department Care Team (Late st Contact Info) Description 09/05/2020 Orders Only SH PHYS STANDARD [address] [place] [phone] Page Finney MD [address] [place] [id number] S/P CABG x 4 (Primary Dx) Social [...] COVID-19? No / Unsure 09/06/2020 8:36 AM INFECTION PREVENTION SPECIALIST documented as of this encounter Plan of Treatment Upcoming Encounters Date Type Department Care Team (Late st Contact Info) Description 08/12/2024 11:30 AM CDT Appointment [facility] Cardiac and Pul[facility] Rehabilitation [address] [place] [address] Tristen Leon MD 420 [place], [place] [address] 2, Rh Cardiac Rehab 10/21/2024 10:00 AM INFECTION PREVENTION SPECIALIST Appointment [facility] [address] [facility] [place] [phone] Kyler Lubin MD [address] [place] [address] 10/21/2024 1:45 PM INFECTION PREVENTION SPECIALIST Lab M [facility] 6405 [facility] [address] [place] [phone] 10/21/2024 2:00 PM INFECTION PREVENTION SPECIALIST Office Visit [facility] 6405 [facility] [address] [place] [phone] Lorraine Ospina, LINUX UNIX SYSTEM ADMINISTRATOR 6[address] [facility] [place] [address]145 documented as of this encounter Results * XR Chest 2 Views (09/06/2020 8:45 AM INFECTION PREVENTION SPECIALIST) Anatomical Region Laterality Modality Chest Radio Fluoroscop y Impressions 09/06/2020 1:16 PM INFECTION PREVENTION SPECIALIST IMPRESSION: Bilateral pleural effusions, left greater than right. Left basilar airspace opacity may represent atelectasis or pneumonia. AUGUSTINA HARMON MD Narrative 09/06/2020 1:16 PM INFECTION PREVENTION SPECIALIST CHEST TWO VIEWS ??09/06/2020 8:45 AM HISTORY: [...] pneumonia. AUGUSTINA HARMON MD Page Finney MD [facility] ORDERABLES documented in this encounter Visit Diagnoses Diagnosis S/P CABG x 4- Primary Postsurgical aortocoronary bypass status S/P CABG x 4 Postsurgical aortocoronary bypass status documented in this encounter Additional Health Concerns Infection Onset Date Last Indicated Resolved Time Rule Out COVID-19 11/23/2020 11/23/2020 11/23/2020 3:44 AM INFECTION PREVENTION SPECIALIST documented as of this encounter Care Teams Sound Engineering Technician Relationship Specialty Start Date End Date Clinic, [facility] [address] [place], [place] [id number] PCP - General 01/04/19 08/27/23 David Martinez MD [facility] 1999 [place] [address] PCP - General Emergency Medicine 08/28/23 Simon Rebolledo MD Assigned Heart and Vascular Provider 08/25/20 09/16/20 Gavin Moore MD [address] [facility] [address] [place] [address] Assigned Heart and Vascular Provider 09/17/20 04/14/21 Gabriel Fortune DPM [address] [facility] 300 [place] [address] Assigned Musculoskeletal Provider 12/03/20 05/31/22 Sara Schwab APRN LINUX UNIX SYSTEM ADMINISTRATOR 1700 [place] [address] Assigned Heart and Vascular Provider 04/15/21 06/28/22 Kyler Lubin MD [address] [place] [address] Assigned Heart and Vascular Provider 08/30/23 10/24/23 Ofe Carter EP [facility] [address] [place] [address] Cardiac Rehabilitation Therapist 10/23/23 10/23/24 Lorraine Ospina, LINUX UNIX SYSTEM ADMINISTRATOR [address] [place] [address] Assigned Heart and Vascular Provider 10/25/23 documented as of this encounter
--- OUTSIDE RECORDS SUMMARY | 2024-08-11 15:45 | XMS_ITS | Encounter Summary ---
Author Organization [place] Address [address] [facility] [place] [address] Care Team Providers Care Highway Construction Inspector Name Role Phone [facility], [facility] Primary Care Provider Simon Rebolledo MD Unavailable Unavailable Gavin Moore MD Unavailable [phone] Gabriel Fortune DPM Unavailable [phone] Sara Schwab APRN PHARMACY HELPER Unavailable David Martinez MD Primary Care Provider Kyler Lubin MD Unavailable [phone] Ofe Carter Unavailable [phone] Lorraine Ospina PHARMACY HELPER Unavailable [phone] Encounter Details Date Type Department Care Team (Late st Contact Info) Description 08/07/2020 Orders Only SH PHYS STANDARD [address] [place] [phone] Page Finney MD [address] [place] [id number] S/P CABG x 4 (Primary Dx) Social [...] Info) Description 08/12/2024 11:30 AM CDT Appointment [facility] Cardiac and Pulmonary Rehabilitation [address] [address] Tristen Leon MD 420 [place], [place] [phone] 2, Rh Cardiac Rehab 10/21/2024 10:00 AM CARDIOVASCULAR RN Appointment [facility] 6[address] [facility] [address] [place] [phone] Kyler Lubin MD 6405 [facility] [address] [place] [address] 10/21/2024 1:45 PM CARDIOVASCULAR RN Lab [facility] [address]400 [place] [phone] 10/21/2024 2:00 PM CARDIOVASCULAR RN Office Visit [facility] [address] [address] [place] [phone] Lorraine Ospina, PHARMACY HELPER 6405 [facility] [place] [address] documented as of this encounter Results * Asymptomatic COVID-19 Virus (Coronavirus) by PCR (08/12/2020 2:12 PM CDT) [facility] [place] - Source Nasopharyngeal 08/12/2020 2:27 PM CDT [facility] COVID-19 Virus [place] to [facility] [place] - Result Not Detected 08/13/2020 6:15 PM CDT [facility] Comment: Collection of multiple specimens from the [...] and amplified using the HDPCR SARS-CoV-2 assay (OpenPortal.). The HDPCRTM SARS-CoV-2 assay is a reverse needle loom operator helper real-time polymerase chain reaction (qRT-PCR) test intended [...] (Centers for Disease Control) Testing performed by [facility] ([facility]) [address] [place] [address] 175 [facility] [address] The test performance characteristics were determined by [facility]. It has not been cleared or approved [...] NERAL ORDERABLES [facility], [facility] 1200 [facility] 340 [place], [place] [address] [phone] [facility] [address] [place] [address] documented in this encounter Visit Diagnoses Diagnosis S/P CABG x 4- Primary Postsurgical aortocoronary bypass status documented in this encounter Additional Health Concerns Infection Onset Date Last Indicated Resolved Time Rule Out COVID-19 11/23/2020 11/23/2020 11/23/2020 3:44 AM CARDIOVASCULAR RN documented as of this encounter Care Teams Highway Construction Inspector Relationship Specialty Start Date End Date Clinic, [facility] 4645 [place] [address] PCP - General 01/04/19 08/27/23 David Martinez MD [facility] 2000 [place] [address] PCP - General Emergency Medicine 08/28/23 Simon Rebolledo MD Assigned Heart and Vascular Provider 08/25/20 09/16/20 Gavin Moore MD 6405 [facility] [address] [place] [address] Assigned Heart and Vascular Provider 09/17/20 04/14/21 Gabriel Fortune DPM [address] [facility] [address] [place], [place] [address] Assigned Musculoskeletal Provider 12/03/20 05/31/22 Sara Schwab APRN PHARMACY HELPER 1700 [place] [address] Assigned Heart and Vascular Provider 04/15/21 06/28/22 Kyler Lubin MD [address] [place] [address] Assigned Heart and Vascular Provider 08/30/23 10/24/23 Ofe Carter EP [facility] [address] [place] [address] Cardiac Rehabilitation Therapist 10/23/23 10/23/24 Lorraine Ospina PHARMACY HELPER [address] [place] 443575 Assigned Heart and Vascular Provider 10/25/23 documented as of this encounter
--- OUTSIDE RECORDS SUMMARY | 2024-08-11 15:45 | XMS_ITS | Encounter Summary ---
Author Organization [place] Address [address] [facility] [place] [address] Care Team Providers Care Director Of Sports Performance Name Role Phone Clinic, [facility] Primary Care Provider Simon Rebolledo MD Unavailable Unavailable Gavin Moore MD Unavailable [phone] Gabriel Fortune DPM Unavailable [phone] Sara Schwab APRN PROGRAM MANAGEMENT PROFESSIONAL Unavailable David Martinez MD Primary Care Provider Kyler Lubin MD Unavailable [phone] Ofe Carter Unavailable [phone] Lorraine Ospina PROGRAM MANAGEMENT PROFESSIONAL Unavailable [phone] Encounter Details Date Type Department Care Team (Late st Contact Info) Description 07/06/2020 Orders Only SH PHYS STANDARD [address] [place] [phone] SubhashSofya MD [address] [facility] 207 [place] [address] Social History Tobacco Use Types [...] Info) Description 08/12/2024 11:[address] [facility] Cardiac and Pulmonary Rehabilitation [place] [address] [facility] [address] [place] [phone] Tristen Leon MD 420 [place] [address] 2, Rh Cardiac Rehab 10/21/2024 10:00 AM SUPERVISOR REFRACTORY PRODUCTS Appointment [facility] 6[address] [facility] [address] [place] [phone] Kyler Lubin MD [address] [place] [facility] [address] [place] [address] 10/21/2024 1:45 PM SUPERVISOR REFRACTORY PRODUCTS Lab [facility] [address] [facility] [address] [place] [phone] 10/21/2024 2:00 PM SUPERVISOR REFRACTORY PRODUCTS Office Visit [facility] [address] [facility] [address] [place] [phone] Lorraine Ospina, PROGRAM MANAGEMENT PROFESSIONAL [address] [facility] [place] [address] documented as of this encounter Visit Diagnoses Not on filedocumented in this encounter Additional Health Concerns Infection Onset Date Last Indicated Resolved Time Rule Out COVID-19 11/23/2020 11/23/2020 11/23/2020 3:44 AM SUPERVISOR REFRACTORY PRODUCTS documented as of this encounter Care Teams Director Of Sports Performance Relationship Specialty Start Date End Date Clinic, [address] [address] PCP - General 01/04/19 08/27/23 David Martinez MD [facility] 1999 [place] [address] PCP - General Emergency Medicine 08/28/23 Simon Rebolledo MD Assigned Heart and Vascular Provider 08/25/20 09/16/20 Gavin Moore MD [address] [place] [address] Assigned Heart and Vascular Provider 09/17/20 04/14/21 Gabriel Fortune DPM [address] [facility] [address] [place] [address] Assigned Musculoskeletal Provider 12/03/20 05/31/22 Sara Schwab APRN PROGRAM MANAGEMENT PROFESSIONAL 1700 [place] [address] Assigned Heart and Vascular Provider 04/15/21 06/28/22 Kyler Lubin MD [address] [place] [address] Assigned Heart and Vascular Provider 08/30/23 10/24/23 Ofe Carter EP [facility] [address] [place] [address] Cardiac Rehabilitation Therapist 10/23/23 10/23/24 Lorraine Ospina PROGRAM MANAGEMENT PROFESSIONAL [address] [place] [address] Assigned Heart and Vascular Provider 10/25/23 documented as of this encounter
--- OUTSIDE RECORDS SUMMARY | 2024-08-11 15:45 | XMS_ITS | Encounter Summary ---
Author Organization [place] Address [address] [facility] [place] [address] Care Team Providers Care Ranch Supervisor Name Role Phone Clinic, [facility] Primary Care Provider Simon Rebolledo MD Unavailable Unavailable Gavin Moore MD Unavailable [phone] Gabriel Fortune DPM Unavailable [phone] Sara Schwab APRN WORKDAY CONSULTANT Unavailable David Martinez MD Primary Care Provider Kyler Lubin MD Unavailable [phone] Ofe Carter Unavailable [phone] Lorraine Ospina WORKDAY CONSULTANT Unavailable [phone] Encounter Details Date Type Department Care Team (Late st Contact Info) Description 07/06/2020 Orders Only SH PHYS STANDARD [address] [place] [phone] SubhashSofya MD [address] [facility] 207 [place] [address] Unstable angina (H) (Primary Dx) [...] [facility] Care System Cardiac and Pulmonary Rehabilitation [place] [address] [facility] 240 [place] [phone] Tristen Leon MD 420 [place] [address] 2, Rh Cardiac Rehab 10/21/2024 10:00 AM PRODUCT TECHNOLOGY SCIENTIST Appointment [facility] Care [address] [facility] [address] [place] [phone] Kyler Lubin MD [address] [place] [address]605 10/21/2024 1:45 PM PRODUCT TECHNOLOGY SCIENTIST Lab [facility] Laboratory [address] [facility] [address] [place] [phone] 10/21/2024 2:00 PM PRODUCT TECHNOLOGY SCIENTIST Office Visit [facility] 6[address] [facility] [address] [place] [phone] Lorraine Ospina, WORKDAY CONSULTANT 6[address] [facility] [place] [address] documented as of this encounter Visit Diagnoses Diagnosis Unstable angina (H)- Primary Intermediate coronary syndrome documented in this encounter Additional Health Concerns Infection Onset Date Last Indicated Resolved Time Rule Out COVID-19 11/23/2020 11/23/2020 11/23/2020 3:44 AM PRODUCT TECHNOLOGY SCIENTIST documented as of this encounter Care Teams Ranch Supervisor Relationship Specialty Start Date End Date Clinic, [address] [id number] PCP - General 3/4/19 10/25/23 David Martinez MD [facility] 1999 [place] [address] PCP - General Emergency Medicine 08/28/23 Simon Rebolledo MD Assigned Heart and Vascular Provider 08/25/20 09/16/20 Gavin Moore MD [address] [place] [address] Assigned Heart and Vascular Provider 09/17/20 04/14/21 Gabriel Fortune DPM [address] [facility] [address] [place] [address] Assigned Musculoskeletal Provider 12/03/20 05/31/22 Sara Schwab APRN WORKDAY CONSULTANT 1700 [place] [address] Assigned Heart and Vascular Provider 04/15/21 06/28/22 Kyler Lubin MD [address] [place] [address] Assigned Heart and Vascular Provider 08/30/23 10/24/23 Ofe Carter EP [facility] [address] [place] 3847[address] Cardiac Rehabilitation Therapist 10/23/23 10/23/24 Lorraine Ospina, WORKDAY CONSULTANT [address] [place] [address] Assigned Heart and Vascular Provider 10/25/23 documented as of this encounter
--- OUTSIDE RECORDS SUMMARY | 2024-08-11 15:45 | XMS_ITS | Encounter Summary ---
Author Organization [place] Address [address] [facility] [place] [address] Care Team Providers Care Cardiopulmonary Technician And Eeg Tech Name Role Phone Clinic, [facility] Primary Care Provider Simon Rebolledo MD Unavailable Unavailable Gavin Moore MD Unavailable [phone] Gabriel Fortune DPM Unavailable [phone] Sara Schwab APRN DIRECTOR INDUSTRIAL MUSEUM Unavailable David Martinez MD Primary Care Provider Kyler Lubin MD Unavailable [phone] Ofe Carter Unavailable [phone] Lorraine Ospina DIRECTOR INDUSTRIAL MUSEUM Unavailable [phone] Encounter Details Date Type Department Care Team (Late st Contact Info) Description 07/06/2020 Orders Only SH PHYS STANDARD [address] [place] [phone] SubhashSofya MD [address] [facility] 207 [place] [address] Social History Tobacco Use Types [...] 08/12/2024 11:30 AM CDT Appointment [facility] Cardiac and Pulmonary Rehabilitation [place] [address] [facility] [address] [place] [phone] Tristen Leon MD 420 [place] [address] 2, Rh Cardiac Rehab 10/21/2024 10:00 AM MANAGER SAP Appointment [facility] Care [address] [facility] [address] [place] [phone] Kyler Lubin MD [address] [facility] [address] [place] [address] 10/21/2024 1:45 PM MANAGER SAP Lab [facility] [address] [facility] [address] [place] [phone] 10/21/2024 2:00 PM MANAGER SAP Office Visit [facility] [address] [facility] [address] [place] [phone] Lorraine Ospina, DIRECTOR INDUSTRIAL MUSEUM 6[address] [facility] [address]45 documented as of this encounter Visit Diagnoses Not on filedocumented in this encounter Additional Health Concerns Infection Onset Date Last Indicated Resolved Time Rule Out COVID-19 11/23/2020 11/23/2020 11/23/2020 3:44 AM MANAGER SAP documented as of this encounter Care Teams Cardiopulmonary Technician And Eeg Tech Relationship Specialty Start Date End Date Clinic, [address] [address] PCP - General 01/04/19 08/27/23 David Martinez MD [facility] 1999 [place] [address] PCP - General Emergency Medicine 08/28/23 Simon Rebolledo MD Assigned Heart and Vascular Provider 08/25/20 09/16/20 Gavin Moore MD [address] [place] [address] Assigned Heart and Vascular Provider 09/17/20 04/14/21 Gabriel Fortune DPM [address] [facility] [address] [place] [address] Assigned Musculoskeletal Provider 12/03/20 05/31/22 Sara Schwab APRN DIRECTOR INDUSTRIAL MUSEUM [address] [place] [address] Assigned Heart and Vascular Provider 04/15/21 06/28/22 Kyler Lubin MD [address] [place] [address] Assigned Heart and Vascular Provider 08/30/23 10/24/23 Ofe Carter EP [facility] [address] [place] [place] [address] Cardiac Rehabilitation Therapist 10/23/23 10/23/24 Lorraine Ospina DIRECTOR INDUSTRIAL MUSEUM [address] [place] [address] Assigned Heart and Vascular Provider 10/25/23 documented as of this encounter
--- OUTSIDE RECORDS SUMMARY | 2024-08-11 15:45 | XMS_ITS | Encounter Summary ---
Author Organization [place] Address [address] [facility] [place] [address] Care Team Providers Care Flitch Hanger Name Role Phone David Martinez MD Primary Care Provider Ofe Carter EP Unavailable [phone] Lorraine Ospina CNC MACHINIST Unavailable [phone] Encounter Details Date Type Department Care Team (Latest Contact Info) Description 07/30/2024 Travel Social History Tobacco Use Types Packs/Day [...] in an abandoned building, in an overnight usp, or couch-surfing.) Yes 07/30/2024 Are you worried [...] Info) Description 08/12/2024 11:30 AM CDT Appointment [facility] Cardiac and Pulmonary Rehabilitation [address] [phone] Tristen Leon MD [address] [place] [phone] 2, Rh Cardiac Rehab 10/21/2024 10:00 AM CHIP MIXING MACHINE OPERATOR Appointment [facility] Care [address] [facility] [address] [place] [phone] Kyler Lubin MD 6405 [facility] [address] [place], [place] [address] 10/21/2024 1:45 PM CHIP MIXING MACHINE OPERATOR Lab [facility] Clinic [place] Laboratory [address] [facility] [address] [place] [phone] 10/21/2024 2:00 PM CHIP MIXING MACHINE OPERATOR Office Visit [facility] Clinic [place] [address] [facility] [address] [place] [phone] Lorraine Ospina, CNC MACHINIST [address] [place] [address] documented as of this encounter Visit Diagnoses Not on filedocumented in this encounter Care Teams Flitch Hanger Relationship Specialty Start Date End Date David Martinez MD [facility] 1999 [place] [address] PCP - General Emergency Medicine 08/28/23 Ofe Carter EP [facility] [address] [place] [address] Cardiac Rehabilitation Therapist 10/23/23 10/23/24 Lorraine Ospina, CNC MACHINIST [address] [place] [address] [address] Assigned Heart and Vascular Provider 10/25/23 documented as of this encounter
--- OUTSIDE RECORDS SUMMARY | 2024-08-11 15:45 | XMS_ITS | Encounter Summary ---
Author Organization [place] Address [address]50 [facility] [place] [address] Care Team Providers Care Core Laying Machine Operator Name Role Phone David Martinez MD Primary Care Provider Ofe Carter EP Unavailable [phone] Lorraine Ospina JEWEL INSPECTOR Unavailable Reason for Visit * Reason Onset Date Comments Appointment 06/07/2024 TAVR Encounter Details Date Type Department Care Team (Late st Contact Info) Description 06/07/2024 Telephone [facility] Heart Clinic [address] [place] [address] Kyler Lubin MD 6[address] [facility] [address] [place] [address] Appointment (TAVR ) Social History Tobacco Use Types Packs/Day [...] Notes * Telephone Encounter - MccurdyAbby - 06/07/2024 10:41 AM CDT Called to schedule 6 mon s/p TAVR & 1 Yr follow ups LVM and callback information [phone] Abby Mccurdy Structural Heart Procedure Music Internship [facility] documented in this encounter Plan of Treatment Upcoming Encounters Date Type Department Care Team (Late st Contact Info) Description 08/12/2024 11:30 AM CDT Appointment [facility] Cardiac and Pulmonary Rehabilitation [address] 240 [place] [phone] Tristen Leon MD 420 [place], [place] [address] 2, Rh Cardiac Rehab 10/21/2024 10:00 AM LDR RN Appointment [facility] Heart Care 6[address] [facility] [address] [place] [phone] Kyler Lubin MD 6[address] [facility] [address] [place], [place] [address] 10/21/2024 1:45 PM LDR RN Lab [facility] [address] [facility] [address] [place] [phone] 10/21/2024 2:00 PM LDR RN Office Visit [facility] [address] [phone] Lorraine Ospina, JEWEL INSPECTOR 6405 [facility] [place] [address] documented as of this encounter Visit Diagnoses Not on filedocumented in this encounter Care Teams Core Laying Machine Operator Relationship Specialty Start Date End Date David Martinez MD [facility] 1999 [place] [address] PCP - General Emergency Medicine 08/28/23 Ofe Carter EP [facility] [address] [place] [address] Cardiac Rehabilitation Therapist 10/23/23 10/23/24 Lorraine Ospina, JEWEL INSPECTOR [address] [place] [address] [address] Assigned Heart and Vascular Provider 10/25/23 documented as of this encounter
--- OUTSIDE RECORDS SUMMARY | 2024-08-11 15:45 | XMS_ITS | Encounter Summary ---
Author Organization [place] Address [address] [place] [address] Care Team Providers Care Premium Auditor Name Role Phone David Martinez MD Primary Care Provider Ofe Carter EP Unavailable Lorraine Ospina FEDERAL DISTRICT CLERK Unavailable Reason for Visit * Reason Onset Date Comments Appointment 06/03/2024 Encounter Details Date Type Department Care Team (Late st Contact Info) Description 06/03/2024 Telephone [facility] [address] [place] [address] Kyler Lubin MD [address] [facility] [address] [place] [address] Appointment Social History Tobacco Use Types Packs/Day Years [...] encounter Miscellaneous Notes * Telephone Encounter - Abby Mccurdy - 06/03/2024 9:43 AM CDT Called to schedule 6 mon s/p TAVR Follow up appt w/ Dr. Moore in [place] - & 1 yr TAVR follow up appt LVM and callback information [phone] Abby Mccurdy Structural Heart Procedure Enologist [facility] documented in this encounter Plan of Treatment Upcoming Encounters Date Type Department Care Team (Late st Contact Info) Description 08/12/2024 11:30 AM CDT Appointment [facility] Cardiac and Pulmonary Rehabilitation [address] [place] [phone] Tristen Leon MD [address] [place], [place] [phone] 2, Rh Cardiac Rehab 10/21/2024 10:00 AM SENIOR PRINCIPAL Appointment [facility] [address] [place] [phone] Kyler Lubin MD [id number] [place] [id number] 10/21/2024 1:45 PM SENIOR PRINCIPAL Lab [facility] [id number] [place] [phone] 10/21/2024 2:00 PM SENIOR PRINCIPAL Office Visit [facility] [address] [place] [phone] Lorraine Ospina, FEDERAL DISTRICT CLERK [address] [place] [address] documented as of this encounter Visit Diagnoses Not on filedocumented in this encounter Care Teams Premium Auditor Relationship Specialty Start Date End Date David Martinez MD [facility] [address] [place] [address] PCP - General Emergency Medicine 08/28/23 Ofe Carter EP [facility] [address] [address] Cardiac Rehabilitation Therapist 10/23/23 10/23/24 Lorraine Ospina FEDERAL DISTRICT CLERK [address] [address] Assigned Heart and Vascular Provider 10/25/23 documented as of this encounter
--- OUTSIDE RECORDS SUMMARY | 2024-08-11 15:45 | XMS_ITS | Encounter Summary ---
Author Organization [place] Address [address] [facility] [place] [address] Care Team Providers Care Unit Nurse Name Role Phone [facility] Primary Care Provider Simon Rebolledo MD Unavailable Unavailable Gavin Moore MD Unavailable [phone] Gabriel Fortune DPM Unavailable [phone] Sara Schwab APRN PROJECT MANAGER [employer]TERTAINMENT [employer] MEDIA Unavailable David Martinez MD Primary Care Provider Kyler Lubin MD Unavailable Ofe Carter Unavailable [phone] Lorraine Ospina PROJECT MANAGER ENTERTAINMENT AND MEDIA Unavailable Reason for Referral * Diagnostic Imaging Ultrasound (Routine) - Closed Specialty Diagnoses / Procedures Referred By Contac t Referred To Contact Radiology. Diagnoses S/P CABG x 4 Procedures US Thoracentesis Page Finney MD [address] [place] [address] Rh Ultrasound [address] [place] [address] Referral ID Status Reason Start Date Expiration Date Visits Re quested Visits Authorized [id number] Closed 09/06/2020 09/06/2021 1 1 ED LINEN DISTRIBUTOR Encounter Details Date Type Department Care Team (Late st Contact Info) Description 09/06/2020 Orders Only [facility] STANDARD [address] [phone] Page Finney MD [address] [place] [id number] S/P CABG x 4 (Primary Dx) Social [...] COVID-19? No / Unsure 09/06/2020 8:36 AM SOILED LINEN DISTRIBUTOR documented as of this encounter Plan of Treatment Upcoming Encounters Date Type Department Care Team (Late st Contact Info) Description 08/12/2024 11:30 AM CDT Appointment [facility] Cardiac and Pulmonary Rehabilitation [address] [place] [address] Tristen Leon MD [address] [place], [place] [phone] 2, Rh Cardiac Rehab 10/21/2024 10:00 AM SOILED LINEN DISTRIBUTOR Appointment [facility] [address] [facility] [place] [phone] Kyler Lubin MD [address] [place] [id number] 10/21/2024 1:45 PM SOILED LINEN DISTRIBUTOR Lab [facility] [address] [facility] [address] [place] [phone] 10/21/2024 2:00 PM SOILED LINEN DISTRIBUTOR Office Visit [facility] [place] [address] [facility] [address] [place] [phone] Lorraine Ospina, PROJECT MANAGER ENTERTAINMENT AND MEDIA [phone] [facility] [place] [id number] documented as of this encounter Results * US Thoracentesis (09/11/2020 2:18 PM SOILED LINEN DISTRIBUTOR) Anatomical Region Laterality Modality Chest Ultrasound Impressions 09/11/2020 2:38 PM SOILED LINEN DISTRIBUTOR IMPRESSION: ?? Successful ultrasound-guided thoracentesis, as discussed above. CPT codes for physician reference only: 80502 AUGUSTINA PACKER MD Narrative 09/11/2020 2:38 PM SOILED LINEN DISTRIBUTOR [facility] DATE: 09/11/2020 PROCEDURE: IMAGING GUIDED LEFT THORACENTESIS INTERVENTIONAL RADIOLOGIST: Augustina Packer MD. INDICATION: Symptomatic left pleural effusion.. CONSENT: [...] tissues. Under direct ultrasound guidance a 5 Cuban catheter was inserted into the pleural effusion. A total of 2000 mL of mildly bloody pleural fluid was removed and sent to the lab if diagnostic analysis was requested. FINDINGS: The initial ultrasound shows a pleural effusion. Images obtained during catheter placement show the access needle with tip in the pleural fluid. Procedure Note Augustina Packer MD - 09/11/2020 [facility] DATE: 09/11/2020 PROCEDURE: IMAGING GUIDED LEFT THORACENTESIS INTERVENTIONAL RADIOLOGIST: Augustina Packer MD. INDICATION: Symptomatic left pleural effusion.. CONSENT: [...] tissues. Under direct ultrasound guidance a 5 Cuban catheter was inserted into the pleural effusion. [...] above. 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 documented in this encounter Additional Health Concerns Infection Onset Date Last Indicated Resolved Time Rule Out COVID-19 11/23/2020 11/23/2020 11/23/2020 3:44 AM SOILED LINEN DISTRIBUTOR documented as of this encounter Care Teams Unit Nurse Relationship Specialty Start Date End Date [address] [address] PCP - General 01/04/19 08/27/23 David Martinez MD [address] [address] PCP - General Emergency Medicine 08/28/23 Simon Rebolledo MD Assigned Heart and Vascular Provider 08/25/20 09/16/20 Gavin Moore MD [address] [place] [address] Assigned Heart and Vascular Provider 09/17/20 04/14/21 Gabriel Fortune DPM [address] [facility] [address] [place], [place] [address] Assigned Musculoskeletal Provider 12/03/20 05/31/22 Sara Schwab APRN PROJECT MANAGER ENTERTAINMENT AND MEDIA [address] [place] [address] Assigned Heart and Vascular Provider 04/15/21 06/28/22 Kyler Lubin MD [address] [place] [address] Assigned Heart and Vascular Provider 08/30/23 10/24/23 Ofe Carter EP [facility] [address] [address] Cardiac Rehabilitation Therapist 10/23/23 10/23/24 Lorraine Ospina, PROJECT MANAGER ENTERTAINMENT AND MEDIA [address] [address] Assigned Heart and Vascular Provider 10/25/23 documented as of this encounter
--- OUTSIDE RECORDS SUMMARY | 2024-08-11 15:45 | XMS_ITS | Encounter Summary ---
Author Organization [facility] Address [address] [facility] 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 Unstable angina pectoris (H) Acute on chronic congestive heart failure, unspecified heart failure type (H) Bilateral leg edema Dyspnea on exertion Cardiac Spec Care [address], [address] [place] [phone] Referral ID Status Reason Start Date Expiration Date Visits Re quested Visits Authorized [id number] 1 1 Encounter Details Date Type Department Care Team (Late st Contact Info) Description 08/02/2024 12:30 PM CDT - 08/02/2024 1:30 PM CDT Surgery [facility] [address] [phone] Malvin Ma MD [address] [place] [id number] Coronary Angiogram Surgery Details Date/Time Status Location OR Service Patient Class Case Class Case Type Trauma Case? 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 1 Cardiology Inpatient Panel 1 Procedure LRB Anes Op Region Wound Class Comments Coronary Angiogram N/A Moderate Sedation Heart Percutaneous Coronary Intervention N/A Moderate Sedation Heart Surgeon Surgeon Role Service Panel Tristen Leon MD Fellow - Assisting Cardiology 1 Malvin Ma MD Primary Cardiology 1 documented in this encounter Social History Tobacco Use Types Packs/Day Years [...] in an abandoned building, in an overnight senior care, or couch-surfing.) Yes 07/30/2024 Are you worried [...] Sign Reading Time Taken Comments Blood Pressure 140/66 08/02/2024 11:20 AM CDT Pulse 56 08/02/2024 11:20 AM CDT Temperature 36.9 ??C (98.5 ??F) 08/02/2024 1 1:20 AM CDT Respiratory Rate 12 08/02/2024 1:26 PM CDT Oxygen Saturation 97% 08/02/2024 11: 20 AM CDT Inhaled Oxygen Concentration - - Weight 147.5 kg (325 lb 3.2 oz) 08/02/2024 5:00 AM CDT Height 180.3 cm (5' 11) 07/30/2024 10: 28 PM CDT Body Mass Index 44.81 07/30/2024 10:28 PM CDT documented in this encounter Discharge Summaries * Joy Leung MD - 08/04/2024 10:05 AM CDT Images from the original note were not included. [facility] Hospitalist Discharge Summary Date of Admission: 07/30/2024 Date of Discharge: 08/04/2024 Discharging Provider: Joy Leung MD Discharge Service: Hospitalist Service Discharge Diagnoses Chevy Damon is a 69 year old male with a history of afib/flutter on Xarelto, CAD s/p CABG x 4 [id number], TAVR in 10/2023, DM2, Htn, Hld, CHINO who is admitted on 07/30/2024 with exertional chest pain. 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 EKG appears similar with slightly improved T-wave inversions in theinferior leads compared to prior. Troponin stable 20 -> 18. BNP 795. Last dose of Xarelto was evening of 07/29. Consideration being given to ACS, CHF and aortic valve stenosis s/p TAVR. -Hold Xarelto -Continue low intensity heparin drip -continue [employer] metoprolol XL, losartan, amlodipine, lipitor, lasix -cardiac [...] Maintained on metoprolol XL and Xarelto -continue [employer] metoprolol XL, Xarelto -cardiac monitoring DM2 Last Hgb A1C in September 2023 of 7.5. -continue [employer] lantus 60 units qam -prandial novolog at [...] Appointments Follow-up and recommended labs and tests [facility] [address] [place] [address], 2nd floor [place] You also have a previously scheduled appointment at the [facility] on FridayOctober 13 at 2:10 pm [...] 30 minutes dischargingthis patient. Joy Leung MD [facility] [address] [place] [address] , [address] [facility] [phone] Physical Exam Vital Signs: Temp: 98.8 ??F [...] time. Nessa. Neuropsychiatric: normal mood and affect Primary Care Physician David Martinez Discharge Orders Cardiac Rehab Layer Up Referral Follow-Up with Cardiology Cardiac Rehab Layer Up Referral Brief Discharge Instructions Do NOT stop your aspirin or platelet inhibitor unless directed by your Syrup Maker. These medications help to prevent platelets in [...] for 15 minutes. If bleeding continues, call --. Precautions - Lifting NO lifting of more than 10 pounds for at least 3 days. If you usually lift 50 pounds or more daily,talk with your Syrup Maker. Precautions - Household Activities Avoid any hard work or tiring activities. NO physical activity such as mowing the lawn, raking, vacuuming, changing sheets on your bed, snow shoveling, or using a pump and blower operator. Precautions - Active Sports Activities Avoid any [...] or a pain medicine recommended by your Syrup Maker. Comfort and Pain Management - Bruising after [...] week Follow-up and recommended labs and tests [facility] Cardiology [address] [place] [address], 2nd floor [place] You also have a previously scheduled appointment at the [facility] on at 2:10 pm with LOLA [...] Labs Lab Test 08/04/24 0719 08/04/24 0217 08/03/247 08/03/24 0747 08/03/24 0635 08/02/24 0809 08/02/24 0539 07/31/24 0815 07/31/24 0409 NA -- -- -- -- 139 -- 140 -- 141 POTASSIUM -- -- -- -- 4.6 -- 4.2 4.2 -- 4.4 CHLORIDE -- -- -- -- 100 -- 102 -- 104 CO2 -- -- -- -- -- - BUN -- -- -- -- [...] Narrative EXAM: XR CHEST 2 VIEWS LOCATION: [facility] DATE: 07/30/2024 INDICATION: SOB, CP COMPARISON: 10/23/2020 Impression IMPRESSION: Median sternotomy wires are noted. Stable cardiac size. No consolidation or pneumothorax. Small bilateral pleural effusions, right greater than left. Echocardiogram Complete Value LVEF 60-65% Narrative [id number]^NORBERT^LAURO [facility] Echocardiography Laboratory [address] [place] [address] Name: CHEVY DAMON : 1955 Study Date: 07/31/2024 01:04 PM Age: 69 yrs Gender: Male Patient Location: [facility] Reason For Study: Chest Pain, Chest Pressure, Chest Tightness Ordering Physician: LAURO TOUSSAINT Referring Physician: Juan Hernandez Performed By: John Callahan BSA: 2.6 m2 Height: 71 in Weight: 336 lb HR: 61 BP: 127/66 mmHg Procedure Complete Portable Echo Adult. Beth ([facility] #[id number]) given intravenously. Interpretation Summary Left ventricular systolic [...] artery disease involving coronary bypass graft of jena heart without angina pectoris; Chest pain, unspecified type !! atorvastatin (LIPITOR) 40 MG tablet Take 1 tablet (40 mg) by mouth daily. Qty: 90 tablet, Refills: 3 Associated Diagnoses: Dyspnea on exertion; Coronary artery disease involving coronary bypass graft of jena heart without angina pectoris; Chest pain, unspecified type clopidogrel (PLAVIX) 75 MG tablet Take 1 tablet (75 mg) by mouth daily. Dose to start tomorrow. Qty: 90 tablet, Refills: 3 Associated Diagnoses: Dyspnea on exertion; Coronary artery disease involving coronary bypass graft of jena heart without angina pectoris; Chest pain, unspecified [...] artery disease involving coronary bypass graft of jena heart without angina pectoris,Chest pain, unspecified type Take 1 tablet (40 mg) by mouth daily. 90 tablet 3 08/04/2024 chlorhexidine (PERIDEX) 0.12 % solution Swish and spit 15 mLs in mouth 2 times daily clopidogrel (PLAVIX) 75 MG tabletIndications:Dysp chace on exertion,Coronary artery disease involving coronary bypass graft of jena heart without angina pectoris,Chest pain, unspecified type [...] artery disease involving coronary bypass graft of jena heart without angina pectoris,Chest pain, unspecified type [...] (Cognition) oriented x 4 Follows Commands (Cognition) WFL Pain Assessment Patient Currently in Pain No Integumentary/Edema Integumentary/Edema Comments No changes from baseline per patient report Posture Posture Forward head position Range of Motion (ROM) Range of Motion ROM is WFL Strength (Manual Muscle Testing) Strength (Manual Muscle Testing) strength is WFL Bed Mobility Bed Mobility no deficits identified Transfers Transfers no deficits identified Gait/Stairs (Locomotion) [place] Level (Gait) independent Balance Balance no deficits were identified Clinical Impression Criteria for Skilled Therapeutic Intervention Yes, treatment indicated PT Diagnosis (PT) Impaired mobility Influenced by the following impairments Decreased activity tolerance Functional limitations due to impairments Decreased ability to participate in daily tasks Clinical Presentation (PT Evaluation Complexity) stable Clinical Presentation Rationale Current presentation, [facility] Clinical Decision Making (Complexity) low complexity Planned Therapy Interventions (PT) progressive activity/exercise;risk factor education;home programguidelines Risk & Benefits of therapy have been explained evaluation/treatment results reviewed;care plan/treatment goals reviewed;risks/benefits reviewed;current/potential barriers reviewed;participants voiced agreement with care plan;participants included;patient PT Total Evaluation Time PT Eval, Low Complexity Minutes (65489) 10 Physical Therapy Goals PT Frequency 2x/day [...] Ther. Procedure: strength, endurance, ROM, flexibillity Minutes (36877) 10 Symptoms Noted During/After Treatment fatigue;dizziness;shortness of [...] dynamic activities to improve functional performance Minutes (85601) 15 Symptoms Noted During/After Treatment None Treatment [...] using rail Vital Signs Details stable, see FS Cardiac Education Education Provided Home exercise program;OMNI Scale;Outpatient Cardiac Rehab;Precautions;Resuming home activities;Risk factors;Signs and symptoms;Stop light tool Education Packet Given to Patient Yes All Patient Education Handouts Reviewed with Patient and/or Family Yes Cardiac Rehab Phase II Plan Phase II Order Received Yes Phase II Appointment Status Scheduled Date/Time 08/12/24 @ 11:30am Location [facility] PT Discharge Planning PT Plan Progress activity [...] all falls risk precautions as documented by community health nurse staff while hospitalized Total Session Time Timed Code Treatment Minutes 25 Total Session Time (sum of timed and untimed services) 35 * Joy Leung MD - 08/03/2024 1:20 PM CDT [facility] Medicine Progress Note - Hospitalist Service Date of Admission: 07/30/2024 Date of Service: 08/03/2024 Assessment & Plan Chevy Damon is a 69 year old male with a history of afib/flutter on Xarelto, CAD s/p CABG x 4 [id number], TAVR in 10/2023, DM2, Htn, Hld, CHINO who is admitted on 07/30/2024 with exertional chest pain. Possible unstable angina CAD s/p CABG x 4 in 2019 TAVR 10/2023 Hypertension Dyslipidemia Relatively symptoms free until the 4-5 days [employer], then with exertional dyspnea and chest tightness similar to 2019 when he had CABG. EKG appears similar with slightly improved T-wave inversions in theinferior leads compared to prior. Troponin stable 20 -> 18. BNP 795. Last dose of Xarelto was evening of 07/29. Consideration being given to ACS, CHF and aortic valve stenosis s/p TAVR. -Hold Xarelto -Continue low intensity heparin drip -continue [employer] metoprolol XL, losartan, amlodipine, lipitor, lasix -cardiac [...] Maintained on metoprolol XL and Xarelto -continue E[employer] metoprolol XL, Xarelto -cardiac monitoring DM2 Last Hgb A1C in September 2023 of 7.5. -continue E[employer] lantus 60 units qam -prandial novolog at [...] and patient Joy Leung MD Hospitalist Service [facility] Securely message with Me-Mover (more info) Text page via [facility] [employer] [employer] Paging/Directory Interval History Chart reviewed. Patient is sitting comfortably in chair. Denies any chest pain or shortness of breath. Qulin dizzy this morning with ambulation. Vital signs [...] disease. ENCOUNTER LABS Recent Labs Lab 08/03/24 1136 08/03/24 0747 08/03/24 0635 08/02/24 0809 08/02/24 0539 07/31/24 0815 07/31/24 0409 07/30/24 2304 07/30/24 [...] -- 102 CO2 -- -- 28 -- - 24 -- 20* BUN -- -- 18.7 [...] 102 -- 104 CO2 -- -- -- - BUN -- -- 18.7 -- 16.2 -- [...] a cardiology appointment for patient at his [facility]. He had a previously [...] call him. Patient agreeable to this. Sabrina Ngyuen RN Inpatient Float Boat Builder And Repairer [facility] * Trinidad White MD - 08/03/2024 11:56 AM CDT [facility] Cardiology Progress Note Date of Service: 08/03/2024 Primary Syrup Maker: Dr. Teresa Adkins & Agnes Damon is a 69 year old male [...] requested by the patient Follow-up with his [facility] cardiology team is being arranged, appreciate care management assistance with setting up appointments Outpatient cardiac rehab [place] to discharge from cardiology standpoint if felling well after cardiac rehab today Amber Rice CNP [facility] Heart Pager: [phone] Interval History Seen sitting up in chair. [...] Lauro Toussaint DO 10 mg at 08/03/24 08 aspirin EC tablet 81 mg 81 mg Oral Daily Lauro Toussaint DO 81 mg at 08/03/24 08 atorvastatin (LIPITOR) tablet 20 mg 20 mg Oral At Bedtime Lauro Toussaint DO 20 mg at 08/02/243 clopidogrel (PLAVIX) tablet 75 mg 75 mg Oral Daily Trinidad White MD 75 mg at 08/03/24 0856 furosemide (LASIX) tablet 40 mg 40 mg Oral Daily Lauro Toussaint DO 40 mg at 08/03/24 08 insulin aspart (NovoLOG) injection (RAPID ACTING) 1-7 [...] injection 60 Units 60 Units Subcutaneous QAM Luaro Toussaint DO 60 Units at 08/03/24 0900 losartan (COZAAR) tablet 50 mg 50 mg Oral Daily Lauro Toussaint DO 50 mg at 08/03/24 0857 metoprolol succinate ER (TOPROL XL) 24 hr tablet 100 mg 100 mg Oral At Bedtime Lauro Toussaint DO 100 mg at 08/02/242112 rivaroxaban ANTICOAGULANT (XARELTO) tablet 20 mg 20 mg Oral Daily with supper Amber Rice APRN LEAD TECHNICAL ARCHITECT 20 mg at 08/02/242112 Data Last 24 [...] history and physical. High complexity visit includes [id number] patient evaluation, personal review of cardiac images, reviewing data with patient and team, documentation and coordination of care. Trinidad White MD MSc Staff Syrup Maker * Amadou Tellez RN - 08/03/2024 6:47 AM CDT A&O x4 VSS pleasant and cooperative. Sleeps up in the chair at baseline. Independent in room, pt states no issues. Rt groin soft stable. * Amber Rice APRN CNP - 08/02/2024 11:42 AM CDT [facility] Cardiology Progress Note Date of Service: 08/02/2024 Primary Syrup Maker: Dr. Moore Assessment & Plan Chevy Damon [...] will continue to follow Amber Rice CNP [facility] Heart Pager: [phone] Interval History Seen sitting up in chair. [...] Trinidad White MD 150 mL/hr at 08/02/24 09 New Bag at 08/02/24 09 Current Facility-Administered Medications Medication Dose Route Frequency Provider Last Rate Last Admin amLODIPine (NORVASC) tablet 10 mg 10 mg Oral Daily Lauro Toussaint DO 10 mg at 08/02/24 0857 aspirin EC tablet 81 mg 81 mg Oral Daily Lauro Toussaint DO atorvastatin (LIPITOR) tablet 20 mg 20 mg Oral At Bedtime Lauro Toussaint DO 20 mg at 08/01/24 215 furosemide (LASIX) tablet 40 mg 40 mg [...] Lauro Toussaint DO 100 mg at 08/01/24 2159 sodium chloride (PF) 0.9% PF flush 3 mL 3 mL Intracatheter Q8H Trinidad White MD 3 mL at 08/01/24 3636 Data Last 24 hours labs reviewed EKG: [...] stable TAVR gradients High complexity visit includes [id number] patient evaluation, personal review of cardiac images, reviewing data with patient and team, documentation and coordination of care. Trinidad White MD MSc Staff Syrup Maker * Molina Sweet MD - 08/02/2024 10:25 AM CDT [facility] Medicine Progress Note - Hospitalist Service Date of Admission: 07/30/2024 Date of Service: 08/02/2024 Assessment & Plan Chevy Damon is a 69 year old male with a history of afib/flutter on Xarelto, CAD s/p CABG x 4 [id number], TAVR in 10/2023, DM2, Htn, Hld, CHINO who is admitted on 07/30/2024 with exertional chest pain. 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 EKG appears similar with slightly improved T-wave inversions in theinferior leads compared to prior. Troponin stable 20 -> 18. BNP 795. Last dose of Xarelto was evening of 07/29. Consideration being given to ACS, CHF and aortic valve stenosis s/p TAVR. -Hold Xarelto -Continue low intensity heparin drip -continue E[employer] metoprolol XL, losartan, amlodipine, lipitor, lasix -cardiac [...] drip pending cardiology consult and plan -continue E[employer] metoprolol XL -cardiac monitoring DM2 Last Hgb A1C in September 2023 of 7.5. -continue E[employer] lantus 60 units qam -prandial novolog at [...] Anticipated Tomorrow Molina Sweet MD Hospitalist Service [facility] Securely message with Me-Mover (more info) Text page via [facility] [employer] Paging/Directory Interval History No acute events overnight [...] 08/02/24 0539 08/02/24 0203 07/31/24 0815 07/31/24 04007/30/24 23007/30/24 1707 WBC -- 8.6 -- -- 8.1 -- 8.9 HGB -- 13.8 -- -- 13.7 -- 13.1* MCV -- 93 -- -- 94 -- 93 PLT -- 148* -- -- 156 -- 180 NA -- 140 -- -- 141 -- 139 POTASSIUM -- 4.2 4.2 -- -- 4.4 -- 4.5 CHLORIDE -- 102 -- -- 104 -- 102 CO2 -- -- -- 24 -- 20* BUN [...] 08/02/24 0809 08/02/24 0539 08/02/24 0203 07/31/24 0807/31/2440807/30/24230307/30/24 1707 NA -- 140 -- -- 141 [...] Sweet MD - 08/01/2024 12:15 PM CDT [facility] Medicine Progress Note - Hospitalist Service Date of Admission: 07/30/2024 Date of Service: 08/01/2024 Assessment & Plan Chevy Damon is a 69 year old male with a history of afib/flutter on Xarelto, CAD s/p CABG x 4 [id number], TAVR in 10/2023, DM2, Htn, Hld, CHINO who is admitted on 07/30/2024 with exertional chest pain. 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 EKG appears similar with slightly improved T-wave inversions in theinferior leads compared to prior. Troponin stable 20 -> 18. BNP 795. Last dose of Xarelto was evening of 07/29. Consideration being given to ACS, CHF and aortic valve stenosis s/p TAVR. -Hold Xarelto -Continue low intensity heparin drip -continue E[employer] metoprolol XL, losartan, amlodipine, lipitor, lasix -cardiac [...] drip pending cardiology consult and plan -continue [employer] metoprolol XL -cardiac monitoring DM2 Last Hgb A1C in September 2023 of 7.5. -continue E[employer] lantus 60 units qam -prandial novolog at [...] 2-4 Days Molina Sweet MD Hospitalist Service [facility] Securely message with Me-Mover (more info) Text page via [employer] Paging/Directory Interval History No acute events overnight [...] hour(s)) Echocardiogram Complete Result Value LVEF 60-65% [facility] [id number]^NORBERT^LAURO [facility] Echocardiography Laboratory [address] [place] [address] Name: CHEVY DAMON : 1955 Study Date: 07/31/2024 01:04 PM Age: 69 yrs Gender: Male Patient Location: [facility] Reason For Study: Chest Pain, Chest Pressure, Chest Tightness Ordering Physician: LAURO TOUSSAINT Referring Physician: Juan Hernandez Performed By: John Callahan BSA: 2.6 m2 Height: 71 in Weight: 336 lb HR: 61 BP: 127/66 mmHg Procedure Complete Portable Echo Adult. Optison ([facility] #[id number]) given intravenously. Interpretation Summary Left ventricular systolic [...] LABS Recent Labs Lab 08/01/24 1138 08/01/24 0808/01/2415107/31/2481407/31/2440807/30/24230307/30/24 1707 WBC -- -- -- -- 8.1 [...] Recent 3 CBC's: Recent Labs Lab Test 07/31/2440807/30/24 1707 12/04/23 1413 WBC 8.1 8.9 9.7 HGB 13.7 13.1* 13.7 MCV 94 93 90 PLT 156 180 160 Most Recent 3 BMP's: Recent Labs Lab Test 08/01/24113708/01/24 0808/01/2415107/31/2481407/31/2440807/30/24 23007/30/24 1707 10/08/23 0702 10/08/23 0603 NA -- [...] White MD - 08/01/2024 12:01 PM CDT [facility] Cardiology Progress Note Assessment & Plan his [...] mg daily 5. Continue statin 6. Continue [employer] losartan, metoprolol 7. Will plan for angiogram on Friday, npo after midnight Friday Trinidad Whiet MD Text Page (Friday - Friday, 8 [...] disease Severe aortic stenosis 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, severe jail (current) use of anticoagulants Unstable angina pectoris [...] Lauro Toussaint DO 20 mg at 07/31/24 220 furosemide (LASIX) tablet 40 mg 40 mg [...] Result Value Ref Range LVEF 60-65% Narrative [id number] [facility] [id number]^NORBERT^LAURO [facility] Echocardiography Laboratory [address] [place] [address] Name: CHEVY DAMON : 1955 Study Date: 07/31/2024 01:04 PM Age: 69 yrs Gender: Male Patient Location: [facility] Reason For Study: Chest Pain, Chest Pressure, Chest Tightness Ordering Physician: LAURO TOUSSAINT Referring Physician: Juan Hernandez Performed By: John Callahan BSA: 2.6 m2 Height: 71 in Weight: 336 lb HR: 61 BP: 127/66 mmHg Procedure Complete Portable Echo Adult. Beth ([facility] #[id number]) given intravenously. Interpretation Summary Left ventricular systolic [...] Sweet MD - 07/31/2024 2:34 PM CDT [facility] Medicine Progress Note - Hospitalist Service Date of Admission: 07/30/2024 Date of Service: 07/31/2024 Assessment & Plan Chevy Damon is a 69 year old male with a history of afib/flutter on Xarelto, CAD s/p CABG x 4 [id number], TAVR in 10/2023, DM2, Htn, Hld, CHINO who is admitted on 07/30/2024 with exertional chest pain. Possible unstable angina CAD s/p CABG x 4 in 2019 TAVR 10/2023 Hypertension Dyslipidemia Relatively symptoms free until the 4-5 days [employer], then with exertional dyspnea and chest tightness similar to 2019 when he had CABG. EKG appears similar with slightly improved T-wave inversions in theinferior leads compared to prior. Troponin stable 20 -> 18. BNP 795. Last dose of Xarelto was evening of 07/29. Consideration being given to ACS, CHF and aortic valve stenosis s/p TAVR. -Hold Xarelto -Continue low intensity heparin drip -continue E[employer] metoprolol XL, losartan, amlodipine, lipitor, lasix -cardiac monitoring -TTE pending -cardiology consulted -NTG as needed for chest pain -Follow vitals/temp Paroxysmal Atrial fibrillation/atrial flutter Maintained on metoprolol XL and Xarelto -holding Xarelto in favor of heparin drip pending cardiology consult and plan -continue E[employer] metoprolol XL -cardiac monitoring DM2 Last Hgb A1C in September 2023 of 7.5. -continue [employer] lantus 60 units qam -prandial novolog at 1 unit per 10 grams carbs - may need to be increased based upon home dosing of15-30 units of lispro with meals -sliding scale Observation Goals: List all goals to be met before discharge home: , - Serial troponins and stress test complete., - Seen and cleared by environmental consultant if applicable, - Adequate pain control [...] 2-4 Days Molina Sweet MD Hospitalist Service [facility] Securely message with Me-Mover (more info) Text page via [facility] [employer] [employer] Paging/Directory Interval History No CP/SOB No fevers [...] Narrative EXAM: XR CHEST 2 VIEWS LOCATION: [facility] DATE: 07/30/2024 INDICATION: SOB, CP COMPARISON: 10/23/2020 Impression IMPRESSION: Median sternotomy wires are noted. Stable cardiac size. No consolidation or pneumothorax. Small bilateral pleural effusions, right greater than left. ENCOUNTER LABS Recent Labs Lab 07/31/24 11407/31/2481407/31/2440807/30/24230307/30/241706 WBC -- -- 8.1 -- 8.9 HGB [...] 3 BMP's: Recent Labs Lab Test 07/31/24 11407/31/2481407/31/2440807/30/24230307/30/24 1707 10/08/23 0702 10/08/23 0603 NA -- [...] Recent 3 Troponin's: Recent Labs Lab Test 08/23/21172503/26/21 1125 11/23/20 1043 11/23/20 0712 TROPI -- [...] needs ECHO - Seen and cleared by environmental consultant if applicable:Not met - Adequate pain [...] Toussaint DO - 07/30/2024 9:11 PM CDT [facility] History and Physical - Hospitalist Service Date of Admission: 07/30/2024 Assessment & Plan Chevy Damon is a 69 year old male with a history of afib/flutter on Xarelto, CAD s/p CABG x 4 nd2405, TAVR in 10/2023, DM2, Htn, Hld, CHINO who is admitted on 07/30/2024 with exertional chest pain. 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 EKG appears similar with slightly improved T-wave inversions in theinferior leads compared to prior. Troponin stable 20 -> 18. BNP 795. Last dose of Xarelto was evening of 07/29. Consideration being given to ACS, CHF and aortic valve stenosis s/p TAVR. -Hold Xarelto -start low intensity heparin drip -continue ELECT[employer] metoprolol XL, losartan, amlodipine, lipitor, lasix -cardiac monitoring -TTE -cardiology consult Paroxysmal Atrial fibrillation/atrial flutter Maintained on metoprolol XL and Xarelto -holding Xarelto in favor of heparin drip pending cardiology consult and plan -continue E[employer] metoprolol XL -cardiac monitoring DM2 Last Hgb A1C in September 2023 of 7.5. -continue ELECT[employer]IAN [employer] lantus 60 units qam -prandial novolog at [...] this encounter: 152.4 kg (336 lb). Lauro Toussaint, Hospitalist Service [facility] Securely message with Me-Mover (more info) Text page via [facility] [employer] Paging/Directory Chief Complaint Chest pain History is [...] meds. 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 In [...] Coronary Angiogram; Surgeon: Nathaniel Rodriguez MD; Location: [facility] CARDI[facility] ACADEM[facility] DIRECTOR CV LEFT HEART CATH N/A 07/06/2020 Procedure: Left Heart Cath; Surgeon: Nathaniel Rodriguez MD; Location: HEART CARDIAC ACADEMIC DIRECTOR CV TRANSCATHETER AORTIC VALVE REPLACEMENT-FEMORAL APPROACH N/A 10/07/2023 Procedure: Transcatheter Aortic Valve Replacement-Femoral Approach; Surgeon: Kyler Lubin MD; Location: HEART CARDIAC ACADEMIC DIRECTOR LAPAROSCOPIC APPENDECTOMY N/A 09/21/2020 Procedure: Laparoscopic appendectomy; [...] Narrative EXAM: XR CHEST 2 VIEWS LOCATION: [facility] DATE: 07/30/2024 INDICATION: SOB, CP COMPARISON: 10/23/2020 Impression IMPRESSION: Median sternotomy wires are noted. Stable cardiac size. No consolidation or pneumothorax. Small bilateral pleural effusions, right greater than left. documented in this encounter Consult Notes * Liya Guadalupe, RD - 08/03/2024 9:49 AM CDTAssociated Order(s): NUTRITION SERVICES ADULT IP CONSULT; NUTRITION SERVICES ADULT IP CONSULT NUTRITION EDUCATION REASON FOR ASSESSMENT: Nutrition education on [place] [employer] (AHA) Heart Healthy Diet + Provider Order - patient requsting more information about heart healthy and diabetic diets NUTRITION HISTORY: Information obtained from patient. Per patient, he does his own grocery shopping and cooking. 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 He wakes up around 2pm and will have breakfast at [facility] - usually a conn and rice [...] Liya Guadalupe RD, LD Clinical Dietitian - [facility] * Trinidad White MD - 07/31/2024 2:49 PM CDTAssociated Order(s): CARDIOLOGY IP CONSULT [facility] Cardiology Consultation Date of Admission: 07/30/2024 Assessment [...] mg daily 5. Continue statin 6. Continue [employer] losartan, metoprolol 7. Will plan for angiogram [...] Coronary Angiogram; Surgeon: Nathaniel Rodriguez MD; Location: [facility] CARDIAC ACADEMIC DIRECTOR CV LEFT HEART CATH N/A 07/06/2020 Procedure: Left Heart Cath; Surgeon: Nathaniel Rodriguez MD; Location: HEART CARDIAC ACADEMIC DIRECTOR CV TRANSCATHETER AORTIC VALVE REPLACEMENT-FEMORAL APPROACH N/A 10/07/2023 Procedure: Transcatheter Aortic Valve Replacement-Femoral Approach; Surgeon: Kyler Lubin MD; Location: HEART CARDIAC ACADEMIC DIRECTOR LAPAROSCOPIC APPENDECTOMY N/A 09/21/2020 Procedure: Laparoscopic appendectomy; [...] mg 0.4 mg Intravenous Q2 Min PRN aLuro Toussaint DO Or naloxone (NARCAN) injection 0.2 mg 0.2 mg Intramuscular Q2 Min PRN Lauro Toussaint DO Or naloxone (NARCAN) injection 0.4 mg 0.4 mg Intramuscular Q2 Min PRN Lauro Toussaint DO nitroGLYcerin (NITROSTAT) sublingual tablet 0.4 mg 0.4 mg Sublingual Q5 Min PRN Lauro Toussaint, DO Allergies Allergies Allergen Reactions Penicillins Rash [...] HDL, LDL, TRIG, CHOLHDLRATIO in the last 46983 hours. Recent Labs Lab 07/31/2440807/30/24 170 WBC 8.1 8.9 HGB 13.7 13.1* HCT 40.2 38.7* MCV 94 93 PLT 156 180 No results for input(s): PH, PHV, PO2, PO2V, SAT, PCO2, PCO2V, HCO3, HCO3V in thelast 168 hours. Recent Labs Lab 07/30/24195807/30/24 1707 NTBNPI 781 795 No results for input(s): DD in the last 168 hours. No results for input(s): SED, CRP in the last 168 hours. Recent Labs Lab 07/31/2440807/30/24 1707 PLT 156 180 No results for input(s): TSH in the last 168 hours. No results for input(s): COLOR, APPEARANCE, URINEGLC, URINEBILI, URINEKETONE, SG, UBLD, URINEPH, PROTEIN, UROBILINOGEN, NITRITE, LEUKEST, RBCU, WBCU in the last 168 hours. Imaging: Recent Results (from the past 48 hour(s)) XR Chest 2 Views Narrative EXAM: XR CHEST 2 VIEWS LOCATION: [facility] DATE: 07/30/2024 INDICATION: SOB, CP [...] this encounter ED Notes * Brendan Carmichael III RN - 07/30/2024 9:[address] 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 Denies chest pain and sob while resting Treatments and/or interventions provided: labs, IV, X ray Patient's response to treatments and/or interventions: comfortable at this time To be done/followed up on inpatient unit: repeat trop @ 22:00 Does this patient have any cognitive concerns?: n/a Activity level - Baseline/Home: Independent Activity Level - Current: Independent Patient's Preferred language: Kyrgyz Lead Miner Needed?: No Isolation: None Infection: Not Applicable [...] performed were n/a. 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 He states that he usually sees his metal patternmaker apprentice at the [facility], but for some reason,his metal patternmaker apprentice was in [place] today and he was not told about [...] Temp src Pulse Resp SpO2 Height Weight 07/30/24 2209 -- -- -- 63 17 98 % -- -- 07/30/24 2200 130/61 -- -- 64 13 97 % -- -- 07/30/24 2130 131/53 -- -- 66 12 97 % [...] Pressure Ventricular Rate 68 Atrial Rate 68 ND Interval 236 QRS Duration 84 QT 386 QTc 410 P [place] 35 R AXIS 43 T [place] 201 Interpretation ECG Sinus rhythm with 1st degree A-V block T wave abnormality, consider anterolateral ischemia Abnormal ECG When compared with ECG of 08-Oct-2023 06:52, QRS axis Shifted right Confirmed by GENERATED REPORT, COMPUTER ([id number]), newspaper editor EBONY LUQUE ([id number]) on 07/30/2024 5:35:44 [...] Documentation None Medical Decision Making / Diagnosis [facility] Diagnoses: None MIPS None MDM Chevy Damon is a 69 year old [...] a coronary angiogram. He will be admitted [facility]. Diuresis as well and repeat cardiac echo. Will hold the Xarelto while he is on heparin. Disposition The patient was admitted to the hospital. Diagnosis ICD-10-CM 1. Unstable angina pectoris (H) I20.0 2. Acute on chronic congestive heart failure, unspecified heart failure type (H) I50.9 3. Bilateral leg edema R60.0 4. Dyspnea on exertion R06.09 5. jail (current) use of anticoagulants Z79.01 Discharge Medications New Prescriptions No medications on file Scribe Disclosure: I, Fer Castro, am serving as a scribe at 7:23 PM on 07/30/2024 to document services personally performed by Mary Gross MD based on my observations and the provider's statements to me. Mary Gross MD 07/30/242214 * Abby Lynn RN - 07/30/2024 4:54 [...] goal(s). See goals on Care Plan in Epic electronic health record for goal details. Goals [...] w/1 degree AVB. 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 CMS intact. Tylenol x 1 for headache. 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 Was on Xarelto [employer]. Need to resume heparin drip or Xarelto [...] needs ECHO - Seen and cleared by environmental consultant if applicable:Not met - Adequate pain [...] to GI side effects Changes made to [employer] medication list: Added: None Deleted: APAP, ozempic Changed: xarelto from breakfast to just with a meal, furosemide tablet strength from 20 to 40 mg, losartan 100 to 50 mg Allergies reviewed with patient and updates made in EHR: no Medication History Completed By: Vidhi Michelle RPH 07/30/2024 8:56 PM [employer] Med List Medication Sig Last Dose amLODIPine [...] [facility] [address] [phone] Tristen Leon MD [address] [place], [place] [id number] 2, [facility] 10/21/2024 10:00 AM CONSTRUCTION COORDINATOR Appointment [facility] [address] [address] [place] [phone] Kyler Lubin MD [address] [facility] [address] [place] [id number] 10/21/2024 1:45 PM CONSTRUCTION COORDINATOR Lab [facility] Heart [facility] Laboratory [id number] [place] [phone] 10/21/2024 2:00 PM CONSTRUCTION COORDINATOR Office Visit [facility] [address] [place] [phone] Lorraine Ospina, LEAD TECHNICAL ARCHITECT [address] [facility] [place] DUONG [id number] Scheduled Referrals Name Type Priority Associated Diagnoses Orde r Schedule Cardiac Rehab Layer Up Referral Referral Routine: Next available opening Dyspnea on exertion Coronary artery disease involving coronary bypass graft of jena heart without angina pectoris Chest pain, unspecified type Expected: 08/09/2024 (Approximate), Expires: 08/02/2025 Follow-Up with Cardiology Referral Routine: Next available opening Coronary artery disease involving coronary bypass graft of jena heart without angina pectoris Expected: 09/03/2024 (Approximate), Expires: 08/03/2025 Cardiac Rehab Layer Up Referral Referral Routine Coronary artery disease involving coronary bypass graft of jena heart without angina pectoris Expected: 08/04/2024 (Approximate), [...] 08/04/2024 7:26 AM CDT Molina CALDERON POCT LABORATORY [facility] Lab [address] floor, [address] [place] [address], [facility] * (ABNORMAL) Glucose by meter (08/04/2024 2:17 AM CDT) GLUCOSE BY METER POCT 173(H) 70 - 99 mg/dL 08/04/2024 2:23 AM CDT LABORATORY POC Blood, venous BLOOD SPECIMEN / Unknown 08/04/2024 2:17 AM CDT 08/04/2024 2:23 AM CDT Molina CALDERON POCT LABORATORY [facility] Lab [address], [address] [place] [address], [place] * (ABNORMAL) Glucose by meter (08/03/2024 9:27 PM CDT) GLUCOSE BY METER POCT 190(H) 70 - 99 mg/dL 08/03/2024 9:34 PM CDT LABORATORY POC Blood, Capillary BLOOD SPECIMEN / Unknown 08/03/2024 9:27 PM CDT 08/03/2024 9:34 PM CDT Molina BRIGHT - BESUSAN POCT LABORATORY [facility] Lab [address], [address] [place] [address], [facility] * (ABNORMAL) Glucose by meter (08/03/2024 11:36 AM CDT) GLUCOSE BY METER POCT 190(H) 70 - 99 mg/dL 08/03/2024 11:43 AM CDT LABORATORY POC Blood, Capillary BLOOD SPECIMEN / Unknown 08/03/2024 11:36 AM CDT 08/03/2024 11:43 AM CDT Molina BRIGHT - KVNG POCT LABORATORY [facility] Lab [address], [address] [place] [address], [facility] * (ABNORMAL) Glucose by meter (08/03/2024 7:47 AM CDT) GLUCOSE BY METER POCT 160(H) 70 - 99 mg/dL 08/03/2024 7:54 AM CDT LABORATORY POC Blood, Capillary BLOOD SPECIMEN / Unknown 08/03/2024 7:47 AM CDT 08/03/2024 7:54 AM CDT Molina BRIGHT - KVNG POCT LABORATORY [facility] Lab [address], [address] [place] [address]RUST * EKG 12-lead, tracing only (08/03/2024 6:47 AM CDT) Systolic Blood Pressure mmHg RADIOLOGY RESULTS Diastolic Blood Pressure mmHg RADIOLOGY RESULTS Ventricular Rate 58 BPM RAD IOLOGY RESULTS Atrial Rate 58 BPM RADIOLOG Y RESULTS ND Interval 248 ms RADIOLOG Y RESULTS QRS Duration 80 ms RADIOLO GY RESULTS QT 418 ms RADIOLOGY RESULTS QTc 410 ms RADIOLOGY RESULTS P [place] 58 degrees RADIOLOGY RESULTS R AXIS 120 degrees RADIOLOGY RESULTS T [place] -42 degrees RADIOLOGY RESULTS Interpretation ECG Sinus [...] MD LAB - BLOOD ORDERABL ES LABORATORY [facility] Lab [address], [address] [place] [address], [facility] [phone] * (ABNORMAL) Glucose by meter (08/03/2024 2:14 AM CDT) GLUCOSE BY METER POCT 171(H) 70 - 99 mg/dL 08/03/2024 2:21 AM CDT LABORATORY POC Blood, Capillary BLOOD SPECIMEN / Unknown 08/03/2024 2:14 AM CDT 08/03/2024 2:21 AM CDT Molina Sweet MD LAB - BEAKER POCT LABORATORY POC [facility] Lab [address], [address] [place] [address], [facility] * (ABNORMAL) Glucose by meter (08/02/2024 10:02 PM CDT) GLUCOSE BY METER POCT 164(H) 70 - 99 mg/dL 08/02/2024 10:09 PM CDT LABORATORY POC Blood, Capillary BLOOD SPECIMEN / Unknown 08/02/2024 10:02 PM CDT 08/02/2024 10:09 PM CDT Molina Sweet MD LAB - BESUSAN POCT LABORATORY [facility] Lab [address], [address], [place] [address] * (ABNORMAL) Glucose by meter (08/02/2024 4:51 PM CDT) GLUCOSE BY METER POCT 107(H) 70 - 99 mg/dL 08/02/2024 4:59 PM CDT LABORATORY POC Blood, Capillary BLOOD SPECIMEN / Unknown 08/02/2024 4:51 PM CDT 08/02/2024 4:59 PM CDT Molina BRIGHT - KVNG POCT Performing Organization Address City/[facility]/ZIP Co de Phone Number LABORATORY POC [facility] Lab [address], [address], [place] [address], [facility] * (ABNORMAL) Lipid Profile (08/02/2024 [...] LAB - BLOOD ORDERABL ES U LABORATORY [facility] Core Lab [address] [facility], [address] [phone] * EKG 12-lead, tracing only (08/02/2024 2:32 PM CDT) Systolic Blood Pressure mmHg RADIOLOGY RESULTS Diastolic Blood Pressure mmHg RADIOLOGY RESULTS Ventricular Rate 60 BPM RAD IOLOGY RESULTS Atrial Rate 60 BPM RADIOLOG Y RESULTS ND Interval 228 ms RADIOLOG Y RESULTS QRS Duration 88 ms RADIOLO GY RESULTS QT 442 ms RADIOLOGY RESULTS QTc 442 ms RADIOLOGY RESULTS P [place] 59 degrees RADIOLOGY RESULTS R AXIS 75 degrees RADIOLOGY RESULTS T [place] 14 degrees RADIOLOGY RESULTS Interpretation ECG Sinus rhythm with 1st degree A-V block Otherwise normal ECG When compared with ECG of 30-Jul-2024 16:51, T wave inversion no longer evident in Anterior leads Confirmed by MD QUINCY, RICO ([id number]) on 08/02/2024 2:49:44 PM RADIOLOGY RESULTS 08/02/2024 2:32 PM CDT 08/02/2024 2:49 PM CDT Tristen Leon MD ECG ORDERABLES Performing Organization Address City/State/[facility] Co de Phone Number RADIOLOGY RESULTS * CV CORONARY ANGIOGRAM, CV PCI (08/02/2024 2:01 PM CDT) Anatomical Region Laterality Modality Radio Fluoroscop y Narrative 08/04/2024 4:03 PM CDT Severe jena vessel coronary artery disease Patent grafts SVG [...] CATH GUIDING GUIDELINER JR3.5 ST CURVE 5.5FR ABK [employer] 5270 guide catheter was successfully placed. The GUIDEWIRE VASC [id number] RUNTHROUGH 25-1011 crossed the lesion. The pre-interventional distal flow is normal (MIO 3). A STENT COR AMADA FRONTIER 38X2.50MM [id number] stent was successfully placed. Pre-stent angioplasty was performed using a CATH BALLOON EMERGE 2.0X15MM [id number] supply. . Post-stent angioplasty was performed using a CATH BALLOON NC EMERGE 2.92T16KO [id number] supply. . The post-interventional distal flow is [...] Estimated blood loss: < 25 mlThe attending word processing specialist was present and supervised all critical aspects [...] time celite, POCT (08/02/2024 1:38 PM CDT) [facility] Signature Activated Clotting Time (Celite) POCT 291(H) 74 - 150 seconds 08/02/2024 1:56 PM CDT LABORATORY POC Blood, arterial BLOOD SPECIMEN / Unknown 08/02/2024 1:38 PM CDT 08/02/2024 1:56 PM CDT Molina BRIGHT - BESUSAN POCT LABORATORY POC [facility] Lab [address], [address] [place] [address], [facility] * (ABNORMAL) Activated clotting time celite, POCT (08/02/2024 1:26 PM CDT) Activated Clotting Time (Celite) POCT 266(H) 74 - 150 seconds 08/02/2024 1:57 PM CDT LABORATORY POC Blood, arterial BLOOD SPECIMEN / Unknown 08/02/2024 1:26 PM CDT 08/02/2024 1:57 PM CDT Molina BRIGHT - KVNG POCT LABORATORY POC [facility] Lab [address], [address], [place] [address], [facility] * (ABNORMAL) Glucose by meter (08/02/2024 8:09 AM CDT) GLUCOSE BY METER POCT 118(H) 70 - 99 mg/dL 08/02/2024 8:18 AM CDT LABORATORY POC Blood, Capillary BLOOD SPECIMEN / Unknown 08/02/2024 8:09 AM CDT 08/02/2024 8:18 AM CDT Molina BRIGHT - BESUSAN POCT LABORATORY POC [facility] Lab [address], [address] [place] [address], [facility] * (ABNORMAL) Lipid panel reflex to [...] High: >= 220 mg/dL Amber Rice APRN LEAD TECHNICAL ARCHITECT LAB - BLOOD ORD ERABLES UU LABORATORY [facility] Lab [address] [facility], [address] [place] [address], [facility] * (ABNORMAL) Basic metabolic panel (08/02/2024 5:39 AM CDT) Sodium 140 135 - 145 mmol/L 08/02/2024 9:01 AM CDT SH LABORATORY Potassium 4.2 3.4 - 5.3 mmol/L 08/02/2024 9:01 AM [facility] LABORATORY Chloride 102 98 - 107 mmol/L 08/02/2024 9:01 AM [facility] Carbon Dioxide (CO2) 27 22 - 29 mmol/L 08/02/2024 9:01 AM [facility] LABORATORY Anion Gap 11 7 - 15 mmol/L 08/02/2024 9:01 AM [facility] LABORATORY Urea Nitrogen 16.2 8.0 - 23.0 mg/dL 08/02/2024 9:01 AM [facility] LABORATORY Creatinine 0.76 0.67 - 1.17 mg/dL 08/02/2024 9:01 AM [facility] LABORATORY GFR Estimate >90 >60 mL/min/1.7 3m2 08/02/2024 9:01 AM [facility] LABORATORY Comment:eGFR calculated usin 2020 CKD-EPI equation. Calcium 9.2 8.8 - 10.4 mg/dL 08/02/2024 9:01 AM [facility] LABORATORY Comment:Reference intervals for this test were updated on 05/18/2024 to reflect our healthy population more accurately. There may be differences in the flagging of prior results with similar values performed with this method. Those prior results can be interpreted in the context of the updated reference intervals. Glucose 122(H) 70 - 99 mg/dL 08/02/2024 9:01 AM [facility] LABORATORY Blood STRUCTURE OF LEFT HAND / Unknown Venipuncture / Unknown 08/02/2024 5:39 AM CDT 08/02/2024 5:53 AM CDT Amber Rice APRN LEAD TECHNICAL ARCHITECT LAB - BLOOD ORD ERABLES LABORATORY [facility] [address], [address] [place] [address], [facility] [phone] * (ABNORMAL) CBC with platelets (08/02/2024 5:39 AM CDT) [facility] Signature WBC Count 8.6 4.0 - 11.0 10e3/uL [...] Toussaint DO LAB - BLOOD ORDERABL ES [facility] Lab [address], [address] [place] [address], [facility] [phone] * Potassium (08/02/2024 5:39 AM CDT) Potassium 4.2 3.4 - 5.3 mmol/L 08/02/2024 6:07 AM CDT LABORATORY Blood STRUCTURE OF LEFT HAND / Unknown Venipuncture / Unknown 08/02/2024 5:39 AM CDT 08/02/2024 5:53 AM CDT Trinidad White MD LAB - BLOOD ORDERABL ES [facility] Lab [address], [address] [place] [address], [facility] [phone] * (ABNORMAL) Partial thromboplastin time (08/02/2024 5:39 AM CDT) aPTT 55(H) 22 - 38 Seconds 08/02/2024 6:11 AM CDT LABORATORY Blood STRUCTURE OF LEFT HAND / Unknown Venipuncture / Unknown 08/02/2024 5:39 AM CDT 08/02/2024 5:53 AM CDT Trinidad White MD LAB - BLOOD ORDERABL ES LABORATORY [facility] Lab [address], [address] [place] [address], [facility] [phone] * (ABNORMAL) Glucose by meter (08/02/2024 2:03 AM CDT) GLUCOSE BY METER POCT 124(H) 70 - 99 mg/dL 08/02/2024 2:11 AM CDT LABORATORY POC Blood, Capillary BLOOD SPECIMEN / Unknown 08/02/2024 2:03 AM CDT 08/02/2024 2:11 AM CDT Molina Sweet MD LAB - BEAKER POCT LABORATORY POC [facility] Lab [address], [address] [place] [address], [facility] * (ABNORMAL) Glucose by meter (08/01/2024 9:01 PM CDT) GLUCOSE BY METER POCT 158(H) 70 - 99 mg/dL 08/01/2024 9:08 PM CDT LABORATORY POC Blood, Capillary BLOOD SPECIMEN / Unknown 08/01/2024 9:01 PM CDT 08/01/2024 9:08 PM CDT Molina BRIGHT - KVNG POCT Performing Organization Address City/[facility]/ZIP Co de Phone Number LABORATORY POC [facility] Lab [address], [address] [place] [address], [facility] * (ABNORMAL) Glucose by meter (08/01/2024 4:45 PM CDT) GLUCOSE BY METER POCT 115(H) 70 - 99 mg/dL 08/01/2024 4:52 PM CDT LABORATORY POC Blood, Capillary BLOOD SPECIMEN / Unknown 08/01/2024 4:45 PM CDT 08/01/2024 4:52 PM CDT Molina BRIGHT - KVNG POCT Performing Organization Address City/[facility]/ZIP Co de Phone Number LABORATORY POC [facility] Lab [address], [address], [place] [address], [facility] * (ABNORMAL) Glucose by meter (08/01/2024 11:38 AM CDT) GLUCOSE BY METER POCT 163(H) 70 - 99 mg/dL 08/01/2024 11:44 AM CDT LABORATORY POC Blood, Capillary BLOOD SPECIMEN / Unknown 08/01/2024 11:38 AM CDT 08/01/2024 11:44 AM CDT Molina CALDERON POCT LABORATORY POC [facility] Lab [address], [address] [place] [address], [facility] * (ABNORMAL) Glucose by meter (08/01/2024 8:21 AM CDT) GLUCOSE BY METER POCT 137(H) 70 - 99 mg/dL 08/01/2024 8:28 AM CDT LABORATORY POC Blood, Capillary BLOOD SPECIMEN / Unknown 08/01/2024 8:21 AM CDT 08/01/2024 8:28 AM CDT Molina Sweet MD LAB - BESUSAN POCT Performing Organization Address City/[facility]/ZIP Co de Phone Number LABORATORY POC [facility] [address] 1st floor, [address] [place] [address], [facility] * (ABNORMAL) Partial thromboplastin time (08/01/2024 5:07 AM CDT) aPTT 57(H) 22 - 38 Seconds 08/01/2024 5:37 AM CDT LABORATORY Blood STRUCTURE OF LEFT HAND / Unknown Venipuncture / Unknown 08/01/2024 5:07 AM CDT 08/01/2024 5:25 AM CDT Trinidad White MD LAB - BLOOD ORDERABL ES Performing Organization Address [facility] Co de Phone Number LABORATORY [facility] [address] 1[address] floor, [address] [place] [address], [facility] [phone] * (ABNORMAL) Glucose by meter (08/01/2024 1:52 AM CDT) GLUCOSE BY METER POCT 184(H) 70 - 99 mg/dL 08/01/2024 1:59 AM CDT LABORATORY POC Blood, Capillary BLOOD SPECIMEN / Unknown 08/01/2024 1:52 AM CDT 08/01/2024 1:59 AM CDT Molina BRIGHT - BESUSAN POCT Performing Organization Address City/[facility]/ZIP Co de Phone Number LABORATORY POC [facility] [address] 1[address] floor, [address] [place] [address], [facility] * (ABNORMAL) Partial thromboplastin time (07/31/2024 9:16 PM CDT) aPTT 69(H) 22 - 38 Seconds 07/31/2024 9:48 PM CDT LABORATORY Blood STRUCTURE OF LEFT WRIST REGION / Unknown Venipuncture / Unknown 07/31/2024 9:16 PM CDT 07/31/2024 9:32 PM CDT Trinidad White MD LAB - BLOOD ORDERABL ES LABORATORY [facility] [address] 1[address] floor, [address] [place] [address], [facility] [phone] * (ABNORMAL) Glucose by meter (07/31/2024 9:02 PM CDT) GLUCOSE BY METER POCT 170(H) 70 - 99 mg/dL 07/31/2024 9:10 PM CDT LABORATORY POC Blood, Capillary BLOOD SPECIMEN / Unknown 07/31/2024 9:02 PM CDT 07/31/2024 9:10 PM CDT Molina BRIGHT - KVNG POCT LABORATORY POC [facility] [address] 1[address] floor, [address] [place] [address], [facility] * (ABNORMAL) Glucose by meter (07/31/2024 5:25 PM CDT) GLUCOSE BY METER POCT 119(H) 70 - 99 mg/dL 07/31/2024 5:50 PM CDT LABORATORY POC Blood, Capillary BLOOD SPECIMEN / Unknown 07/31/2024 5:25 PM CDT 07/31/2024 5:50 PM CDT Molina BRIGHT - BESUSAN POCT LABORATORY POC [facility] [address] 1[address] floor, [address] [place] [address], [facility] * ECHO COMPLETE WITH CONTRAST (07/31/2024 2:25 PM CDT) LVEF 60-65% CARDIOLOGY RESULTS Anatomical Region Laterality Modality Echocardiography 07/31/2024 1:04 PM CDT Narrative 07/31/2024 2:55 PM CDT [id number]^NORBERT^LAURO [facility] Echocardiography Laboratory [facility] [place] [address] Name: CHEVY DAMON : 1955 Study Date: 07/31/2024 01:04 PM Age: 69 yrs Gender: Male Patient Location: [facility] Reason For Study: Chest Pain, Chest Pressure, Chest Tightness Ordering Physician: LAURO TOUSSAINT Referring Physician: Juan Hernandez Performed By: John Callahan BSA: 2.6 m2 Height: 71 in Weight: 336 lb HR: 61 BP: 127/66 mmHg Procedure Complete Portable Echo Adult. [place] ([facility] #[id number]) given intravenously. Interpretation Summary Left ventricular systolic [...] Procedure Note Joel Darden MD - 07/31/2024 [id number]^NORBERT^LAURO [facility] Echocardiography Laboratory [address] [place], [place] [address] Name: CHEVY DAMON : 1955 Study Date: 07/31/2024 01:04 PM Age: 69 yrs Gender: Male Patient Location: [facility] Reason For Study: Chest Pain, Chest Pressure, Chest Tightness Ordering Physician: LAURO TOUSSAINT Referring Physician: Juan Hernandez Performed By: John Callahan BSA: 2.6 m2 Height: 71 in Weight: 336 lb HR: 61 BP: 127/66 mmHg Procedure Complete Portable Echo Adult. [facility] ([facility] #[id number]) givenintravenously. Interpretation Summary Left ventricular systolic function [...] DO LAB - BLOOD ORDERABL ES LABORATORY [facility] [address] 1[address] floor, [address] [place] [address], [facility] [phone] * (ABNORMAL) Glucose by meter (07/31/2024 11:41 AM CDT) GLUCOSE BY METER POCT 161(H) 70 - 99 mg/dL 07/31/2024 11:48 AM CDT LABORATORY POC Blood, Capillary BLOOD SPECIMEN / Unknown 07/31/2024 11:41 AM CDT 07/31/2024 11:48 AM CDT Molina BRIGHT - KVNG POCT LABORATORY POC [facility] [address], [address], [place] [address] * (ABNORMAL) Glucose by meter (07/31/2024 8:15 AM CDT) GLUCOSE BY METER POCT 195(H) 70 - 99 mg/dL 07/31/2024 8:21 AM CDT LABORATORY POC Blood, Capillary BLOOD SPECIMEN / Unknown 07/31/2024 8:15 AM CDT 07/31/2024 8:21 AM CDT Molina CALDERON POCT Performing Organization Address City/[facility]/ZIP Co de Phone Number LABORATORY POC [facility] [address], [address], [place] [address]RUST * (ABNORMAL) CBC with platelets (07/31/2024 4:09 AM CDT) WBC Count 8.1 4.0 - 11.0 10e3/uL [...] 150 - 450 10e3/uL 07/31/2024 4:29 AM T LABORATORY Blood STRUCTURE OF LEFT HAND / Unknown Venipuncture / Unknown 07/31/2024 4:09 AM CDT 07/31/2024 4:27 AM CDT Lauro Toussaint LAB - BLOOD ORDERABL ES LABORATORY [facility] [address] floor, [address] [place] [address], [facility] [phone] * (ABNORMAL) Basic metabolic panel (07/31/2024 4:09 AM CDT) Sodium 141 135 - 145 mmol/L 07/31/2024 4:54 AM [facility]ORATORY Potassium 4.4 3.4 - 5.3 mmol/L 07/31/2024 4:54 AM [facility] LABORATORY Chloride 104 98 - 107 mmol/L 07/31/2024 4:54 AM [facility] LABORAT[facility] Carbon Dioxide (CO2) 24 22 - 29 mmol/L 07/31/2024 4:54 AM [facility] LAB[facility] Anion Gap 13 7 - 15 mmol/L 07/31/2024 4:54 AM T LABORATORY Urea Nitrogen 18.4 8.0 - 23.0 mg/dL 07/31/2024 4:54 AM T LABORATORY Creatinine 0.76 0.67 - 1.17 mg/dL 07/31/2024 4:54 AM [facility] GFR Estimate >90 >60 mL/min/1.7 3m2 07/31/2024 4:54 AM [facility] Comment:eGFR calculated usin g 2020 CKD-EPI equation. Calcium 8.7(L) 8.8 - 10.4 mg/dL 07/31/2024 4:54 AM [facility] Comment:Reference intervals for this test were updated on 05/18/2024 to reflect our healthy population more accurately. There may be differences in the flagging of prior results with similar values performed with this method. Those prior results can be interpreted in the context of the updated reference intervals. Glucose 265(H) 70 - 99 mg/dL 07/31/2024 4:54 AM CDT LABORATORY Blood STRUCTURE OF LEFT HAND / Unknown Venipuncture / Unknown 07/31/2024 4:09 AM CDT 07/31/2024 4:27 AM CDT Lauro Toussaint DO LAB - BLOOD ORDERABL ES Performing Organization Address City/[facility]/ZIP Co de Phone Number LABORATORY [facility] [address] 1[address] floor, [address] [place] [address], [place] [phone] * (ABNORMAL) Partial thromboplastin time (07/31/2024 4:09 AM CDT) aPTT 69(H) 22 - 38 Seconds 07/31/2024 4:39 AM CDT LABORATORY Blood STRUCTURE OF LEFT HAND / Unknown Venipuncture / Unknown 07/31/2024 4:09 AM CDT 07/31/2024 4:27 AM CDT Lauro Toussaint DO LAB - BLOOD ORDERABL ES Performing Organization Address [facility]/ZIP Co de Phone Number LABORATORY [facility] [address] 1[address] floor, [address] [place] [address], [place] [phone] * (ABNORMAL) Glucose by meter (07/31/2024 2:08 AM CDT) GLUCOSE BY METER POCT 287(H) 70 - 99 mg/dL 07/31/2024 2:16 AM CDT LABORATORY POC Blood, Capillary BLOOD SPECIMEN / Unknown 07/31/2024 2:08 AM CDT 07/31/2024 2:16 AM CDT Lauro Toussaint DO LAB - BEAKER POCT LABORATORY POC [facility] [address] 1[address] floor, [address] [place] [address], [place] * (ABNORMAL) Glucose by meter (07/30/2024 11:04 PM CDT) GLUCOSE BY METER POCT 282(H) 70 - 99 mg/dL 07/30/2024 11:11 PM CDT LABORATORY POC Blood, Capillary BLOOD SPECIMEN / Unknown 07/30/2024 11:04 PM CDT 07/30/2024 11:11 PM CDT Lauro Toussaint DO LAB - BEAKER POCT LABORATORY POC [facility] [address] floor, [address] [place] [address], [facility] * Nt probnp inpatient (07/30/2024 7:59 PM CDT) [facility] N terminal Pro BNP Inpatient [id number] [...] MD LAB - BLOOD ORDERAB LES LABORATORY [facility] [address], [address] [place] [address], [facility] [phone] * Troponin T, High Sensitivity (07/30/2024 7:59 PM CDT) [facility] Troponin T, High Sensitivity 18 <=22 [...] LAB - BLOOD ORDERAB LES LABORATORY [facility] [address] floor, [address] [place] [address], [facility] [phone] * XR Chest 2 Views (07/30/2024 7:54 PM CDT) Anatomical Region Laterality Modality Chest Digital Radiogra phy 07/30/2024 7:54 PM CDT Impressions 07/30/2024 8:03 PM CDT IMPRESSION: Median sternotomy wires are noted. Stable cardiac size. No consolidation or pneumothorax. Small bilateral pleural effusions, right greater than left. Narrative 07/30/2024 8:03 PM CDT EXAM: XR CHEST 2 VIEWS LOCATION: [facility] DATE: 07/30/2024 INDICATION: SOB, CP COMPARISON: 10/23/2020 Procedure Note Jeff Styles MD - 07/30/2024 EXAM: XR CHEST 2 VIEWS LOCATION: [facility] DATE: 07/30/2024 INDICATION: SOB, CP COMPARISON: 10/23/2020 IMPRESSION: Median sternotomy wires are noted. Stable cardiac size. Noconsolidation or pneumothorax. Small bilateral pleural effusions, rightgreater than left. Mary Gross MD IMG DIAGNOSTIC IMAG ING ORDERABLES * Nt probnp inpatient (07/30/2024 5:07 PM CDT) N terminal Pro BNP Inpatient [id number] [...] LAB - BLOOD ORDERAB LES LABORATORY [facility] [address] floor, [address] [place] [address], [facility] [phone] * (ABNORMAL) CBC with platelets and differential [...] MD LAB - BLOOD ORDERAB LES LABORATORY [facility] [address] floor, [address] [place] [address], [facility] [phone] * Troponin T, High Sensitivity (07/30/2024 5:07 PM CDT) Troponin T, High Sensitivity 20 <=22 ng/L [...] LAB - BLOOD ORDERAB LES LABORATORY [facility] [address] floor, [address] [place] [address], [facility] [phone] * (ABNORMAL) Basic metabolic panel (07/30/2024 5:07 PM CDT) Sodium 139 135 - 145 mmol/L 07/30/2024 [...] LAB - BLOOD ORDERAB LES LABORATORY [facility] [address] floor, [address] [place] [address], [facility] [phone] * EKG 12-lead, tracing only (07/30/2024 4:51 PM CDT) Systolic Blood Pressure mmHg RADIOLOGY RESULTS Diastolic Blood Pressure mmHg RADIOLOGY RESULTS Ventricular Rate 68 BPM RAD IOLOGY RESULTS Atrial Rate 68 BPM RADIOLOG Y RESULTS ND Interval 236 ms RADIOLOG Y RESULTS QRS Duration 84 ms RADIOLO GY RESULTS QT 386 ms RADIOLOGY RESULTS QTc 410 ms RADIOLOGY RESULTS P [place] 35 degrees RADIOLOGY RESULTS R AXIS 43 degrees RADIOLOGY RESULTS T [place] 201 degrees RADIOLOGY RESULTS Interpretation ECG Sinus rhythm with 1st degree A-V block T wave abnormality, consider anterolateral ischemia Abnormal ECG When compared with ECG of 08-Oct-2023 06:52, QRS axis Shifted right Confirmed by GENERATED REPORT, COMPUTER ([id number]), newspaper editor EBONY LUQUE ([id number]) on 07/30/2024 5:35:44 [...] on exertion Other 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 Long-term (current) use of anticoagulants Severe aortic stenosis Aortic valve disorders Coronary artery disease involving coronary bypass graft of jena heart without angina pectoris Chest pain, unspecified type jail (current) use of anticoagulants Long-term (current) use [...] 10 mg, Oral, DAILY, First dose on Fri07/31/24 at 0900, Hold for SBP < 115 $Given 08/04/2024 9:05 AM CDT 10 mg $Given 08/03/2024 8:56 AM CDT 10 mg $Given 08/02/2024 8:57 AM CDT 10 mg aspirin EC tablet 81 mg 81 [...] $Given 08/03/2024 8:56 AM CDT 75 mg clopidogrel (PLAVIX) tablet ONCE PRN, Starting on Fri08/02/24 at 1322, Cardiac Intra-procedure $Given 08/02/2024 1:22 PM CDT 600 mg Continuing beta leila from home medication [...] is 50 mcg. fentaNYL (PF) (SUBLIMAZE) injection ONCE PRN, Administer over 3-5 Minutes, Starting on Fri08/02/24 at 1233, Cardiac Intra-procedure $Given 08/02/2024 1:50 PM CDT 50 mcg $Given 08/02/2024 12:38 PM CDT 50 mcg $Given 08/02/2024 12:33 PM CDT 50 mcg furosemide (LASIX) tablet 40 mg 40 mg, Oral, DAILY, First dose on Fri07/31/24 at 0900 $Given 08/04/2024 9:05 AM CDT [...] I and O flowsheet. heparin (porcine) injection ONCE PRN, Starting on Fri08/02/24 at 1320, Cardiac Intra-procedure $Given 08/02/2024 1:50 PM CDT 1,000 Units $Given 08/02/2024 1:32 PM CDT 3,000 Units $Given 08/02/2024 1:20 PM CDT 12,000 Units HOLD: Metformin and metformin containing medications [...] or Procedure Date: 08/02/2024, HOLD, Starting on 08/02/24 at 1416, Until Fri08/04/24 at 1414, Hold [...] pressure, Administer over 1 Minutes, Starting on 08/02/24 at 1416, STEP 1: Give if systolic [...] Units, Subcutaneous, EVERY MORNING, First dose on Fri07/31/24 at 0900 $Given 08/04/2024 9:08 AM CDT 60 Units $Given 08/03/2024 9:00 AM CDT 60 Units $Given 08/01/2024 8:31 AM CDT 60 Units iopamidol (ISOVUE-370) solution ONCE PRN, Starting on Fri08/02/24 at 1359, Cardiac Intra-procedure $Given 08/02/2024 1:59 PM CDT 280 mLs lidocaine 1 % ONCE PRN, Starting on Fri08/02/24 at 1234, Cardiac Intra-procedure $Given 08/02/2024 12:34 PM CDT 10 mLs R ight Groin losartan (COZAAR) tablet 50 mg 50 mg, Oral, DAILY, First dose on Fri07/31/24 at 0900, Hold for SBP < 110 [...] $Given 07/30/2024 11:04 PM CDT 100 mg midazolam (VERSED) injection Administer over 2 Minutes, ONCE PRN, Starting on Fri08/02/24 at 1233, Cardiac Intra-procedure $Given 08/02/2024 1:50 PM CDT 1 mg $Given 08/02/2024 12:56 PM CDT 1 mg $Given 08/02/2024 12:53 PM CDT 1 mg naloxone (NARCAN) injection 0.2 mg 0.2 [...] analgesic side effects. Hold while on a ULTRASOUND TECHNOLOGIST SONOGRAPHER or with regular IV opioid dosing. Maximum [...] analgesic side effects. Hold while on a ULTRASOUND TECHNOLOGIST SONOGRAPHER or with regular IV opioid dosing. Maximum total is 60 mg in 24 hours. Percutaneous Coronary Intervention orders placed (this is information for BPA alerting) DOES NOT GO TO JAN, Starting on Fri08/02/24 at 1400, Until Fri08/04/24 at 1414 rivaroxaban ANTICOAGULANT (XARELTO) tablet 20 mg 20 mg, Oral, DAILY WITH SUPPER, First dose on Fri08/02/24 at 2100, Indications: Afib-non valvular, Restart 6 hours post microbiological laboratory technician if puncture site stable $Given 08/03/2024 4:22 PM CDT 20 mg $Given 08/02/2024 9:13 PM CDT 20 mg documented in this encounter Active and Recently Administered Medications Times are shown in CDT. Scheduled Medication Order 08/02/2024 08/03/2024 08/04/2024 amLODIPine (NORVASC) tablet 10 mg 10 mg, Oral, DAILY, First dose on Fri07/31/24 at 0900, Hold for SBP < 115 [...] DAILY, First dose on 07/31/24 at 0900 0858 ($Given - Provider: Estela [...] 350 mg/dL after administration of correction dose. 2213 (Not Given - Provider: Amadou Tellez RN - Reason: Order parameters not met) 2204 (Not Given - Provider: Madalyn Ding RN [...] Indications: Afib-non valvular, Restart 6 hours post microbiological laboratory technician if puncture site stable 2113 ($Given - [...] 55-80) 0800 (Rate/Dose Verify - Provider: Estela Celestin RN)1235 (Stopped - Provider: Amairani Wolff RN) sodium chloride 0.9 % infusion (CANCELED) at 150 mL/hr, Intravenous, CONTINUOUS, 150 mL/hr IV for 2 hours prior to cardiac microbiological laboratory technician procedure, then decrease to 75 mL/hr to [...] 1829 1438 ($New Bag - Provider: Estela Celestin, JESSE) PRN Medication Order 08/02/2024 08/03/2024 08/04/2024 acetaminophen [...] analgesic side effects. Hold while on a ULTRASOUND TECHNOLOGIST SONOGRAPHER or with regular IV opioid dosing. Maximum [...] analgesic side effects. Hold while on a ULTRASOUND TECHNOLOGIST SONOGRAPHER or with regular IV opioid dosing. Maximum [...] analgesic side effects. Hold while on a ULTRASOUND TECHNOLOGIST SONOGRAPHER or with regular IV opioid dosing. Maximum [...] analgesic side effects. Hold while on a ULTRASOUND TECHNOLOGIST SONOGRAPHER or with regular IV opioid dosing. Maximum total is 60 mg in 24 hours. documented in this encounter Care Teams Instrument Person Relationship Specialty Start Date End Date David Martinez MD [facility] [address] [place] [address] PCP - General Emergency Medicine 08/28/23 Ofe Carter EP [facility] [address] [id number] Cardiac Rehabilitation Therapist 10/23/23 10/23/24 Lorraine Ospina CNP [address] [id number] Assigned Heart and Vascular Provider 10/25/23 documented as of this encounter
--- OUTSIDE RECORDS SUMMARY | 2024-08-11 15:45 | XMS_ITS ---
Author Organization [facility] Address [address] [place] [address] Care Team Providers Care Third Grade Teacher Name Role Phone David Martinez MD Primary Care Provider Ofe Carter EP Unavailable [phone] Lorraine Ospina PRINCIPAL PROGRAMMER Unavailable [phone] Transitional Care Management Status:Enrolled (Active) Start date:08/05/2024 Enrollment date:08/06/2024 Continued Care and Services Coordination
== END 2024-08-11 15:39 | disposition home or self-care (01) ==
LOC: NFLDREF 15:39
PROVIDERS: PCP Internal Medicine; Visit Provider Internal Medicine
DX: E11.69 Type 2 diabetes mellitus with other specified complication (principal); E78.5 Hyperlipidemia, unspecified; I10 Essential (primary) hypertension
CPT/HCPCS: 80053

== ENCOUNTER 2025-03-30 14:53 | Outpatient (CLI) | payer MEDICARE, SELFPAY | END 2025-03-30 14:54 | disposition home or self-care (01) | LOC: NFLDREF 14:54 | PROVIDERS: PCP Internal Medicine; Visit Provider Internal Medicine | DX: N40.0 Benign prostatic hyperplasia without lower urinary tract symptoms (principal); R82.90 Unspecified abnormal findings in urine; Z12.5 Encounter for screening for malignant neoplasm of prostate | CPT/HCPCS: 87086; G0103 ==

== ENCOUNTER 2025-05-26 15:16 | Outpatient (CLI) | payer MEDICARE, SELFPAY | END 2025-05-26 15:17 | disposition home or self-care (01) | LOC: NFLDREF 05-27 08:18 | PROVIDERS: PCP Internal Medicine; Referring Provider Internal Medicine; Visit Provider Internal Medicine | DX: R30.0 Dysuria (principal) | CPT/HCPCS: 87086 ==

== ENCOUNTER 2025-10-06 12:20 | Inpatient (IN) | payer MEDICARE, SELFPAY ==
[2025-10-06] VITALS (29 sets, daily range): BP systolic 114–157; BP diastolic 51–71; PULSE 70–84; RESP 16–24; TEMP 36.9–39.1; O2SAT 93–100; BMI 47.3; BMI 42.6
--- OUTSIDE RECORDS SUMMARY | 2025-10-06 12:24 | XMS_ITS | Encounter Summary ---
Author Organization [facility] Address [address] [place] [address] Care Team Providers Care Rn Lpn Lvn Name Role Phone No Primary/Referring, Phy Primary Care Provider Unavailable Encounter Details Date Type Department Care Team (Late st Contact Info) Description 11/19/2018 Correspondence Optometry at [facility] [address] 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 Social History Tobacco Use Types Packs/Day Years Used Date Smoking Tobacco: Never Smokeless Tobacco: Never Alcohol Use Standard Drinks/Week Comments No 0 (1 standard drink = 0.6 oz pur e alcohol) Sex and Gender Information Value Date Recorded Sex Assigned at Not on file Legal Sex Male 2:37 PM CDT Gender Identity Not on file Sexual Orientation Not on file documented as of this encounter Plan of Treatment Not on file documented as of this encounter Visit Diagnoses Not on filedocumented in this encounter Care Teams Rn Lpn Lvn Relationship Specialty Start Date End Date No Primary/Referring, Phy PCP - General 10/21/18 documented as of this encounter
--- OUTSIDE RECORDS SUMMARY | 2025-10-06 12:24 | XMS_ITS | CCD ---
Author Name Interface, [id number] Address [address] [facility] [address], [place] [address] Organization [facility] Address [address] [facility] [address] [place] [address] Care Team Providers Care Labor Economist Name Role Phone Gato Campos MD Unavailable Unavailable Allergies and Adverse Reactions Medication/Group Name Reaction Severity Date Penicillins 10/23/2020 Reason for Visit RC - 66 CXR SI - 66 CXR SI Medications Date Name Route Dose Frequency Instructions Start Date End Date Status Fill Status Indication 10/23 Atorvasta tin Oral active 10/23 Aspirin Oral active 09/27 Furosemid e Oral active 10/23 Semagluti de Subcutane ous Pen Injector active 09/27 Metformin Oral stopped 09/27 Insulin Regular Human Subcutane ous active 10/23 Metoprolo l Oral (Tartrate ) active 10/23 Losartan Oral active 10/23 Metformin Oral active 10/23 Insulin Lispro Subcutane ous active Problems Diagnosis Status Date of Diagnosis Resolution Date Pleural effusion Active Social History Date Name Value 09/27/2020 Sex Male
--- OUTSIDE RECORDS SUMMARY | 2025-10-06 12:24 | XMS_ITS | Encounter Summary ---
Author Organization [facility] Address [address] [place] [address] Care Team Providers Care Chief Resource Officer Name Role Phone No Primary/Referring, Phy Primary Care Provider Unavailable Encounter Details Date Type Department Care Team (Latest Contact Info) Description 12/19/2015 Correspondence None No Primary/Referring, Maddy OCCMED NOTES Social History Tobacco Use Types [...] on filedocumented in this encounter Care Teams Chief Resource Officer Relationship Specialty Start Date End Date No Primary/Referring, Maddy PCP - General 10/21/18 documented as of this encounter
--- OUTSIDE RECORDS SUMMARY | 2025-10-06 12:24 | XMS_ITS | Encounter Summary ---
Author Organization [facility] Address [address] [place] [address] Care Team Providers Care Antitank Assault Gunner Name Role Phone No Primary/Referring, Phy Primary Care Provider Unavailable Encounter Details Date Type Department Care Team (Late st Contact Info) Description 09/25/2015 Correspondence None No Primary/Referring, Phy HME EQUIPMENT HONEY EXTRACTOR TICKET Social History Tobacco Use Types Packs/Day [...] on filedocumented in this encounter Care Teams Antitank Assault Gunner Relationship Specialty Start Date End Date No Primary/Referring, Phy PCP - General 10/21/18 documented as of this encounter
--- OUTSIDE RECORDS SUMMARY | 2025-10-06 12:24 | XMS_ITS | Encounter Summary ---
Author Organization [facility] Address [address] [facility] [place] [address] Care Team Providers Care Fraternity Adviser Name Role Phone [facility], [facility] Primary Care Provider Simon Rebolledo MD Unavailable Unavailable Gavin Moore MD Unavailable [phone] Gabriel Fortune DPM Unavailable [phone] Sara Schwab APRN HOSPICE COMMUNITY LIAISON Unavailable David Martinez MD Primary Care Provider Kyler Lubin MD Unavailable Ofe Carter EP Unavailable [phone] Lorraine Ospina HOSPICE COMMUNITY LIAISON Unavailable [phone] Ofe Carter EP Unavailable [phone] Encounter Details Date Type Department Care Team (Late st Contact Info) Description 07/06/2020 Orders Only SH PHYS STANDARD [address] [phone] Sofya Cullen MD [address] [facility] [address] [place] [address] Unstable angina (H) (Primary Dx) Social History Tobacco Use Types Packs/Day Years Used Date Smoking Tobacco: Never Assessed Sex and Gender Information Value Date Recorded Sex Assigned at Not on file Legal Sex Male 3:31 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 Gender Identity Not on file Sexual Orientation [...] Out COVID-19 11/23/2020 11/23/2020 11/23/2020 3:44 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 ENGINEER documented as of this encounter Care Teams Fraternity Adviser Relationship Specialty Start Date End Date [address] [address] PCP - General 01/04/19 08/27/23 David Martinez MD [facility] [address] [place] [address] PCP - General Emergency Medicine 08/28/23 Simon eRbolledo MD Assigned Heart and Vascular Provider 08/25/20 09/16/20 Gavin Moore MD [address] [facility] [address] [place] [address] Assigned Heart and Vascular Provider 09/17/20 04/14/21 Gabriel Fortune DPM [address] [facility] [address] [place] [address] Assigned Musculoskeletal Provider 12/03/20 05/31/22 Sara Schwab APRN HOSPICE COMMUNITY LIAISON [address] [place] [address] Assigned Heart and Vascular Provider 04/15/21 06/28/22 Kyler Lubin MD [address] [place] [address] Assigned Heart and Vascular Provider 08/30/23 10/24/23 Ofe Carter EP [facility] [address] [address] Cardiac Rehabilitation Therapist 10/23/23 10/23/24 Lorraine Ospina HOSPICE COMMUNITY LIAISON [address] [address] Assigned Heart and Vascular Provider 10/25/23 Ofe Carter, KAILA [facility] [address] [address] Cardiac Rehabilitation Therapist 08/12/24 08/12/25 documented as of this encounter
--- OUTSIDE RECORDS SUMMARY | 2025-10-06 12:24 | XMS_ITS | Encounter Summary ---
Author Organization [facility] Address [address] [facility] [place] [address] Care Team Providers Care Welding Equipment Sales Representative Name Role Phone [facility], [facility] Primary Care Provider Simon Rebolledo MD Unavailable Unavailable Gavin Moore MD Unavailable [phone] Gabriel Fortune DPM Unavailable [phone] Sara Schwab APRN TIRE WRAPPER Unavailable David Martinez MD Primary Care Provider Kyler Lubin MD Unavailable Ofe Carter EP Unavailable [phone] Lorraine Ospina TIRE WRAPPER Unavailable [phone] Ofe Carter EP Unavailable Encounter Details Date Type Department Care Team (Late st Contact Info) Description 08/07/2020 Orders Only SH PHYS STANDARD [address] [phone] Page Finney MD [address] [id number] S/P CABG x 4 (Primary Dx) Social [...] on file Legal Sex Male 3:31 AM DOCK ASSOCIATE Gender Identity Not on file Sexual Orientation Not on file COVID-19 Exposure Response Date Recorded In the last month, have you been in contact with someone who was confirmed or suspected to have Coronavirus / COVID-19? No / Unsure 08/09/2020 2:25 PM CDT documented as of this encounter Plan of Treatment Not on file documented as of this encounter Results * Asymptomatic COVID-19 Virus (Coronavirus) by PCR (08/12/2020 2:12 PM CDT) [facility] COVID-19 Virus PCR to [facility] [place] - Source Nasopharyngeal 08/12/2020 2:27 PM CDT [facility] COVID-19 Virus PCR to [facility] - Result Not Detected 08/13/2020 6:15 PM CDT [facility], [facility] Comment: Collection of multiple specimens from [...] and amplified using the HDPCR SARS-CoV-2 assay (Firmafon.). The HDPCRTM SARS-CoV-2 assay is a reverse twister frame tender real-time polymerase chain reaction (qRT-PCR) test intended [...] (Centers for Disease Control) Testing performed by [facility]) [address] [facility] [address] The test performance characteristics were determined by [facility]. It has not been cleared or approved by the FDA. The laboratory is regulated under the Clinical Laboratory Improvement Amendments of 1988 (CLIA-88) as qualified to perform high-complexity testing. This test is used for clinical purposes. It should not be regarded as investigational or for research. Specimen from nasopharyngeal structure (specimen) 08/12/2020 2:12 PM CDT 08/12/2020 2:27 PM CDT us Page Finney MD LAB - MICRO GENERAL OR DERABLES Edited Result - Final [facility], [facility] [address] [place], [place] [id number] [place] [address] [facility] [address], [place] [address] documented in this encounter Visit Diagnoses Diagnosis S/P CABG x 4- Primary Postsurgical aortocoronary bypass status documented in this encounter Additional Health Concerns Infection Onset Date Last Indicated Resolved Time Rule Out COVID-19 11/23/2020 11/23/2020 11/23/2020 3:44 AM DOCK ASSOCIATE documented as of this encounter Care Teams Welding Equipment Sales Representative Relationship Specialty Start Date End Date Clinic, [address] [address] PCP - General 01/04/19 08/27/23 David Martinez MD [facility] [address] [place] [address] PCP - General Emergency Medicine 08/28/23 Simon Rebolledo MD Assigned Heart and Vascular Provider 08/25/20 09/16/20 Gavin Moore MD [address] [facility] [address] [facility] [address] [place] [id number] Assigned Heart and Vascular Provider 09/17/20 04/14/21 Gabriel Fortune DPM [address] [facility] [address] [place] [address] Assigned Musculoskeletal Provider 12/03/20 05/31/22 Sara Schwab APRN TIRE WRAPPER [address] [place] [address] Assigned Heart and Vascular Provider 04/15/21 06/28/22 Kyler Lubin MD [address] [facility] [address] [place] [address] Assigned Heart and Vascular Provider 08/30/23 10/24/23 Ofe Carter EP [facility] [address] [address] Cardiac Rehabilitation Therapist 10/23/23 10/23/24 Lorraine Ospina, TIRE WRAPPER [address] [address] Assigned Heart and Vascular Provider 10/25/23 Ofe Carter EP [facility] [address] [address] Cardiac Rehabilitation Therapist 08/12/24 08/12/25 documented as of this encounter
--- OUTSIDE RECORDS SUMMARY | 2025-10-06 12:24 | XMS_ITS | Encounter Summary ---
Author Organization [facility] Address [address] [place] [address] Care Team Providers Care Table Operator Name Role Phone No Primary/Referring, Phy Primary Care Provider Unavailable Encounter Details Date Type Department Care Team (Latest Contact Info) Description 02/15/2013 Correspondence [facility] Occupational and Environmental Medicine [address] [place] [address] Janey Curry MD [employer] Social History Tobacco Use Types [...] on filedocumented in this encounter Care Teams Table Operator Relationship Specialty Start Date End Date No Primary/Referring, Maddy PCP - General 10/21/18 documented as of this encounter
--- OUTSIDE RECORDS SUMMARY | 2025-10-06 12:24 | XMS_ITS | Encounter Summary ---
Author Organization [facility] Address [address] [place] [address] Care Team Providers Care Program Advocate Name Role Phone No Primary/Referring, Phy Primary Care Provider Unavailable Encounter Details Date Type Department Care Team (Latest Contact Info) Description 01/08/2016 Correspondence [facility] Occupational and Environmental Medicine [address] [place] [id number] Kemar Naik MD [employer] [facility] Social History Tobacco Use [...] on filedocumented in this encounter Care Teams Program Advocate Relationship Specialty Start Date End Date No Primary/ReferringMaddy PCP - General 10/21/18 documented as of this encounter
--- OUTSIDE RECORDS SUMMARY | 2025-10-06 12:24 | XMS_ITS | Clinical Summary ---
Author Organization [facility] Address [address] [place] [address] Care Team Providers Care Utility Bill Complaints Investigator Name Role Phone No Primary/Referring, Phy Primary Care Provider Unavailable Source Comments You are receiving this document as you are listed as the primary care provider,follow-up provider, or the patient has been referred to you for consultation.This is in compliance with the Medicare and[facility] Hospital[facility] EHR Incentive Program,which states Providers who transition their patient to another setting of careor provider of care or refers their patient to another provider of care shouldprovide summary care record for each transition of care or referral. [facility] Allergies Active Allergy Reactions Criticality Noted Date Comments Penicillins Rash,Other, see comments 01/13/2013 Not verified. Medications metFORMIN (AKA GLUCOPHAGE) 1000 MG tablet Take 1,000 mg by mouth two times a day with meals. Active insulin lispro (HUMALOG PEN) 100 UNIT/ML injection vialIndications :Diabetes mellitus, type 2 (HRC) Inject subcutaneously. Take 35 units with your largest meal of the day. Take 30 units with your smaller meal according to BG Active ibuprofen (AKA MOTRIN) 800 MG tablet Take 800 mg by mouth every 6 hours as needed. Active insulin pen needle 31G X 8 MM (PEN NEEDLES 31GX5/16) Dispense: Pen [place]wood: B-D short pen 6 Active blood glucose monitor system W/DEVICE Use as directed 3 x/day. Disp:Strips: AccuChek Edith #100 Lancets: Generic #100 5 Active furosemide (LASIX) 20 MG tablet TAKE ONE TABLET BY MOUTH TWICE DAILY 180 Tab 2 6 Active losartan (COZAAR) 100 MG tablet Take 1 Tab by mouth daily. 90 Tab 2 6 Active atorvastatin (LIPITOR) 10 MG tablet TAKE ONE TABLET BY MOUTH ONCE DAILY 90 Tab 3 6 Active insulin glargine (BASAGLAR) 100 UNIT/ML KWIKPEN INJECT 60 UNITS SUBCUTANEOUS IN THE AFTERNOON 8 Active Multiple Vitamin (MULTI-DAY VITAMINS) Takes Senior Pack that has many vitamins 30 Tablet 11 9 Active OZEMPIC 1 MG/DOSE injection 9 Active amLODIPine (NORVASC) 5 MG tablet Take 1 Tablet by mouth daily. 9 Active INVOKANA 300 MG TABS daily. 9 Active metoprolol succinate (TOPROL XL) 25 MG 24 hour release tablet 1 Tablet daily. 9 Active Active Problems Problem Noted Date Diagnosed [...] Overview (07/07/2014): 01/11/14 DM: patient sees outside [facility] endocrinology. Most recent hemoglobin A1c 9.0., Cr [...] mellitus wi th ophthalmic manifestations 12/30/2013 10/31/2020 Overview (06/25/2017): Type II DM EYE (use w/ 362.04) Immunizations Immunization Administration Dates Next Due Influenza IIV4 (Quadrivalent) 0.5mL (71670) 06/2014,08/04/2013 PPSV23 (Pneumovax) 07/25/2005 Td 07/25/2005 Tdap [...] Comments Blood Pressure 168/102 10/23/2020 10:18 AM CHILD CARE WORKER 2n d bp check Pulse 78 10/23/2020 10:05 AM CHILD CARE WORKER Temperature 37.1 C (98.8 F) 10/23/2020 10:05 AM CHILD CARE WORKER Respiratory Rate 16 10/23/2020 10:05 AM CHILD CARE WORKER Oxygen Saturation 96% 10/23/2020 10:05 AM CHILD CARE WORKER Inhaled Oxygen Concentration - - Weight 138.3 kg (305 lb) 10/23/2020 10:05 AM CHILD CARE WORKER Height 180.3 cm (5' 11) 10/23/2020 10:05 AM CHILD CARE WORKER Body Mass Index 42.54 10/23/2020 10:05 AM CHILD CARE WORKER Plan of Treatment Health Maintenance Due Date Last Done Comments Hep B Immunization Discussion 1955 Hep C Screening (Preventive Services) 1955 Adult Preventive Visit 08/04/2014 08/04/2013 Diabetes: Albumin/Creatinine Ratio, Urine 06/05/2016 06/05/2015 Diabetes: Foot Exam 06/05/2016 06/05/2015 ( Historical Completion) Diabetes: Creatinine 06/11/2017 06/11/2016, 08/14/2015, 06/01/2015 (Historical Completion), Additional history exists Colonoscopy 01/31/2018 02/01/2008 Diabetes: Lipid Panel 05/19/2019 05/19/2014 , 05/19/2014, 01/11/2014, Additional history exists Diabetes: HGBA1C 01/08/2021 07/11/2020, 07/2016, 06/01/2015 (Historical Completion), Additional history exists Diabetes: Eye Exam 10/31/2021 10/31/2020, 1 01/01/2020, 10/31/2020, Additional history exists DTaP/Tdap/Td Vaccine (2 - Tdap) 04/01/2024 04/01/2014, 07/25/2005 Pneumococcal Vaccine 50+ Yrs (3 of 3 - PCV20 or PCV21) 12/15/2024 12/15/2019, 07/25/2005, 07/04/2005 COVID-19 Vaccine (3 - season) 2025 01/02/2021, 12/12/2020 Influenza Vaccine (#1) 2025 7, 09/04/2015, 09/04/2015, Additional history exists RSV Vaccine (1 - 1-dose 75+ series) 2029 Zoster/Shingles Vaccine Completed 09/28/2018, 04/15 HepA Vaccine Aged Out No longer eligi ble based on patient's age to complete this topic HepB Vaccine Aged Out No longer eligi ble based on patient's age to complete this topic Hib Vaccine Aged Out No longer eligi ble based on patient's age to complete this topic IPV (Polio) Vaccine Aged Out No longe r eligible based on patient's age to complete this topic MCV4 Vaccine Aged Out No longer eligi ble based on patient's age to complete this topic Meningococcal B Vaccine Aged Out No l onger eligible based [...] - 06/11/2016 7:15 PM CDT Performed at [facility], [address] [place] [id number] Segun Guardado MD LAB_1 Final Result [facility] [phone] * (ABNORMAL) Hgb A1c (06/11/2016 11:34 AM CDT) Hgb A1c 7.3(H) 4.3 - 5.6 % [facility] Comment: See (NOTE) For patients not previously diagnosed with diabetes: 5.7-6.4%: Increased risk for diabetes (prediabetic) 6.5% and greater: Diagnostic for diabetes For diabetic patients: <8.0%: Goal of therapy for ages 18-75 - physicians may recommend a higher or lower goal for specific individuals 06/11/2016 11:3 4 AM CDT 06/11/2016 11:35 AM CDT Narrative [facility] - 06/11/2016 4:51 PM CDT Performed at [facility], [address] [place], [place] [id number] Bethany Luo MD LAB_1 Final Result Performing Organization Address [facility] de Phone Number [facility] [phone] * MICROALB/CREAT RATIO (06/05/2015 10:36 AM CDT) Albumin, Urine, Random <0.5 mg/dl [facility] Creatinine,Ur Random 59.4 mg/dl [facility] Alb/Creat Ratio, Urine, Random <8 <30 mg/g creatinine [facility] Urine specimen (specimen) 06/05/2015 10:36 AM CDT 06/05/2015 10:37 AM CDT Narrative [facility] - 06/05/2015 5:00 PM CDT Performed at [facility], [address] [place] [address] Bethany Luo MD LAB_1 Final Result Performing Organization Address [facility] Co de Phone Number [facility] [phone] * LDL CHOLESTEROL, DIRECT MEASURED (05/19/2014 9:53 AM CDT) LDL, Direct 96 <100 mg/dL EXTERNA L RESULTS Comment:PERFORMED BY [place], [place] 05/19/2014 9:53 AM CDT us Bethany Luo MD LAB_1 Final Result EXTERNAL RESULTS from Last 3 Months or Most Recently Relevant to Health Maintenance Insurance SELF INSURED SELF INSURED [facility] Care Teams Utility Bill Complaints Investigator Relationship Specialty Start Date End Date No Primary/Referring, Phy PCP - General 10/21/18
--- OUTSIDE RECORDS SUMMARY | 2025-10-06 12:24 | XMS_ITS | Encounter Summary ---
Author Organization [facility] Address [address] [place] [address] Care Team Providers Care Cutter Head Sharpener Name Role Phone No Primary/Referring, Phy Primary Care Provider Unavailable Encounter Details Date Type Department Care Team (Late st Contact Info) Description 02/23/2015 Correspondence [facility] [address] [facility] [address] [facility] [place] [address] Nathaniel Dolan MD [address] [place] [address] FMLA Social History Tobacco Use Types Packs/Day [...] on filedocumented in this encounter Care Teams Cutter Head Sharpener Relationship Specialty Start Date End Date No Primary/Referring, Maddy PCP - General 10/21/18 documented as of this encounter
--- OUTSIDE RECORDS SUMMARY | 2025-10-06 12:24 | XMS_ITS | Encounter Summary ---
Author Organization [facility] Address [address] [facility] [place] [address] Care Team Providers Care Gold Leaf Gilder Name Role Phone [facility] Primary Care Provider Simon Rebolledo MD Unavailable Unavailable Gavin Moore MD Unavailable [phone] Gabriel Fortune DPM Unavailable [phone] Sara Schwab APRN LOCAL COMPANY HAZMAT DRIVER Unavailable David Martinez MD Primary Care Provider Kyler Lubin MD Unavailable Ofe Carter EP Unavailable [phone] Lorraine Ospina LOCAL COMPANY HAZMAT DRIVER Unavailable [phone] Ofe Carter EP Unavailable [phone] Encounter Details Date Type Department Care Team (Late st Contact Info) Description 07/06/2020 Orders Only SH PHYS STANDARD [address] [phone] Sofya Cullen MD [address] [facility] [address] [place] [address] Social History Tobacco Use Types Packs/Day Years Used Date Smoking Tobacco: Never Assessed Sex and Gender Information Value Date Recorded Sex Assigned at Not on file Legal Sex Male 3:31 AM REGISTERED NURSE STEP DOWN Gender Identity Not on file Sexual Orientation [...] Out COVID-19 11/23/2020 11/23/2020 11/23/2020 3:44 AM REGISTERED NURSE STEP DOWN documented as of this encounter Care Teams Gold Leaf Gilder Relationship Specialty Start Date End Date [facility], [address] [address] PCP - General 01/04/19 08/27/23 David Martinez MD [facility] [address] [place] [address] PCP - General Emergency Medicine 08/28/23 Simon Rebolledo MD Assigned Heart and Vascular Provider 08/25/20 09/16/20 Gavin Moore MD [address] [facility] [address] [place] [address] Assigned Heart and Vascular Provider 09/17/20 04/14/21 Gabriel Fortune DPM [address] [facility] [address] [place] [address] Assigned Musculoskeletal Provider 12/03/20 05/31/22 Sara Schwab APRN LOCAL COMPANY HAZMAT DRIVER [address] [place] [address] Assigned Heart and Vascular Provider 04/15/21 06/28/22 Kyler Lubin MD [address] [id number] Assigned Heart and Vascular Provider 08/30/23 10/24/23 Ofe Carter, [facility] [address] [id number] Cardiac Rehabilitation Therapist 10/23/23 10/23/24 Lorraine Ospina LOCAL COMPANY HAZMAT DRIVER [address] [id number] Assigned Heart and Vascular Provider 10/25/23 Ofe Carter, [facility] [address] [id number] Cardiac Rehabilitation Therapist 08/12/24 08/12/25 documented as of this encounter
--- OUTSIDE RECORDS SUMMARY | 2025-10-06 12:24 | XMS_ITS | Encounter Summary ---
Author Organization [facility] Address [address] [place] [address] Care Team Providers Care Tape Fastener Machine Operator Name Role Phone No Primary/Referring, Phy Primary Care Provider Unavailable Encounter Details Date Type Department Care Team (Late st Contact Info) Description 02/20/2015 Consent for Procedure/Treatme nt [facility] [address] [facility] [address] [facility] [place] [address] Nathaniel Dolan MD [address] [place], [place] [id number] CONSENT FOR PROCEDURE Social History Tobacco Use [...] on filedocumented in this encounter Care Teams Tape Fastener Machine Operator Relationship Specialty Start Date End Date No Primary/Referring, Phy PCP - General 10/21/18 documented as of this encounter
--- OUTSIDE RECORDS SUMMARY | 2025-10-06 12:24 | XMS_ITS ---
Author Name Interface, [id number] Address [address] [facility] [address] [place] [address] Organization [facility] Address [address] [facility] [address] [place] [address] Allergies and Adverse Reactions Medication/Group Name Reaction Severity Date Penicillins 10/23/2020 Plan Date Type Value 10/23/2020 APPOINTMENT RC - 66 CXR SI - 66 CXR SI 10/16/2020 APPOINTMENT RC - 66 CXR SI, U/S THORA FV - 66 CXR SI, U/S THORA FV 10/06/2020 APPOINTMENT ULS - 66 7AM CHK IN THORACENTESIS - HAVE COVER INSPECTOR 10/04/2020 APPOINTMENT RC - 66 PL EFF F /U, CXR SI - 66 PL EFF F/U, CXR SI 10/04/2020 LAB_ORDER Chest x-ray, PA and lateral 10/16/2020 LAB_ORDER Chest x-ray, PA and lateral Reason for Visit RC - 66 CXR SI - 66 CXR SI Encounters Date Name 10/04/2020 Pleural effusion Medications Date Name Route Dose Frequency Instructions Start Date End Date Status Fill Status Indication 10/23 Metoprolol Oral (Tartrate) active 10/23 Losartan Oral active 10/23 Aspirin Oral active 09/27 Furosemide Oral active 10/23 Metformin Oral active 10/23 Atorvastat in Oral active 10/23 Insulin Lispro Subcutaneo us active 09/27 Insulin Regular Human Subcutaneo us active 10/23 Semaglutid e Subcutaneo us Pen Injector active Problems Diagnosis Status Date of Diagnosis Resolution Date Pleural effusion Active Vital Signs Date Type Value 10/04/2020 Weight 299.40 10/04/2020 BSA 2.50 10/04/2020 Pain Scale 4.00 10/04/2020 Oxygen Saturation 97.00 10/04/2020 BMI 41.76 10/04/2020 Heart Beat 93.00 10/04/2020 Height 71.00 10/04/2020 Body Temperature 97.80 10/04/2020 Intravascular Systolic 122 10/04/2020 Intravascular Diastolic 68 10/04/2020 Respiratory Rate 18.00 10/23/2020 BSA 2.52 10/23/2020 BMI 42.54 10/23/2020 Weight 305.00 10/23/2020 Height 71.00 10/23/2020 Body Temperature 96.40 10/23/2020 Pain Scale 0.00 10/23/2020 Intravascular Systolic 144 10/23/2020 Intravascular Diastolic 78 10/23/2020 Oxygen Saturation 96.00 10/23/2020 Heart Beat 83.00 10/23/2020 Respiratory Rate 16.00
--- OUTSIDE RECORDS SUMMARY | 2025-10-06 12:24 | XMS_ITS | Encounter Summary ---
Author Organization [facility] Address [address] [place] [address] Care Team Providers Care Fitting Room Supervisor Name Role Phone No Primary/Referring, Phy Primary Care Provider Unavailable Encounter Details Date Type Department Care Team (Late st Contact Info) Description 05/19/2012 Scanned History External to Transferred Record, Provider [facility] Social History Tobacco Use Types Packs/Day [...] on filedocumented in this encounter Care Teams Fitting Room Supervisor Relationship Specialty Start Date End Date No Primary/Referring, Phy PCP - General 10/21/18 documented as of this encounter
--- OUTSIDE RECORDS SUMMARY | 2025-10-06 12:24 | XMS_ITS | Encounter Summary ---
Author Organization [facility] Address [address] [place] [address] Care Team Providers Care Manager In Home Name Role Phone No Primary/Referring, Phy Primary Care Provider Unavailable Encounter Details Date Type Department Care Team (Late st Contact Info) Description 03/16/2013 Correspondence [facility] [address] [place] [address] Gabriel Burton DC CHIROPRACTIC SERVICES [...] on filedocumented in this encounter Care Teams Manager In Home Relationship Specialty Start Date End Date No Primary/Referring, Phy PCP - General 10/21/18 documented as of this encounter
--- OUTSIDE RECORDS SUMMARY | 2025-10-06 12:24 | XMS_ITS | Encounter Summary ---
Author Organization [facility] Address [address] [place] [address] Care Team Providers Care Program Rep Name Role Phone No Primary/Referring, Phy Primary [...] filedocumented in this encounter Care Teams Program Rep Relationship Specialty Start Date End Date No Primary/ReferringMaddy PCP - General 10/21/18 documented as of this encounter
--- OUTSIDE RECORDS SUMMARY | 2025-10-06 12:24 | XMS_ITS | Encounter Summary ---
Author Organization [facility] Address [address] [facility] [place] [address] Care Team Providers Care Continuous Absorption Process Operator Name Role Phone [facility], [facility] Primary Care Provider Simon Rebolledo MD Unavailable Unavailable Gavin Moore MD Unavailable [phone] Gabriel Fortune DPM Unavailable [phone] Sara Schwab APRN NEW MEDIA STRATEGIST Unavailable David Martinez MD Primary Care Provider Kyler Lubin MD Unavailable [phone] Ofe Carter EP Unavailable [phone] Lorraine Ospina NEW MEDIA STRATEGIST Unavailable [phone] Ofe Carter EP Unavailable [phone] Encounter Details Date Type Department Care Team (Late st Contact Info) Description 07/06/2020 Orders Only SH PHYS STANDARD [address] [phone] Sofya Cullen MD [address] [facility] [address] [place] [address] Social History Tobacco Use Types Packs/Day Years Used Date Smoking Tobacco: Never Assessed Sex and Gender Information Value Date Recorded Sex Assigned at Not on file Legal Sex Male 3:31 AM PRISON GUARD SUPERVISOR Gender Identity Not on file Sexual Orientation [...] Out COVID-19 11/23/2020 11/23/2020 11/23/2020 3:44 AM PRISON GUARD SUPERVISOR documented as of this encounter Care Teams Continuous Absorption Process Operator Relationship Specialty Start Date End Date [facility], [address] [address] PCP - General 01/04/19 08/27/23 David Martinez MD [facility] [address] [place] [address] PCP - General Emergency Medicine 08/28/23 Simon Rebolledo MD Assigned Heart and Vascular Provider 08/25/20 09/16/20 Gavin Moore MD [address] [facility] [address] [place] [address] Assigned Heart and Vascular Provider 09/17/20 04/14/21 Gabriel Fortune DPM [address] [facility] [address] [place] [address] Assigned Musculoskeletal Provider 12/03/20 05/31/22 Sara Schwab APRN NEW MEDIA STRATEGIST [address] [place] [address] Assigned Heart and Vascular Provider 04/15/21 06/28/22 Kyler Lubin MD [address] [place] [address] Assigned Heart and Vascular Provider 08/30/23 10/24/23 Ofe Carter, [facility] [address] [address] Cardiac Rehabilitation Therapist 10/23/23 10/23/24 Lorraine Ospina NEW MEDIA STRATEGIST [address] [id number] Assigned Heart and Vascular Provider 10/25/23 Ofe Carter, [facility] [address] [id number] Cardiac Rehabilitation Therapist 08/12/24 08/12/25 documented as of this encounter
--- OUTSIDE RECORDS SUMMARY | 2025-10-06 12:25 | XMS_ITS | Clinical Summary ---
Author Organization [employer] [facility] Address [address] [place] [address] Care Team Providers Care Electric Truck Operator Name Role Phone None Primary Care Provider Unavailabl e Allergies Active Allergy Reactions Criticality Noted Date Comments Penicillins Erythema,Other - Rahul cribe In Comment Field,Rash High 03/25/2006 Not verified. Medications acetaminophen (TYLENOL) 325 mg tablet Take 650 mg by mouth. 0 Active amLODIPine (NORVASC) 5 mg tablet Take 5 mg by mouth. 9 Active atorvastatin (LIPITOR) 20 mg tablet Take 20 mg by mouth. 1 Active Accu-Chek SmartView Test Strip strip USE 1 STRIP TO CHECK GLUCOSE THREE TIMES DAILY E11.8 1 Active cholecalcifero l, Vitamin D3, 2,000 unit tablet Take 1 Tablet by mouth once daily. Active furosemide (LASIX) 20 mg tablet Take 20 mg by mouth. 1 Active insulin glargine, U-100, 100 unit/mL (3 mL) pen Inject 60 units subcutaneous. 1 Active insulin lispro, U-100, (HumaLOG KwikPen Insulin) 100 unit/mL inpn pen INJECT 20 TO 30 UNITS SUBCUTANEOUSLY WITH MEALS 1 Active NovoLIN N NPH U-100 Insulin 100 unit/mL susp injection INJECT 0.3 ML (30 UNITS) SUBCUTANEOUSLY EVERY MORNING AND 0.25 ML (25 UNITS) EACH EVENING 1 Active metFORMIN (GLUCOPHAGE) 1,000 mg tablet Take 1 Tablet by mouth 2 times daily. 1 Active losartan (COZAAR) 100 mg tablet Take 100 mg by mouth. 1 Active metoprolol succinate (TOPROL XL) 100 mg Sustained-Rele ase tablet Take 100 mg by mouth. 1 Active rivaroxaban (Xarelto) 20 mg tablet Take 20 mg by mouth. 1 Active Insulin Syringe-Needle U-100 0.5 mL 31 gauge x 5/16 2 times daily. 1 Active vitamin E, dl,tocopheryl acet, (vitamin E, dl, acetate,) 100 unit capsule Take 200 units by mouth. Active Multivitamins with Minerals capsule Take by mouth. Activ e multivitamins- minerals-lutei n (CENTRUM SILVER) tab tablet Take 1 Tablet [...] Paying Living Expenses Not on file 11/03/2021 Interpersonal Safety Answer Date Record ed Are you being hit, kicked, p ushed or yelled at (see row info)? No 03/11/2024 Interpersonal Safety Abuse 12 - 18 Not on file 03/11/2024 Interpersonal Safety Ambulatory Vulnerability No t on file 03/11/2024 Sex and Gender Information Value Date Recorded Sex Assigned at Not on file Legal Sex Male 7:57 AM INTERNATIONAL SALES REPRESENTATIVE Gender Identity Not on file Sexual Orientation Not on file Obstetrics History Last Filed Vital Signs Vital Sign Reading Time Taken Comments Blood Pressure 130/65 03/11/2024 9:20 PM CDT Pulse 64 03/11/2024 9:21 PM CDT Temperature 36.6 C (97.8 F) 03/11/2024 7:24 PM CDT Respiratory Rate 18 03/11/2024 7:24 PM CDT Oxygen Saturation 97% 03/11/2024 9:21 PM CDT Inhaled Oxygen Concentration - - Weight 149.7 kg (330 lb) 03/11/2024 7:24 PM CDT Height 180.3 cm (5' 11) 03/11/2024 7:24 PM CDT Body Mass Index 46.03 03/11/2024 7:24 PM CDT Plan of Treatment Health Maintenance Due Date Last Done Comments Tetanus booster 1965 Depression screening for age 12+ 1966 BMI (ht and wt on same day) for age 18+ 02/11/1972 Hepatitis C screening for age 18-79 02/11/1972 Pneumococcal series for age 50+ (1 of 2 - PCV) 1973 Colonoscopy through age 75 1999 Lipids for age 45-75 1999 RSV vaccine for adults or (1 - Risk 50-74 years 1-dose series) 02/11/2004 Zoster (shingles) series for age 50+ (1 of 2) 02/11/2004 Medicare Wellness for age 65+ 2019 COVID-19 vaccine series (2024-26 season) 2025 07/23/2022, 10/11/2021, 01/02/2021, Additional history exists Influenza Vaccine (#1) 2025 Hepatitis B series for 19+ Aged Out N o longer eligible based on patient's age to complete this topic Insurance [facility] MR Care Teams Electric Truck Operator Relationship Specialty Start Date End Date None . PCP - General 05/30/10
--- OUTSIDE RECORDS SUMMARY | 2025-10-06 12:25 | XMS_ITS | Encounter Summary ---
Author Organization [facility] Address [address] [place] [address] Care Team Providers Care Solar Installer Name Role Phone No Primary/Referring, Phy Primary [...] on filedocumented in this encounter Care Teams Solar Installer Relationship Specialty Start Date End Date No Primary/ReferringMaddy PCP - General 10/21/18 documented as of this encounter
--- OUTSIDE RECORDS SUMMARY | 2025-10-06 12:25 | XMS_ITS | Encounter Summary ---
Author Organization [facility] Address [address] [place] [address] Care Team Providers Care Butadiene Converter Helper Name Role Phone No Primary/Referring, Phy Primary Care Provider Unavailable Encounter Details Date Type Department Care Team (Late st Contact Info) Description 01/04/2014 Consent for Procedure/Treatme nt [facility] [address] [facility] [place] [address] Nathaniel Dolan MD [address] [place] [address] CONSENT FOR PROCEDURE Social History Tobacco Use [...] Dolan MD - 01/04/2014 12:00 AM [facility] documented in this encounter Plan of Treatment Not on file documented as of this encounter Visit Diagnoses Not on filedocumented in this encounter Care Teams Butadiene Converter Helper Relationship Specialty Start Date End Date No Primary/Referring, Caridady PCP - General 10/21/18 documented as of this encounter
--- OUTSIDE RECORDS SUMMARY | 2025-10-06 12:25 | XMS_ITS | Encounter Summary ---
Author Organization [facility] Address [address] [place] [address] Care Team Providers Care Farm Equipment Engine Mechanic Name Role Phone No Primary/Referring, Phy Primary Care Provider Unavailable Encounter Details Date Type Department Care Team (Late st Contact Info) Description 07/04/2014 Emergency Room External to [facility], Provider EYE PAIN AND HEADACHE Social History [...] on filedocumented in this encounter Care Teams Farm Equipment Engine Mechanic Relationship Specialty Start Date End Date No Primary/Referring, Caridady PCP - General 10/21/18 documented as of this encounter
--- OUTSIDE RECORDS SUMMARY | 2025-10-06 12:25 | XMS_ITS | Encounter Summary ---
Author Organization [facility] Address [address] [facility] [place] [address] Care Team Providers Care Gettering Operator Name Role Phone No Primary/Referring, Phy Primary Care Provider Unavailable Encounter Details Date Type Department Care Team (Late st Contact Info) Description 11/09/2018 Correspondence External to External, [place] [address] INSULIN-TREATED DIABETES MELLITUS ASSESSMENT FORM Social History [...] on filedocumented in this encounter Care Teams Gettering Operator Relationship Specialty Start Date End Date No Primary/Referring, Maddy PCP - General 10/21/18 documented as of this encounter
--- OUTSIDE RECORDS SUMMARY | 2025-10-06 12:25 | XMS_ITS | Encounter Summary ---
Author Organization [facility] Address [address] [place] [address] Care Team Providers Care Firefighter Marine Name Role Phone No Primary/Referring, Phy Primary [...] on filedocumented in this encounter Care Teams Firefighter Marine Relationship Specialty Start Date End Date No Primary/Referring, Phy PCP - General 10/21/18 documented as of this encounter
--- OUTSIDE RECORDS SUMMARY | 2025-10-06 12:25 | XMS_ITS | Encounter Summary ---
Author Organization [facility] Address [address] [place] [address] Care Team Providers Care Face Boss Name Role Phone No Primary/Referring, Phy Primary Care Provider Unavailable Encounter Details Date Type Department Care Team (Late st Contact Info) Description 05/21/2014 Correspondence [place] [address] [place] [address] Leatha Damon MD [address] [place] [address] [id number] TEST RESULT Social History Tobacco Use Types [...] on filedocumented in this encounter Care Teams Face Boss Relationship Specialty Start Date End Date No Primary/ReferringMaddy PCP - General 10/21/18 documented as of this encounter
--- OUTSIDE RECORDS SUMMARY | 2025-10-06 12:25 | XMS_ITS | Encounter Summary ---
Author Organization [facility] Address [address] [place] [address] Care Team Providers Care Shingle Weaver Name Role Phone No Primary/Referring, Phy Primary Care Provider Unavailable Encounter Details Date Type Department Care Team (Latest Contact Info) Description 11/18/2017 Correspondence [facility] Occupational and Environmental Medicine [address] [place] [address] Bertha Clifton MD [address] [place] [address] [phone] [place] [address] MEDICAL EXAM REPORT FORM Social History Tobacco [...] on filedocumented in this encounter Care Teams Shingle Weaver Relationship Specialty Start Date End Date No Primary/Referring, Maddy PCP - General 10/21/18 documented as of this encounter
--- OUTSIDE RECORDS SUMMARY | 2025-10-06 12:25 | XMS_ITS | Encounter Summary ---
Author Organization [facility] Address [address] [place] [address] Care Team Providers Care Bilingual Social Worker Name Role Phone No Primary/Referring, Phy Primary Care Provider Unavailable Encounter Details Date Type Department Care Team (Latest Contact Info) Description 12/04/2016 Consent for Procedure/Treatme [facility] Occupational Medicine [address] [place] [address] Janey Curry MD [facility] MED CONSENT FORM Social History Tobacco [...] on filedocumented in this encounter Care Teams Bilingual Social Worker Relationship Specialty Start Date End Date No Primary/ReferringMaddy PCP - General 10/21/18 documented as of this encounter
--- OUTSIDE RECORDS SUMMARY | 2025-10-06 12:25 | XMS_ITS | Encounter Summary ---
Author Organization [facility] Address [address] [address] Care Team Providers Care Repair Specialist Name Role Phone No Primary/Referring, Phy Primary Care Provider Unavailable Encounter Details Date Type Department Care Team (Late st Contact Info) Description 07/15/2016 Consent for Procedure/Treatme nt [facility] [address] [facility] [address] [facility] [place] [address] Nathaniel Dolan MD [address] [place], [place] [id number] CONSENT FOR PROCEDURE Social History Tobacco Use [...] on filedocumented in this encounter Care Teams Repair Specialist Relationship Specialty Start Date End Date No Primary/Referring, Phy PCP - General 10/21/18 documented as of this encounter
--- OUTSIDE RECORDS SUMMARY | 2025-10-06 12:25 | XMS_ITS | Encounter Summary ---
Author Organization [facility] Address [address] [place] [address] Care Team Providers Care Oil Pit Attendant Name Role Phone No Primary/Referring, Phy Primary [...] on filedocumented in this encounter Care Teams Oil Pit Attendant Relationship Specialty Start Date End Date No Primary/Referring, Phy PCP - General 10/21/18 documented as of this encounter
--- OUTSIDE RECORDS SUMMARY | 2025-10-06 12:25 | XMS_ITS | Encounter Summary ---
Author Organization [facility] Address [address] [place] [address] Care Team Providers Care Digital Camera Technician Name Role Phone No Primary/Referring, Phy [...] on filedocumented in this encounter Care Teams Digital Camera Technician Relationship Specialty Start Date End Date No Primary/ReferringMaddy PCP - General 10/21/18 documented as of this encounter
--- OUTSIDE RECORDS SUMMARY | 2025-10-06 12:25 | XMS_ITS | Encounter Summary ---
Author Organization [facility] Address [address] [place] [address] Care Team Providers Care Watch Electrician Name Role Phone No Primary/Referring, Phy Primary Care Provider Unavailable Encounter Details Date Type Department Care Team (Late st Contact Info) Description 07/26/2014 Correspondence [facility] [address] [place], [place] [phone] [place] [address] [place], [place] [phone] MEDICAL LEAVE STATUS REPORT Social History Tobacco [...] on filedocumented in this encounter Care Teams Watch Electrician Relationship Specialty Start Date End Date No Primary/ReferringMaddy PCP - General 10/21/18 documented as of this encounter
--- OUTSIDE RECORDS SUMMARY | 2025-10-06 12:25 | XMS_ITS | Encounter Summary ---
Author Organization [facility] Address [address] [facility] [address] Care Team Providers Care Repair Electric Motor Assembler Name Role Phone [facility] Primary Care Provider Simon Rebolledo MD Unavailable Unavailable Gavin Moore MD Unavailable [phone] Gabriel Fortune DPM Unavailable [phone] Sara Schwab APRN METAL FABRICATING INSPECTOR Unavailable David Martinez MD Primary Care Provider Kyler Lubin MD Unavailable [phone] Ofe Carter EP Unavailable Lorraine Ospina METAL FABRICATING INSPECTOR Unavailable [phone] Ofe Carter EP Unavailable [phone] Reason for Referral * Diagnostic Imaging Ultrasound (Routine) - Closed Specialty Diagnoses / Procedures Referred By Contac t Referred To Contact Radiology. Diagnoses S/P CABG x 4 Procedures US Thoracentesis Page Finney MD [address] [address] Phone: tel: fax: [facility] [address] [place] [address] Phone: tel: fax: Referral ID Status Reason Start Date Expiration Date Visits Re quested Visits Authorized [id number] Closed 09/06/2020 09/06/2021 1 1 GRAPHY TECHNICIAN Encounter Details Date Type Department Care Team (Late st Contact Info) Description 09/06/2020 Orders Only SH PHYS STANDARD [address] [place] [phone] Page Finney MD [address] [id number] S/P CABG x 4 (Primary Dx) Social [...] on file Legal Sex Male 3:31 AM SONOGRAPHY TECHNICIAN Gender Identity Not on file Sexual Orientation Not on file COVID-19 Exposure Response Date Recorded In the last month, have you been in contact with someone who was confirmed or suspected to have Coronavirus / COVID-19? No / Unsure 09/06/2020 8:36 AM SONOGRAPHY TECHNICIAN documented as of this encounter Plan of Treatment Not on file documented as of this encounter Results * US Thoracentesis (09/11/2020 2:18 PM SONOGRAPHY TECHNICIAN) Anatomical Region Laterality Modality Chest Ultrasound Impressions 09/11/2020 2:38 PM SONOGRAPHY TECHNICIAN IMPRESSION: Successful ultrasound-guided thoracentesis, as discussed above. CPT codes for physician reference only: [id number] AUGUSTINA PACKER MD Narrative 09/11/2020 2:[address] [facility] DATE: 09/11/2020 PROCEDURE: IMAGING GUIDED LEFT [...] tissues. Under direct ultrasound guidance a 5 Nigerien catheter was inserted into the pleural effusion. A total of 2000 mL of mildly bloody pleural fluid was removed and sent to the lab if diagnostic analysis was requested. FINDINGS: The initial ultrasound shows a pleural effusion. Images obtained during catheter placement show the access needle with tip in the pleural fluid. Procedure Note Augustina Packer MD - 09/11/2020 [facility] DATE: 09/11/2020 PROCEDURE: IMAGING GUIDED LEFT [...] tissues. Under direct ultrasound guidance a 5 Nigerien catheter was inserted into the pleural effusion. [...] above. 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 documented in this encounter Additional Health Concerns Infection Onset Date Last Indicated Resolved Time Rule Out COVID-19 11/23/2020 11/23/2020 11/23/2020 3:44 AM SONOGRAPHY TECHNICIAN documented as of this encounter Care Teams Repair Electric Motor Assembler Relationship Specialty Start Date End Date [facility] [address] [place], [place] [phone] PCP - General 01/04/19 08/27/23 David Martinez MD [facility] [address] [place] [address] PCP - General Emergency Medicine 08/28/23 Simon Rebolledo MD Assigned Heart and Vascular Provider 08/25/20 09/16/20 Gavin Moore MD [address] [facility] [address] [place] [address] Assigned Heart and Vascular Provider 09/17/20 04/14/21 Gabriel Fortune DPM [address] [facility] [address] [place] [address] Assigned Musculoskeletal Provider 12/03/20 05/31/22 Sara Schwab APRN METAL FABRICATING INSPECTOR [address] [place] [address] Assigned Heart and Vascular Provider 04/15/21 06/28/22 Kyler Lubin MD [address] [address] Assigned Heart and Vascular Provider 08/30/23 10/24/23 Ofe Carter, [facility] [address] [address] Cardiac Rehabilitation Therapist 10/23/23 10/23/24 Lorraine Ospina, METAL FABRICATING INSPECTOR [address] [address] Assigned Heart and Vascular Provider 10/25/23 Ofe Carter, [facility] [address] [id number] Cardiac Rehabilitation Therapist 08/12/24 08/12/25 documented as of this encounter
--- OUTSIDE RECORDS SUMMARY | 2025-10-06 12:25 | XMS_ITS | Encounter Summary ---
Author Organization [facility] Address [address] [place] [address] Care Team Providers Care Jewelry Technician Name Role Phone No Primary/Referring, Phy [...] on filedocumented in this encounter Care Teams Jewelry Technician Relationship Specialty Start Date End Date No Primary/ReferringMaddy PCP - General 10/21/18 documented as of this encounter
--- OUTSIDE RECORDS SUMMARY | 2025-10-06 12:25 | XMS_ITS | Encounter Summary ---
Author Organization [facility] Address [address] [place] [address] Care Team Providers Care Core Inserter Name Role Phone No Primary/Referring, Phy Primary [...] filedocumented in this encounter Care Teams Core Inserter Relationship Specialty Start Date End Date No Primary/Referring, Phy PCP - General 10/21/18 documented as of this encounter
--- OUTSIDE RECORDS SUMMARY | 2025-10-06 12:25 | XMS_ITS | Encounter Summary ---
Author Organization [facility] Address [address] [place] [address] Care Team Providers Care Automobile Parts Assembler Name Role Phone No Primary/Referring, Phy Primary [...] on filedocumented in this encounter Care Teams Automobile Parts Assembler Relationship Specialty Start Date End Date No Primary/Referring, Maddy PCP - General 10/21/18 documented as of this encounter
--- OUTSIDE RECORDS SUMMARY | 2025-10-06 12:25 | XMS_ITS | Encounter Summary ---
Author Organization [facility] Address [address] [place] [address] Care Team Providers Care Billboard Installer Name Role Phone No Primary/Referring, Phy [...] on filedocumented in this encounter Care Teams Billboard Installer Relationship Specialty Start Date End Date No Primary/Referring, Phy PCP - General 10/21/18 documented as of this encounter
--- OUTSIDE RECORDS SUMMARY | 2025-10-06 12:25 | XMS_ITS | Encounter Summary ---
Author Organization [facility] Address [address] [address] Care Team Providers Care Cashier Name Role Phone No Primary/Referring, Phy Primary Care Provider Unavailable Encounter Details Date Type Department Care Team (Latest Contact Info) Description 12/26/[address] [facility] Occupational and Environmental Medicine [address] [place] [address] [phone] Liya Goodwin MD [address], [place] [phone] MEDICAL EXAMINERS REPORT Social History Tobacco Use [...] on filedocumented in this encounter Care Teams Cashier Relationship Specialty Start Date End Date No Primary/Referring, Phy PCP - General 10/21/18 documented as of this encounter
--- OUTSIDE RECORDS SUMMARY | 2025-10-06 12:25 | XMS_ITS | Encounter Summary ---
Author Organization [facility] Address [address] [facility] [place] [address] Care Team Providers Care Custodial Supervisor Name Role Phone [facility], [facility] Primary Care Provider Simon Rebolledo MD Unavailable Unavailable Gavin Moore MD Unavailable [phone] Gabriel Fortune DPM Unavailable [phone] Sara Schwab APRN SALAD COUNTER ATTENDANT Unavailable David Martinez MD Primary Care Provider Kyler Lubin MD Unavailable Ofe Carter EP Unavailable Lorraine Ospina SALAD COUNTER ATTENDANT Unavailable [phone] Ofe Carter EP Unavailable Reason for Referral * Diagnostic Imaging XR (Routine) - Closed Specialty Diagnoses / Procedures Referred By Contac t Referred To Contact Radiology. Diagnoses S/P CABG x 4 Procedures XR Chest 2 Views Page Finney MD [address] [place] [address] Phone: tel: fax: [facility] [address] [place] [address] Phone: tel: fax: Referral ID Status Reason Start Date Expiration Date Visits Re quested Visits Authorized [id number] Closed 09/05/2020 09/05/2021 1 1 ULTING NETWORKING ENGINEER Encounter Details Date Type Department Care Team (Late st Contact Info) Description 09/05/2020 Orders Only [facility] PHYS STANDARD [address] [place] [phone] Page Finney MD [address] [place] [address] S/P CABG x 4 (Primary Dx) Social [...] on file Legal Sex Male 3:31 AM CONSULTING NETWORKING ENGINEER Gender Identity Not on file Sexual Orientation Not on file COVID-19 Exposure Response Date Recorded In the last month, have you been in contact with someone who was confirmed or suspected to have Coronavirus / COVID-19? No / Unsure 09/06/2020 8:36 AM CONSULTING NETWORKING ENGINEER documented as of this encounter Plan of Treatment Not on file documented as of this encounter Results * XR Chest 2 Views (09/06/2020 8:45 AM CONSULTING NETWORKING ENGINEER) Anatomical Region Laterality Modality Chest Radio Fluoroscop y Impressions 09/06/2020 1:16 PM CONSULTING NETWORKING ENGINEER IMPRESSION: Bilateral pleural effusions, left greater than right. Left basilar airspace opacity may represent atelectasis or pneumonia. AUGUSTINA HARMON MD Narrative 09/06/2020 1:16 PM CONSULTING NETWORKING ENGINEER CHEST TWO VIEWS 09/06/2020 8:45 AM HISTORY: [...] represent atelectasis or pneumonia. 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 documented in this encounter Additional Health Concerns Infection Onset Date Last Indicated Resolved Time Rule Out COVID-19 11/23/2020 11/23/2020 11/23/2020 3:44 AM CONSULTING NETWORKING ENGINEER documented as of this encounter Care Teams Custodial Supervisor Relationship Specialty Start Date End Date [facility], [address] [id number] PCP - General 01/04/19 08/27/23 David Martinez MD [facility] [address] [place] [address] PCP - General Emergency Medicine 08/28/23 Simon Rebolledo MD Assigned Heart and Vascular Provider 08/25/20 09/16/20 Gavin Moore MD [address] [facility] [address] [place] [address] Assigned Heart and Vascular Provider 09/17/20 04/14/21 Gabriel Fortune DPM [address] [facility] [address] [place] [address] Assigned Musculoskeletal Provider 12/03/20 05/31/22 Sara Schwab APRN SALAD COUNTER ATTENDANT [address] [place] [address] Assigned Heart and Vascular Provider 04/15/21 06/28/22 Kyler Lubin MD [address] [facility] [address] [place] [address] Assigned Heart and Vascular Provider 08/30/23 10/24/23 Ofe Carter, [facility] [address] [address] Cardiac Rehabilitation Therapist 10/23/23 10/23/24 Lorraine Ospina SALAD COUNTER ATTENDANT [address] [address] Assigned Heart and Vascular Provider 10/25/23 Ofe Carter, [facility] [address] [address] Cardiac Rehabilitation Therapist 08/12/24 08/12/25 documented as of this encounter
--- OUTSIDE RECORDS SUMMARY | 2025-10-06 12:25 | XMS_ITS | Encounter Summary ---
Author Organization [facility] Address [address] [place] [address] Care Team Providers Care Ring Conductor Name Role Phone No Primary/Referring, Phy Primary Care Provider Unavailable Encounter Details Date Type Department Care Team (Late st Contact Info) Description 10/29/2019 Correspondence Optometry at [facility] [address] [place], [place] [id number] Irais Jones, OD [address] [facility] [place] [address] [place] [employer]IVERS WAIVER EYE EXAM Social History Tobacco [...] on filedocumented in this encounter Care Teams Ring Conductor Relationship Specialty Start Date End Date No Primary/Referring, Caridady PCP - General 10/21/18 documented as of this encounter
--- OUTSIDE RECORDS SUMMARY | 2025-10-06 12:25 | XMS_ITS | Encounter Summary ---
Author Organization [facility] Address [address] [place] [address] Care Team Providers Care Ruling Technician Name Role Phone No Primary/Referring, Phy Primary Care Provider Unavailable Encounter Details Date Type Department Care Team (Late st Contact Info) Description 07/22/2013 Scanned History External to Transferred Record, Provider [facility] Social History Tobacco Use Types Packs/Day [...] on filedocumented in this encounter Care Teams Ruling Technician Relationship Specialty Start Date End Date No Primary/Referring, Phy PCP - General 10/21/18 documented as of this encounter
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
--- OUTSIDE RECORDS SUMMARY | 2025-10-06 12:26 | XMS_ITS ---
Author Name Interface, [id number] Address [address] [facility] [address] [place] [address] Organization [facility] Address [address] [facility] [address] [place] [address] Allergies and Adverse Reactions Medication/Group Name Reaction Severity Date Penicillins 10/23/2020 Plan Date Type Value 10/23/2020 APPOINTMENT RC - 66 CXR SI - 66 CXR SI Reason for Visit RC - 66 CXR SI - 66 CXR SI Encounters Date Name 10/23/2020 Pleural effusion Medications Date Name Route Dose [...] effusion Active Vital Signs Date Type Value 10/23/2020 Heart Beat 83.00 10/23/2020 Respiratory Rate 16.00 10/23/2020 Oxygen Saturation 96.00 10/23/2020 Intravascular Systolic 144 10/23/2020 Intravascular Diastolic 78 10/23/2020 BSA 2.52 10/23/2020 Body Temperature 96.40 10/23/2020 Height 71.00 10/23/2020 Weight 305.00 10/23/2020 BMI 42.54 10/23/2020 Pain Scale 0.00
--- NOTE | 2025-10-06 12:40 | ED.GENADULT ---
HPI - General Adult General Date Seen: 10/06/25 Chief complaint: Fever Stated complaint: Flu symptoms Time Seen by Provider: 10/06/25 12:38 History of Present Illness HPI narrative: 70 yo M with a past medical history including aortic stenosis with TAVR, sleep apnea, and elevated BMI, BPH, hypothyroidism, type 2 diabetes, coronary disease, hypertension, hyperlipidemia. He is brought to the ER today by EMS. He has had shivering and shaking for about 3 days. Also generalized body aches, headache, sore throat. He had a temperature of 102? F at. No cough. No nausea or vomiting or diarrhea. He able to ambulate to his door to unlock it for EMS when they arrived but then was too weak to ambulate unassisted when EMS picked him up. Per patient he has been ill with fever, chills, sore throat ongoing for about 3 days. No cough. No trouble breathing. No chest pain. It sounds like he became weaker overnight. He has been chilled and shaky and shivering for a couple of days. Appetite has been decreased but he says he has been drinking lots of water. He says that he has had ?2 or 3 quarts? of water yesterday and today. He was feeling worse overnight and weaker this morning. He says he called EMS overnight last night and asked them to bring him to the hospital but they refused transport. He called the back this morning and he they brought him here to the ER. He normally lives independently in his mobile home. In terms of past history he does recall that he has a history of coronary disease and had a quadruple bypass. He has also had 1 other coronary stent and has had a TAVR. He he has not had any abdominal surgeries. He does have elevated BMI and is dealing with a Sirena rash under his abdominal pannus. He has been applying nystatin cream that area lately. He also has a history of lower extremity cellulitis and notes that his left foot is painful. He is not exactly sure when the foot started hurting, but probably the past couple of days. On exam I do notice some redness left foot and he says that he thinks that is new or worse than normal. Related Data Home Medications ?Medication ?Instructions ?Recorded ?Confirmed Nutrview PO 08/05/22 05/26/25 Prostavan PO DAILY 08/05/22 05/26/25 Replenex 3 tab PO DAILY 08/05/22 05/26/25 acetaminophen 325 mg tablet 325 mg PO Q4-6H PRN 08/05/22 05/26/25 glucosamine 750 ny-hncuft-esd 2-C tab PO DAILY 08/05/22 05/26/25 30 mg-D3 1,000 unit-rachel 1 mg tablet (Bkikrilarvf-Cdgvoujyzdy-MBT + vitD) insulin glargine 100 unit/mL (3 See Rx Instructions subcut DAILY 08/05/22 05/26/25 mL) subcutaneous pen insulin lispro 100 unit/mL 60 unit subcut QAM 08/05/22 05/26/25 subcutaneous pen metformin 1,000 mg tablet 1,000 mg PO BID 08/05/22 05/26/25 multivitamin with minerals 1 tab PO QDAY 08/05/22 05/26/25 omega-3 fatty acids 1,000 mg 1,000 mg PO QDAY 08/05/22 05/26/25 capsule atorvastatin 20 mg tablet 40 mg PO .HS 08/11/24 05/26/25 clopidogrel 75 mg tablet (Plavix) 75 mg PO QDAY 08/11/24 05/26/25 furosemide 40 mg tablet 40 mg PO DAILY 03/25/25 05/26/25 Previous Rx's ?Medication ?Instructions ?Recorded amlodipine 5 mg tablet 5 mg PO .hs #90 tabs 10/18/22 rivaroxaban 20 mg tablet 20 mg PO DAILY anitcoagulation #90 10/18/22 tabs losartan 50 mg tablet 50 mg PO QDAY Hypertension #90 tabs 08/12/23 metoprolol succinate 100 mg 100 mg PO DAILY #90 tabs 11/10/23 tablet,extended release 24 hr Allergies Allergy/AdvReac Type Severity Reaction Status Date / Time Penicillins Allergy Intermediate rash Verified 10/06/25 14:58 [facility] Medical History (Updated 10/06/25 @ 15:57 by Gabriel Winters MD) Skin abscess ?L02.91 - Cutaneous abscess, unspecified (ICD-10) BPH (benign prostatic hyperplasia) ?N40.0 - Benign prostatic hyperplasia without lower urinary tract symptoms (ICD-10) Bleeding hemorrhoids ?K64.9 - Unspecified hemorrhoids (ICD-10) Otitis externa ?H60.90 - Unspecified otitis externa, unspecified ear (ICD-10) 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 ?I35.0 - Nonrheumatic aortic (valve) stenosis (ICD-10) Dizziness ?R42 - Dizziness and giddiness (ICD-10) Pleural effusion ?J90 - Pleural effusion, not elsewhere classified (ICD-10) History of Mohs micrographic surgery for skin cancer ?Z85.828 - Personal history of other malignant neoplasm of skin (ICD-10) ?Z98.890 - Other specified postprocedural states (ICD-10) History of Felix's palsy ?Z86.69 - Personal history of other diseases of the nervous system and sense organs (ICD-10) History of basal cell carcinoma of skin ?Z85.828 - Personal history of other malignant neoplasm of skin (ICD-10) Surgical History Stented coronary artery ?Z95.5 - Presence of coronary angioplasty implant and graft (ICD-10) S/P TAVR (transcatheter aortic valve replacement) ?Z95.2 - Presence of prosthetic heart valve (ICD-10) History of third molar tooth extraction ?K08.409 - Partial loss of teeth, unspecified cause, unspecified class (ICD-10) History of meniscectomy of right knee ?Z98.890 - Other specified postprocedural states (ICD-10) History of four vessel coronary artery bypass graft ?Z95.1 - Presence of aortocoronary bypass graft (ICD-10) History of arthroscopy of right knee ?Z98.890 - Other specified postprocedural states (ICD-10) History of appendectomy ?Z90.49 - Acquired absence of other specified parts of digestive tract (ICD-10) Family History Other Diabetes Skin cancer Social History Narrative: does not drink alcohol does not use illicit drugs non-smoker What is your current living situation?: I presently have a place to live Problems where you live: no known problems In the past 12 months, utilities in danger of being shut off: no In past 12 months, lack of transportation kept you from medical appts, meetings, work, or getting things needed for daily living: no In the past 12 mos, have been you worried that your food would run out before you had money to buy more?: never true In the past 12 mos, the food you bought just didn't last and you didn't have money to buy more?: never true Smoking Status: Never smoker How often does anyone, including family, friends and others, physically hurt you: never How often does anyone, including family, friends and others, insult or talk down to you: never How often does anyone, including family, friends and others, threaten you with harm: never How often does anyone, including family, friends and others, scream or curse at you: never Exam Narrative: Exam Narrative: Primary Survey: A- patent. Speaking clearly. Phonation normal. No stridor. B- breathing easily. Lung sounds clear and equal. Oxygen saturation normal on room air C- no active bleeding. Blood pressure stable. Symmetric pulses and cap refill in 4 extremities. D- alert and oriented x3. GCS 15. No focal deficits. Generalized weakness but he is able to scoot himself up in bed under his own power. Constitutional: Appears well-developed and well-nourished. Alert. Conversant. Non toxic. HENT: Head: Atraumatic. Nose: Nose normal. Mouth/Throat: Oral mucosa is clear but mucous membranes are quite dry and desiccated.. no trismus. Pharynx normal. Tonsils surgically absent. No erythema, or exudate. Eyes: Conjunctivae normal. EOM normal. Pupils equal, round, and reactive to light. No scleral icterus. Neck: Normal range of motion. Neck supple. No tracheal deviation present. No JVD Cardiovascular: Normal rate, regular rhythm. No gallop. No friction rub. No murmur heard. Symmetric radial artery pulses healed midline sternotomy scar. Pulmonary/Chest: Effort normal. No stridor. No respiratory distress. No wheezes. No rales. No rhonchi . No tenderness. Abdominal: Soft. Bowel sounds normal. No distension. No mass. Periumbilical tenderness. No rebound. No guarding. No CVA tenderness. He does have an erythematous rash of the skin under his abdominal pannus consistent with Sirena. Musculoskeletal: RUE: Normal range of motion. No tenderness. No deformity LUE: Normal range of motion. No tenderness. No deformity RLE: Normal range of motion. 1+ edema. No tenderness. No deformity LLE: Normal range of motion. 2+ edema. There is erythema on the dorsum of the foot in the anterior mackenzie about [address] to the knee. No palpable fluctuance or crepitus.. The left lower extremity is slightly warmer than the right. Suspicious for cellulitis. No deformity Lymph: No ascending lymphangitis adenopathy. Neurological: Alert and oriented to person, place, and time. Normal strength. CN II-VII intact. No sensory deficit. GCS eye subscore is 4. GCS verbal subscore is 5. GCS motor subscore is 6. Normal coordination Skin: Skin is warm and dry. No rash noted. No pallor. Normal capillary refill. Psychiatric: Normal mood. Normal affect. Const: Vital Signs, click to edit/add: Vital Signs - 24 hr 10/06/25 12:29 10/06/25 12:37 10/06/25 12:40 Temperature 102.1 F H Pulse Rate Pulse Rate [Pulse Oximeter] 84 Respiratory Rate 24 Blood Pressure Blood Pressure [Ri ght Forearm] 157/71 H Pulse Oximetry 97 94 94 Oxygen Delivery Me thod Room Air Room Air 10/06/25 12:45 10/06/25 12:50 10/06/25 13:00 Temperature Pulse Rate 83 Pulse Rate [Pulse Oximeter] Respiratory Rate Blood Pressure Blood Pressure [Ri ght Forearm] Pulse Oximetry 93 95 98 Oxygen Delivery Me thod 10/06/25 13:01 10/06/25 13:10 10/06/25 13:23 Temperature 102 F H Pulse Rate Pulse Rate [Pulse Oximeter] Respiratory Rate Blood Pressure Blood Pressure [Ri ght Forearm] Pulse Oximetry 100 99 Oxygen Delivery Me thod 10/06/25 13:40 10/06/25 13:42 10/06/25 13:45 Temperature Pulse Rate 80 Pulse Rate [Pulse Oximeter] Respiratory Rate Blood Pressure Blood Pressure [Ri ght Forearm] Pulse Oximetry 95 96 93 Oxygen Delivery Me thod 10/06/25 14:00 10/06/25 14:02 10/06/25 14:15 Temperature Pulse Rate 81 82 82 Pulse Rate [Pulse Oximeter] Respiratory Rate 16 Blood Pressure 136/61 Blood Pressure [Ri ght Forearm] Pulse Oximetry 95 96 97 Oxygen Delivery Me thod 10/06/25 14:48 10/06/25 15:00 10/06/25 15:06 Temperature 102.3 F H 102 F H 100.1 F H Pulse Rate Pulse Rate [Pulse Oximeter] Respiratory Rate Blood Pressure Blood Pressure [Ri ght Forearm] Pulse Oximetry Oxygen Delivery Me thod Course Vital Signs Vital signs: Initial Vital Signs Temperature 102.1 F H 10/06/25 12:29 Temperature Source Oral 10/06/25 12:29 Pulse Rate 84 10/06/25 12:29 Respiratory Rate 24 10/06/25 12:29 Blood Pressure 157/71 H 10/06/25 12:29 Blood Pressure Mean 99 10/06/25 12:29 Blood Pressure Position Semi-Fowlers 10/06/25 12:29 Pulse Oximetry 97 10/06/25 12:29 Oxygen Delivery Method Room Air 10/06/25 12:29 Vital Signs Temperature 102.1 F H 10/06/25 12:29 Pulse Rate 84 10/06/25 12:29 Respiratory Rate 24 10/06/25 12:29 Blood Pressure 157/71 H 10/06/25 12:29 Pulse Oximetry 97 10/06/25 12:29 Oxygen Delivery Method Room Air 10/06/25 12:29 Temperature 100.1 F H 10/06/25 15:06 Pulse Rate 82 10/06/25 14:15 Respiratory Rate 16 10/06/25 14:02 Blood Pressure 136/61 10/06/25 14:02 Pulse Oximetry 97 10/06/25 14:15 Oxygen Delivery Method Room Air 10/06/25 12:37 Medications Administered Medications: Discontinued Medications Generic Name Dose Route Start Last Admin Trade Name Freq PRN Reason Stop Dose Admin Acetaminophen 1,000 mg 10/06/25 13:02 10/06/25 13:31 Acetaminophen 500 Mg Tablet PO 10/06/25 13:03 1,000 mg ONCE ONE Administration Sodium Chloride 1,000 mls @ 1,000 mls/hr 10/06/25 13:15 10/06/25 15:35 0.9 % Sodium Chloride 1000 Ml IV 10/06/25 14:14 Infused .Q1H YU Infusion Cefazolin Sodium 1 gm/ Sodium 100 mls @ 200 mls/hr 10/06/25 13:02 10/06/25 15:07 Chloride IVPB 10/06/25 13:03 Infused ONCE ONE Infusion Medical Decision Making MDM Narrative Medical decision making narrative: 70-year-old male transported to the ER today by EMS from home. He has had a febrile illness with fever, chills, body aches, generalized weakness ongoing for 3 days leading to the point where he had generalized weakness making it difficult for her to ambulate this morning. Although he is febrile, he has no tachycardia, tachypnea, hypoxia. Blood pressure is stable. He does have fever and leukocytosis which does qualify as 2/for sirs criteria. With for infection, 2/4 sirs criteria, he does qualify for sepsis. At this point no clear evidence for and organ damage for severe sepsis, or septic shock. Blood pressure and lactic acid are normal. Workup was undertaken to establish the etiology for his fever. On clinical exam he does have a finding of left lower extremity redness suggestive for cellulitis. Will start on Ancef for that. He also has signs of a infection under his abdominal pannus which is probably Sirena. No clear signs of bacterial superinfection or panniculitis at this time. Urinalysis is normal. Chest x-ray is negative. COVID/influenza PCR is negative He also has upper abdominal tenderness. Laboratory workup shows white count of 14, normal lipase. Bilirubin of 2.0.. CT scan shows gallstones but no evidence for cholecystitis or dilated common bile duct. On repeat exam he is no longer tender. He is actually thirsty and hungry. At this point I doubt cholecystitis or choledocholithiasis. Suspect his bilirubin may be elevated due to sepsis. He also has signs of significant dehydration with very dry oral mucous membranes. normal kidney function. Blood sugar 164. Sodium mildly low at 131. Started on Ancef for left lower extremity cellulitis. Discussed with our hospitalist, Dr. Callahan who agrees to admit. We discussed potentially broadening his antibiotics to include vancomycin but for now she wants to hold off on that and will re-evaluate. Lab Data Labs: Lab Results 10/06/25 10/06/25 10/06/25 Range/Units 12:30 12:42 13:25 WBC (4.50-11.00) K/uL RBC (4.30-5.90) m/uL Hgb (13.5-17.5) gm/dL Hct (37.0-53.0) % MCV (80-100) fL MCH (26-34) pg MCHC (32-36) gm/dL RDW Coeff of Manny (11.5-15.5) % Plt Count (140-440) K/uL Neut % (Auto) (42.0-72.0) % Lymph % (Auto) (20-44) % [place] % (Auto) (0.0-11.0) % Eos % (Auto) (0.0-7.0) % Baso % (Auto) (0.0-3.0) % Neut # (Auto) (1.7-7.0) K/uL Lymph # (Auto) (0.90-2.90) K/uL [place] # (Auto) (0.00-0.90) K/UL Eos # (Auto) (0.00-0.50) K/uL Baso # (Auto) (0.00-0.30) K/uL Abs Immat Gran (auto) (0.00-0.30) K/uL Imm/Tot Granulo (auto) % Sodium (135-149) mmol/L Potassium (3.6-5.1) mmol/L Chloride (96-114) mmol/L Carbon Dioxide (20-32) mmol/L Anion Gap (7-15) mEq/L BUN (7-30) mg/dL Creatinine (0.5-1.5) mg/dL Estimated Creat Clear Estimated GFR ml/min Glucose (60-115) mg/dL Lactate (0.5-1.9) mmol/L Calcium (8.4-10.6) mg/dL Total Bilirubin (0.1-1.5) mg/dL Direct Bilirubin (0.0-0.5) mg/dL AST (12-35) U/L ALT (4-50) U/L Alkaline Phosphatase (40-150) U/L Total Protein (6.0-8.3) g/dL Albumin (3.3-5.0) g/dL Lipase (23-300) U/L Urine Color Jojo A (Yellow) Urine Appearance Clear (Clear) Urine pH 5.5 (5.0-8.5) Ur Specific [place] 1.020 (1.000-1.030) Urine Protein Trace A (Negative) Urine Glucose (UA) Negative (Negative) Urine Ketones Trace A (Negative) Urine Blood Negative (Negative) Urine Nitrite Negative (Negative) Urine Bilirubin Negative (Negative) Urine Urobilinogen 0.2 (0.2-1.0) Ur Leukocyte Esterase Negative (Negative) Urine RBC 0-2 (0-2) Urine WBC 0-2 (0-5) Ur Squamous Epith Cells None (None-Few) Amorphous Sediment Few A (None) Urine Bacteria None (None) SARS-CoV-2 (PCR) Negative SARS-CoV-2 (Negative) Influenza Type A (PCR) Negative PCR FLU A (Negative) Influenza Type B (PCR) Negative PCR FLU B (Negative) RSV (PCR) Negative PCR RSV (Negative) Lab Acknowledgement POC Creatinine 1.3 (0.6-1.3) mg/dl 10/06/25 10/06/25 Range/Units 13:35 14:31 WBC 14.58 H (4.50-11.00) K/uL RBC 4.31 (4.30-5.90) m/uL Hgb 13.4 L (13.5-17.5) gm/dL Hct 39.8 (37.0-53.0) % MCV 92 (80-100) fL MCH 31 (26-34) pg MCHC 34 (32-36) gm/dL RDW Coeff of Manny 14.3 (11.5-15.5) % Plt Count 204 (140-440) K/uL Neut % (Auto) 91.2 H (42.0-72.0) % Lymph % (Auto) 3.3 L (20-44) % [place] % (Auto) 5.2 (0.0-11.0) % Eos % (Auto) 0.0 (0.0-7.0) % Baso % (Auto) 0.1 (0.0-3.0) % Neut # (Auto) 13.30 H (1.7-7.0) K/uL Lymph # (Auto) 0.50 L (0.90-2.90) K/uL [place] # (Auto) 0.80 (0.00-0.90) K/UL Eos # (Auto) 0.00 (0.00-0.50) K/uL Baso # (Auto) 0.00 (0.00-0.30) K/uL Abs Immat Gran (auto) 0.00 (0.00-0.30) K/uL Imm/Tot Granulo (auto) 0.2 % Sodium 131 L (135-149) mmol/L Potassium 4.1 (3.6-5.1) mmol/L Chloride 91 L (96-114) mmol/L Carbon Dioxide 26 (20-32) mmol/L Anion Gap 14 (7-15) mEq/L BUN 22 (7-30) mg/dL Creatinine 1.1 (0.5-1.5) mg/dL Estimated Creat Clear 63.60 Estimated GFR 72 ml/min Glucose 164 H (60-115) mg/dL Lactate 1.8 (0.5-1.9) mmol/L Calcium 8.4 (8.4-10.6) mg/dL Total Bilirubin 2.0 H (0.1-1.5) mg/dL Direct Bilirubin 0.5 (0.0-0.5) mg/dL AST 56 H (12-35) U/L ALT 23 (4-50) U/L Alkaline Phosphatase 77 (40-150) U/L Total Protein 7.3 (6.0-8.3) g/dL Albumin 4.1 (3.3-5.0) g/dL Lipase 52 (23-300) U/L Urine Color (Yellow) Urine Appearance (Clear) Urine pH (5.0-8.5) Ur Specific [place] (1.000-1.030) Urine Protein (Negative) Urine Glucose (UA) (Negative) Urine Ketones (Negative) Urine Blood (Negative) Urine Nitrite (Negative) Urine Bilirubin (Negative) Urine Urobilinogen (0.2-1.0) Ur Leukocyte Esterase (Negative) Urine RBC (0-2) Urine WBC (0-5) Ur Squamous Epith Cells (None-Few) Amorphous Sediment (None) Urine Bacteria (None) SARS-CoV-2 (PCR) (Negative) Influenza Type A (PCR) (Negative) Influenza Type B (PCR) (Negative) RSV (PCR) (Negative) Lab Acknowledgement Test Added POC Creatinine (0.6-1.3) mg/dl Imaging Data Chest x-ray: Attestation: I have reviewed the pertinent imaging results. My impression: Cardiomegaly. Clear lungs. Radiologist's impression: IMPRESSION: No acute cardiopulmonary process. CT scan - abdomen: Attestation: I have reviewed the pertinent imaging results. Radiologist's impression: IMPRESSION: 1. No acute findings within the abdomen and pelvis. 2. Cholelithiasis without evidence for acute cholecystitis. 3. Small left pleural effusion with adjacent rounded opacity could represent round atelectasis; however, pneumonia or a pulmonary nodule could appear similar. Recommend follow-up imaging in 3 months to evaluate for resolution/interval change. 4. Prostatomegaly. ECG Data Attestation: I personally reviewed and interpreted this ECG as follows: Interpretation: Sinus rhythm with 1st degree AV block Rate 82 TN 234 Normal QRS axis Nonspecific T wave flattening. NO ST Elevation or depression QT 354, QTc 413 Discharge Plan Discharge Clinical Impression: Cellulitis, Sepsis, Weakness Patient Disposition: Admitted As Inpatient
--- NOTE | 2025-10-06 13:02 | CRLHL7_ITS ---
For Patients: As a result of the Cures Act, medical imaging exams and procedure reports are released immediately into your electronic medical record. You may view this report before your referring provider. If you have questions, please contact your health care provider. INDICATION: : fever, weakness COMPARISON: Chest radiograph on March 25, 2025 and prior exams TECHNIQUE: Two view(s) of the chest FINDINGS: Examination is limited secondary to patient body habitus. Stable cardiomegaly and postsurgical changes of aortic valve replacement. There is no focal airspace consolidation, pleural effusion, or pneumothorax. No displaced fractures. Status post median sternotomy. IMPRESSION: No acute cardiopulmonary process. Dictated by Gerald Solitario MD @ 10/06/2025 1:39:51 PM (Electronically Signed)
--- NOTE | 2025-10-06 13:02 | CRLHL7_ITS ---
For Patients: As a result of the Century Cures Act, medical imaging exams and procedure reports are released immediately into your electronic medical record. You may view this report before your referring provider. If you have questions, please contact your health care provider. INDICATION: Fever, generalized weakness, abdominal pain. TECHNIQUE: CT abdomen and pelvis acquired with 150 cc of Isovue 370 IV contrast. COMPARISON: None. FINDINGS: Lower chest: Aortic valve replacement. Small left pleural effusion with adjacent rounded opacity Liver: Unremarkable. Normal in size and attenuation. No suspicious masses. Gallbladder and bile ducts: Cholelithiasis. No inflammation or biliary ductal dilation. Pancreas: Unremarkable. No mass or inflammation. Spleen: Unremarkable. Normal in size. No masses. Adrenal glands: Unremarkable. No nodules. Kidneys: 4 mm non-obstructing right nephrolith. No hydronephrosis or suspicious mass. GI tract: Unremarkable. Normal in caliber. No sign of mass or inflammation. Prior appendectomy. Vasculature: Normal caliber abdominal aorta with mild atherosclerotic calcification. Mesenteric arteries are patent. Lymph nodes: No lymphadenopathy. Peritoneum/Abdominal Wall: Moderate-sized fat-containing umbilical hernia. No free air or significant free fluid. Pelvis: Prostatomegaly. Bones: Unremarkable for age. IMPRESSION: 1. No acute findings within the abdomen and pelvis. 2. Cholelithiasis without evidence for acute cholecystitis. 3. Small left pleural effusion with adjacent rounded opacity could represent round atelectasis; however, pneumonia or a pulmonary nodule could appear similar. Recommend follow-up imaging in 3 months to evaluate for resolution/interval change. 4. Prostatomegaly. Please note that all CT scans at this facility use dose modulation, iterative reconstruction, and/or weight-based dosing when appropriate to reduce radiation dose to as low as reasonably achievable. Dictated by Gabriel Mix MD @ 10/06/2025 2:53:39 PM (Electronically Signed)
[2025-10-06] MEDS: ACETAMINOPHEN 500 MG TABLET 1000 MG PO (13:31)
[2025-10-06 13:46] LABS: Lactate* 1.8 mmol/L (0.5-1.9)
[2025-10-06 13:48] LABS: Creatinine, Point-of-Care* 1.3 mg/dl (0.6-1.3)
[2025-10-06 13:49] LABS: Hematocrit* 39.8 % (37.0-53.0); Hemoglobin* 13.4 gm/dL (13.5-17.5); Immature Granulocytes Pct Auto 0.2 %; Mean Corpuscular HGB Conc 34 gm/dL (32-36); Mean Corpuscular Hemoglobin 31 pg (26-34); Mean Corpuscular Volume 92 fL (80-100); RDW Coefficient of Variation % 14.3 % (11.5-15.5); Red Blood Count* 4.31 m/uL (4.30-5.90); White Blood Count* 14.58 K/uL (4.50-11.00)
[2025-10-06 13:54] LABS: PCR FLU A Negative PCR FLU A (Negative); PCR FLU B Negative PCR FLU B (Negative); PCR RSV Negative PCR RSV (Negative); SARS PCR* Negative SARS-CoV-2 (Negative)
[2025-10-06 13:57] LABS: Immature Granulocytes Abs Auto 0.00 K/uL (0.00-0.30); Lymphocytes Absolute Auto 0.50 K/uL (0.90-2.90); Slide Review Reflex No
[2025-10-06 14:08] LABS: Chloride* 91 mmol/L (96-114); Potassium* 4.1 mmol/L (3.6-5.1); Sodium* 131 mmol/L (135-149)
[2025-10-06 14:08] LABS: Appearance Urine Clear (Clear)
[2025-10-06 14:11] LABS: Anion Gap 14 mEq/L (7-15); Blood Urea Nitrogen* 22 mg/dL (7-30); Calcium* 8.4 mg/dL (8.4-10.6); Carbon Dioxide* 26 mmol/L (20-32); Creatinine* 1.1 mg/dL (0.5-1.5); Est. Creatinine Clearance* 63.60; Estimated Glomerular Filt Rate 72 ml/min; Glucose* 164 mg/dL (60-115)
[2025-10-06] MEDS: CEFAZOLIN 1 GM in 0.9 % SODIUM CHLORIDE Mini-bag 100 ML IVPB ×2 (14:11→21:34)
[2025-10-06 15:21] LABS: Albumin* 4.1 g/dL (3.3-5.0)
[2025-10-06 15:24] LABS: Alanine Aminotransferase* 23 U/L (4-50); Alkaline Phosphatase* 77 U/L (40-150); Aspartate Amino Transferase* 56 U/L (12-35); Bilirubin Direct* 0.5 mg/dL (0.0-0.5); Bilirubin Total* 2.0 mg/dL (0.1-1.5); Total Protein* 7.3 g/dL (6.0-8.3)
--- NOTE | 2025-10-06 16:16 | PM.IMHP1 ---
Assessment and Plan Assessment and plan (1) Acute febrile illness: Problem comment: -will MRSA swab him as he states, I've had a lot of staph infections -likely from the cellulitis (mild - moderate) of the left lower extremity. blotchy erythema hard to demarcate. worse on dorsum of foot and around the ankle circumferentially. -CRP elevated, WBC elevated. temp. -Ancef 1 gram q 8, unless MRSA + -blood cultures pending. -mild depression of sodium - normal saline and follow -mild bump in his bili - will follow Status: Acute (2) Sepsis: Problem comment: Criteria met with fever, elevated white count, cellulitic left leg (NA depressed, bili up a little) -see #1 Status: Acute (3) Cellulitis: Problem comment: -left lower extremity -monitor and treat as in #1 Status: Acute (4) Intertrigo of skin fold of abdomen: Problem comment: -low concern for bacterial superinfection. -good skin care with topical antifungals and steroids and inter-dry dressing Status: Acute (5) (HFpEF) heart failure with preserved ejection fraction: Problem comment: Chronic diastolic heart failure, NYHA class I. No clinical signs of heart failure at admission. Nov 2024 - Repeat echocardiogram shows well-seated bioprosthetic aortic valve with a mean gradient of 8, no AI or PVL. His LV function is normal with an EF of 55 to 60%. His BMP and CBC are unremarkable. Status: Acute (6) S/P TAVR (transcatheter aortic valve replacement): Problem comment: severe aortic stenosis s/p TAVR with 29 mm Gonzalez Resilia valve on Status: Acute (7) Coronary artery disease: Problem comment: Coronary artery disease. CABG x 4 FLYNN to LAD, SV to Diag, SV to OM, SV to PDA (07/11/2020) S/p QUE to proximal/mid Left circumflex coronary artery Status: Acute (8) Stented coronary artery: Problem comment: S/p QUE to proximal/mid Left circumflex coronary artery Status: Acute (9) Obstructive sleep apnea treated with continuous positive airway pressure (CPAP): Status: Deleted (10) Diabetes mellitus type 2 in obese: Problem comment: -A1C pending -pt has lost 35lbs on GLP1A therapy. will reduce insulin doses by 1/2 and monitor glucose Status: Acute (11) Hypertension: Problem comment: -continue home meds Status: Acute (12) Recurrent left pleural effusion: Problem comment: -Recurrent pleural effusions. S/p thoracentesis x3 after his CABG Status: Inactive (13) BPH (benign prostatic hyperplasia): Problem comment: -earlier in 2024, PCP checked a PSA which was greater than 4. There is noted prostatomegaly on his CT tonight. Status: Inactive (14) Chronic acquired lymphedema: Status: Acute (15) Hyperlipidemia associated with type 2 diabetes mellitus: Status: Acute (16) Body mass index [BMI] 40.0-44.9, adult: Problem comment: Per [facility] Claims Data, previously coded Status: Suspected (17) CHINO (obstructive sleep apnea): Problem comment: -not compliant with CPAP Status: Acute Hospitalist- H&P: HPI History of Present Illness Date Seen: 10/06/25 Chief complaint: Flu symptoms Narrative: ADMISSION HISTORY AND PHYSICAL - HOSPITALIST Chief Complaint: Weakness, fever, unwell feeling HPI: 70-year-old white male presents via EMS to our ED complaining of weakness fever and feeling unwell. His symptoms started 3-4 days ago with weakness, fever, said his left leg has been more swollen and looks red to him. Some chills. no appetite. Has not been taking his home meds for 2-3 days. He has significant comorbid medical history that type 2 diabetes, hypertension, hyperlipidemia, obstructive sleep apnea coronary artery disease, paroxysmal AFib on oral anticoagulation, history of TAVR and morbid obesity. His last emergent visit when I review epic appears an [facility] visit in February of 2025 for shortness of breath and chest pain. In 2023 he was admitted to [facility]. he follows locally with Dr. Summers. He has consults standing with Urology and Cardiology. ER COURSE: Labs, CT and chest x-ray. Blood cultures. Ancef started with 1 times saline bolus. He meets criteria for sepsis, is too weak to take care of himself and his disabled partner, likely has acute cellulitis and intertrigo. Hospital medicine service contacted for admission. CODE STATUS: FULL CODE PCP: DR. SUMMERS EMERGENCY CONTACT PLAN: Significant other, Cathy Granddaughter is staying with Cathy I've updated the PFSH, medications and allergies in the Expanse tabs. INVESTIGATIONS: LABS/MICRO/ECG/IMAGING T-max in our ED is 102.3? F current temp is 100.1? F. Blood pressures have been 114-136 systolic over 50s to 60s diastolic. His pulses remained in the 70s and 80s but he is on chronic metoprolol therapy. His respiratory rate is 16 and unlabored. He is satting in the mid 90s on room air. Standing weight 138.5 kg down from a high of 154 kg in February. On GLP1 therapy. (net loss 35#) History of his weight has been approximately 149-154 kg CBC reflects a leukocytosis of 14.5, 91% neutrophils. Hemoglobin 13.4. Platelet count 204. Two blood cultures are pending No urine culture Chemistries reflect a low sodium of 131 despite a glucose of only 164. His potassium is normal. His bicarb is normal. His BUN and creatinine seem a little bumped from his baseline of 17/0.7 and it is now 22 over 1.1. GFR proximally 72. A1c is pending but his last A1c has been mid 7.7-8.2. His lactate is normal. Total bili is mildly bumped 2.0 His AST is mildly bumped 56. This is been in the mid 40s previously. Normal lipase Urine is unremarkable EKG the emergency room is reviewed. Sinus rhythm at a rate of 82. No evidence of PAF. Negative respiratory swabs Chest x-ray shows no acute cardiopulmonary process. This is a two view done in the emergency room. Abdomen pelvis CT 1. No acute findings within the abdomen and pelvis. 2. Cholelithiasis without evidence for acute cholecystitis. 3. Small left pleural effusion with adjacent rounded opacity could represent round atelectasis; however, pneumonia or a pulmonary nodule could appear similar. Recommend follow-up imaging in 3 months to evaluate for resolution/interval change. 4. Prostatomegaly. REVIEW OF SYSTEMS: 12-point ROS completed with patient and negative unless otherwise stated in HPI or below. PHYSICAL EXAM: CONSTITUTIONAL: Conversive, good historian. A/O. Knows setting and context. GENERAL: Well nourished. No respiratory distress. Speaks in full sentences. VITAL SIGNS: see record. HEENT: Sclerae are anicteric. No petechiae. CARDIAC: rhythm is regular. There is no S3 or rub. No harsh murmurs. Extremities chronic lymphedema changes ABDOMEN: large pendulant skin over abdomen with large pannus. Erythema with shiny borders consistent with Sirena intertrigo noted under the pannus. NEURO: Speech is fluent. A brief neurologic exam is negative. SKIN: Inferior to pannus, acute intertrigo. Left lower extremity blotchy erythema and increased edema noted across the dorsum of the foot. No open wounds. PSYCHIATRIC: Euthymic. ADMIT TO MEDSURG: FLOOR CARE DVT: Home Xarelto GI: PO intake Time spent: Today I spent 75 minutes seeing the patient, discussing the patient with ER staff, reviewing Expanse and EPIC notes/diagnostics, discussing the care plan with our care time that includes social work, PT/OT, pharmacy, RT, halfway and documenting my impressions and plan in the medical record. MEDICAL NECESSITY FOR HOSPITALIZATION Anticipated midnights in the hospital: 2 Admitting diagnosis: Sepsis, cellulitis, acute intertrigo Risk of morbidity and mortality: high Acuity is characterized as high and reflected in: Multiple comorbidities. Poorly controlled type 2 diabetes, significant heart disease, poor mobility. Risk bacteremia high, at risk/suspicious for MRSA This patient will require hospital services as outlined in the assessment and plan in order to stabilize and be safely discharged to a lower level of care. Because of the risk and acuity as described above, this patient cannot be managed at a lower level of care. LENGTH OF STAY: 2 IP ? Anticipated LOS>2 midnights due to acuity of clinical presentation requiring inpatient level of care Medical Decision Making Medical Decision Making Has patient completed a Health Care Directive: Yes [facility] Medical History (Updated 10/06/25 @ 17:58 by Ansley Callahan MD) Intertrigo of skin fold of abdomen ?L30.4 - Erythema intertrigo (ICD-10) Hypertension ?I10 - Essential (primary) hypertension (ICD-10) Recurrent left pleural effusion ?J90 - Pleural effusion, not elsewhere classified (ICD-10) (HFpEF) heart failure with preserved ejection fraction ?I50.30 - Unspecified diastolic (congestive) heart failure (ICD-10) Gout ?M10.9 - Gout, unspecified (ICD-10) Paroxysmal atrial flutter ?I48.92 - Unspecified atrial flutter (ICD-10) Infection due to Staphylococcus aureus ?A49.01 - Methicillin susceptible Staphylococcus aureus infection, unspecified site (ICD-10) Body mass index [BMI] 40.0-44.9, adult ?Z68.41 - Body mass index [BMI] 40.0-44.9, adult (ICD-10) Right retinal detachment ?H33.21 - Serous retinal detachment, right eye (ICD-10) Subclinical hypothyroidism ?E03.8 - Other specified hypothyroidism (ICD-10) BPH (benign prostatic hyperplasia) ?N40.0 - Benign prostatic hyperplasia without lower urinary tract symptoms (ICD-10) History of Mohs micrographic surgery for skin cancer ?Z85.828 - Personal history of other malignant neoplasm of skin (ICD-10) ?Z98.890 - Other specified postprocedural states (ICD-10) History of Felix's palsy ?Z86.69 - Personal history of other diseases of the nervous system and sense organs (ICD-10) History of basal cell carcinoma of skin ?Z85.828 - Personal history of other malignant neoplasm of skin (ICD-10) Surgical History (Updated 10/06/25 @ 16:45 by Ansley Callahan MD) Stented coronary artery ?Z95.5 - Presence of coronary angioplasty implant and graft (ICD-10) S/P TAVR (transcatheter aortic valve replacement) ?Z95.2 - Presence of prosthetic heart valve (ICD-10) History of third molar tooth extraction ?K08.409 - Partial loss of teeth, unspecified cause, unspecified class (ICD-10) History of meniscectomy of right knee ?Z98.890 - Other specified postprocedural states (ICD-10) History of four vessel coronary artery bypass graft ?Z95.1 - Presence of aortocoronary bypass graft (ICD-10) History of arthroscopy of right knee ?Z98.890 - Other specified postprocedural states (ICD-10) History of appendectomy ?Z90.49 - Acquired absence of other specified parts of digestive tract (ICD-10) Family History Other Diabetes Skin cancer Social History Narrative: does not drink alcohol does not use illicit drugs non-smoker What is your current living situation?: I presently have a place to live Problems where you live: no known problems In the past 12 months, utilities in danger of being shut off: no In past 12 months, lack of transportation kept you from medical appts, meetings, work, or getting things needed for daily living: no In the past 12 mos, have been you worried that your food would run out before you had money to buy more?: never true In the past 12 mos, the food you bought just didn't last and you didn't have money to buy more?: never true Smoking Status: Never smoker How often does anyone, including family, friends and others, physically hurt you: never How often does anyone, including family, friends and others, insult or talk down to you: never How often does anyone, including family, friends and others, threaten you with harm: never How often does anyone, including family, friends and others, scream or curse at you: never Meds Home Medications and Allergies Home Medications ?Medication ?Instructions ?Recorded ?Confirmed ?Type Nutrview PO 08/05/22 05/26/25 History Prostavan PO DAILY 08/05/22 05/26/25 History Replenex 3 tab PO DAILY 08/05/22 05/26/25 History insulin glargine 100 unit/mL (3 See Rx Instructions subcut DAILY 08/05/22 05/26/25 History mL) subcutaneous pen insulin lispro 100 unit/mL 60 unit subcut QAM 08/05/22 05/26/25 History subcutaneous pen metformin 1,000 mg tablet 1,000 mg PO BID 08/05/22 05/26/25 History omega-3 fatty acids 1,000 mg 1,000 mg PO QDAY 08/05/22 05/26/25 History capsule metoprolol succinate 100 mg 100 mg PO DAILY #90 tabs 11/10/23 10/06/25 Rx tablet,extended release 24 hr atorvastatin 20 mg tablet 20 mg PO HS 08/11/24 10/06/25 History clopidogrel 75 mg tablet (Plavix) 75 mg PO DAILY 08/11/24 10/06/25 History furosemide 40 mg tablet 40 mg PO DAILY 03/25/25 10/06/25 History acetaminophen 500 mg tablet 1,000 mg PO Q6H PRN 10/06/25 10/06/25 History amlodipine 5 mg tablet 10 mg PO DAILY 10/06/25 10/06/25 History losartan 50 mg tablet 50 mg PO DAILY Hypertension 10/06/25 10/06/25 History rivaroxaban 20 mg tablet 20 mg PO QPM anitcoagulation 10/06/25 10/06/25 History Allergies Allergy/AdvReac Type Severity Reaction Status Date / Time Penicillins Allergy Intermediate rash Verified 10/06/25 14:58 Exam Const: Vital Signs, click to edit/add: Vital Signs - 24 hr 10/06/25 12:29 10/06/25 12:37 10/06/25 12:40 Temperature 102.1 F H Pulse Rate Pulse Rate [Pulse Oximeter] 84 Respiratory Rate 24 Blood Pressure Blood Pressure [Ri ght Forearm] 157/71 H Pulse Oximetry 97 94 94 Oxygen Delivery [facility] Room Air Room Air 10/06/25 12:45 10/06/25 12:50 10/06/25 13:00 Temperature Pulse Rate 83 Pulse Rate [Pulse Oximeter] Respiratory Rate Blood Pressure Blood Pressure [Ri ght Forearm] Pulse Oximetry 93 95 98 Oxygen Delivery [facility] 10/06/25 13:01 10/06/25 13:10 10/06/25 13:23 Temperature 102 F H Pulse Rate Pulse Rate [Pulse Oximeter] Respiratory Rate Blood Pressure Blood Pressure [Ri ght Forearm] Pulse Oximetry 100 99 Oxygen Delivery [facility] 10/06/25 13:40 10/06/25 13:42 10/06/25 13:45 Temperature Pulse Rate 80 Pulse Rate [Pulse Oximeter] Respiratory Rate Blood Pressure Blood Pressure [Ri ght Forearm] Pulse Oximetry 95 96 93 Oxygen Delivery [facility] 10/06/25 14:00 10/06/25 14:02 10/06/25 14:15 Temperature Pulse Rate 81 82 82 Pulse Rate [Pulse Oximeter] Respiratory Rate 16 Blood Pressure 136/61 Blood Pressure [Ri ght Forearm] Pulse Oximetry 95 96 97 Oxygen Delivery [facility] 10/06/25 14:48 10/06/25 15:00 10/06/25 15:06 Temperature 102.3 F H 102 F H 100.1 F H Pulse Rate Pulse Rate [Pulse Oximeter] Respiratory Rate Blood Pressure Blood Pressure [Ri ght Forearm] Pulse Oximetry Oxygen Delivery [facility] Hospitalist - H&P: Result Labs Labs: Short CBC 10/06/25 Range/Units 13:35 WBC 14.58 H (4.50-11.00) K/uL Hgb 13.4 L (13.5-17.5) gm/dL Hct 39.8 (37.0-53.0) % Plt Count 204 (140-440) K/uL BMP 10/06/25 13:35 Sodium 131 L Potassium 4.1 Chloride 91 L Carbon Dioxide 26 BUN 22 Creatinine 1.1 Glucose 164 H Calcium 8.4 Liver Function 10/06/25 Range/Units 13:35 Total Bilirubin 2.0 H (0.1-1.5) mg/dL Direct Bilirubin 0.5 (0.0-0.5) mg/dL AST 56 H (12-35) U/L ALT 23 (4-50) U/L Alkaline Phosphatase 77 (40-150) U/L Albumin 4.1 (3.3-5.0) g/dL Urine 10/06/25 Range/Units 12:42 Urine Color Jojo A (Yellow) Urine Appearance Clear (Clear) Urine pH 5.5 (5.0-8.5) Ur Specific [place] 1.020 (1.000-1.030) Urine Protein Trace A (Negative) Urine Glucose (UA) Negative (Negative)
[2025-10-06 16:42] LABS: INR 0.99 (0.91-1.10); Prothrombin Time 13.9 Seconds
[2025-10-06 17:06] LABS: Procalcitonin* 0.14 ng/mL (<0.50)
[2025-10-06] MEDS: RIVAROXABAN 10 MG TABLET 20 MG PO (18:51)
[2025-10-06] MEDS: FLUCONAZOLE 100 MG TABLET 200 MG PO (18:52)
[2025-10-06] MEDS: CLOTRIMAZOLE 1 % CREAM 1 APPLIC TOPICAL (19:48)
[2025-10-06] MEDS: TRIAMCINOLONE ACETONIDE CREAM 0.1 % 1 APPLIC TOPICAL (19:48)
[2025-10-06] MEDS: SODIUM CHLORIDE 0.9 % (FLUSH) 10 ML SYRINGE 5 ML IVF (20:46)
[2025-10-06] MEDS: ATORVASTATIN CALCIUM 10 MG TABLET 20 MG PO (20:46)
[2025-10-06] MEDS: INSULIN ASPART 100 UNIT/ML SUBCUT ×2 (20:48→21:02)
[2025-10-06] MEDS: ACETAMINOPHEN 325 MG TABLET 1000 MG PO (23:45)
[2025-10-07] VITALS (9 sets, daily range): BP systolic 128–161; BP diastolic 61–81; PULSE 60–90; RESP 16–22; TEMP 36.4–37.5; O2SAT 95–100
[2025-10-07] MEDS: CEFAZOLIN 1 GM in 0.9 % SODIUM CHLORIDE Mini-bag 100 ML IVPB (05:25)
[2025-10-07] MEDS: SODIUM CHLORIDE 0.9 % (FLUSH) 10 ML SYRINGE 5 ML IVF ×3 (05:25→20:07)
--- NOTE | 2025-10-07 05:55 | PC.NURSE ---
Pt alert and oriented. Pt had complaints of pain ranging 0-4; see EMAR for intervention. Pt up with SBA.??LLE outlined.
[2025-10-07] MEDS: INSULIN ASPART 100 UNIT/ML 10 UNIT SUBCUT ×3 (07:55→17:26)
[2025-10-07 08:20] LABS: Hematocrit* 40.8 % (37.0-53.0); Hemoglobin* 13.7 gm/dL (13.5-17.5); Immature Granulocytes Pct Auto 0.2 %; Mean Corpuscular HGB Conc 34 gm/dL (32-36); Mean Corpuscular Hemoglobin 31 pg (26-34); Mean Corpuscular Volume 92 fL (80-100); RDW Coefficient of Variation % 14.0 % (11.5-15.5); Red Blood Count* 4.42 m/uL (4.30-5.90); White Blood Count* 11.33 K/uL (4.50-11.00)
[2025-10-07 08:21] LABS: Immature Granulocytes Abs Auto 0.00 K/uL (0.00-0.30); Lymphocytes Absolute Auto 0.90 K/uL (0.90-2.90); Slide Review Reflex No
[2025-10-07 08:38] LABS: Albumin* 3.9 g/dL (3.3-5.0); Chloride* 99 mmol/L (96-114)
[2025-10-07 08:39] LABS: Potassium* 3.8 mmol/L (3.6-5.1); Sodium* 137 mmol/L (135-149)
[2025-10-07 08:41] LABS: Blood Urea Nitrogen* 17 mg/dL (7-30); Creatinine* 0.8 mg/dL (0.5-1.5); Est. Creatinine Clearance* 72.16; Estimated Glomerular Filt Rate 95 ml/min
[2025-10-07 08:42] LABS: Alanine Aminotransferase* 23 U/L (4-50); Alkaline Phosphatase* 83 U/L (40-150); Anion Gap 10 mEq/L (7-15); Aspartate Amino Transferase* 38 U/L (12-35); Bilirubin Direct* 0.4 mg/dL (0.0-0.5); Bilirubin Total* 1.5 mg/dL (0.1-1.5); Calcium* 8.2 mg/dL (8.4-10.6); Carbon Dioxide* 28 mmol/L (20-32); Glucose* 149 mg/dL (60-115); Total Protein* 7.2 g/dL (6.0-8.3)
[2025-10-07] MEDS: AMLODIPINE 5 MG TABLET 10 MG PO (09:51)
[2025-10-07] MEDS: METOPROLOL SUCCINATE (XL) 100 MG TAB PO (09:51)
[2025-10-07] MEDS: LOSARTAN POTASSIUM 50 MG TABLET PO (09:51)
[2025-10-07] MEDS: CLOPIDOGREL 75 MG TABLET PO (09:51)
[2025-10-07] MEDS: FUROSEMIDE 40 MG TABLET PO (09:55)
[2025-10-07] MEDS: TRIAMCINOLONE ACETONIDE CREAM 0.1 % 1 APPLIC TOPICAL ×2 (09:58→20:07)
[2025-10-07] MEDS: CLOTRIMAZOLE 1 % CREAM 1 APPLIC TOPICAL ×2 (09:58→20:07)
--- NOTE | 2025-10-07 11:10 | PM.IMPN1 ---
Assessment and Plan Assessment and plan (1) Acute febrile illness: Problem comment: -will MRSA swab him as he states, I've had a lot of staph infections -likely from the cellulitis (mild - moderate) of the left lower extremity. blotchy erythema hard to demarcate. worse on dorsum of foot and around the ankle circumferentially. -CRP elevated, WBC elevated. temp. -Ancef 1 gram q 8, unless MRSA + -blood cultures pending. -mild depression of sodium - normal saline and follow -mild bump in his bili - will follow - 10/07 no longer febrile, bili normalized Status: Acute (2) Sepsis: Problem comment: Criteria met with fever, elevated white count, cellulitic left leg (NA depressed, bili up a little) -see #1 - 10/07 Resolved Status: Acute (3) Cellulitis: Problem comment: -left lower extremity -monitor and treat as in #1 - 10/07 Some improvement, but still erythematous, edematous, increased warmth and tenderness. CRP is more elevated today. White blood count improving. Elevate extremity higher than heart. Increased ancef dose for patient's weight and monitor overnight. Additionally obtained left lower extremity ultrasound to look for DVT considering patient had potentially not taken his medications for a few days. This was negative, as above. Status: Acute (4) Intertrigo of skin fold of abdomen: Problem comment: -low concern for bacterial superinfection. -good skin care with topical antifungals and steroids and inter-dry dressing Status: Acute (5) (HFpEF) heart failure with preserved ejection fraction: Problem comment: Chronic diastolic heart failure, NYHA class I. No clinical signs of heart failure at admission. Nov 2024 - Repeat echocardiogram shows well-seated bioprosthetic aortic valve with a mean gradient of 8, no AI or PVL. His LV function is normal with an EF of 55 to 60%. His BMP and CBC are unremarkable. Status: Chronic (6) S/P TAVR (transcatheter aortic valve replacement): Problem comment: severe aortic stenosis s/p TAVR with 29 mm Gonzalez Resilia valve on Status: Chronic (7) Coronary artery disease: Problem comment: Coronary artery disease. CABG x 4 FLYNN to LAD, SV to Diag, SV to OM, SV to PDA (07/11/2020) S/p QUE to proximal/mid Left circumflex coronary artery 9-2024 Status: Chronic (8) Stented coronary artery: Problem comment: S/p QUE to proximal/mid Left circumflex coronary artery Status: Chronic (9) Diabetes mellitus type 2 in obese: Problem comment: -A1C improving, now 6.3% -pt has lost 35lbs on GLP1A therapy. will reduce insulin doses by 1/2 and monitor glucose Status: Chronic (10) Hypertension: Problem comment: -continue home meds Status: Chronic (11) Recurrent left pleural effusion: Problem comment: -Recurrent pleural effusions. S/p thoracentesis x3 after his CABG Status: Inactive (12) BPH (benign prostatic hyperplasia): Problem comment: -earlier in 2024, PCP checked a PSA which was greater than 4. There is noted prostatomegaly on his CT tonight. 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 He notes movement of his left lower extremity in both pain and erythema overnight. He states that he has taken all of his medications and was careful to do so recently because he has a TAVR and did not want to be off of his anticoagulant. Exam Narrative: Exam Narrative: General: No acute distress. Awake, alert, oriented x3. No pallor. No jaundice. Oropharynx: Clear. Mucous membranes moist. Cardiovascular: Regular rate and rhythm. No murmurs, gallops, or rubs. Respiratory: Clear to auscultation bilaterally. No wheezes or crackles. Abdomen: Bowel sounds present. Soft, nondistended, nontender. Extremities: Left lower extremity has blotchy erythema, increased warmth and edema from the knee through the ankle and into the dorsum of the foot. There are no open wounds. These areas are tender to palpation as well. Right lower extremity has 2+ pitting edema. Const: Vital Signs, click to edit/add: Vital Signs - 24 hr 10/06/25 12:29 10/06/25 12:37 10/06/25 12:40 Temperature 102.1 F H Pulse Rate Pulse Rate [Pulse Oximeter] 84 Respiratory Rate 24 Blood Pressure Blood Pressure [Le ft Arm] Blood Pressure [Ri ght Forearm] 157/71 H Pulse Oximetry 97 94 94 Oxygen Delivery Me thod Room Air Room Air 10/06/25 12:45 10/06/25 12:50 10/06/25 13:00 Temperature Pulse Rate 83 Pulse Rate [Pulse Oximeter] Respiratory Rate Blood Pressure Blood Pressure [Le ft Arm] Blood Pressure [Ri ght Forearm] Pulse Oximetry 93 95 98 Oxygen Delivery Me thod 10/06/25 13:01 10/06/25 13:10 10/06/25 13:23 Temperature 102 F H Pulse Rate Pulse Rate [Pulse Oximeter] Respiratory Rate Blood Pressure Blood Pressure [Le ft Arm] Blood Pressure [Ri ght Forearm] Pulse Oximetry 100 99 Oxygen Delivery Me thod 10/06/25 13:40 10/06/25 13:42 10/06/25 13:45 Temperature Pulse Rate 80 Pulse Rate [Pulse Oximeter] Respiratory Rate Blood Pressure Blood Pressure [Le ft Arm] Blood Pressure [Ri ght Forearm] Pulse Oximetry 95 96 93 Oxygen Delivery Me thod 10/06/25 14:00 10/06/25 14:02 10/06/25 14:15 Temperature Pulse Rate 81 82 82 Pulse Rate [Pulse Oximeter] Respiratory Rate 16 Blood Pressure 136/61 Blood Pressure [Le ft Arm] Blood Pressure [Ri ght Forearm] Pulse Oximetry 95 96 97 Oxygen Delivery Me thod 10/06/25 14:41 10/06/25 14:42 10/06/25 14:45 Temperature Pulse Rate 76 76 77 Pulse Rate [Pulse Oximeter] Respiratory Rate 16 Blood Pressure 125/51 L Blood Pressure [Le ft Arm] Blood Pressure [Ri ght Forearm] Pulse Oximetry 95 95 96 Oxygen Delivery Me thod 10/06/25 14:48 10/06/25 15:00 10/06/25 15:00 Temperature 102.3 F H 102 F H Pulse Rate 74 Pulse Rate [Pulse Oximeter] Respiratory Rate Blood Pressure Blood Pressure [Le ft Arm] Blood Pressure [Ri ght Forearm] Pulse Oximetry 95 Oxygen Delivery Me thod 10/06/25 15:02 10/06/25 15:06 10/06/25 15:15 Temperature 100.1 F H Pulse Rate 74 72 Pulse Rate [Pulse Oximeter] Respiratory Rate 16 Blood Pressure 114/54 L Blood Pressure [Le ft Arm] Blood Pressure [Ri ght Forearm] Pulse Oximetry 95 96 Oxygen Delivery Me thod 10/06/25 15:30 10/06/25 15:31 10/06/25 17:30 Temperature 99 F Pulse Rate 72 73 Pulse Rate [Pulse Oximeter] 70 Respiratory Rate 16 16 Blood Pressure 128/65 Blood Pressure [Le ft Arm] 132/67 Blood Pressure [Ri ght Forearm] Pulse Oximetry 94 94 94 Oxygen Delivery Me thod Room Air 10/06/25 17:30 10/06/25 19:44 10/06/25 23:10 Temperature 99.3 F 98.5 F Pulse Rate Pulse Rate [Pulse Oximeter] 71 75 Respiratory Rate 18 18 Blood Pressure Blood Pressure [Le ft Arm] 124/55 L 148/67 H Blood Pressure [Ri ght Forearm] Pulse Oximetry 96 98 Oxygen Delivery Me thod Room Air Room Air Room Air 10/06/25 23:32 10/07/25 02:49 10/07/25 02:52 Temperature 98.0 F 98.0 F Pulse Rate 76 Pulse Rate [Pulse Oximeter] 72 72 Respiratory Rate 18 18 Blood Pressure Blood Pressure [Le ft Arm] 128/61 128/61 Blood Pressure [Ri ght Forearm] Pulse Oximetry 95 95 Oxygen Delivery Me thod Room Air Room Air 10/07/25 07:00 Temperature 97.6 F Pulse Rate Pulse Rate [Pulse Oximeter] 67 Respiratory Rate 18 Blood Pressure Blood Pressure [Le ft Arm] 155/70 H Blood Pressure [Ri ght Forearm] Pulse Oximetry 100 Oxygen Delivery Me thod Room Air Labs Labs: Laboratory Results - last 24 hr 10/06/25 10/06/25 10/06/25 12:30 12:42 13:25 WBC RBC Hgb Hct MCV MCH MCHC RDW Coeff of Manny Plt Count Neut % (Auto) Lymph % (Auto) [place] % (Auto) Eos % (Auto) Baso % (Auto) Neut # (Auto) Lymph # (Auto) [place] # (Auto) Eos # (Auto) Baso # (Auto) Abs Immat Gran (auto) Imm/Tot Granulo (auto) INR Sodium Potassium Chloride Carbon Dioxide Anion Gap BUN Creatinine Estimated Creat Clear Estimated GFR Glucose Hemoglobin A1c Lactate Calcium Phosphorus Total Bilirubin Direct Bilirubin AST ALT Alkaline Phosphatase C-Reactive Protein Total Protein Albumin Lipase Procalcitonin Urine Color Jojo A Urine Appearance Clear Urine pH 5.5 Ur Specific [place] 1.020 Urine Protein Trace A Urine Glucose (UA) Negative Urine Ketones Trace A Urine Blood Negative Urine Nitrite Negative Urine Bilirubin Negative Urine Urobilinogen 0.2 Ur Leukocyte Esterase Negative Urine RBC 0-2 Urine WBC 0-2 Ur Squamous Epith Cells None Amorphous Sediment Few A Urine Bacteria None SARS-CoV-2 (PCR) Negative SARS-CoV-2 Influenza Type A (PCR) Negative PCR FLU A Influenza Type B (PCR) Negative PCR FLU B RSV (PCR) Negative PCR RSV Lab Acknowledgement POC Creatinine 1.3 10/06/25 10/06/25 10/06/25 13:35 14:31 16:34 WBC 14.58 H RBC 4.31 Hgb 13.4 L Hct 39.8 MCV 92 MCH 31 MCHC 34 RDW Coeff of Manny 14.3 Plt Count 204 Neut % (Auto) 91.2 H Lymph % (Auto) 3.3 L [place] % (Auto) 5.2 Eos % (Auto) 0.0 Baso % (Auto) 0.1 Neut # (Auto) 13.30 H Lymph # (Auto) 0.50 L [place] # (Auto) 0.80 Eos # (Auto) 0.00 Baso # (Auto) 0.00 Abs Immat Gran (auto) 0.00 Imm/Tot Granulo (auto) 0.2 INR 0.99 Sodium 131 L Potassium 4.1 Chloride 91 L Carbon Dioxide 26 Anion Gap 14 BUN 22 Creatinine 1.1 Estimated Creat Clear 63.60 Estimated GFR 72 Glucose 164 H Hemoglobin A1c 6.3 H Lactate 1.8 Calcium 8.4 Phosphorus Total Bilirubin 2.0 H Direct Bilirubin 0.5 AST 56 H ALT 23 Alkaline Phosphatase 77 C-Reactive Protein 13.3 H Total Protein 7.3 Albumin 4.1 Lipase 52 Procalcitonin 0.14 Urine Color Urine Appearance Urine pH Ur Specific [place] Urine Protein Urine Glucose (UA) Urine Ketones Urine Blood Urine Nitrite Urine Bilirubin Urine Urobilinogen Ur Leukocyte Esterase Urine RBC Urine WBC Ur Squamous Epith Cells Amorphous Sediment Urine Bacteria SARS-CoV-2 (PCR) Influenza Type A (PCR) Influenza Type B (PCR) RSV (PCR) Lab Acknowledgement Test Added Test Added POC Creatinine 10/06/25 10/07/25 17:25 08:10 WBC 11.33 H RBC 4.42 Hgb 13.7 Hct 40.8 MCV 92 MCH 31 MCHC 34 RDW Coeff of Manny 14.0 Plt Count 179 Neut % (Auto) 82.6 H Lymph % (Auto) 7.6 L [place] % (Auto) 8.7 Eos % (Auto) 0.7 Baso % (Auto) 0.2 Neut # (Auto) 9.40 H Lymph # (Auto) 0.90 [place] # (Auto) 1.00 H Eos # (Auto) 0.10 Baso # (Auto) 0.00 Abs Immat Gran (auto) 0.00 Imm/Tot Granulo (auto) 0.2 INR Sodium 137 Potassium 3.8 Chloride 99 Carbon Dioxide 28 Anion Gap 10 BUN 17 Creatinine 0.8 Estimated Creat Clear 72.16 Estimated GFR 95 Glucose 149 H Hemoglobin A1c Lactate Calcium 8.2 L Phosphorus 2.7 Total Bilirubin 1.5 Direct Bilirubin 0.4 AST 38 H ALT 23 Alkaline Phosphatase 83 C-Reactive Protein 17.5 H Total Protein 7.2 Albumin 3.9 Lipase Procalcitonin Urine Color Urine Appearance Urine pH Ur Specific [place] Urine Protein Urine Glucose (UA) Urine Ketones Urine Blood Urine Nitrite Urine Bilirubin Urine Urobilinogen Ur Leukocyte Esterase Urine RBC Urine WBC Ur Squamous Epith Cells Amorphous Sediment Urine Bacteria SARS-CoV-2 (PCR) Influenza Type A (PCR) Influenza Type B (PCR) RSV (PCR) Lab Acknowledgement Test Added POC Creatinine Ordering Physician: Diana Cabrera M.D. Date of Service: 10/07/25 Procedure(s): US venous LE LT Accession Number(s): [id number] cc: Diana Cabrera M.D.; David Martinez M.D.~ For Patients: As a result of the 21st Century Cures Act, medical imaging exams and procedure reports are released immediately into your electronic medical record. You may view this report before your referring provider. If you have questions, please contact your health care provider. INDICATION: Left lower extremity swelling, venous insufficiency. TECHNIQUE: Ultrasound venous duplex lower left extremity. Compression venous exam was performed using skelton-scale, color Doppler, and spectral Doppler analysis. COMPARISON: None. FINDINGS: Deep veins: Sonographic imaging demonstrates the left common femoral, deep femoral, superficial femoral, popliteal, posterior tibial and the contralateral right common femoral veins to be fully compressible with normal color Doppler blood flow. Superficial veins: Greater saphenous vein is fully compressible. No popliteal cyst. IMPRESSION: Normal left lower extremity venous ultrasound, no sign of deep venous thrombosis. Dictated by Gabriel Sousa MD @ 10/07/2025 12:17:38 PM (Electronically Signed)
--- NOTE | 2025-10-07 11:30 | CRLHL7_ITS ---
For Patients: As a result of the Century Cures Act, medical imaging exams and procedure reports are released immediately into your electronic medical record. You may view this report before your referring provider. If you have questions, please contact your health care provider. INDICATION: Left lower extremity swelling, venous insufficiency. TECHNIQUE: Ultrasound venous duplex lower left extremity. Compression venous exam was performed using skelton-scale, color Doppler, and spectral Doppler analysis. COMPARISON: None. FINDINGS: Deep veins: Sonographic imaging demonstrates the left common femoral, deep femoral, superficial femoral, popliteal, posterior tibial and the contralateral right common femoral veins to be fully compressible with normal color Doppler blood flow. Superficial veins: Greater saphenous vein is fully compressible. No popliteal cyst. IMPRESSION: Normal left lower extremity venous ultrasound, no sign of deep venous thrombosis. Dictated by Gabriel Sousa MD @ 10/07/2025 12:17:38 PM (Electronically Signed)
[2025-10-07] MEDS: INSULIN ASPART 100 UNIT/ML SUBCUT ×3 (12:33→20:17)
--- NOTE | 2025-10-07 12:37 | REH.PT ---
PT Eval and Treat orders received, chart reviewed. Ind amb at baseline and caregiver for spouse. Up amb ind in hospital room. Demo's ind with gait and transfers in room. Completes stair amb ind with hand rail support. Appears at his baseline with regard to functional mobility. Reports constant mild-moderate L LE pain due to Cellulitis. Expect pt will be able to d/c home once medically cleared by MD. No further skilled PT warranted.
[2025-10-07] MEDS: CEFAZOLIN 2 GM in 0.9 % SODIUM CHLORIDE Mini-bag 100 ML IVPB ×2 (14:32→22:13)
[2025-10-07] MEDS: RIVAROXABAN 10 MG TABLET 20 MG PO (17:59)
[2025-10-07] MEDS: ATORVASTATIN CALCIUM 10 MG TABLET 20 MG PO (20:07)
[2025-10-08] VITALS (8 sets, daily range): BP systolic 119–140; BP diastolic 56–73; PULSE 55–60; RESP 16–20; TEMP 36.6–37.2; O2SAT 97–98
--- NOTE | 2025-10-08 04:00 | PC.NURSE ---
Pt rested well this night in the chair. Up IND in the room. Pain controlled with L leg. Afebrile. Pt states he is feeling much better than previous night. Pleasant and cooperative.
[2025-10-08] MEDS: CEFAZOLIN 2 GM in 0.9 % SODIUM CHLORIDE Mini-bag 100 ML IVPB ×3 (06:07→22:05)
[2025-10-08] MEDS: INSULIN ASPART 100 UNIT/ML 10 UNIT SUBCUT ×3 (07:31→17:47)
[2025-10-08] MEDS: INSULIN ASPART 100 UNIT/ML SUBCUT ×4 (07:32→22:00)
[2025-10-08 08:09] LABS: Hematocrit* 40.5 % (37.0-53.0); Hemoglobin* 13.7 gm/dL (13.5-17.5); Immature Granulocytes Abs Auto 0.03 K/uL (0.00-0.30); Immature Granulocytes Pct Auto 0.3 %; Mean Corpuscular HGB Conc 34 gm/dL (32-36); Mean Corpuscular Hemoglobin 31 pg (26-34); Mean Corpuscular Volume 92 fL (80-100); RDW Coefficient of Variation % 13.7 % (11.5-15.5); Red Blood Count* 4.42 m/uL (4.30-5.90); White Blood Count* 9.39 K/uL (4.50-11.00)
[2025-10-08 08:12] LABS: Lymphocytes Absolute Auto 1.00 K/uL (0.90-2.90); Slide Review Reflex No
[2025-10-08 08:29] LABS: Chloride* 98 mmol/L (96-114); Potassium* 3.9 mmol/L (3.6-5.1); Sodium* 137 mmol/L (135-149)
[2025-10-08 08:32] LABS: Blood Urea Nitrogen* 15 mg/dL (7-30); Creatinine* 0.7 mg/dL (0.5-1.5); Est. Creatinine Clearance* 72.16; Estimated Glomerular Filt Rate 99 ml/min
[2025-10-08 08:33] LABS: Anion Gap 8 mEq/L (7-15); Calcium* 8.3 mg/dL (8.4-10.6); Carbon Dioxide* 31 mmol/L (20-32); Glucose* 160 mg/dL (60-115)
[2025-10-08] MEDS: CLOPIDOGREL 75 MG TABLET PO (08:48)
[2025-10-08] MEDS: METOPROLOL SUCCINATE (XL) 100 MG TAB PO (08:49)
[2025-10-08] MEDS: AMLODIPINE 5 MG TABLET 10 MG PO (08:49)
[2025-10-08] MEDS: FUROSEMIDE 40 MG TABLET PO (08:49)
[2025-10-08] MEDS: SODIUM CHLORIDE 0.9 % (FLUSH) 10 ML SYRINGE 5 ML IVF ×2 (08:49→22:01)
[2025-10-08] MEDS: LOSARTAN POTASSIUM 50 MG TABLET PO (08:49)
[2025-10-08] MEDS: TRIAMCINOLONE ACETONIDE CREAM 0.1 % 1 APPLIC TOPICAL ×2 (10:28→22:00)
[2025-10-08] MEDS: CLOTRIMAZOLE 1 % CREAM 1 APPLIC TOPICAL ×2 (10:28→22:01)
--- NOTE | 2025-10-08 12:36 | P.IMPN_ITS ---
Assessment and Plan Assessment and plan (1) Acute febrile illness: Problem comment: -will MRSA swab him as he states, I've had a lot of staph infections -likely from the cellulitis (mild - moderate) of the left lower extremity. blotchy erythema hard to demarcate. worse on dorsum of foot and around the ankle circumferentially. -CRP elevated, WBC elevated. temp. -Ancef 1 gram q 8, unless MRSA + -blood cultures pending. -mild depression of sodium - normal saline and follow -mild bump in his bili - will follow - 10/07 no longer febrile, bili normalized - 10/08 Now afebrile for more than 24 hours (was not yesterday when I saw him). Status: Acute (2) Sepsis: Problem comment: Criteria met with fever, elevated white count, cellulitic left leg (NA depressed, bili up a little) -see #1 - 10/07 Resolved Status: Acute (3) Cellulitis: Problem comment: -left lower extremity -monitor and treat as in #1 - 10/07 Some improvement, but still erythematous, edematous, increased warmth and tenderness. CRP is more elevated today. White blood count improving. Elevate extremity higher than heart. Increased ancef dose for patient's weight and monitor overnight. Additionally obtained left lower extremity ultrasound to look for DVT considering patient had potentially not taken his medications for a few days. This was negative, as above. - 10/08 US neg for DVT. WBC, CRP improving. MRSA swab has resulted, negative. Clinically mixed picture: less intense erythema, but it is more confluent with possible mild extension. Also more tender today. Continue IV ancef, elevation. Status: Acute (4) Intertrigo of skin fold of abdomen: Problem comment: -low concern for bacterial superinfection. -good skin care with topical antifungals and steroids and inter-dry dressing Status: Acute (5) (HFpEF) heart failure with preserved ejection fraction: Problem comment: Chronic diastolic heart failure, NYHA class I. No clinical signs of heart failure at admission. Nov 2024 - Repeat echocardiogram shows well-seated bioprosthetic aortic valve with a mean gradient of 8, no AI or PVL. His LV function is normal with an EF of 55 to 60%. His BMP and CBC are unremarkable. Status: Chronic (6) S/P TAVR (transcatheter aortic valve replacement): Problem comment: severe aortic stenosis s/p TAVR with 29 mm Gonzalez Resilia valve on - Continue Xarelto Status: Chronic (7) Coronary artery disease: Problem comment: Coronary artery disease. CABG x 4 FLYNN to LAD, SV to Diag, SV to OM, SV to PDA (07/11/2020) S/p QUE to proximal/mid Left circumflex coronary artery Status: Chronic (8) Stented coronary artery: Problem comment: S/p QUE to proximal/mid Left circumflex coronary artery Status: Chronic (9) Diabetes mellitus type 2 in obese: Problem comment: -A1C improving, now 6.3% -pt has lost 35lbs on GLP1A therapy. will reduce insulin doses by 1/2 and monitor glucose - 10/08 POC glucoses remain slightly higher than I'd like to see for inpatient management. Increase lantus closer to home dose. Status: Chronic (10) Hypertension: Problem comment: -continue home meds Status: Chronic (11) Recurrent left pleural effusion: Problem comment: -Recurrent pleural effusions. S/p thoracentesis x3 after his CABG Status: Inactive (12) BPH (benign prostatic hyperplasia): Problem comment: -earlier in 2024, PCP checked a PSA which was greater than 4. There is noted prostatomegaly on his CT tonight. Status: Chronic (13) Chronic acquired lymphedema: Problem comment: - refer to lymphedema clinic on discharge Status: Chronic (14) Hyperlipidemia associated with type 2 diabetes mellitus: Status: Chronic (15) Body mass index [BMI] 40.0-44.9, adult: Problem comment: Per [facility] Claims Data, previously coded Status: Chronic (16) CHINO (obstructive sleep apnea): Problem comment: -not compliant with CPAP Status: Chronic Subjective Time Seen by Provider: 08:40 Date Seen: 10/08/25 Interval history: Jhon feels better and notes his fever is gone, but tells me that his leg feels more sensitive today. He is concerned because he thinks it also looks more red. Exam Narrative: Exam Narrative: General: No acute distress. Awake, alert, oriented. No pallor. No jaundice. Cardiovascular: Regular rate and rhythm. No murmurs, gallops, or rubs. Respiratory: Clear to auscultation bilaterally. No wheezes or crackles. Abdomen: Bowel sounds present. Soft, nondistended, nontender. Extremities: Lymphedema wraps were removed about 20 minutes before I saw his legs. Left lower extremity has more confluent erythema, but the erythema is less intense. It appears to have extended slightly beyond the lines drawn, although it is not a well-demarcated erythema, so it is difficult to tell. The erythema on his foot does look improved and the warmth of the lower extremity is also improving. He remains tender to palpation. LLE 1+ edema. Right lower extremity has 2+ pitting edema. Const: Vital Signs, click to edit/add: Vital Signs - 24 hr 10/07/25 15:00 10/07/25 15:00 10/07/25 15:00 Temperature 98.3 F Pulse Rate 68 Pulse Rate [Pulse Oximeter] 65 65 Respiratory Rate 16 16 Blood Pressure [Le ft Arm] 151/65 H Pulse Oximetry 97 Oxygen Delivery Ak thod Room Air 10/07/25 19:23 10/07/25 19:59 10/07/25 22:19 Temperature 99.5 F 99.4 F Pulse Rate 90 Pulse Rate [Pulse Oximeter] 67 60 Respiratory Rate 18 18 Blood Pressure [Le ft Arm] 140/61 H 148/61 H Pulse Oximetry 95 96 Oxygen Delivery Ak thod Room Air Room Air 10/07/25 22:21 10/08/25 02:42 10/08/25 07:37 Temperature 99 F 97.8 F Pulse Rate Pulse Rate [Pulse Oximeter] 60 60 55 L Respiratory Rate 18 16 16 Blood Pressure [Le ft Arm] 138/64 140/73 H Pulse Oximetry 97 97 [facility] 10/08/25 07:37 10/08/25 09:19 10/08/25 10:39 Temperature 97.8 F Pulse Rate 56 L Pulse Rate [Pulse Oximeter] 55 L 56 L Respiratory Rate 16 16 Blood Pressure [Le ft Arm] 133/58 L Pulse Oximetry 97 [facility] Labs Labs: Laboratory Results - last 24 hr 10/08/25 07:51 WBC 9.39 RBC 4.42 Hgb 13.7 Hct 40.5 MCV 92 MCH 31 MCHC 34 RDW Coeff of Manny 13.7 Plt Count 204 Neut % (Auto) 76.4 H Lymph % (Auto) 10.5 L [place] % (Auto) 10.6 Eos % (Auto) 1.8 Baso % (Auto) 0.4 Neut # (Auto) 7.20 H Lymph # (Auto) 1.00 [place] # (Auto) 1.00 H Eos # (Auto) 0.17 Baso # (Auto) 0.04 Abs Immat Gran (auto) 0.03 Imm/Tot Granulo (auto) 0.3 Sodium 137 Potassium 3.9 Chloride 98 Carbon Dioxide 31 Anion Gap 8 BUN 15 Creatinine 0.7 Estimated Creat Clear 72.16 Estimated GFR 99 Glucose 160 H Calcium 8.3 L C-Reactive Protein 13.8 H
[2025-10-08] MEDS: RIVAROXABAN 10 MG TABLET 20 MG PO (17:51)
--- NOTE | 2025-10-08 18:27 | PC.NURSE ---
End of Shift: Patient pleasant and cooperative. Patient vitally stable, lungs clear, BS WNL, IV SL and intact. Patient rates left leg pain at most 3/10, no pain meds given. Left lower extremity, below the knee, is reddened, warm, and outlined. Patient has used wedge in the recliner to elevate extremities. Patient is independent and has walked the winter. Patient tolerating diet, urinating well, and has had a BM. Patients blood sugars [id number], 197. Pannus cleaned and creams applied.
[2025-10-08] MEDS: ATORVASTATIN CALCIUM 10 MG TABLET 20 MG PO (22:00)
[2025-10-09 03:00] VITALS: BP 139/70; PULSE 53; RESP 20; TEMP 36.6; O2SAT 99
--- NOTE | 2025-10-09 06:20 | PC.NURSE ---
Shift unremarkable. VS WNL and LS COA. Afebrile. Denies pain. Moves well independently. Elevating legs and walking unit occasionally. Good appetite. Pannus cleansed and dried with interdry placed. Skin looks clean and intact with minimal redness under right side of pannus. Pt is hopeful to discharge today.
[2025-10-09] MEDS: CEFAZOLIN 2 GM in 0.9 % SODIUM CHLORIDE Mini-bag 100 ML IVPB (06:50)
[2025-10-09 07:00] VITALS: BP 136/63; PULSE 56; RESP 20; TEMP 36.3; O2SAT 98
[2025-10-09] MEDS: INSULIN ASPART 100 UNIT/ML 10 UNIT SUBCUT ×2 (07:37→11:36)
[2025-10-09 07:39] LABS: Hematocrit* 37.6 % (37.0-53.0); Hemoglobin* 12.9 gm/dL (13.5-17.5); Immature Granulocytes Abs Auto 0.07 K/uL (0.00-0.30); Immature Granulocytes Pct Auto 0.8 %; Mean Corpuscular HGB Conc 34 gm/dL (32-36); Mean Corpuscular Hemoglobin 31 pg (26-34); Mean Corpuscular Volume 90 fL (80-100); RDW Coefficient of Variation % 13.6 % (11.5-15.5); Red Blood Count* 4.16 m/uL (4.30-5.90); White Blood Count* 9.12 K/uL (4.50-11.00)
[2025-10-09] MEDS: TRIAMCINOLONE ACETONIDE CREAM 0.1 % 1 APPLIC TOPICAL (07:39)
[2025-10-09] MEDS: METOPROLOL SUCCINATE (XL) 100 MG TAB PO (07:39)
[2025-10-09] MEDS: LOSARTAN POTASSIUM 50 MG TABLET PO (07:39)
[2025-10-09] MEDS: CLOPIDOGREL 75 MG TABLET PO (07:39)
[2025-10-09] MEDS: FUROSEMIDE 40 MG TABLET PO (07:39)
[2025-10-09] MEDS: AMLODIPINE 5 MG TABLET 10 MG PO (07:39)
[2025-10-09] MEDS: CLOTRIMAZOLE 1 % CREAM 1 APPLIC TOPICAL (07:40)
[2025-10-09 07:45] LABS: Lymphocytes Absolute Auto 1.10 K/uL (0.90-2.90)
[2025-10-09 07:46] LABS: Slide Review Reflex No
[2025-10-09] MEDS: SODIUM CHLORIDE 0.9 % (FLUSH) 10 ML SYRINGE 5 ML IVF (07:49)
[2025-10-09 11:00] VITALS: BP 132/61; PULSE 59; RESP 20; TEMP 36.6; O2SAT 97
--- NOTE | 2025-10-09 11:10 | P.DS_ITS ---
DS: Providers Provider Time Seen by Provider: 11:10 Date Seen: 10/09/25 Date of admission: 10/06/25 16:40 Primary care physician: David Martinez MD Admitting Clinician: Karol Resendez MD Consults: 10/06/25 17:19 Consult to Occupational Therapy [CONS] Routine Comment: Reason(s) for OT Consult:: Evaluate and Treat Any Restrictions?:: No Restrictions Consult to Physical Therapy [CONS] Routine Comment: Reason(s) for PT Consult:: Evaluate and Treat Any Restrictions?:: No Restrictions 10/07/25 Consult to Occupational Therapy [CONS] Routine Comment: Reason(s) for OT Consult:: Evaluate and Treat Any Restrictions?:: See Comment Comment: Lymphedema Attending Physician on discharge: Diana Cabrera MD Date of Discharge: 10/09/25 DS: Diagnosis Discharge Diagnosis (1) Acute febrile illness: Status: Acute Problem details: -will MRSA swab him as he states, I've had a lot of staph infections -likely from the cellulitis (mild - moderate) of the left lower extremity. blotchy erythema hard to demarcate. worse on dorsum of foot and around the ankle circumferentially. -CRP elevated, WBC elevated. temp. -Ancef 1 gram q 8, unless MRSA + -blood cultures pending. -mild depression of sodium - normal saline and follow -mild bump in his bili - will follow - 10/07 no longer febrile, bili normalized - 10/08 Now afebrile for more than 24 hours (was not yesterday when I saw him). (2) Sepsis: Status: Acute Problem details: Criteria met with fever, elevated white count, cellulitic left leg (NA depressed, bili up a little) -see #1 - 10/07 Resolved (3) Cellulitis: Status: Acute Problem details: -left lower extremity -monitor and treat as in #1 - 10/07 Some improvement, but still erythematous, edematous, increased warmth and tenderness. CRP is more elevated today. White blood count improving. Elevate extremity higher than heart. Increased ancef dose for patient's weight and monitor overnight. Additionally obtained left lower extremity ultrasound to look for DVT considering patient had potentially not taken his medications for a few days. This was negative, as above. - 10/08 US neg for DVT. WBC, CRP improving. MRSA swab has resulted, negative. Clinically mixed picture: less intense erythema, but it is more confluent with possible mild extension. Also more tender today. Continue IV ancef, elevation. - 10/09 LLE cellulitis improving. WBC normalized, CRP continues to improve. Patient also agreed his LLE looks and feels better. D/ch home on oral antibiotic. F/u with PCP. (4) Intertrigo of skin fold of abdomen: Status: Acute Problem details: -low concern for bacterial superinfection. -good skin care with topical antifungals and steroids and inter-dry dressing - Prescribed clotrimazole for home (5) (HFpEF) heart failure with preserved ejection fraction: Status: Chronic Problem details: Chronic diastolic heart failure, NYHA class I. No clinical signs of heart failure at admission. Nov 2024 - Repeat echocardiogram shows well-seated bioprosthetic aortic valve with a mean gradient of 8, no AI or PVL. His LV function is normal with an EF of 55 to 60%. His BMP and CBC are unremarkable. (6) S/P TAVR (transcatheter aortic valve replacement): Status: Chronic Problem details: severe aortic stenosis s/p TAVR with 29 mm Gonzalez Resilia valve on - Continue Xarelto (7) Coronary artery disease: Status: Chronic Problem details: Coronary artery disease. CABG x 4 FLYNN to LAD, SV to Diag, SV to OM, SV to PDA (07/11/2020) S/p QUE to proximal/mid Left circumflex coronary artery (8) Stented coronary artery: Status: Chronic Problem details: S/p QUE to proximal/mid Left circumflex coronary artery (9) Diabetes mellitus type 2 in obese: Status: Chronic Problem details: -A1C improving, now 6.3% -pt has lost 35lbs on GLP1A therapy. will reduce insulin doses by 1/2 and monitor glucose - 10/08 POC glucoses remain slightly higher than I'd like to see for inpatient management. Increase lantus closer to home dose. - 10/09 discharging today, decrease home Lantus dose to 50 units nightly, continue his usual home mealtime insulin sliding scale, follow-up with primary care provider (10) Hypertension: Status: Chronic Problem details: -continue home meds (11) Recurrent left pleural effusion: Status: Acute Problem details: -Recurrent pleural effusions. S/p thoracentesis x3 after his CABG - follow-up as an outpatient for imaging in 3 months (12) BPH (benign prostatic hyperplasia): Status: Chronic Problem details: -earlier in 2024, PCP checked a PSA which was greater than 4. There is noted prostatomegaly on his CT tonight. (13) Chronic acquired lymphedema: Status: Chronic Problem details: - refer to lymphedema clinic on discharge (14) Hyperlipidemia associated with type 2 diabetes mellitus: Status: Chronic (15) Body mass index [BMI] 40.0-44.9, adult: Status: Chronic Problem details: Per [facility] Claims Data, previously coded (16) CHINO (obstructive sleep apnea): Status: Chronic Problem details: -not compliant with CPAP DS: Summary Hospital Course Hospital Course: Per H&P: 70-year-old white male presents via EMS to our ED complaining of weakness fever and feeling unwell. His symptoms started 3-4 days ago with weakness, fever, said his left leg has been more swollen and looks red to him. Some chills. no appetite. Has not been taking his home meds for 2-3 days. He has significant comorbid medical history that type 2 diabetes, hypertension, hyperlipidemia, obstructive sleep apnea coronary artery disease, paroxysmal AFib on oral anticoagulation, history of TAVR and morbid obesity. His last emergent visit when I review epic appears an [facility] visit in February of 2025 for shortness of breath and chest pain. In 2023 he was admitted to [facility]. he follows locally with Dr. Martinez. He has consults standing with Urology and Cardiology. ER COURSE: Labs, CT and chest x-ray. Blood cultures. Ancef started with 1 times saline bolus. He meets criteria for sepsis, is too weak to take care of himself and his disabled partner, likely has acute cellulitis and intertrigo. Hospital medicine service contacted for admission. He continued receiving Ancef, dose was increased for adjustment based on weight. He showed good improvement with resolution of fever, leukocytosis, and improvement of clinical appearance, pain and CRP. He is ambulating without difficulty and is discharged home in improved condition. NOTE TO PCP: f/u imaging in 3 months for L pleural effusion with adjacent rounded opacity, cannot r/o nodule. Time Spent with Patient Time attestation: Total time spent providing and/or coordinating discharge services: Exam Narrative: Exam Narrative: General: No acute distress. Awake, alert, oriented. No pallor. No jaundice. Cardiovascular: Regular rate and rhythm. No murmurs, gallops, or rubs. Respiratory: Clear to auscultation bilaterally. No wheezes or crackles. Abdomen: Bowel sounds present. Soft, nondistended, nontender. Extremities: Lymphedema wraps were removed about 30 minutes before I saw his legs. Left lower extremity erythema and tenderness to palpation are improving, edema is 1+, warmth is also improving. Right lower extremity 1+ pitting edema. Const: Vital Signs, click to edit/add: Vital Signs - 24 hr 10/08/25 15:02 10/08/25 15:02 10/08/25 15:20 Temperature 98 F Pulse Rate 57 L Pulse Rate [Pulse Oximeter] 58 L 58 L Respiratory Rate 16 16 Blood Pressure [Le ft Arm] 140/64 H Pulse Oximetry 97 Oxygen Delivery Me thod Room Air 10/08/25 19:00 10/08/25 23:00 10/08/25 23:00 Temperature 97.8 F 98.4 F Pulse Rate Pulse Rate [Pulse Oximeter] 56 L 59 L 59 L Respiratory Rate 20 20 20 Blood Pressure [Le ft Arm] 140/56 H 119/57 L Pulse Oximetry 98 98 Oxygen Delivery Me thod Room Air Room Air 10/09/25 03:00 10/09/25 07:00 10/09/25 07:00 Temperature 97.8 F 97.4 F L Pulse Rate Pulse Rate [Pulse Oximeter] 53 L 56 L 56 L Respiratory Rate 20 20 20 Blood Pressure [Le ft Arm] 139/70 136/63 Pulse Oximetry 99 98 Oxygen Delivery Me thod Room Air Room Air DS: Data Data Completed and Pending Completed studies during hospitalization: 10/06/2025 EKG: Sinus rhythm with first-degree AV block, 82 beats per minute, left axis deviation, nonspecific T-wave abnormality. Ordering Physician: Gabriel Winters M.D. Date of Service: 10/06/25 Procedure(s): CT abdomen pelvis w con Accession Number(s): [id number] cc: Gabriel Winters M.D.; David Martinez M.D.~ For Patients: As a result of the Cures Act, medical imaging exams and procedure reports are released immediately into your electronic medical record. You may view this report before your referring provider. If you have questions, please contact your health care provider. INDICATION: Fever, generalized weakness, abdominal pain. TECHNIQUE: CT abdomen and pelvis acquired with 150 cc of Isovue 370 IV contrast. COMPARISON: None. FINDINGS: Lower chest: Aortic valve replacement. Small left pleural effusion with adjacent rounded opacity Liver: Unremarkable. Normal in size and attenuation. No suspicious masses. Gallbladder and bile ducts: Cholelithiasis. No inflammation or biliary ductal dilation. Pancreas: Unremarkable. No mass or inflammation. Spleen: Unremarkable. Normal in size. No masses. Adrenal glands: Unremarkable. No nodules. Kidneys: 4 mm non-obstructing right nephrolith. No hydronephrosis or suspicious mass. GI tract: Unremarkable. Normal in caliber. No sign of mass or inflammation. Prior appendectomy. Vasculature: Normal caliber abdominal aorta with mild atherosclerotic calcification. Mesenteric arteries are patent. Lymph nodes: No lymphadenopathy. Peritoneum/Abdominal Wall: Moderate-sized fat-containing umbilical hernia. No free air or significant free fluid. Pelvis: Prostatomegaly. Bones: Unremarkable for age. IMPRESSION: 1. No acute findings within the abdomen and pelvis. 2. Cholelithiasis without evidence for acute cholecystitis. 3. Small left pleural effusion with adjacent rounded opacity could represent round atelectasis; however, pneumonia or a pulmonary nodule could appear similar. Recommend follow-up imaging in 3 months to evaluate for resolution/interval change. 4. Prostatomegaly. Please note that all CT scans at this facility use dose modulation, iterative reconstruction, and/or weight-based dosing when appropriate to reduce radiation dose to as low as reasonably achievable. Dictated by Gabriel Mix MD @ 10/06/2025 2:53:39 PM (Electronically Signed) Ordering Physician: Gabriel Winters M.D. Date of Service: 10/06/25 Procedure(s): XR chest 2V Accession Number(s): [id number] cc: Gabriel Winters M.D.; David Martinez M.D.~ For Patients: As a result of the Cures Act, medical imaging exams and procedure reports are released immediately into your electronic medical record. You may view this report before your referring provider. If you have questions, please contact your health care provider. INDICATION: : fever, weakness COMPARISON: Chest radiograph on March 25, 2025 and prior exams TECHNIQUE: Two view(s) of the chest FINDINGS: Examination is limited secondary to patient body habitus. Stable cardiomegaly and postsurgical changes of aortic valve replacement. There is no focal airspace consolidation, pleural effusion, or pneumothorax. No displaced fractures. Status post median sternotomy. IMPRESSION: No acute cardiopulmonary process. Dictated by Gerald Solitario MD @ 10/06/2025 1:39:51 PM (Electronically Signed) Ordering Physician: Diana Cabrera M.D. Date of Service: 10/07/25 Procedure(s): US venous LE LT Accession Number(s): [id number] cc: Diana Cabrera M.D.; David Martinez M.D.~ For Patients: As a result of the Cures Act, medical imaging exams and procedure reports are released immediately into your electronic medical record. You may view this report before your referring provider. If you have questions, please contact your health care provider. INDICATION: Left lower extremity swelling, venous insufficiency. TECHNIQUE: Ultrasound venous duplex lower left extremity. Compression venous exam was performed using skelton-scale, color Doppler, and spectral Doppler analysis. COMPARISON: None. FINDINGS: Deep veins: Sonographic imaging demonstrates the left common femoral, deep femoral, superficial femoral, popliteal, posterior tibial and the contralateral right common femoral veins to be fully compressible with normal color Doppler blood flow. Superficial veins: Greater saphenous vein is fully compressible. No popliteal cyst. IMPRESSION: Normal left lower extremity venous ultrasound, no sign of deep venous thrombosis. Dictated by Gabriel Sousa MD @ 10/07/2025 12:17:38 PM (Electronically Signed) Labs on day of discharge: Labs from last 24 hours 10/09/25 07:30 WBC 9.12 RBC 4.16 L Hgb 12.9 L Hct 37.6 MCV 90 MCH 31 MCHC 34 RDW Coeff of Manny 13.6 Plt Count 204 Neut % (Auto) 74.4 H Lymph % (Auto) 12.3 L Ellis % (Auto) 8.3 Eos % (Auto) 3.9 Baso % (Auto) 0.3 Neut # (Auto) 6.80 Lymph # (Auto) 1.10 Ellis # (Auto) 0.80 Eos # (Auto) 0.36 Baso # (Auto) 0.03 Abs Immat Gran (auto) 0.07 Imm/Tot Granulo (auto) 0.8 C-Reactive Protein 7.0 H Preliminary micro results at discharge 10/06/25 14:09 Blood Culture - Preliminary Blood NO GROWTH AFTER 48 HOURS 10/06/25 13:35 Blood Culture - Preliminary Blood NO GROWTH AFTER 48 HOURS Discharge Plan Discharge Disposition: Home, Self-Care Date of Admission: 10/06/25 16:40 Attending Provider on Discharge: Diana Cabrera Primary Care Provider: David Martinez Condition: Improved Anticipated Discharge Date/Time: 10/09/25 12:00 Discharge Medications: New cephalexin 500 mg capsule 500 mg PO TID 5 Days Qty: 15 0RF clotrimazole 1 % Cream 1 applic topical BID Qty: 15 0RF Rx Instructions: apply to rash in abdominal skin folds Continued clopidogrel [Plavix] 75 mg tablet 75 mg PO DAILY atorvastatin 20 mg tablet 20 mg PO HS furosemide 40 mg tablet 40 mg PO DAILY metformin 1,000 mg tablet 1,000 mg PO BIDWM omega-3 fatty acids 1,000 mg capsule 1,000 mg PO DAILY insulin lispro 100 unit/mL insulin pen 15 - 30 unit subcut TIDWM Rx Instructions: 15-30 units per sliding scale Nutrview tablet 1 tab PO DAILY Rx Instructions: eye vitamins- melaleuca Prostavan 1 tab PO DAILY Patient Comments: Rx Instructions: MELALEUCA Replenex 3 tab PO DAILY Rx Instructions: MELALEUCA losartan 50 mg tablet 50 mg PO DAILY amlodipine 5 mg tablet 10 mg PO DAILY acetaminophen 500 mg tablet 1,000 mg PO Q6H PRN rivaroxaban 20 mg tablet 20 mg PO QPM Rx Instructions: WITH MEAL metoprolol succinate 100 mg tablet extended release 24 hr 100 mg PO DAILY Qty: 90 3RF Changed insulin glargine 100 unit/mL (3 mL) insulin pen 50 unit subcut DAILY Qty: 15 0RF Discharge Orders: Discharge Order (Routine); Ordered 10/09/25 Ordered By: Diana Cabrera Patient Education: Cephalexin (By mouth), Betamethasone/Clotrimazole (On the skin), Cellulitis (ED) Additional Instructions: Lymphedema Clinic for LLE acquired lymphedema Activity Level: No Restrictions Discharge Diet: 2 gm Sodium Follow Up Appointments: David Martinez MD [Primary Care Provider, Internal Medicine] Referral Note: Please call [phone], Friday morning to schedule follow up appointment with PCP. Need to be seen 5 days from today (Friday) Forms: [employer] Info Instructions
[2025-10-09] MEDS: INSULIN ASPART 100 UNIT/ML SUBCUT (11:36)
--- NOTE | 2025-10-09 14:52 | PC.NURSE ---
IV removed from right arm. Edema wear in place. All belongings sent and forms were signed. [id number] [place] as [facility] was closed today. Patient will pick this up and start the first dose of antibiotic this evening.
== END 2025-10-09 14:00 | disposition home or self-care (01) | DRG 872 ==
LOC: ED 16:04 → MEDSURG 16:41
PROVIDERS: Family Medicine; Admitting Provider Family Medicine; Emergency Provider Emergency Medicine; PCP Internal Medicine; Visit Provider Family Medicine
DX: A41.9 Sepsis, unspecified organism (principal); L03.116 Cellulitis of left lower limb; Z68.41 Body mass index [BMI] 40.0-44.9, adult; I50.32 Chronic diastolic (congestive) heart failure; E11.9 Type 2 diabetes mellitus without complications; L30.4 Erythema intertrigo; B37.2 Candidiasis of skin and nail; I89.0 Lymphedema, not elsewhere classified; E86.0 Dehydration; I35.0 Nonrheumatic aortic (valve) stenosis; I11.0 Hypertensive heart disease with heart failure; I25.10 Atherosclerotic heart disease of native coronary artery without angina pectoris; Z79.84 Long term (current) use of oral hypoglycemic drugs; Z79.4 Long term (current) use of insulin; G47.33 Obstructive sleep apnea (adult) (pediatric); E66.01 Morbid (severe) obesity due to excess calories; Z99.89 Dependence on other enabling machines and devices; E03.8 Other specified hypothyroidism; N40.0 Benign prostatic hyperplasia without lower urinary tract symptoms; E03.9 Hypothyroidism, unspecified; E78.5 Hyperlipidemia, unspecified; Z95.5 Presence of coronary angioplasty implant and graft; Z95.2 Presence of prosthetic heart valve; Z95.1 Presence of aortocoronary bypass graft; Z85.828 Personal history of other malignant neoplasm of skin
CPT/HCPCS: 36415; 71046; 74177; 80048; 80069; 80076; 81001; 82565; 82962; 83036; 83605; 83690; 84145; 85025; 85610; 86140; 87040; 87081; 87631; 93005; 93971; 97165; 97535; 99284; 99285; A9270; J0690; J1815; J7030; Q9967